=== PATIENT | male | born 1950 | race African-American/Black ===

== ENCOUNTER 2018-01-18 11:53 | Emergency (ER) | payer MEDICARE ==
--- NOTE | 2018-01-18 13:00 | RAD REPORT ---
EXAM DESCRIPTION: CT - Head Brain Wo Cont - 01/18/2018 12:43 pm CLINICAL HISTORY: verticle nystagmus, slurring of speech, eposodic ataxia COMPARISON: Head Brain Wo Cont dated 06/17/2016; Ct Stroke Brain Wo Cont dated 09/20/2015 TECHNIQUE: All CT scans are performed using dose optimization technique as appropriate and may inclu de automated exposure control or mA/KV adjustment according to patient size. FINDINGS: The heterogenous predominately hyperdense pontine lesion is again noted showing little to no change since comparative imaging. The lesion measures 25 x 25 mm. No intra-axial bleed is seen. No extra-axial fluid collection or hydrocephalus.No areas of brain edema or evidence of midline shift. The paranasal sinuses and mastoids are clear. The calvarium is intact. IMPRESSION: Predominately hyperdense heterogenous pontine mass is again noted without significant ch scott since prior study. No acute or new abnormality is detected.
--- NOTE | 2018-01-18 13:01 | RAD REPORT ---
EXAM DESCRIPTION: RAD - Chest Single View - 01/18/2018 12:56 pm CLINICAL HISTORY: neurologic symptoms Chest pain. COMPARISON: Chest Single View dated 06/17/2016 FINDINGS: Portable technique limits examination quality. The lungs are grossly clear. The heart is normal in size. No displaced fractures. IMPRESSION: No acute intrathoracic process suspected.
[2018-01-18 13:13] LABS: Absolute Lymphocytes (CBC) 1.4 K/uL (0.7-4.9); Absolute Monocytes 0.5 K/uL (0.1-1.3); Absolute Neutrophil 2.3 K/uL (1.8-8.0); Basophils % 0.4 % (0-1.3); Eosinophils % 1.7 % (0-4.4); Hematocrit 38.6 % (39.6-49.0); Lymphocytes % 31.7 % (15.3-44.8); MCH 31.9 pg (27.0-35.0); MCV 94.3 fL (80-100); MPV 10.3 fL (7.6-11.3); Monocytes % 12.2 % (3.3-12.3)
[2018-01-18 13:17] LABS: Protime INR 1.04
[2018-01-18 13:35] LABS: ALT/SGPT 20 U/L (12-78); AST/SGOT 13 U/L (15-37); Albumin 3.8 g/dL (3.4-5.0); Alkaline Phosphatase 76 U/L (45-117); BUN Blood Urea Nitrogen 9 mg/dL (7-18); Bicarbonate 29 mmol/L (21-32); Bilirubin Direct 0.1 mg/dL (0-0.2); Bilirubin Total 0.4 mg/dL (0.2-1.0); Creatine Phosphokinase 211 U/L (39-308); Glucose Level 101 mg/dL (74-106); Magnesium 2.7 mg/dL (1.8-2.4); Potassium 3.5 mmol/L (3.5-5.1); Protein, Total 7.3 g/dL (6.4-8.2); Sodium Level 141 mmol/L (136-145)
--- NOTE | 2018-01-18 14:30 | RAD REPORT ---
EXAM DESCRIPTION: MRI - Brain Wo Cont - 01/18/2018 2:13 pm CLINICAL HISTORY: Dizziness;Mental status change;Slurred speech COMPARISON: Head Brain Wo Cont dated 01/18/2018 TECHNIQUE: Multi-sequence, multiplanar MR imaging of the brain was performed without contrast. FINDINGS: No intracranial hemorrhage, hydrocephalus or extra-axial fluid collections. Pontine mass is identified measuring 2.9 x 2.6 cm. The mass demonstrates hypointense and hyperintense components on T1 weighted imaging and has the appearance of a cavernoma.No midline shift is seen. DW I is negative for acute CVA. Corpus callosum is normal appearance. Pituitary gland is not pathologically enlarged. Mastoid air cells and paranasal sinuses are clear. 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 No acute CVA or acute intracranial bleed identified.
--- NOTE | 2018-01-18 15:07 | EDPHYS ---
Physician Documentation [facility] Name: Patti Verdugo Age: 68 yrs Sex: Male : 1950 Arrival Date: 01/18/2018 Time: 11:54 Bed 19 Private MD: MOISES KAPADIA ED Physician Malick Frazier HPI: 01/18 14:12 This 68 yrs old Black Male presents to ER via Ambulatory with complaints of S/S of jr8 Possible Stroke. 14:12 Severity of symptoms: At their worst the symptoms were moderate in the emergency jr8 department the symptoms are unchanged. Patient's baseline: Neuro: alert and fully oriented, Motor: no deficits, Ambulation: walks without assistance, Speech: normal. The patient has not experienced similar symptoms in the past. The patient has not recently seen a physician. of patient stated that he has had a past history of hemorrhagic stroke. Stated that for the past couple of weeks has noticed speech difference. Stated that for the past 2 days has had increased slurred speech, trouble walking, and change in affect . Historical: - Allergies: 12:01 NKDA; hb - Home Meds: 12:03 ginko biloba [Active]; One Daily For Men 0.4-600 mg-mcg oral tab [Active]; Vitamin D hb Oral [Active]; carvedilol 6.25 mg oral tab [Active]; clopidogrel 75 mg oral tab 1 tab once daily [Active]; hydralazine 25 mg Oral tab 1 tab 2 times per day [Active]; amlodipine oral [Active]; olmesartan oral oral [Active]; - PMHx: 12:01 Arthritis; CVA; Hypertension; hb - PSHx: 12:01 Appendectomy; BACK SURG; hb - Immunization history:: Adult Immunizations up to date. - Social history:: Smoking status: Patient/guardian denies using tobacco. - Ebola Screening: : No symptoms or risks identified at this time. ROS: 14:12 Eyes: Negative for injury, pain, redness, and discharge, ENT: Negative for injury, jr8 pain, and discharge, Neck: Negative for injury, pain, and swelling, Cardiovascular: Negative for chest pain, palpitations, and edema, Respiratory: Negative for shortness of breath, cough, wheezing, and pleuritic chest pain, Abdomen/GI: Negative for abdominal pain, nausea, vomiting, diarrhea, and constipation, Back: Negative for injury and pain, MS/Extremity: Negative for injury and deformity, Skin: Negative for injury, rash, and discoloration. 14:12 Neuro: Positive for altered mental status, gait disturbance, speech changes. Exam: 14:12 Radiologist reports: unchanged pontine mass present jr8 14:12 Head/Face: Normocephalic, atraumatic. Eyes: Pupils equal round and reactive to light, extra-ocular motions intact. Lids and lashes normal. Conjunctiva and sclera are non-icteric and not injected. Cornea within normal limits. Periorbital areas with no swelling, redness, or edema. ENT: Nares patent. No nasal discharge, no septal abnormalities noted. Tympanic membranes are normal and external auditory canals are clear. Oropharynx with no redness, swelling, or masses, exudates, or evidence of obstruction, uvula midline. Mucous membranes moist. Neck: Trachea midline, no thyromegaly or masses palpated, and no cervical lymphadenopathy. Supple, full range of motion without nuchal rigidity, or vertebral point tenderness. No Meningismus. Cardiovascular: Regular rate and rhythm with a normal S1 and S2. No gallops, murmurs, or rubs. Normal PMI, no JVD. No pulse deficits. Respiratory: Lungs have equal breath sounds bilaterally, clear to auscultation and percussion. No rales, rhonchi or wheezes noted. No increased work of breathing, no retractions or nasal flaring. Abdomen/GI: Soft, non-tender, with normal bowel sounds. No distension or tympany. No guarding or rebound. No evidence of tenderness throughout. Back: No spinal tenderness. No costovertebral tenderness. Full range of motion. Skin: Warm, dry with normal turgor. Normal color with no rashes, no lesions, and no evidence of cellulitis. MS/ Extremity: Pulses equal, no cyanosis. Neurovascular intact. Full, normal range of motion. 14:12 Neuro: Orientation: to person, place, time \T\ situation. Mentation: is normal, Memory: is normal, Cranial nerves: CN I not tested, CN II- XII are normal as tested, visual verdugo are intact. extraocular movements are intact, Facial palsy and sensory deficits are absent. no gross hearing deficit,. Vertical nystagmus in right eye and left eye. Speech is dysarthric, slowed, slurred, Tongue strength is normal, Cerebellar function: normal finger to nose testing, heel to buitrago testing is normal, Motor: moves all fours, Sensation: is normal, Gait: not tested. Vital Signs: 12:00 BP 176 / 83; Pulse 68; Resp 18; Temp 97.9; Pulse Ox 97% on R/A; hb 13:00 BP 185 / 86; Pulse 52; Resp 12; Pulse Ox 99% on R/A; rb1 13:46 BP 173 / 78; Pulse 53; Resp 16; Pulse Ox 98% on R/A; dh3 14:45 BP 164 / 80; Pulse 54; Resp 16; Pulse Ox 98% on R/A; rb1 15:40 BP 177 / 96; Pulse 52; Resp 17; Pulse Ox 99% on R/A; Pain 0/10; rb1 16:40 BP 183 / 95; Pulse 60; Resp 18; Pulse Ox 98% on R/A; rb1 17:40 BP 167 / 94; Pulse 51; Resp 16; Pulse Ox 96% on R/A; Pain 0/10; rb1 18:40 BP 196 / 87; Pulse 51; Resp 16; Pulse Ox 100% on R/A; Pain 0/10; rb1 19:04 BP 169 / 82; Pulse 55; Resp 16; Pulse Ox 99% on R/A; mt 19:45 BP 167 / 98; Pulse 54; Resp 17; Temp 97.9(O); Pulse Ox 100% on R/A; Pain 0/10; bs1 NIH Stroke Scale Scores: 12:10 NIHSS Score: 1 rb1 14:16 NIHSS Score: 1 jr8 MDM: 12:11 Patient medically screened. jr8 14:51 Data reviewed: vital signs, nurses notes, lab test result(s), EKG, radiologic studies, jr8 CT scan, MRI. Data interpreted: Pulse oximetry: on room air is 98 %. Interpretation: normal. Counseling: I had a detailed discussion with the patient and/or guardian regarding: the historical points, exam findings, and any diagnostic results supporting the discharge/admit diagnosis, lab results, radiology results, the need to transfer to another facility, [facility] does not immediately have the required specialist. ED course: Discussed case with Dr. Waters. Recommends transfer for higher level of care for either neurosurgery or interventional neuroradiology to further evaluate him for the cavernoma since he has had acute mental status change and neurologic deficits . 15:04 ED course: [facility] accepted transfer under Dr. Mederos neurosurgery for [facility] . 01/18 12:08 Order name: Glucose, Ancillary Testing; Complete Time: 12:15 EDMS 01/18 12:27 Order name: CPK; Complete Time: 13:44 8 01/18 12:27 Order name: Magnesium; Complete Time: 13:44 01/18 12:27 Order name: Hepatic Function; Complete Time: 13:44 01/18 12:27 Order name: Basic Metabolic Panel; Complete Time: 13:44 01/18 12:27 Order name: CBC with Diff; Complete Time: 13:26 01/18 12:27 Order name: Protime (+inr); Complete Time: 13:26 01/18 12:27 Order name: Ptt, Activated; Complete Time: 13:26 01/18 12:27 Order name: Stroke CXR 1 View; Complete Time: 13:07 01/18 12:27 Order name: EKG; Complete Time: 12:27 01/18 12:27 Order name: Accucheck; Complete Time: 19:46 01/18 12:27 Order name: Cardiac monitoring; Complete Time: 19:46 01/18 12:27 Order name: CT Head Brain wo Cont; Complete Time: 13:07 01/18 13:07 Order name: MRI - Brain Wo Cont; Complete Time: 14:32 01/18 12:27 Order name: EKG - Nurse/Tech; Complete Time: 19:46 01/18 12:27 Order name: IV Saline Lock; Complete Time: 19:46 01/18 12:27 Order name: Labs collected and sent; Complete Time: 19:46 01/18 12:27 Order name: NPO; Complete Time: 19:47 01/18 12:27 Order name: O2 Per Protocol; Complete Time: 19:47 01/18 12:27 Order name: O2 Sat Monitoring; Complete Time: 19:47 01/18 12:27 Order name: Stroke Swallow Screen; Complete Time: 19:47 jr8 Administered Medications: No medications were administered Point of Care Testing: Blood Glucose: 12:00 Blood Glucose: 91 mg/dL; hb Ranges: Critical Glucose Levels:Adult <50 mg/dl or >400 mg/dl <40 mg/dl or >180 mg/dl Disposition: 01/18/18 15:06 Transfer ordered to [facility]. Diagnosis are Pontine Cavernoma, Altered mental status, unspecified, Dysarthria following unspecified cerebrovascular disease. - Reason for transfer: Higher level of care. - Accepting physician is Dr. Mederos. - Condition is Stable. - Problem is new. - Symptoms are unchanged. NIH Stroke Scale - NIH Stroke Score Date: 01/18/2018 Time: 12:10 Total Score = 1 1a. Level of Consciousness (LOC) - 0(Alert) 1b. Level of Consciousness (LOC) (Year \T\ Age) - 0(Both) 1c. LOC Commands (Open \T\ Closes Eyes/Computer Technologist) - 0(Both) 2. Best Gaze (Lateral Gaze Paresis) - 0(Normal) 3. Visual Field Loss - 0(No visual loss) 4. Facial Palsy - 0(Normal) 5a. Left Arm: Motor (10-second hold) - 0(No drift) 5b. Right Arm: Motor (10-second hold) - 0(No drift) 6a. Left Leg: Motor (5-second hold - always test supine) - 0(No drift) 6b. Right Leg: Motor (5-second hold - always test supine) - 0(No drift) 7. Limb Ataxia (finger/nose \T\ heel/buitrago - test with eyes open) - 0(Absent) 8. Sensory Loss (pinprick arms/legs/face) - 0(Normal) 9. Best Language: Aphasia (description/naming/reading) - 0(No aphasia) 10. Dysarthria (speech clarity - read or repeat words) - 1(Mild to Moderate) 11. Extinction and Inattention (visual/tactile/auditory/spatial/personal) - 0(No abnormality) Initials: rb1 NIH Stroke Scale - NIH Stroke Score Date: 01/18/2018 Time: 14:16 Total Score = 1 1a. Level of Consciousness (LOC) - 0(Alert) 1b. Level of Consciousness (LOC) (Year \T\ Age) - 0(Both) 1c. LOC Commands (Open \T\ Closes Eyes/Computer Technologist) - 0(Both) 2. Best Gaze (Lateral Gaze Paresis) - 0(Normal) 3. Visual Field Loss - 0(No visual loss) 4. Facial Palsy - 0(Normal) 5a. Left Arm: Motor (10-second hold) - 0(No drift) 5b. Right Arm: Motor (10-second hold) - 0(No drift) 6a. Left Leg: Motor (5-second hold - always test supine) - 0(No drift) 6b. Right Leg: Motor (5-second hold - always test supine) - 0(No drift) 7. Limb Ataxia (finger/nose \T\ heel/buitrago - test with eyes open) - 0(Absent) 8. Sensory Loss (pinprick arms/legs/face) - 0(Normal) 9. Best Language: Aphasia (description/naming/reading) - 0(No aphasia) 10. Dysarthria (speech clarity - read or repeat words) - 1(Mild to Moderate) 11. Extinction and Inattention (visual/tactile/auditory/spatial/personal) - 0(No abnormality) Initials: jr8 Addendum: 01/20/2018 15:40 Co-signature as Attending Physician, Malick Frazier MD. Signatures: Dispatcher [employer] EDMS Ronald Ford PA PA jr8 Renetta Gamboa RN RN Malick Frazier MD MD Alka Mcmillan RN RN bs1 Corrections: (The following items were deleted from the chart) 01/18 20:01 15:06 01/18/2018 15:06 Transfer ordered to [place] [id number] [facility]. Diagnosis is Pontine Cavernoma; Altered mental status, unspecified; Dysarthria following unspecified cerebrovascular disease. Reason for transfer: Higher level of care. Accepting physician is Dr. Mederos. Condition is Stable. Problem is new. Symptoms are unchanged. jr8
--- NOTE | 2018-01-18 15:07 | ER ---
Nurse's Notes [facility] Name: Patti Verdugo Age: 68 yrs Sex: Male : 1950 Arrival Date: 01/18/2018 Time: 11:54 Bed 19 Private MD: MOISES KAPADIA Diagnosis: Pontine Cavernoma;Altered mental status, unspecified;Dysarthria following unspecified cerebrovascular disease Presentation: 01/18 11:58 Presenting complaint: states: Slurred speech x 2 days, trouble swallowing today. hb Hx CVA. 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 Transition of care: patient was not received from another setting of care. Care prior to arrival: None. 11:58 Method Of Arrival: Ambulatory hb 11:58 Acuity: JOSE 3 hb 12:03 Onset of symptoms was January 17, 2018. hb 12:10 Risk Assessment: Do you want to hurt yourself or someone else? Patient reports no rb1 desire to harm self or others. Initial Sepsis Screen: Does the patient meet any 2 criteria? No. Patient's initial sepsis screen is negative. Does the patient have a suspected source of infection? No. Patient's initial sepsis screen is negative. 12:10 Pre-hospital glucose is not applicable to this patient. rb1 19:05 No acute neurological deficit is noted. bs1 Triage Assessment: 12:10 The onset of the patients symptoms was more than six hours ago. rb1 Stroke Activation: Symptom onset > 6 hours Physician: Stroke Attending; Name: ; Notified At: ; Arrived At: Physician: Chief Stroke Resident; Name: ; Notified At: ; Arrived At: Physician: Stroke Resident; Name: ; Notified At: ; Arrived At: Physician: ED Attending; Name: ; Notified At: ; Arrived At: Physician: ED Resident; Name: ; Notified At: ; Arrived At: Historical: - Allergies: 12:01 NKDA; hb - Home Meds: 12:03 ginko biloba [Active]; One Daily For Men 0.4-600 mg-mcg oral tab [Active]; Vitamin D hb Oral [Active]; carvedilol 6.25 mg oral tab [Active]; clopidogrel 75 mg oral tab 1 tab once daily [Active]; hydralazine 25 mg Oral tab 1 tab 2 times per day [Active]; amlodipine oral [Active]; olmesartan oral oral [Active]; - PMHx: 12:01 Arthritis; CVA; Hypertension; hb - PSHx: 12:01 Appendectomy; BACK SURG; hb - Immunization history:: Adult Immunizations up to date. - Social history:: Smoking status: Patient/guardian denies using tobacco. - Ebola Screening: : No symptoms or risks identified at this time. Screenin:10 Abuse screen: Denies threats or abuse. Nutritional screening: No deficits noted. rb1 Tuberculosis screening: No symptoms or risk factors identified. Fall Risk None identified. Assessment: 12:10 General: Appears in no apparent distress. comfortable, Behavior is calm, cooperative. rb1 Pain: Denies pain. Neuro: Reports tingling in the right hand x 1 year. Neuro: Level of Consciousness is awake, alert, obeys commands, has intermittent confusion. Oriented to person, place, time, situation. Cardiovascular: Capillary refill < 3 seconds is brisk in bilateral fingers. Respiratory: Airway is patent Respiratory effort is even, unlabored, Respiratory pattern is regular, symmetrical. GI: No signs and/or symptoms were reported involving the gastrointestinal system. : No signs and/or symptoms were reported regarding the genitourinary system. Derm: Skin is dry, Skin is normal, Skin temperature is warm. Musculoskeletal: Range of motion: intact in all extremities. 13:00 Patient has been NPO before screening. The patient is alert, and able to follow rb1 commands. The patient exhibits slurred or garbled speech. The patient is not exhibiting difficulty speaking. The patient does not exhibit difficulty understanding words. The patient is able to swallow own secretions with no drooling or need for suction. Patient tolerated one teaspoon of water. No drooling, immediate coughing, gurgling, or clearing of the throat was noted. The patient did not tolerate 90mL of water. Drooling, immediate coughing, gurgling, or clearing of the throat was noted. Bedside swallow screening discontinued. Patient kept NPO until cleared by Speech Therapy or Physician. The patient failed the bedside swallow screening. The patient will be kept NPO until cleared by Speech Therapy or Physician. Provider notified of bedside swallow screening results: Ronald SALCEDO. 13:10 Reassessment: Received order to keep the pt. NPO until cleared by neurology per Ronald rb1 Liliana. Family and pt. informed that the pt. should not have anything to eat or drink until directed otherwise. 14:00 Reassessment: Patient appears in no apparent distress at this time. Patient and/or rb1 family updated on plan of care and expected duration. Pain level reassessed. Patient is alert, oriented x 3, equal unlabored respirations, skin warm/dry/pink. Patient denies pain at this time. 14:56 Reassessment: Patient appears in no apparent distress at this time. No changes from rb1 previously documented assessment. Family at bedside. 15:25 Reassessment: Called report to MELYSSA Hurd at [facility]. Information from the SBAR was rb1 given. All questions asked and answered. 15:27 Reassessment: Pt. and family updated on the POC. rb1 16:20 Reassessment: Patient appears in no apparent distress at this time. Patient and/or rb1 family updated on plan of care and expected duration. Pain level reassessed. Patient is alert, oriented x 3, equal unlabored respirations, skin warm/dry/pink. Pt. is still waiting for transportation to be transferred. Patient denies pain at this time. 17:20 Reassessment: Patient appears in no apparent distress at this time. No changes from rb1 previously documented assessment. No new information on transportation at this time. Family at bedside. Family and Pt. updated on the POC. 18:20 Reassessment: Patient appears in no apparent distress at this time. Patient and/or rb1 family updated on plan of care and expected duration. Pain level reassessed. Patient is alert, oriented x 3, equal unlabored respirations, skin warm/dry/pink. Still waiting for transportation to be transferred. No new updates at this time. Patient denies pain at this time. 19:05 Reassessment: Report received from MELYSSA Ornelas. bs1 19:05 General: Appears in no apparent distress. comfortable, Behavior is calm, cooperative, bs1 appropriate for age. Pain: Denies pain. Neuro: Level of Consciousness is awake, alert, obeys commands, Oriented to person, place, time, situation, Speech is slurred, Facial symmetry appears normal, Intact. Cardiovascular: Denies chest pain, shortness of breath, Heart tones S1 S2 present Capillary refill < 3 seconds Patient's skin is warm and dry. Respiratory: Airway is patent Respiratory effort is even, unlabored, Respiratory pattern is regular, symmetrical. GI: No signs and/or symptoms were reported involving the gastrointestinal system. : No signs and/or symptoms were reported regarding the genitourinary system. EENT: No signs and/or symptoms were reported regarding the EENT system. Musculoskeletal: Circulation, motion, and sensation intact. Capillary refill < 3 seconds, Range of motion: intact in all extremities. 19:45 Reassessment: patient and requesting to leave AMA, nurse Rucker informed patient bs1 and of risks and stating that we are waiting for EMS to transport patient to [facility]. states "We have been here too long, im tired and want to go home, we will follow up with a neurologist in the morning." Nurse informed Dr Petty and GIOVANNY Templeton, to come speak with patient/family. EMS here for patient, DOROTHEA duncan Meghna went into patients room to speak with patient/. and patient now willing to be transferred to [facility]. 19:50 Reassessment: Report given to [facility]. bs1 Vital Signs: 12:00 BP 176 / 83; Pulse 68; Resp 18; Temp 97.9; Pulse Ox 97% on R/A; hb 13:00 BP 185 / 86; Pulse 52; Resp 12; Pulse Ox 99% on R/A; rb1 13:46 BP 173 / 78; Pulse 53; Resp 16; Pulse Ox 98% on R/A; dh3 14:45 BP 164 / 80; Pulse 54; Resp 16; Pulse Ox 98% on R/A; rb1 15:40 BP 177 / 96; Pulse 52; Resp 17; Pulse Ox 99% on R/A; Pain 0/10; rb1 16:40 BP 183 / 95; Pulse 60; Resp 18; Pulse Ox 98% on R/A; rb1 17:40 BP 167 / 94; Pulse 51; Resp 16; Pulse Ox 96% on R/A; Pain 0/10; rb1 18:40 BP 196 / 87; Pulse 51; Resp 16; Pulse Ox 100% on R/A; Pain 0/10; rb1 19:04 BP 169 / 82; Pulse 55; Resp 16; Pulse Ox 99% on R/A; mt 19:45 BP 167 / 98; Pulse 54; Resp 17; Temp 97.9(O); Pulse Ox 100% on R/A; Pain 0/10; bs1 NIH Stroke Scale Scores: 12:10 NIHSS Score: 1 rb1 14:16 NIHSS Score: 1 jr8 ED Course: 11:54 Patient arrived in ED. sb2 11:55 MOISES KAPADIA is Private Physician. sb2 12:00 Triage completed. hb 12:00 Arm band placed on right wrist. hb 12:10 Patient has correct armband on for positive identification. Placed in gown. Bed in low rb1 position. Call light in reach. Side rails up X2. Adult w/ patient. shelter monitor on. Pulse ox on. NIBP on. 12:11 Ronald Ford PA is PHCP. jr8 12:11 Malick Frazier MD is Attending Physician. jr8 12:42 CT completed. Patient tolerated procedure well. Patient moved to CT via stretcher. Patient moved back from CT. 12:43 CT Head Brain wo Cont In Process Unspecified. EDMS 12:52 EKG done, by electrical service technician. reviewed by Ronald SALCEDO. at1 12:55 X-ray completed. Portable x-ray completed in exam room. Patient tolerated procedure sw well. 12:56 Stroke CXR 1 View In Process Unspecified. EDMS 13:00 Inserted saline lock: 22 gauge in right antecubital area, using aseptic technique. rb1 Blood collected. 13:06 Ceci Kang, RN is Primary Nurse. rb1 13:54 Patient moved to MRI via wheelchair. ka 14:06 MRI - Brain Wo Cont In Process Unspecified. EDMS 19:00 Report given to MELYSSA Rucker. rb1 20:00 No provider procedures requiring assistance completed. Patient transferred, IV remains bs1 in place. intact. Administered Medications: No medications were administered Point of Care Testing: Blood Glucose: 12:00 Blood Glucose: 91 mg/dL; hb Ranges: Outcome: 15:06 ER care complete, transfer ordered by . jr8 20:00 Transferred by ground EMS to [facility], Transfer form completed. X-rays sent bs1 w/ patient. Note: Report given to [facility] 20:00 Condition: stable 20:00 Instructed on the need for transfer, Demonstrated understanding of instructions. 20:01 Patient left the ED. bs1 NIH Stroke Scale - NIH Stroke Score Date: 01/18/2018 Time: 12:10 Total Score = 1 1a. Level of Consciousness (LOC) - 0(Alert) 1b. Level of Consciousness (LOC) (Year \\T\\ Age) - 0(Both) 1c. LOC Commands (Open \\T\\ Closes Eyes/Snagger) - 0(Both) 2. Best Gaze (Lateral Gaze Paresis) - 0(Normal) 3. Visual Field Loss - 0(No visual loss) 4. Facial Palsy - 0(Normal) 5a. Left Arm: Motor (10-second hold) - 0(No drift) 5b. Right Arm: Motor (10-second hold) - 0(No drift) 6a. Left Leg: Motor (5-second hold - always test supine) - 0(No drift) 6b. Right Leg: Motor (5-second hold - always test supine) - 0(No drift) 7. Limb Ataxia (finger/nose \\T\\ heel/buitrago - test with eyes open) - 0(Absent) 8. Sensory Loss (pinprick arms/legs/face) - 0(Normal) 9. Best Language: Aphasia (description/naming/reading) - 0(No aphasia) 10. Dysarthria (speech clarity - read or repeat words) - 1(Mild to Moderate) 11. Extinction and Inattention (visual/tactile/auditory/spatial/personal) - 0(No abnormality) Initials: cox branson NIH Stroke Scale - NIH Stroke Score Date: 01/18/2018 Time: 14:16 Total Score = 1 1a. Level of Consciousness (LOC) - 0(Alert) 1b. Level of Consciousness (LOC) (Year \\T\\ Age) - 0(Both) 1c. LOC Commands (Open \\T\\ Closes Eyes/Snagger) - 0(Both) 2. Best Gaze (Lateral Gaze Paresis) - 0(Normal) 3. Visual Field Loss - 0(No visual loss) 4. Facial Palsy - 0(Normal) 5a. Left Arm: Motor (10-second hold) - 0(No drift) 5b. Right Arm: Motor (10-second hold) - 0(No drift) 6a. Left Leg: Motor (5-second hold - always test supine) - 0(No drift) 6b. Right Leg: Motor (5-second hold - always test supine) - 0(No drift) 7. Limb Ataxia (finger/nose \\T\\ heel/buitrago - test with eyes open) - 0(Absent) 8. Sensory Loss (pinprick arms/legs/face) - 0(Normal) 9. Best Language: Aphasia (description/naming/reading) - 0(No aphasia) 10. Dysarthria (speech clarity - read or repeat words) - 1(Mild to Moderate) 11. Extinction and Inattention (visual/tactile/auditory/spatial/personal) - 0(No abnormality) Initials: jr8 Signatures: Dispatcher [employer] Sol Wills Josh, PA PA jr8 aracelis, Padmini, machinist mechanic EKG Tat1 Angelina Cruz Rebecca, RN RN rb1 Kaila Brooke Heather RN RN james Schuler, Yelena Posada, Geena 3 Alka Mcmillan RN RN bs1 Taty Merida2 Corrections: (The following items were deleted from the chart) 12:04 11:58 Presenting complaint: states: Slurred speech x 2 days, trouble hb swallowing today. Hx CVA. Last known normal 2 days ago hb 15:33 12:10 Neuro: Level of Consciousness is awake, alert, obeys commands, Oriented rb1 to person, place, time, situation, rb1
--- NOTE | 2018-01-18 18:37 | EKG ---
Test Date: 2018-01-18 Test Time: 12:49:42 Intellectual Property Legal Assistant: ERIKA MEASUREMENT RESULTS: Intervals: Rate: 52 MO: 156 QRSD: 80 QT: 428 QTc: 398 Curran: P: 54 MO: 156 QRS: 9 T: 48 INTERPRETIVE STATEMENTS: Sinus bradycardia Nonspecific T wave abnormality Abnormal ECG Compared to ECG 06/17/2016 23:18:19 Sinus rhythm no longer present T-wave abnormality still present Electronically Signed On 01-18-18 18:36:16 CDT by Jerry Vanegas
[2018-01-18 20:51] VITALS: TEMP 97.9
[2018-01-18 21:01] VITALS: BP 167/98; O2SAT 100
== END 2018-01-18 20:01 | disposition short-term general hospital (02) ==
LOC: ER 11:53
DX: Q28.3 Other malformations of cerebral vessels (principal); I69.922 Dysarthria following unspecified cerebrovascular disease; I10 Essential (primary) hypertension
CPT/HCPCS: 36415; 70450; 70551; 71045; 80048; 80076; 82550; 82962; 83735; 85025; 85610; 85730; 93005; 99285

== ENCOUNTER 2019-04-12 10:43 | Inpatient (IN) | payer MEDICARE ==
--- NOTE | 2019-04-12 15:38 | R.PREADM ---
SCREENING DATE AND TIME 04/12/2019 11:08 (MICROARRAY ANALYST) ANTICIPATED REHAB ADMISSION DATE 04/14/2019 REFERRING FACILITY [facility] REFERRAL DATE AND TIME 04/12/2019 11:09 (MICROARRAY ANALYST) ACUTE ADMIT DATE 1950 Previous Rehabilitation(s): No. REFERRING PHYSICIAN S[facility] REHAB FACILITY [facility] CLINICAL LIAISON Patricio Alejandra PHYSICIAN REVIEWER Dr. Scott Waters M.D. [facility]# [id number] [id number] NAME TIM JO ADDRESS [address] [place] [address] [address]IP [phone] DATE OF 1950 AGE 69 SSN# [id number] GENDER male MARITAL STATUS RACE unknown race ADMIT FROM 02 - [facility] PRE-HOSPITAL LIVING SETTING 01 - Home (private home/apt. board/care, assisted living, assisted, transitional living) HOME TYPE AND DETAILS Type of home: single family house # of steps to enter the residence: 0 # of steps within the residence: 0 # of levels in the residence: 1 PRE-HOSPITAL LIVING WITH Family/Relatives FAMILY SUPPORT Yes PRIMARY FAMILY CONTACT NAME Mirella Jo PRIMARY FAMILY CONTACT PHONE PHONE PRIMARY FAMILY CONTACT ON ADM.? no IS PRIMARY FAMILY CONTACT AUTH. REP.? no 1ST EMERGENCY CONTACT Mirella Jo 1ST CONTACT PHONE PHONE 1ST CONTACT ON ADM. no IS 1ST CONTACT AUTH. REP.? no PHONE 2ND CONTACT ON ADM.? no PATIENT EMPLOYMENT STATUS Retired (for age) PATIENT EMPLOYER No Employer PAYOR INFORMATION: 1ST PAYOR NAME [facility] 1ST PAYOR PHONE 1ST PAYOR INJURY/ILLNESS DUE TO ACCIDENT? No ANOTHER CONSTITUTION PARTY RESPONSIBLE? 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 Pneumonia Dehydration Malnutrition SUMMARY OF ACUTE HOSPITALIZATION: Pt. is a 69 yo Right-handed male of unknown race. On 04/02/2019 he was admitted to [facility] with diagnosis Obstructive Hydrocephalus. His impairment category is Brain Dysfunction 02 - Closed Injury (07.27). Pre-morbidly, Pt. was independent/mod-I in Locomotion, Transfers Control, Self-Care, Ambulation, and Sphincter Control; and he had good Social Cognition. Currently, he has deficits of Locomotion, Self-Care, Transfers Control, Safety Awareness, Social Cogn ition, and Communication. Pt. is now referred to [facility] for acute in-patient rehabilitation in order to maximize patient's functional independence in activities of daily living, strength, ROM, and mobi lity. Patient has realistic goal of being discharged at assistance level 6-Osbaldo to reside at Home with Fam brea/Relatives. PAST MEDICAL HISTORY Hypokalemia (E87.6) arteriovenous malformation of cerebral vesels arthritis childhood asthma diplopia dysphagia hypertension PAST SURGICAL HISTORY: APPENDECTOMY rotator cuff surgery microlaminectomy MEDICATION ALLERGIES: No Known Drug Allergies (NKDA) ENVIRONMENTAL ALLERGIES: - Substance Allergies None Known - Other Allergies None Known CODE STATUS: Full code WEIGHT/HEIGHT/BMI: WEIGHT 175 lbs HEIGHT 5' 10" BMI 25.1 DIET: - Diet Type NPO (nothing by mouth) - Diet - Liquid Texture Regular - Tube Feed N/A REVIEW OF SYSTEMS: - Gen Alert and awake Lying in bed No apparent distress Oriented to: person, time, and place - Vital Signs Vital signs stable, afebrile - CVS RRR VITAL SIGNS Temperature: 97.8 F SBP/DBP: 144/75 Pulse: 99 Resp: 17 Vital signs stable, afebrile MEDICATIONS/TREATMENT: Other- See attached MAR (Medication Administration Record). CURRENT SPHINCTER CONTROL: Pre-hospital bladder status: continent # of bladder accidents in the last 7 days prior to screenin Pre-hospital bowel status: continent # of bowel accidents in the last 7 days prior to screenin Last Bowel Movement Date: 04/12/2019 CURRENT LOCOMOTION STATUS: distance traveled in wheelchair 0 feet distance walked 30 feet DETAILED CURRENT FUNCTIONAL STATUS: - Bladder accident frequency: Ind - No accidents in the past 7 days - Bowel accident frequency: Ind - No accidents in the past 7 days - Walking score based on distance walked: 1(<=50ft) - Wheelchair score based on distance traveled: 1(<=50ft) QI SCORES: - Self-Care A. Eating 01-Dependent B. Oral hygiene 05-Setup or clean-up assistance C. Toileting hygiene 03-Partial/moderate assistance E. Shower/bathe self 03-Partial/moderate assistance F. Upper body dressing 04-Supervision or touching assistance G. Lower body dressing 03-Partial/moderate assistance H. Putting on/taking off footwear 03-Partial/moderate assistance - Mobility A. Roll left and right 03-Partial/moderate assistance B. Sit to lying 04-Supervision or touching assistance C. Lying to sitting on side of bed 04-Supervision or touching assistance D. Sit to stand 04-Supervision or touching assistance E. Chair/[id number] transfer 04-Supervision or touching assistance F. Toilet transfer 04-Supervision or touching assistance G. Car transfer 88-Not attempted due to medical condition or safety concerns I. Walk 10 feet 02-Substantial/maximal assistance J. Walk 50 feet with two turns 88-Not attempted due to medical condition or safety concerns K. Walk 150 feet 88-Not attempted due to medical condition or safety concerns L. Walking 10 feet on uneven surfaces 88-Not attempted due to medical condition or safety concerns M. 1 step (curb) 88-Not attempted due to medical condition or safety concerns N. 4 steps 88-Not attempted due to medical condition or safety concerns O. 12 steps 88-Not attempted due to medical condition or safety concerns P. Picking up object 88-Not attempted due to medical condition or safety concerns R. Wheel 50 feet with two turns 88-Not attempted due to medical condition or safety concerns S. Wheel 150 feet 88-Not attempted due to medical condition or safety concerns - Bladder and Bowel Bladder continence 1-Stress incontinence only Bowel continence 0-Always continent - Endurance Fair - Balance Poor - Safety Awareness Poor CURRENT FUNC. DEFICITS: Locomotion, Self-Care, Transfers Control, Safety Awareness, Social Cognition, and Communication CURRENT / PREVIOUS ASSISTIVE DEVICES: 3-in-1 Commode BSC Glasses Raised Toilet Rolling Walker Shower Chair Tub Bench Wheelchair HISTORY OF FALLS. HAS THE PATIENT HAD TWO OR MORE FALLS IN THE PAST YEAR OR ANY FALL WITH INJURY IN T HE PAST YEAR?: Yes PRIOR SURGERY. DID THE PATIENT HAVE MAJOR SURGERY DURING THE 100 DAYS PRIOR TO ADMISSION?: Yes THERAPY NOTES FROM ACUTE CARE: Attached. SPECIAL NEEDS: - Safety Concerns Aspiration precautions needed due to Dysphagia Skin breakdown precautions needed due to skin breakdown risk PRECAUTIONS: - Aspiration Precaution 1 to 1 supervision with all po intake All meals in the dysphagia dining room No straws Seated at 90 degrees while eating and 30 minutes after meals - Fall Precaution 1 to 1 supervision PATIENT NEEDS ACTIVE AND ONGOING THERAPEUTIC INTERVENTION OF MULTIPLE THERAPY DISCIPLINES, INCLUDING: - Occupational Therapy Cognitive Retraining. Visual Perceptual Training. - Dietary and Nutrition Adequate Nutrition. Nutritional Education. Nutritional Supplements. - Speech Therapy Augmentative Communication Equipment. Cognitive Training. Dysphagia Therapy. Expressive Language Skil ls. Receptive Language Skills. PATIENT NEEDS CLOSE MEDICAL SUPERVISION BY A REHABILITATION PHYSICIAN FOR: Coordination of Treatment Team Medical and Co-Morbidity Management PATIENT REQUIRES 24X7 REHAB NURSING FOR MEDICAL AND FUNCTIONAL MGT. OF THE FOLLOWING DEFICITS: Disease Management Medication Management Patient/Family Education Providing Safe Environment Swallowing PATIENT REQUIRES INTENSIVE, COORDINATED INTERDISCIPLINARY APPROACH TO REHAB: Arranging Home Equipment/Services Discharge Planning Family Intervention/Training Excel Developer/Case Management PATIENT REHAB POTENTIAL: Claudia JO is able and expected to receive 3 hours of individualized therapy daily on at least 5 of ev mayra 7 days Claudia JO's prognosis for significant practical improvement within a reasonable period of time appear s Good Expected level of measurable improvement will be of a practical value to Claudia JO's functional capac ity or adaptations to impairments Has a viable Discharge Plan Medically appropriate; condition is sufficiently stable to participate in intensive rehab program DISCHARGE PLAN: - Estimated Length of Stay (days) 17. - Consensus on plan Discharge plan has been discussed with primary caregiver. Patient/Family is in agreement with the brock n. Primary caregiver is in agreement with the plan. - Patient/Family Goals Return home with assistance. - Planned Living Setting Upon Discharge Home, to live with Family/Relatives. RECOMMENDED CARE LEVEL: IRF RECOMMENDATION DETAILS: Recommended Admission to Comprehensive Rehabilitation Program to Increase Functional [place] SCREENER'S COMPLETENESS CONFIRMATION: - Screening Confirmation The patient data collection on this preadmission screening form is finished PHYSICIANS REVIEW AND ADMISSION DETERMINATION Admit - Based on my review of the Pre-Admission Screening results, in my medical judgment and experie nce, I concur with the findings and recommend admission to [facility], as this patient requires an IRF level of care. SIGNATURE PANEL: Clinical Liaison - [electronically] signed by Zehra Jones on 04/12/2019 at 12:36 (MICROARRAY ANALYST) Clinical Liaison - [electronically] signed by Patricio Alejandra on 04/12/2019 at 12:48 (MICROARRAY ANALYST) Physician Reviewer - [electronically] signed by Dr. Scott Waters M.D. on 04/12/2019 at 15:38 (MICROARRAY ANALYST )
[2019-04-12] MEDS ORDERED: ACETAMINOPHEN 325 MG TABLET PO PRN (18:30)
[2019-04-12] MEDS ORDERED: BISACODYL 10 MG RECTAL SUPP PR PRN (18:34)
[2019-04-12 19:07] LABS: Urine Appearance CLEAR; Urine Bilirubin NEGATIVE (NEG); Urine Blood NEGATIVE (NEG); Urine Color YELLOW; Urine Glucose NEGATIVE (NEG); Urine Protein NEGATIVE (NEG); Urine Urobilinogen 0.2 mg/dL (0.2-1.0)
[2019-04-12 19:15] LABS: Urine Bacteria <20 /HPF (NONE SEEN); Urine Culture Reflex Order NOT NEEDED; Urine RBC NONE SEEN /HPF (NONE SEEN)
[2019-04-12] MEDS: DOCUSATE NA 100 MG CAP PO SCH (20:00)
[2019-04-12] MEDS: SENOSIDES 8.6 MG TAB PO SCH (20:00)
[2019-04-12] MEDS: carvediloL 6.25 MG TAB PO SCH (21:20)
[2019-04-13] MEDS: HYDRALAZINE HCL 25 MG TABLET PO SCH ×4 (00:53→23:50)
[2019-04-13] MEDS: HEPARIN 5000 UNIT/ML 1 ML VIAL SQ SCH ×4 (01:00→23:51)
[2019-04-13] MEDS ORDERED: HYDRALAZINE HCL 25 MG TABLET PO SCH (01:00)
[2019-04-13 06:17] LABS: Absolute Lymphocytes (CBC) 2.1 K/uL (0.7-4.9); Hematocrit 34.3 % (39.6-49.0); Lymphocytes % 31.9 % (15.3-44.8); MPV 9.6 fL (7.6-11.3); RBC Red Blood Cell Count 3.69 M/uL (4.33-5.43)
[2019-04-13 06:50] LABS: Albumin 3.1 g/dL (3.4-5.0); BUN Blood Urea Nitrogen 18 mg/dL (7-18); Bicarbonate 26 mmol/L (21-32); Glucose Level 105 mg/dL (74-106); Magnesium 2.5 mg/dL (1.8-2.4); Potassium 4.1 mmol/L (3.5-5.1); Prealbumin 24.4 mg/dL (20-40); Sodium Level 140 mmol/L (136-145)
[2019-04-13] MEDS: AMLODIPINE 10 MG TAB PO SCH (08:16)
[2019-04-13] MEDS: DOCUSATE NA 100 MG CAP PO SCH ×2 (08:16→19:22)
[2019-04-13] MEDS: carvediloL 6.25 MG TAB PO SCH ×2 (08:17→19:52)
[2019-04-13] MEDS: SENOSIDES 8.6 MG TAB PO SCH ×2 (08:17→19:52)
--- NOTE | 2019-04-13 15:41 | R.HP ---
FACILITY: [facility] ENCOUNTER DATE AND TIME: 04/13/2019 14:56 (CODING COORDINATOR) MR#: [id number] TIM MCDONALD ADDRESS: [address] [place] [address] [address] CITY: [place] ZIP [address] PHONE: DATE OF : 1950 AGE: 69 SSN# [id number] GENDER: Male DEXTERITY Right-handed MARITAL STATUS RACE Unknown race PRE-HOSPITAL LIVING SETTING 01 - Home (private home/apt. board/care, assisted living, fci, transitional living) PRE-HOSPITAL LIVING WITH Family/Relatives ENCOUNTER PHYSICIAN: Dr. Scott Waters M.D. 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 is a 69 yo Right-handed male of unknown race. On 04/02/2019 he was admitted to [facility] with diagnosis Obstructive Hydrocephalus. His impairment category is Brain Dysfunction 02 - Closed Injury (02.22). Pre-morbidly, Pt. was independent/mod-I in Locomotion, Transfers Control, Self-Care, Ambulation, and Sphincter Control; and he had good Social Cognition. Currently, he has deficits of Locomotion, Self-Care, Transfers Control, Safety Awareness, Social Cogn ition, and Communication. Pt. is now referred to [facility] for acute in-patient rehabilitation in order to maximize patient's functional independence in activities of daily living, strength, ROM, and mobi lity. Patient has realistic goal of being discharged at assistance level 6-Osbaldo to reside at Home with Fam brea/Relatives. MEDICATION ALLERGIES: No Known Drug Allergies (NKDA) ENVIRONMENTAL ALLERGIES: - Substance Allergies None Known - Other Allergies None Known PAST MEDICAL HISTORY: Hypokalemia (E87.6) arteriovenous malformation of cerebral vesels arthritis childhood asthma diplopia dysphagia hypertension PAST SURGICAL HISTORY: APPENDECTOMY rotator cuff surgery microlaminectomy FAMILY HISTORY: Family history is not contributory. SOCIAL HISTORY: - Home Living Family/Relatives REVIEW OF SYSTEMS: - Gen No Chills Fatigue No Fever - Eyes No Double Vision No itchiness - ENMT No Difficulty Swallowing - CVS No Chest Discomfort No Chest Pain Fatigue No Weight Gain - Resp No Cough No Shortness of Breath - GI Continent No Abdominal Pain No Constipation No Diarrhea - Continent No Kidney Pain No Painful Urination No Urinary Urgency - MSK Joint Pain No Muscle Cramps Stiffness - Skin No Itching No Rash No Suspicious Lesions - Neuro Coordination Difficulty Difficulty with Concentration Memory Loss No Seizures Weakness - Psych No Anxiety No Depression No HIV Exposure No Persistent Infections No Seasonal Allergies - Endo No Cold/Heat Intolerance No Excessive Hunger No Excessive Thirst No Excessive Urination PHYSICAL EXAM - Gen Alert and awake Lying in bed No apparent distress Oriented to: person, time, and place - Skin No skin breakdown. Normacephalic HUB INVENTORY SPECIALIST shunt is intact. - Eyes No abnormalities - ENMT No abnormalities - Neck No abnormalities - CVS RRR - Chest No abnormalities - Abd Soft - GI Non distended Deferred - No abnormalities - Ext Mild bilateral lower extremity edema. - MSK 4+/5 weakness in left lower extremity - Neuro 4/5 strength bilaterally upper and lower extremities. - Psych No abnormalities VITAL SIGNS Temperature: 97.8 F SBP/DBP: 144/75 Pulse: 99 Resp: 17 NURSING: - Shower allowing shower - Bladder care per protocol - Skin care per protocol PRECAUTIONS: - Aspiration Precaution 1 to 1 supervision with all po intake All meals in the dysphagia dining room No straws Seated at 90 degrees while eating and 30 minutes after meals - Fall Precaution 1 to 1 supervision ACTIVITIES OOB only with supervision FUNCTIONAL STATUS: - Self-Care A. Eating sup Osbaldo B. Grooming sup modA C. Bathing sup modA D. Dressing - Upper sup modA E. Dressing - Lower sup modA F. Toileting sup modA - Sphincter Control G. Bladder control sup modA H. Bowel control sup modA - Transfers Control I. Bed/Chair/Wheelchair Elba Elba J. Toilet Elba modA K. Tub/Shower modA modA - Locomotion L. Walk/Wheelchair (W) modA maxA M. Stairs modA Dep - Communication N. Comprehension (A) sup Elba O. Expression (B) sup Elba - Social Cognition P. Social Interaction sup Elba Q. Problem Solving sup Elba R. Memory sup Elba - Endurance Good - Balance Good - Safety Awareness Good QI SCORES: - Self-Care A. Eating 01-Dependent B. Oral hygiene 05-Setup or clean-up assistance C. Toileting hygiene 03-Partial/moderate assistance E. Shower/bathe self 03-Partial/moderate assistance F. Upper body dressing 04-Supervision or touching assistance G. Lower body dressing 03-Partial/moderate assistance H. Putting on/taking off footwear 03-Partial/moderate assistance - Mobility A. Roll left and right 03-Partial/moderate assistance B. Sit to lying 04-Supervision or touching assistance C. Lying to sitting on side of bed 04-Supervision or touching assistance D. Sit to stand 04-Supervision or touching assistance E. Chair/zvg-[id number]-yfzry transfer 04-Supervision or touching assistance F. Toilet transfer 04-Supervision or touching assistance G. Car transfer 88-Not attempted due to medical condition or safety concerns I. Walk 10 feet 02-Substantial/maximal assistance J. Walk 50 feet with two turns 88-Not attempted due to medical condition or safety concerns K. Walk 150 feet 88-Not attempted due to medical condition or safety concerns L. Walking 10 feet on uneven surfaces 88-Not attempted due to medical condition or safety concerns M. 1 step (curb) 88-Not attempted due to medical condition or safety concerns N. 4 steps 88-Not attempted due to medical condition or safety concerns O. 12 steps 88-Not attempted due to medical condition or safety concerns P. Picking up object 88-Not attempted due to medical condition or safety concerns R. Wheel 50 feet with two turns 88-Not attempted due to medical condition or safety concerns S. Wheel 150 feet 88-Not attempted due to medical condition or safety concerns - Bladder and Bowel Bladder continence 1-Stress incontinence only Bowel continence 0-Always continent - Endurance Fair - Balance Poor - Safety Awareness Poor CURRENT FUNC. DEFICITS: Locomotion, Self-Care, Transfers Control, Safety Awareness, Social Cognition, and Communication MEDICATIONS: - Other See attached MAR (Medication Administration Record) ASSESSMENT: Pt. is a 69 yo Right-handed male of unknown race.On 04/02/2019 he was admitted to [facility] diagnosis Obstructive Hydrocephalus.His impairment category is Brain Dysfunction 02 - Closed Inju ry (07.27).Pre-morbidly, Pt. was independent/mod-I in Locomotion, Transfers Control, Self-Care, Ambul ation, and Sphincter Control; and he had good Social Cognition.Currently, he has deficits of Locomoti on, Self-Care, Transfers Control, Safety Awareness, Social Cognition, and Communication.Pt. is now re ferred to [facility] for acute in-patient rehabilitation in order to maximize patient's functional independence in activities of daily living, strength, ROM, and mobility.- Rehab Goal Patient has realistic goal of being discharged at assistance level 6-Osbaldo to reside at Home with Fam brea/Relatives. - Physical Therapy Gait dysfunction - to improve, our physical therapists will perform initial evaluation of pt's status upon admission and devise an individualized program for Gait Training, and Wheel Chair mobility Inability to transfer - to improve, our physical therapists will perform initial evaluation of pt's s tatus upon admission and devise an individualized program for Bed mobility Need for home safety evaluation - to improve, our physical therapists will perform initial evaluation of pt's status upon admission and devise an individualized program for Home Evaluation Edema - to improve, our physical therapists will perform initial evaluation of pt's status upon admi ssion and devise an individualized program for Elevation Training, and Lymphedema Therapy Need in caregiver upon discharge - to improve, our physical therapists will perform initial evaluatio n of pt's status upon admission and devise an individualized program for Caregiver Training New precaution - to improve, our physical therapists will perform initial evaluation of pt's status u ally admission and devise an individualized program for Patient precaution education Achieving independence - to improve, our physical therapists will perform initial evaluation of pt's status upon admission and devise an individualized program for Community Reintegration Activities - Occupational Therapy ADL deficits - to improve, our occupation therapists will perform initial evaluation of pt's status u ally admission and devise an individualized program for Bathing, Bed mobility, Community Reintegration , Cooking, Dressing, Eating, Fine Motor Skills, Grooming, Homemaking, Kitchen Mobility, Laundry, Leela ent Education, Safety Awareness, Splinting - Positioning, Transfers(Toilet, Tub, Shower), and Wheel C hair Management Cognitive deficits - to improve, our occupation therapists will perform initial evaluation of pt's st atus upon admission and devise an individualized program for Cognition - orientation Need for rn homecare - to improve, our occupation therapists will perform initial evaluation of pt's s tatus upon admission and devise an individualized program for Caregiver Training MEDICAL PLAN: - Diet Type Start NPO (nothing by mouth) - Diet - Liquid Texture Start Regular - Tube Feed Start N/A - Bladder care per protocol - Aspiration Precaution 1 to 1 supervision with all po intake All meals in the dysphagia dining room No straws Seated at 90 degrees while eating and 30 minutes after meals - Fall Precaution 1 to 1 supervision - Skin care per protocol - Other See attached MAR (Medication Administration Record) - Shower shower DISCHARGE PLAN: - Estimated Length of Stay (days) 17. - Consensus on plan Discharge plan has been discussed with primary caregiver. Patient/Family is in agreement with the brock n. Primary caregiver is in agreement with the plan. - Patient/Family Goals Return home with assistance. - Planned Living Setting Upon Discharge Home, to live with Family/Relatives. SIGNATURE PANEL: (CODING COORDINATOR)
--- NOTE | 2019-04-13 15:43 | PAPE ---
PATIENT: [facility] MR# [id number] REFERRING DOCTOR Sánchez Mederos EVALUATION DATE AND TIME 04/13/2019 15:41 (CONTRACT ASSOCIATE) NAME TIM JO DATE OF 1950 AGE 69 PHONE SSN# [id number] GENDER male EVALUATING PHYSICIAN Dr. Scott Waters M.D. ADMISSION DIAGNOSIS: Obstructive Hydrocephalus ONSET DATE 04/02/2019 SECONDARY/COMORBID DIAGNOSES TIERED: - Non-Tiered Hypokalemia (E87.6) dysphagia arteriovenous malformation of cerebral vesels diplopia - N/A hypertension arthritis childhood asthma POST-ADMISSION FUNCTIONAL/MEDICAL STATUS: - Bladder Same accident frequency: Ind - No accidents in the past 7 days - Bowel Same accident frequency: Ind - No accidents in the past 7 days - Walking Same score based on distance walked: 1(<=50ft) - Wheelchair Same score based on distance traveled: 1(<=50ft) STATUS CHANGE EVALUATION: No change in Functional or Medical Status is identified compared with Pre-Admission screening. PATIENT NEEDS CLOSE MEDICAL SUPERVISION BY A REHABILITATION PHYSICIAN FOR: Coordination of Treatment Team Medical and Co-Morbidity Management PATIENT REQUIRES 24X7 REHAB NURSING FOR MEDICAL AND FUNCTIONAL MGT. OF THE FOLLOWING DEFICITS: Disease Management Medication Management Patient/Family Education Providing Safe Environment Swallowing PATIENT REQUIRES INTENSIVE, COORDINATED INTERDISCIPLINARY APPROACH TO REHAB: Arranging Home Equipment/Services Discharge Planning Family Intervention/Training Cover Assembler/Case Management LIST OF IDENTIFIED AND POTENTIAL PROBLEMS: Alteration in leisure activities Aspiration, Actual or Potential Bladder, Incontinence Blood Pressure, Hypertension/hypotension Issues Bowel, Incontinence Infection, Actual or Potential Mobility Impaired Pain, Alteration in Comfort Self Care Deficit Skin Integrity, Actual or Potential Urinary Tract Infection (UTI), Actual or Potential RISK FOR COMPLICATIONS - Hypertension CVA. Hypotension. ID. TIA. - Dysphagia Asp. Pneumonia. Dehydration. Malnutrition. INTERVENTIONS - Hypertension - Dysphagia PATIENT COULD BE AT RISK FOR COMPLICATIONS FROM ADVERSE MEDICAL CONDITIONS DUE TO HIS/HER COMORBIDITI ES AND THE RIGORS OF THE INTENSIVE REHABILLITATION PROGRAM. METHODS OR INTERVENTIONS TO AVOID COMPLIC ATIONS INCLUDE: - Infection Clinical staff to assess and manage the signs and symptoms of infection including fever, redness, war mth, etc. - Urinary Tract Infection - Aspiration Clinical staff will assess and manage coughing, drooling, congestion. - Falls Patient will be evaluated for Fall Precautions and will be placed on Fall Precautions as indicated pe r protocol. - Skin Breakdown Nursing will assess skin daily using assessment tool and will place on Skin Breakdown Precautions as indicated per protocol. - Pain Clinical staff may employ non-medication methods such as massage, distraction, decrease stimulus, etc . as needed. Clinical staff will assess patient's pain level every shift per protocol to assess and e nsure pain management effectiveness. Medications will be given and the pain level re-assessed. PRELIMINARY PLAN OF CARE: - Physical Therapy Patient needs Physical Therapy for a daily minimum of 1.5 hours at least 5 out of 7 days, to improve: Mobility, Strengthening, Transfers, Stretching, ROM, Endurance, Ability to manage stairs, Gait, and Balance. - Speech Therapy Patient needs Speech Therapy for a daily minimum of 0.5 hours at least 5 out of 7 days, to improve: S wallowing, Cognition, Language Skills, and Compensatory Strategies. - Rehabilitation Nursing Patient requires 24x7 Rehabilitation Nursing for: Pain Issues, Identifying and preventing risk factor s, Monitoring and reporting current medical conditions, Assisting with ambulation and transfer, Siobhan ting with all ADL-s, Teaching patients about disease process and medications, Family teaching, Provid ing safe environment, Bowel and Bladder Issues, Skin Integrity, and Medication Management. Patient needs Cover Assembler and/or Case Management for: Discharge Planning, Arranging Home Equipmen t or Services, and Family Interventions. - Dietary and Nutrition Services Patient needs Dietary and Nutrition Services for: Adequate Nutrition, Nutritional Supplements, and Nu tritional Education. - Occupational Therapy Patient needs Occupational Therapy for a daily minimum of 1.5 hours at least 5 out of 7 days, to impr ove Activities of Daily Living, including: Eating, Grooming, Bathing, Dressing, Toileting, Toilet Tra nsfers, Community Reintegration, Higher functional activities, Adaptive Equipment, Splinting, Househo ld Tasks, and Other activities as determined. QI SCORES: - Self-Care A. Eating 01-Dependent B. Oral hygiene 05-Setup or clean-up assistance C. Toileting hygiene 03-Partial/moderate assistance E. Shower/bathe self 03-Partial/moderate assistance F. Upper body dressing 04-Supervision or touching assistance G. Lower body dressing 03-Partial/moderate assistance H. Putting on/taking off footwear 03-Partial/moderate assistance - Mobility A. Roll left and right 03-Partial/moderate assistance B. Sit to lying 04-Supervision or touching assistance C. Lying to sitting on side of bed 04-Supervision or touching assistance D. Sit to stand 04-Supervision or touching assistance E. Chair/kvg-[id number]-mwqxq transfer 04-Supervision or touching assistance F. Toilet transfer 04-Supervision or touching assistance G. Car transfer 88-Not attempted due to medical condition or safety concerns I. Walk 10 feet 02-Substantial/maximal assistance J. Walk 50 feet with two turns 88-Not attempted due to medical condition or safety concerns K. Walk 150 feet 88-Not attempted due to medical condition or safety concerns L. Walking 10 feet on uneven surfaces 88-Not attempted due to medical condition or safety concerns M. 1 step (curb) 88-Not attempted due to medical condition or safety concerns N. 4 steps 88-Not attempted due to medical condition or safety concerns O. 12 steps 88-Not attempted due to medical condition or safety concerns P. Picking up object 88-Not attempted due to medical condition or safety concerns R. Wheel 50 feet with two turns 88-Not attempted due to medical condition or safety concerns S. Wheel 150 feet 88-Not attempted due to medical condition or safety concerns - Bladder and Bowel Bladder continence 1-Stress incontinence only Bowel continence 0-Always continent - Endurance Fair - Balance Poor - Safety Awareness Poor POTENTIAL FUNCTIONAL GOALS FOR PATIENT TO ACHIEVE BY DISCHARGE: - Safety Precaution Patient will remain free from falls or injury at time of discharge. - Bed Mobility Patient will perform bed mobility at 4-Elba level of assistance. - Transfers Patient will complete transfers from bed to chair at 4-Elba level of assistance. - Mobility Patient will ambulate 150 ft with 4-Elba level of assistance with RW. PATIENT REHAB POTENTIAL Claudia JO is able and expected to receive 3 hours of individualized therapy daily on at least 5 of ev mayra 7 days Claudia JO's prognosis for significant practical improvement within a reasonable period of time appear s Good Expected level of measurable improvement will be of a practical value to Claudia JO's functional capac ity or adaptations to impairments Has a viable Discharge Plan Medically appropriate; condition is sufficiently stable to participate in intensive rehab program DISCHARGE PLAN: - Estimated Length of Stay (days) 17. - Consensus on plan Discharge plan has been discussed with primary caregiver. Patient/Family is in agreement with the brock n. Primary caregiver is in agreement with the plan. - Patient/Family Goals Return home with assistance. - Planned Living Setting Upon Discharge Home, to live with Family/Relatives. CONCLUSION ON REHABILITATION NECESSITY: I have evaluated patient's pre-admission functional status and, comparing it to the patient's post-ad mission functional status now, I conclude that the pre-admission assessment was accurate. Patient's c ondition on admission supports the medical necessity of admission to [facility]. It is safe to proceed with patient's therapy program. SIGNATURE PANEL: (CONTRACT ASSOCIATE)
--- NOTE | 2019-04-13 16:33 | FAST ---
ENCOUNTER DATE AND TIME: 04/13/2019 08:00 (BLENDING LINE ATTENDANT) NAME TIM JO DATE OF : 1950 DATE OF ADMISSION: 04/13/2019 14:57 (BLENDING LINE ATTENDANT) PHONE: AGE: 69 N# [id number] GENDER: Male ENCOUNTER PHYSICIAN: Dr. Scott Waters M.D. ADMISSION DIAGNOSIS: - Brain Dysfunction 02 - Closed Injury (07.27) Obstructive Hydrocephalus. ROLL LEFT AND RIGHT: ROLL LEFT AND RIGHT - STEP 1: Does the patient complete the activity by him/herself with no assistance (physical, verbal/nonverbal cueing, setup/clean-up)? No. ROLL LEFT AND RIGHT - STEP 2: Does the patient need only setup/clean-up assistance from one helper? No. ROLL LEFT AND RIGHT - STEP 3: Does the patient need only verbal/nonverbal cueing or touching/steadying/contact guard assistance fro m one helper? Yes. 1. [id number] ADMISSION PERFORMANCE: Supervision or touching assistance CODE: 04 [id number] - COMMENTS: Pt was able to scoot, bridge and roll to R and L side but with decreased coordination SIT TO LYING: SIT TO LYING - STEP 1: Does the patient complete the activity by him/herself with no assistance (physical, verbal/nonverbal cueing, setup/clean-up)? No. SIT TO LYING - STEP 2: Does the patient need only setup/clean-up assistance from one helper? No. SIT TO LYING - STEP 3: Does the patient need only verbal/nonverbal cueing or touching/steadying/contact guard assistance fro m one helper? Yes. 1. [id number] ADMISSION PERFORMANCE: Supervision or touching assistance CODE: 04 [id number] - COMMENTS: Pt requires >75% vc due to decreased safety awareness LYING TO SITTING: LYING TO SITTING ON SIDE OF BED - STEP 1: Does the patient complete the activity by him/herself with no assistance (physical, verbal/nonverbal cueing, setup/clean-up)? No. LYING TO SITTING ON SIDE OF BED - STEP 2: Does the patient need only setup/clean-up assistance from one helper? No. LYING TO SITTING ON SIDE OF BED - STEP 3: Does the patient need only verbal/nonverbal cueing or touching/steadying/contact guard assistance fro m one helper? Yes. 1. [id number] ADMISSION PERFORMANCE: Supervision or touching assistance CODE: [id number] - COMMENTS: Pt requires supervision due to decreased trunk control and high fall risk in sitting EOB SIT TO STAND: SIT TO STAND - STEP 1: Does the patient complete the activity by him/herself with no assistance (physical, verbal/nonverbal cueing, setup/clean-up)? No. SIT TO STAND - STEP 2: Does the patient need only setup/clean-up assistance from one helper? No. SIT TO STAND - STEP 3: Does the patient need only verbal/nonverbal cueing or touching/steadying/contact guard assistance fro m one helper? Yes. 1. [id number] ADMISSION PERFORMANCE: Supervision or touching assistance CODE: [id number] - COMMENTS: Pt requires CGA with sit-stand due to decreased trunk control TRANSFERS: BED, CHAIR: CHAIR/AEA-VI-DCRNG TRANSFER - STEP 1: Does the patient complete the activity by him/herself with no assistance (physical, verbal/nonverbal cueing, setup/clean-up)? No. CHAIR/HWY-UE-GMIIM TRANSFER - STEP 2: Does the patient need only setup/clean-up assistance from one helper? No. CHAIR/REL-EP-VDQAW TRANSFER - STEP 3: Does the patient need only verbal/nonverbal cueing or touching/steadying/contact guard assistance fro m one helper? No. CHAIR/UEB-MX-RFLLX TRANSFER - STEP 4: Does the patient need physical assistance - for example lifting or trunk support from one helper - wi th the helper providing less than half of the effort? Yes. 1. [id number] ADMISSION PERFORMANCE: Partial/moderate assistance CODE: [id number] - COMMENTS: Patient exhibit decreased trunk stability, lack of coordination, poor safety awareness and impulsive mobility TRANSFER TOILET: TOILET TRANSFER - STEP 1: Does the patient complete the activity by him/herself with no assistance (physical, verbal/nonverbal cueing, setup/clean-up)? No. TOILET TRANSFER - STEP 2: Does the patient need only setup/clean-up assistance from one helper? No. TOILET TRANSFER - STEP 3: Does the patient need only verbal/nonverbal cueing or touching/steadying/contact guard assistance fro m one helper? Yes. 1. [id number] ADMISSION PERFORMANCE: Supervision or touching assistance CODE: [id number] - COMMENTS: CGA with sit-stand with use of side rail, or CGA without AD TRANSFERS: CAR: Not attempted due to environmental limitations (e.g., lack of equipment, weather constraints) CODE: 10 WALK 10 FEET: WALK 10 FEET - STEP 1: Does the patient complete the activity by him/herself with no assistance (physical, verbal/nonverbal cueing, setup/clean-up)? No. WALK 10 FEET - STEP 2: Does the patient need only setup/clean-up assistance from one helper? No. WALK 10 FEET - STEP 3: Does the patient need only verbal/nonverbal cueing or touching/steadying/contact guard assistance fro m one helper? No. WALK 10 FEET - STEP 4: Does the patient need physical assistance - for example lifting or trunk support from one helper - wi th the helper providing less than half of the effort? Yes. 1. [id number] ADMISSION PERFORMANCE: Partial/moderate assistance CODE: [id number] - COMMENTS: Exhibit listing towards R side with poor trunk control and uneven step pattern requiring Min A with o r without AD. WALK 50 FEET: WALK 50 FEET - STEP 1: Does the patient complete the activity by him/herself with no assistance (physical, verbal/nonverbal cueing, setup/clean-up)? No. WALK 50 FEET - STEP 2: Does the patient need only setup/clean-up assistance from one helper? No. WALK 50 FEET - STEP 3: Does the patient need only verbal/nonverbal cueing or touching/steadying/contact guard assistance fro m one helper? No. WALK 50 FEET - STEP 4: Does the patient need physical assistance - for example lifting or trunk support from one helper - wi th the helper providing less than half of the effort? Yes. 1. [id number] ADMISSION PERFORMANCE: Partial/moderate assistance CODE: [id number] - COMMENTS: Exhibit increased instability with further distances, with increased listing towards R side with poo r trunk control and uneven step pattern requiring Min A with walker WALK 150 FEET: WALK 150 FEET - STEP 1: Does the patient complete the activity by him/herself with no assistance (physical, verbal/nonverbal cueing, setup/clean-up)? No. WALK 150 FEET - STEP 2: Does the patient need only setup/clean-up assistance from one helper? No. WALK 150 FEET - STEP 3: Does the patient need only verbal/nonverbal cueing or touching/steadying/contact guard assistance fro m one helper? No. WALK 150 FEET - STEP 4: Does the patient need physical assistance - for example lifting or trunk support from one helper - wi th the helper providing less than half of the effort? No. WALK 150 FEET - STEP 5: Does the patient need physical assistance - for example lifting or trunk support from one helper - wi th the helper providing more than half of the effort? No. WALK 150 FEET - STEP 6: Does the helper provide all of the effort? OR Is the assistance of two or more helpers required to co mplete the activity? Yes. 1. [id number] ADMISSION PERFORMANCE: Dependent CODE: [id number] - COMMENTS: Pt unable to complete more than 100ft, displayed increased sway requiring more assistance to complete the activity. WALK 10 FEET UNEVEN: WALKING 10 FEET ON UNEVEN SURFACES - STEP 1: Does the patient complete the activity by him/herself with no assistance (physical, verbal/nonverbal cueing, setup/clean-up)? No. WALKING 10 FEET ON UNEVEN SURFACES - STEP 2: Does the patient need only setup/clean-up assistance from one helper? No. WALKING 10 FEET ON UNEVEN SURFACES - STEP 3: Does the patient need only verbal/nonverbal cueing or touching/steadying/contact guard assistance fro m one helper? No. WALKING 10 FEET ON UNEVEN SURFACES - STEP 4: Does the patient need physical assistance - for example lifting or trunk support from one helper - wi th the helper providing less than half of the effort? Yes. 1. [id number] ADMISSION PERFORMANCE: Partial/moderate assistance CODE: 03 1 STEP (CURB): 1 STEP CURB - STEP 1: Does the patient complete the activity by him/herself with no assistance (physical, verbal/nonverbal cueing, setup/clean-up)? No. 1 STEP CURB - STEP 2: Does the patient need only setup/clean-up assistance from one helper? No. 1 STEP CURB - STEP 3: Does the patient need only verbal/nonverbal cueing or touching/steadying/contact guard assistance fro m one helper? No. 1 STEP CURB - STEP 4: Does the patient need physical assistance - for example lifting or trunk support from one helper - wi th the helper providing less than half of the effort? Yes. 1. [id number] ADMISSION PERFORMANCE: Partial/moderate assistance CODE: [id number] - COMMENTS: Patient requires hand support while managing a step requiring Min A 4 STEPS: 4 STEPS - STEP 1: Does the patient complete the activity by him/herself with no assistance (physical, verbal/nonverbal cueing, setup/clean-up)? No. 4 STEPS - STEP 2: Does the patient need only setup/clean-up assistance from one helper? No. 4 STEPS - STEP 3: Does the patient need only verbal/nonverbal cueing or touching/steadying/contact guard assistance fro m one helper? No. 4 STEPS - STEP 4: Does the patient need physical assistance - for example lifting or trunk support from one helper - wi th the helper providing less than half of the effort? No. 4 STEPS - STEP 5: Does the patient need physical assistance - for example lifting or trunk support from one helper - wi th the helper providing more than half of the effort? No. 4 STEPS - STEP 6: Does the helper provide all of the effort? OR Is the assistance of two or more helpers required to co mplete the activity? Yes. 1. [id number] ADMISSION PERFORMANCE: Dependent CODE: [id number] - COMMENTS: Patient unable to complete 4 steps at this time due to fatigue 12 STEPS: 12 STEPS - STEP 1: Does the patient complete the activity by him/herself with no assistance (physical, verbal/nonverbal cueing, setup/clean-up)? No. 12 STEPS - STEP 2: Does the patient need only setup/clean-up assistance from one helper? No. 12 STEPS - STEP 3: Does the patient need only verbal/nonverbal cueing or touching/steadying/contact guard assistance fro m one helper? No. 12 STEPS - STEP 4: Does the patient need physical assistance - for example lifting or trunk support from one helper - wi th the helper providing less than half of the effort? No. 12 STEPS - STEP 5: Does the patient need physical assistance - for example lifting or trunk support from one helper - wi th the helper providing more than half of the effort? No. 12 STEPS - STEP 6: Does the helper provide all of the effort? OR Is the assistance of two or more helpers required to co mplete the activity? Yes. 1. [id number] ADMISSION PERFORMANCE: Dependent CODE: [id number] - COMMENTS: Pt unable to complete 12 steps at this time due to fatigue PICKING UP OBJECT: PICKING UP OBJECT - STEP 1: Does the patient complete the activity by him/herself with no assistance (physical, verbal/nonverbal cueing, setup/clean-up)? No. PICKING UP OBJECT - STEP 2: Does the patient need only setup/clean-up assistance from one helper? No. PICKING UP OBJECT - STEP 3: Does the patient need only verbal/nonverbal cueing or touching/steadying/contact guard assistance fro m one helper? No. PICKING UP OBJECT - STEP 4: Does the patient need physical assistance - for example lifting or trunk support from one helper - wi th the helper providing less than half of the effort? No. PICKING UP OBJECT - STEP 5: Does the patient need physical assistance - for example lifting or trunk support from one helper - wi th the helper providing more than half of the effort? Yes. 1. [id number] ADMISSION PERFORMANCE: Substantial/maximal assistance CODE: 02 DOES THE PATIENT USE A WHEELCHAIR/SCOOTER? Q1. DOES THE PATIENT USE A WHEELCHAIR/SCOOTER?: Yes CODE: 1 WHEEL 50 FEET WITH TWO TURNS: WHEEL 50 FEET WITH TWO TURNS - STEP 1: Does the patient complete the activity by him/herself with no assistance (physical, verbal/nonverbal cueing, setup/clean-up)? No. WHEEL 50 FEET WITH TWO TURNS - STEP 2: Does the patient need only setup/clean-up assistance from one helper? No. WHEEL 50 FEET WITH TWO TURNS - STEP 3: Does the patient need only verbal/nonverbal cueing or touching/steadying/contact guard assistance fro m one helper? Yes. 1. [id number] ADMISSION PERFORMANCE: Supervision or touching assistance CODE: 04 [id number] - COMMENTS: Pt display poor safety awareness and is prone on hitting arm on wall or doors INDICATE THE TYPE OF WHEELCHAIR/SCOOTER USED: RR1. INDICATE THE TYPE OF WHEELCHAIR/SCOOTER USED.: Manual CODE: 1 WHEEL 150 FEET: WHEEL 150 FEET - STEP 1: Does the patient complete the activity by him/herself with no assistance (physical, verbal/nonverbal cueing, setup/clean-up)? No. WHEEL 150 FEET - STEP 2: Does the patient need only setup/clean-up assistance from one helper? No. WHEEL 150 FEET - STEP 3: Does the patient need only verbal/nonverbal cueing or touching/steadying/contact guard assistance fro m one helper? Yes. 1. [id number] ADMISSION PERFORMANCE: Supervision or touching assistance CODE: 04 [id number] - COMMENTS: Patient exhibit poor safety awareness and impulsive behavior in rolling w/c with BUE/LE INDICATE THE TYPE OF WHEELCHAIR/SCOOTER USED: SS1. INDICATE THE TYPE OF WHEELCHAIR/SCOOTER USED.: Manual CODE: 1 BLADDER AND BOWEL: CODE: EXPR CODE: EXPR SIGNATURE PANEL: The following modified sections: 1. [id number] Admission Performance, [id number] - Comments:, 1. [id number] Ad mission Performance, 1. [id number] Admission Performance, 1. QV6747B Admission Performance, 1. [id number] A dmission Performance, TO0822W - Comments:, 1. AA5353U Admission Performance, [id number] - Comments:, 1. [id number] Admission Performance, 1. XQ6311V Admission Performance, [id number] - Comments:, 1. KS4841M Admi ssion Performance, 1. EQ4788E Admission Performance, 1. GN3086N Admission Performance, XK6143O - Comm ents:, 1. EQ6136S Admission Performance, WZ7077D - Comments:, 1. AU8621L Admission Performance, GG017 0I - Comments:, 1. CX2423Y Admission Performance, JG2188O - Comments:, QZ6080T - Comments:, 1. VA7954 L Admission Performance, 1. IF0860W Admission Performance, 1. GS1568N Admission Performance, 1. GG017 0M Admission Performance, NK0051J - Comments:, 1. PM7700N Admission Performance, 1. AI4160J Admission Performance, KN4634X - Comments:, 1. SV2737P Admission Performance, EU7196X - Comments:, AL3035M - C omments:, NK5593U - Comments:, 1. RP4692B Admission Performance, KM3997X - Comments:, [id number] - Comme nts:, HL7933T - Comments:, ZR2485V - Comments:, 1. QY8009J Admission Performance, Q1. Does the patien t use a wheelchair/scooter?, 1. HR4810Z Admission Performance, 1. [id number] Admission Performance, GG01 70R - Comments:, RR1. Indicate the type of wheelchair/scooter used., 1. WW4397L Admission Performance , Code, [id number] - Comments:, SS1. Indicate the type of wheelchair/scooter used., 1. BL8479M Admission Performance were [electronically] signed by Carmen Tesfaye on Sat Apr 13 2019 16:32:56 GMT-0600 (Ce ntral Standard Time)
[2019-04-13 16:38] LABS: Urine Appearance CLEAR; Urine Bilirubin NEGATIVE (NEG); Urine Blood NEGATIVE (NEG); Urine Color YELLOW; Urine Glucose NEGATIVE (NEG); Urine Protein NEGATIVE (NEG); Urine Specific Gravity 1.025 (1.005-1.030); Urine Urobilinogen 0.2 mg/dL (0.2-1.0)
[2019-04-13 16:53] LABS: Urine Bacteria <20 /HPF (NONE SEEN); Urine Culture Reflex Order NOT NEEDED; Urine RBC <5 /HPF (NONE SEEN)
[2019-04-13] MEDS: TRAZODONE 50 MG TABLET PO PRN (19:53)
[2019-04-14] MEDS: HEPARIN 5000 UNIT/ML 1 ML VIAL SQ SCH ×3 (06:07→23:39)
[2019-04-14] MEDS: HYDRALAZINE HCL 25 MG TABLET PO SCH ×3 (07:55→23:39)
[2019-04-14] MEDS: AMLODIPINE 10 MG TAB PO SCH (07:56)
[2019-04-14] MEDS: carvediloL 6.25 MG TAB PO SCH ×2 (07:56→19:10)
[2019-04-14] MEDS: DOCUSATE NA 100 MG CAP PO SCH ×2 (07:56→19:10)
[2019-04-14] MEDS: SENOSIDES 8.6 MG TAB PO SCH ×2 (07:57→19:10)
--- NOTE | 2019-04-14 15:19 | FAST ---
SHIFT START DATE/TIME: 04/14/2019 07:00 (TRACK REPAIRER) SHIFT END DATE/TIME: 04/14/2019 19:00 (TRACK REPAIRER) NAME TIM JO DATE OF : 1950 DATE OF ADMISSION: 04/13/2019 14:57 (TRACK REPAIRER) PHONE: AGE: 69 SSN# [id number] GENDER: Male ENCOUNTER PHYSICIAN: Dr. Scott Waters M.D. ADMISSION DIAGNOSIS: - Brain Dysfunction 02 - Closed Injury (07.27) Obstructive Hydrocephalus. EATING: EATING - STEP 1: Does the patient complete the activity by him/herself with no assistance (physical, verbal/nonverbal cueing, setup/clean-up)? No. EATING - STEP 2: Does the patient need only setup/clean-up assistance from one helper? Yes. 1. [id number] ADMISSION PERFORMANCE: Setup or clean-up assistance CODE: 05 ORAL HYGIENE: ORAL HYGIENE - STEP 1: Does the patient complete the activity by him/herself with no assistance (physical, verbal/nonverbal cueing, setup/clean-up)? No. ORAL HYGIENE - STEP 2: Does the patient need only setup/clean-up assistance from one helper? Yes. 1. [id number] ADMISSION PERFORMANCE: Setup or clean-up assistance CODE: 05 TOILETING HYGIENE: TOILETING HYGIENE - STEP 1: Does the patient complete the activity by him/herself with no assistance (physical, verbal/nonverbal cueing, setup/clean-up)? No. TOILETING HYGIENE - STEP 2: Does the patient need only setup/clean-up assistance from one helper? No. TOILETING HYGIENE - STEP 3: Does the patient need only verbal/nonverbal cueing or touching/steadying/contact guard assistance fro m one helper? No. TOILETING HYGIENE - STEP 4: Does the patient need physical assistance - for example lifting or trunk support from one helper - wi th the helper providing less than half of the effort? No. TOILETING HYGIENE - STEP 5: Does the patient need physical assistance - for example lifting or trunk support from one helper - wi th the helper providing more than half of the effort? Yes. 1. [id number] ADMISSION PERFORMANCE: Substantial/maximal assistance CODE: 02 BATHING: Not assessed/no information CODE: - DRESSING - UPPER BODY: DRESSING - UPPER BODY - STEP 1: Does the patient complete the activity by him/herself with no assistance (physical, verbal/nonverbal cueing, setup/clean-up)? No. DRESSING - UPPER BODY - STEP 2: Does the patient need only setup/clean-up assistance from one helper? No. DRESSING - UPPER BODY - STEP 3: Does the patient need only verbal/nonverbal cueing or touching/steadying/contact guard assistance fro m one helper? No. DRESSING - UPPER BODY - STEP 4: Does the patient need physical assistance - for example lifting or trunk support from one helper - wi th the helper providing less than half of the effort? Yes. 1. [id number] ADMISSION PERFORMANCE: Partial/moderate assistance CODE: 03 DRESSING - LOWER BODY: DRESSING - LOWER BODY - STEP 1: Does the patient complete the activity by him/herself with no assistance (physical, verbal/nonverbal cueing, setup/clean-up)? No. DRESSING - LOWER BODY - STEP 2: Does the patient need only setup/clean-up assistance from one helper? No. DRESSING - LOWER BODY - STEP 3: Does the patient need only verbal/nonverbal cueing or touching/steadying/contact guard assistance fro m one helper? No. DRESSING - LOWER BODY - STEP 4: Does the patient need physical assistance - for example lifting or trunk support from one helper - wi th the helper providing less than half of the effort? Yes. 1. [id number] ADMISSION PERFORMANCE: Partial/moderate assistance CODE: 03 PUTTING ON/TAKING OFF FOOTWEAR: FOOTWEAR - STEP 1: Does the patient complete the activity by him/herself with no assistance (physical, verbal/nonverbal cueing, setup/clean-up)? No. FOOTWEAR - STEP 2: Does the patient need only setup/clean-up assistance from one helper? No. FOOTWEAR - STEP 3: Does the patient need only verbal/nonverbal cueing or touching/steadying/contact guard assistance fro m one helper? No. FOOTWEAR - STEP 4: Does the patient need physical assistance - for example lifting or trunk support from one helper - wi th the helper providing less than half of the effort? Yes. 1. [id number] ADMISSION PERFORMANCE: Partial/moderate assistance CODE: 03 ROLL LEFT AND RIGHT: ROLL LEFT AND RIGHT - STEP 1: Does the patient complete the activity by him/herself with no assistance (physical, verbal/nonverbal cueing, setup/clean-up)? No. ROLL LEFT AND RIGHT - STEP 2: Does the patient need only setup/clean-up assistance from one helper? Yes. 1. [id number] ADMISSION PERFORMANCE: Setup or clean-up assistance CODE: 05 SIT TO LYING: SIT TO LYING - STEP 1: Does the patient complete the activity by him/herself with no assistance (physical, verbal/nonverbal cueing, setup/clean-up)? No. SIT TO LYING - STEP 2: Does the patient need only setup/clean-up assistance from one helper? No. SIT TO LYING - STEP 3: Does the patient need only verbal/nonverbal cueing or touching/steadying/contact guard assistance fro m one helper? Yes. 1. [id number] ADMISSION PERFORMANCE: Supervision or touching assistance CODE: 04 LYING TO SITTING: LYING TO SITTING ON SIDE OF BED - STEP 1: Does the patient complete the activity by him/herself with no assistance (physical, verbal/nonverbal cueing, setup/clean-up)? No. LYING TO SITTING ON SIDE OF BED - STEP 2: Does the patient need only setup/clean-up assistance from one helper? No. LYING TO SITTING ON SIDE OF BED - STEP 3: Does the patient need only verbal/nonverbal cueing or touching/steadying/contact guard assistance fro m one helper? Yes. 1. [id number] ADMISSION PERFORMANCE: Supervision or touching assistance CODE: 04 SIT TO STAND: SIT TO STAND - STEP 1: Does the patient complete the activity by him/herself with no assistance (physical, verbal/nonverbal cueing, setup/clean-up)? No. SIT TO STAND - STEP 2: Does the patient need only setup/clean-up assistance from one helper? No. SIT TO STAND - STEP 3: Does the patient need only verbal/nonverbal cueing or touching/steadying/contact guard assistance fro m one helper? Yes. 1. [id number] ADMISSION PERFORMANCE: Supervision or touching assistance CODE: 04 TRANSFERS: BED, CHAIR: CHAIR/[id number] TRANSFER - STEP 1: Does the patient complete the activity by him/herself with no assistance (physical, verbal/nonverbal cueing, setup/clean-up)? No. CHAIR/[id number] TRANSFER - STEP 2: Does the patient need only setup/clean-up assistance from one helper? No. CHAIR/[id number] TRANSFER - STEP 3: Does the patient need only verbal/nonverbal cueing or touching/steadying/contact guard assistance fro m one helper? Yes. 1. [id number] ADMISSION PERFORMANCE: Supervision or touching assistance CODE: 04 TRANSFER TOILET: TOILET TRANSFER - STEP 1: Does the patient complete the activity by him/herself with no assistance (physical, verbal/nonverbal cueing, setup/clean-up)? No. TOILET TRANSFER - STEP 2: Does the patient need only setup/clean-up assistance from one helper? No. TOILET TRANSFER - STEP 3: Does the patient need only verbal/nonverbal cueing or touching/steadying/contact guard assistance fro m one helper? Yes. 1. [id number] ADMISSION PERFORMANCE: Supervision or touching assistance CODE: 04 TRANSFERS: CAR: Not assessed/no information CODE: - WALK 10 FEET: Not assessed/no information CODE: - 1 STEP (CURB): Not assessed/no information CODE: - PICKING UP OBJECT: Not assessed/no information CODE: - DOES THE PATIENT USE A WHEELCHAIR/SCOOTER? Q1. DOES THE PATIENT USE A WHEELCHAIR/SCOOTER?: Yes CODE: 1 WHEEL 50 FEET WITH TWO TURNS: WHEEL 50 FEET WITH TWO TURNS - STEP 1: Does the patient complete the activity by him/herself with no assistance (physical, verbal/nonverbal cueing, setup/clean-up)? No. WHEEL 50 FEET WITH TWO TURNS - STEP 2: Does the patient need only setup/clean-up assistance from one helper? No. WHEEL 50 FEET WITH TWO TURNS - STEP 3: Does the patient need only verbal/nonverbal cueing or touching/steadying/contact guard assistance fro m one helper? Yes. 1. [id number] ADMISSION PERFORMANCE: Supervision or touching assistance CODE: 04 INDICATE THE TYPE OF WHEELCHAIR/SCOOTER USED: RR1. INDICATE THE TYPE OF WHEELCHAIR/SCOOTER USED.: Manual CODE: 1 WHEEL 150 FEET: WHEEL 150 FEET - STEP 1: Does the patient complete the activity by him/herself with no assistance (physical, verbal/nonverbal cueing, setup/clean-up)? No. WHEEL 150 FEET - STEP 2: Does the patient need only setup/clean-up assistance from one helper? No. WHEEL 150 FEET - STEP 3: Does the patient need only verbal/nonverbal cueing or touching/steadying/contact guard assistance fro m one helper? Yes. 1. [id number] ADMISSION PERFORMANCE: Supervision or touching assistance CODE: 04 INDICATE THE TYPE OF WHEELCHAIR/SCOOTER USED: SS1. INDICATE THE TYPE OF WHEELCHAIR/SCOOTER USED.: Manual CODE: 1 BLADDER AND BOWEL: H350. BLADDER CONTINENCE (3-DAY ASSESSMENT PERIOD): Incontinent daily (at least once a day) CODE: 3 H400. BOWEL CONTINENCE (3-DAY ASSESSMENT PERIOD): Always continent CODE: 0 SIGNATURE PANEL: The following modified sections: 1. [id number] Admission Performance, 1. [id number] Admission Performance, 1. WX3547X Admission Performance, 1. NT3890w Admission Performance, 1. PP9570e Admission Performance, 1. DN2064a Admission Performance, 1. QS4169x Admission Performance, 1. MF0099a Admission Performance , 1. SC8691H Admission Performance, 1. LJ5859Q Admission Performance, 1. HV1403P Admission Performanc e, 1. VU2694K Admission Performance, 1. CG9755I Admission Performance, 1. PB0992J Admission Performan ce, 1. DG4362M Admission Performance, 1. UU4747M Admission Performance, 1. UF2304Z Admission Performa nce, 1. DO6245H Admission Performance, Q1. Does the patient use a wheelchair/scooter?, 1. HY4618R Adm ission Performance, RR1. Indicate the type of wheelchair/scooter used., 1. IQ5198F Admission Performa nce, Code, SS1. Indicate the type of wheelchair/scooter used., H350. Bladder Continence (3-day assess ment period), H400. Bowel Continence (3-day assessment period) were [electronically] signed by Karey Mcdermott C.N.A. on MonApr 14 2019 15:18:33 GMT-0600 (Central Standard Time)
[2019-04-14] MEDS: TRAZODONE 50 MG TABLET PO PRN (19:10)
--- OUTSIDE RECORDS SUMMARY | 2019-04-15 05:35 | XMS REPORT ---
:1950 [facility] Address [address] [place] [address] Dr. Vazquez [address] [place] [address] Care Team Providers Name Role Phone Unavailable Unavailable Unavailable Problems This patient has no known problems. Allergies, Adverse Reactions, Alerts This patient has no known allergies or adverse reactions. Medications This patient has no known medications. Encounters Start End Encounter Admission Attending Care Care Encounter Date/Time Date/Time Type Type Clinicians Facility Department ID 2019-04-02 2019-04-02 Emergency E [facility] [id number] 17:53:00 17:53:00
--- OUTSIDE RECORDS SUMMARY | 2019-04-15 05:35 | XMS REPORT | Continuity of Care Document ---
:1950 Author Organization [facility] Address [address] [place] [address] Allergies, Adverse Reactions, Alerts No known allergies. Medications No known medications. Problems No problem information available. Procedures Procedure Date Performed Status Computed tomography of head without contrast April 02, 2019 completed X-ray of chest, single view April 02, 2019 completed Relevant Diagnostic Tests and/or Laboratory Data Laboratory Results Test Date/Time Result Interpretation Reference Result Comment Performing Range Site White Blood Count March 5.7 4.0-12.3 [facility], 104 2018 2:42pm [facility] [address] Red Blood Count March 4.47 3.80-5.80 [facility] 2:42pm [facility] [address] Hemoglobin March 13.8 11.7-17.2 [facility], 104 2018 2:42pm [facility] [address] Hematocrit March 41.8 35.0-51.0 [facility], [facility] 2:42pm [facility] [address] Mean Corpuscular March 93.5 83-100 [facility], Volume 2018 2:42pm [facility] [address] Mean Corpuscular March 30.9 26.8-33.4 [facility], 104 Hemoglobin 2018 2:42pm [facility] [address] Mean Corpuscular March 33.0 30-35 [facility], 104 Hemoglobin 2018 Concent 2:42pm [facility] [address] Red Cell March 14.6 12.0-14.0 [facility], 104 Distribution 2018 Width 2:42pm [facility] [address]192 Platelet Count March 232 175-450 [facility], 2018 2:42pm [facility] [address] Mean Platelet March 11.2 9.4-12.6 [facility], [address] Volume 2018 2:42pm [facility] [address] Neutrophils (%) October 58.2 44.7-82.4 [facility], [address] (Auto) 2018 2:42pm [place] [address] Immature October 0.4 0.0-0.4 [facility], [address] Granulocyte % 2018 (Auto) 2:42pm [facility] [address] Lymphocytes (%) March 28.6 10.0-50.0 [facility], [address] (Auto) 2018 2:42pm [facility] [address] Monocytes (%) October 11.1 3.9-13.4 [facility], [address] (Auto) 2018 2:42pm [facility] [address] Eosinophils (%) October 1.2 0.0-6.4 [facility], 104 [facility] (Auto) 2018 2:42pm [facility] [address] Basophils (%) October 0.5 0.2-1.2 [facility], [address] [facility] [address] (Auto) 2018 2:42pm [facility] [address] Neutrophils # October 3.31 1.78-5.38 [facility], [address] (Auto) 2018 2:42pm [facility] [address] Absolute Immature October 0.0 0.0-0.03 [facility], [address] Granulocyte (auto 2018 2:42pm [facility] [address] Lymphocytes # October 1.6 1.32-3.57 [facility], [address] (Auto) 2018 2:42pm [facility] [address] Monocytes # October 0.63 0.30-0.82 [facility], [address] (Auto) 2018 2:42pm [facility] [address]463 Eosinophils # October 0.07 0.04-0.54 [facility], [address] (Auto) 2018 2:42pm [facility] 269[address] Basophils # October 0.03 0.01-0.08 [facility], [address] (Auto) 2018 2:42pm [facility] [address]23[address] Nucleated Red October 0 0-0.2 [facility], [address] Blood Cells % 2018 2:42pm [facility] [address] Nucleated Red October 0 0 [facility], [address] Blood Cells # 2018 2:42pm [place] [id number] Prothrombin Time March 10.6 10.3-12.[address] 2018 LEVEL: 1.5 to 2:58pm 1.9 times [place] [address] normal range of PT Prothromb Time March 0.98 Recommended [facility], [address] [place] [address] International 2018 therapeutic Ratio 2:58pm range for [place] [address] patients receiving warfarin (coumadin) therapy: INR is 2.0 to 3.0Recommended range for patients with mechanical prosthetic heart valves: INR is 2.5 to 3.5 Activated Partial March 30.4 22.5-37.[address] Thromboplast Time 2018 2:58pm [place] [id number] POC Capillary March 97 70 - 110 [facility], [address] [place] [address] Blood Glucose 2018 (Chem) 2:51pm [place] [id number] Random Glucose March 109 82-115 [facility], [address] [place] [address] 2018 2:58pm [place] [id number] Blood Urea March 12 8-23 [facility], [address] [place] [address] Nitrogen 2018 2:58pm [place] [id number] Serum Osmolality March 280 280-300 [facility], [address] [place] [address] 2018 2:58pm [place] [id number] Creatinine March 0.8 0.70-1.20 [facility], [address] [place] [address] 2018 2:58pm [place] [id number] Glomerular March > 60.00 GFR RESULTS ARE [address] Filtration Rate 2018 REPORTED IN Calc 2:58pm mL/min/1.73m2.N [place] [id number] ormal GFR: >60mL/minModera tely decreased GFR: 30-59 mL/minSeverely decreased GFR: 15-29 mL/minKidney Failure (or Dialysis): <15 mL/minThe calculated eGFR is not valid for patients younger than 18 years or older than 75 years. BUN/Creatinine March 15.0 12-20 [facility], [address] [place] [address] Ratio 2018 2:58pm [place] [id number] Sodium Level March 140 135-145 [facility], [address] [place] [address] 2018 2:58pm [place] [id number] Potassium Level October 3.9 3.5-5.2 [facility], 104 2018 2:58pm [facility] [address] Chloride Level March 101 98-108 [facility], 104 2018 2:58pm [facility] [address] Carbon Dioxide March 29 21-32 [facility], 104 [facility] Level 2018 2:58pm [facility] [address] Anion Gap March 13.9 12-20 [facility], 104 2018 2:58pm [facility] [address] Calcium Level March 9.8 8.8-10.2 [facility], 104 2018 2:58pm [facility] [address] Total Protein March 8.2 6.6-8.7 [facility], 104 2018 2:58pm [facility] [address] Albumin March 4.6 3.5-5.2 [facility], 104 2018 2:58pm [facility] [address] Globulin March 3.6 [facility], 2018 2:58pm [facility] [address] Albumin/Globulin March 1.3 >1.0 [facility], 104 [facility] 2018 2:58pm [facility] [address] Total Bilirubin March 0.4 0.0-1.2 [facility], 2018 2:58pm [facility] [address] Aspartate Amino March 15 15-40 [facility], 104 Transf (AST/SGOT) 2018 2:58pm [facility] [address] Alanine March 12 0-41 [facility], Aminotransferase 2018 (ALT/SGPT) 2:58pm [facility] [address] Total Alkaline March 101 40-130 [facility], 104 [facility] Phosphatase 2018 2:58pm [facility] [address] Creatine Kinase March 362 20-200 [facility], [facility] 2018 2:58pm [facility] [address] Troponin I March < 0.30 0.0-0.5 Published [facility], 104 2018 clinical 2:58pm studies have [place] [address] shown elevations of cTnI in patients with myocardial injury, as seen in unstable angina pectoris, cardiac contusions, and heart transplants. Elevations have also been seen in patients with rhabdomyolysis and polymyositis.El evated troponin levels point to myocardial injury, but are not necessarily indicative of an ischemic mechanism. The term OK should be used when there is evidence of cardiac damage, as detected by marker proteins in a clinical setting consistent with myocardial ischemia. If the clinical circumstance suggests that an ischemic mechanism is unlikely, other causes of cardiac injury should be considered.For diagnostic purposes, the results should always be assessed in conjunction with the patient's medical history, clinical examination and other findings. Creatine Kinase March 06.1 0.0-3.6 DIAGNOSTIC [facility], [address] MB 2018 CITERIA: 2:58pm [facility] [address] [facility] RELATIVE INDEX -----SUGGESTIVE OF NON-AMI < or=5 N/AGRAY ZONE (INCONCLUSIVE) > 5 < or=4SUGGESTIVE OF AMI >5 > 4 Health Concerns No known health concerns documented Chief Complaint and Reason for Visit Chief Complaint Neuro Symptoms/ Deficits Reason for Visit [id number] Encounters Encounter Location(s) Arrival/Admit Date Discharge/Depart Date Provider(s) Departed [place] April 02, 2019 April 02, 2019 [facility] Emergency Room [facility] 2:31pm 4:08pm [facility] Assessments No Assessments Information Available Functional Status No Functional Status information available Goals No Goals Information Available Immunizations No Immunization Information Available Mental Status No Mental Status Information Available Medical Equipment No Medical Equipment Information available Insurance Providers Guarantor Patti Jo Address [address] [address] Contact Info. Home Phone: [facility] Payer Policy Id Coverage Id Subscriber's Subscriber Id Effective Expiration Name Date Date [facility] [id number] Kartik [id number] Complete Patti Plan of Treatment Future Tests Future scheduled test information is unavailable Pending Tests Test Name Date ordered Urine Color April 02, 2019 2:42pm Urine Appearance April 02, 2019 2:42pm Urine Glucose (UA) April 02, 2019 2:42pm Urine Bilirubin April 02, 2019 2:42pm Urine Ketones April 02, 2019 2:42pm Urine Specific [place] April 02, 2019 2:42pm Urine Blood April 02, 2019 2:42pm Urine pH April 02, 2019 2:42pm Urine Protein April 02, 2019 2:42pm Urine Urobilinogen April 02, 2019 2:42pm Urine Nitrate April 02, 2019 2:42pm Urine Leukocyte Esterase April 02, 2019 2:42pm Urine RBC April 02, 2019 2:42pm Urine WBC April 02, 2019 2:42pm Urine Bacteria April 02, 2019 2:42pm Urine Culture Reflexed April 02, 2019 2:42pm Future Visits Future appointment information is unavailable Referrals to Other Providers Reason for Referral Start Provider Provider Contact Provider Address Referral Date Information MOISES KAPADIA Work Phone: [id number] [facility] [address] Future Procedures Future procedure information is unavailable Future Medications Future medication information is unavailable Patient Instructions Patient instructions are unavailable Social History Smoking Status Status Date of Observation Never smoked tobacco (finding) April 02, 2019 2:46pm Observation Status Observation Response Date of Response Hx Physical Abuse No April 02, 2019 2:39pm Assigned Sex Male Vital Signs Vital Reading Result Collection Date/Time
[2019-04-15] MEDS: DOCUSATE NA 100 MG CAP PO SCH ×2 (08:17→18:54)
[2019-04-15] MEDS: SENOSIDES 8.6 MG TAB PO SCH ×2 (08:17→18:54)
[2019-04-15] MEDS: AMLODIPINE 10 MG TAB PO SCH (08:18)
[2019-04-15] MEDS: HYDRALAZINE HCL 25 MG TABLET PO SCH ×3 (08:18→23:46)
[2019-04-15] MEDS: carvediloL 6.25 MG TAB PO SCH ×2 (08:18→18:53)
[2019-04-15] MEDS: HEPARIN 5000 UNIT/ML 1 ML VIAL SQ SCH ×2 (08:40→16:29)
--- NOTE | 2019-04-15 15:35 | FAST ---
ENCOUNTER DATE AND TIME: 04/15/2019 08:00 ([employer]) NAME TIM JO DATE OF : 1950 DATE OF ADMISSION: 04/13/2019 14:57 ([employer]) PHONE: AGE: 69 N# [id number] GENDER: Male ENCOUNTER PHYSICIAN: Dr. Scott Waters M.D. ADMISSION DIAGNOSIS: - Brain Dysfunction 02 - Closed Injury (07.27) Obstructive Hydrocephalus. EATING: Not assessed/no information CODE: - ORAL HYGIENE: Not assessed/no information CODE: - TOILETING HYGIENE: Not assessed/no information CODE: - BATHING: SHOWER/BATHE SELF - STEP 1: Does the patient complete the activity by him/herself with no assistance (physical, verbal/nonverbal cueing, setup/clean-up)? No. SHOWER/BATHE SELF - STEP 2: Does the patient need only setup/clean-up assistance from one helper? No. SHOWER/BATHE SELF - STEP 3: Does the patient need only verbal/nonverbal cueing or touching/steadying/contact guard assistance fro m one helper? No. SHOWER/BATHE SELF - STEP 4: Does the patient need physical assistance - for example lifting or trunk support from one helper - wi th the helper providing less than half of the effort? Yes. 1. [id number] ADMISSION PERFORMANCE: Partial/moderate assistance CODE: 03 DRESSING - UPPER BODY: DRESSING - UPPER BODY - STEP 1: Does the patient complete the activity by him/herself with no assistance (physical, verbal/nonverbal cueing, setup/clean-up)? No. DRESSING - UPPER BODY - STEP 2: Does the patient need only setup/clean-up assistance from one helper? No. DRESSING - UPPER BODY - STEP 3: Does the patient need only verbal/nonverbal cueing or touching/steadying/contact guard assistance fro m one helper? Yes. 1. [id number] ADMISSION PERFORMANCE: Supervision or touching assistance CODE: 04 DRESSING - LOWER BODY: DRESSING - LOWER BODY - STEP 1: Does the patient complete the activity by him/herself with no assistance (physical, verbal/nonverbal cueing, setup/clean-up)? No. DRESSING - LOWER BODY - STEP 2: Does the patient need only setup/clean-up assistance from one helper? No. DRESSING - LOWER BODY - STEP 3: Does the patient need only verbal/nonverbal cueing or touching/steadying/contact guard assistance fro m one helper? No. DRESSING - LOWER BODY - STEP 4: Does the patient need physical assistance - for example lifting or trunk support from one helper - wi th the helper providing less than half of the effort? No. DRESSING - LOWER BODY - STEP 5: Does the patient need physical assistance - for example lifting or trunk support from one helper - wi th the helper providing more than half of the effort? Yes. 1. [id number] ADMISSION PERFORMANCE: Substantial/maximal assistance CODE: 02 PUTTING ON/TAKING OFF FOOTWEAR: FOOTWEAR - STEP 1: Does the patient complete the activity by him/herself with no assistance (physical, verbal/nonverbal cueing, setup/clean-up)? No. FOOTWEAR - STEP 2: Does the patient need only setup/clean-up assistance from one helper? No. FOOTWEAR - STEP 3: Does the patient need only verbal/nonverbal cueing or touching/steadying/contact guard assistance fro m one helper? No. FOOTWEAR - STEP 4: Does the patient need physical assistance - for example lifting or trunk support from one helper - wi th the helper providing less than half of the effort? No. FOOTWEAR - STEP 5: Does the patient need physical assistance - for example lifting or trunk support from one helper - wi th the helper providing more than half of the effort? No. FOOTWEAR - STEP 6: Does the helper provide all of the effort? OR Is the assistance of two or more helpers required to co mplete the activity? Yes. 1. [id number] ADMISSION PERFORMANCE: Dependent CODE: 01 DOES THE PATIENT USE A WHEELCHAIR/SCOOTER? CODE: EXPR INDICATE THE TYPE OF WHEELCHAIR/SCOOTER USED: CODE: EXPR INDICATE THE TYPE OF WHEELCHAIR/SCOOTER USED: CODE: EXPR BLADDER AND BOWEL: CODE: EXPR CODE: EXPR SIGNATURE PANEL: The following modified sections: 1. [id number] Admission Performance, 1. [id number] Admission Performance, 1. [id number] Admission Performance, 1. [id number] Admission Performance, 1. [id number] Admission Performance, 1. [id number] Admission Performance were [electronically] signed by Veronica Barney OT on MonApr 15 2 019 15:34:24 GMT-0600 (Central Standard Time)
--- NOTE | 2019-04-15 18:18 | R.PN ---
ENCOUNTER DATE AND TIME: 04/15/2019 18:15 ([employer]) NAME TIM JO DATE OF : 1950 DATE OF ADMISSION: 04/13/2019 14:57 ([employer]) Obstructive HydrocephalusCHIEF COMPLAINT: Hydrocephalus, status post RELATIONS COORDINATOR shunt SUBJECTIVE: Pt denied any depression. Pt denied any Shortness of Breath. He is making good progress with physical and occupational therapy. His pain is well managed. VITAL SIGNS Temperature: 97.2 F SBP/DBP: 135/77 Pulse: 87 Resp: 16 MEDICATION ALLERGIES: No Known Drug Allergies (NKDA) ENVIRONMENTAL ALLERGIES: - Substance Allergies None Known - Other Allergies None Known NURSING: - Shower allowing shower - Bladder care per protocol - Skin care per protocol PRECAUTIONS: - Aspiration Precaution 1 to 1 supervision with all po intake All meals in the dysphagia dining room No straws Seated at 90 degrees while eating and 30 minutes after meals - Fall Precaution 1 to 1 supervision ACTIVITIES OOB only with supervision THERAPIES: - Occupational Therapy Cognitive Retraining. Visual Perceptual Training. - Dietary and Nutrition Adequate Nutrition. Nutritional Education. Nutritional Supplements. - Speech Therapy Augmentative Communication Equipment. Cognitive Training. Dysphagia Therapy. Expressive Language Skil ls. Receptive Language Skills. PHYSICAL EXAM - Gen Alert and awake Lying in bed No apparent distress Oriented to: person, time, and place - Skin No skin breakdown. Normacephalic RELATIONS COORDINATOR shunt is intact. - Eyes No abnormalities - ENMT No abnormalities - Neck No abnormalities - CVS RRR - Chest No abnormalities - Abd Soft - GI Non distended Deferred - No abnormalities - Ext Mild bilateral lower extremity edema. - MSK 4+/5 weakness in left lower extremity - Neuro 4/5 strength bilaterally upper and lower extremities. - Psych No abnormalities ASSESSMENT: Pt. is a 69 yo Right-handed male of unknown race.On 04/02/2019 he was admitted to [facility] diagnosis Obstructive Hydrocephalus.His impairment category is Brain Dysfunction 02 - Closed Inju ry (07.27).Pre-morbidly, Pt. was independent/mod-I in Locomotion, Transfers Control, Self-Care, Ambul ation, and Sphincter Control; and he had good Social Cognition.Currently, he has deficits of Locomoti on, Self-Care, Transfers Control, Safety Awareness, Social Cognition, and Communication.Pt. is now re ferred to [facility] for acute in-patient rehabilitation in order to maximize patient's functional independence in activities of daily living, strength, ROM, and mobility.- Rehab Goal Patient has realistic goal of being discharged at assistance level 6-Osbaldo to reside at Home with Fam brea/Relatives. MDM/PLAN: - Physical Therapy Gait dysfunction - to improve, our physical therapists will perform initial evaluation of pt's statu s upon admission and devise an individualized program for Gait Training, and Wheel Chair mobility Inability to transfer - to improve, our physical therapists will perform initial evaluation of pt's status upon admission and devise an individualized program for Bed mobility Need for home safety evaluation - to improve, our physical therapists will perform initial evaluatio n of pt's status upon admission and devise an individualized program for Home Evaluation Edema - to improve, our physical therapists will perform initial evaluation of pt's status upon admis michael and devise an individualized program for Elevation Training, and Lymphedema Therapy Need in caregiver upon discharge - to improve, our physical therapists will perform initial evaluati on of pt's status upon admission and devise an individualized program for Caregiver Training New precaution - to improve, our physical therapists will perform initial evaluation of pt's status upon admission and devise an individualized program for Patient precaution education Achieving independence - to improve, our physical therapists will perform initial evaluation of pt's status upon admission and devise an individualized program for Community Reintegration Activities - Occupational Therapy ADL deficits - to improve, our occupation therapists will perform initial evaluation of pt's status upon admission and devise an individualized program for Bathing, Bed mobility, Community Reintegratio n, Cooking, Dressing, Eating, Fine Motor Skills, Grooming, Homemaking, Kitchen Mobility, Laundry, Pat ient Education, Safety Awareness, Splinting - Positioning, Transfers(Toilet, Tub, Shower), and Wheel Chair Management Cognitive deficits - to improve, our occupation therapists will perform initial evaluation of pt's s tatus upon admission and devise an individualized program for Cognition - orientation Need for acute care physician - to improve, our occupation therapists will perform initial evaluation of pt's status upon admission and devise an individualized program for Caregiver Training - Other See attached MAR (Medication Administration Record) - Diet Type Continue NPO (nothing by mouth) - Diet - Liquid Texture Continue Regular - Tube Feed Continue N/A - Bladder care per protocol - Aspiration Precaution 1 to 1 supervision with all po intake All meals in the dysphagia dining room No straws Seated at 90 degrees while eating and 30 minutes after meals - Fall Precaution 1 to 1 supervision - Skin care per protocol - Shower allowing shower FUNCTIONAL STATUS: UPDATED AT WEEKLY TEAM CONFERENCE - Bladder Same accident frequency: 7-Ind - No accidents in the past 7 days - Bowel Same accident frequency: 7-Ind - No accidents in the past 7 days - Walking Same score based on distance walked: 1(<=50ft) - Wheelchair Same score based on distance traveled: 1(<=50ft) FUNCTIONAL STATUS: - Self-Care A. Eating Osbaldo B. Grooming modA C. Bathing modA D. Dressing - Upper modA E. Dressing - Lower modA F. Toileting modA - Sphincter Control G. Bladder control modA H. Bowel control modA - Transfers Control I. Bed/Chair/Wheelchair Elba J. Toilet modA K. Tub/Shower modA - Locomotion L. Walk/Wheelchair (W) maxA M. Stairs Dep - Communication N. Comprehension (A) Elba O. Expression (B) Elba - Social Cognition P. Social Interaction Elba Q. Problem Solving Elba R. Memory Elba - Endurance Good - Balance Good - Safety Awareness Good QI SCORES: - Self-Care A. Eating 01-Dependent B. Oral hygiene 05-Setup or clean-up assistance C. Toileting hygiene 03-Partial/moderate assistance E. Shower/bathe self 03-Partial/moderate assistance F. Upper body dressing 04-Supervision or touching assistance G. Lower body dressing 03-Partial/moderate assistance H. Putting on/taking off footwear 03-Partial/moderate assistance - Mobility A. Roll left and right 03-Partial/moderate assistance B. Sit to lying 04-Supervision or touching assistance C. Lying to sitting on side of bed 04-Supervision or touching assistance D. Sit to stand 04-Supervision or touching assistance E. Chair/[id number] transfer 04-Supervision or touching assistance F. Toilet transfer 04-Supervision or touching assistance G. Car transfer 88-Not attempted due to medical condition or safety concerns I. Walk 10 feet 02-Substantial/maximal assistance J. Walk 50 feet with two turns 88-Not attempted due to medical condition or safety concerns K. Walk 150 feet 88-Not attempted due to medical condition or safety concerns L. Walking 10 feet on uneven surfaces 88-Not attempted due to medical condition or safety concerns M. 1 step (curb) 88-Not attempted due to medical condition or safety concerns N. 4 steps 88-Not attempted due to medical condition or safety concerns O. 12 steps 88-Not attempted due to medical condition or safety concerns P. Picking up object 88-Not attempted due to medical condition or safety concerns R. Wheel 50 feet with two turns 88-Not attempted due to medical condition or safety concerns S. Wheel 150 feet 88-Not attempted due to medical condition or safety concerns - Bladder and Bowel Bladder continence 1-Stress incontinence only Bowel continence 0-Always continent - Endurance Fair - Balance Poor - Safety Awareness Poor CURRENT FUNC. 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
[2019-04-15] MEDS: TRAZODONE 50 MG TABLET PO PRN (18:53)
[2019-04-16] MEDS: HEPARIN 5000 UNIT/ML 1 ML VIAL SQ SCH ×3 (00:30→17:56)
[2019-04-16] MEDS: DOCUSATE NA 100 MG CAP PO SCH ×2 (08:00→19:00)
[2019-04-16] MEDS: SENOSIDES 8.6 MG TAB PO SCH ×2 (08:00→19:00)
[2019-04-16] MEDS: carvediloL 6.25 MG TAB PO SCH ×2 (08:12→19:10)
[2019-04-16] MEDS: HYDRALAZINE HCL 25 MG TABLET PO SCH ×3 (08:13→23:57)
--- NOTE | 2019-04-16 09:00 | FAST ---
SHIFT START DATE/TIME: 04/15/2019 07:00 ([employer]) SHIFT END DATE/TIME: 04/15/2019 19:00 ([employer]) NAME TIM JO DATE OF : 1950 DATE OF ADMISSION: 04/13/2019 14:57 ([employer]) PHONE: AGE: 69 SSN# [id number] GENDER: Male ENCOUNTER PHYSICIAN: Dr. Scott Waters M.D. ADMISSION DIAGNOSIS: - Brain Dysfunction 02 - Closed Injury (07.27) Obstructive Hydrocephalus. EATING: EATING - STEP 1: Does the patient complete the activity by him/herself with no assistance (physical, verbal/nonverbal cueing, setup/clean-up)? No. EATING - STEP 2: Does the patient need only setup/clean-up assistance from one helper? No. EATING - STEP 3: Does the patient need only verbal/nonverbal cueing or touching/steadying/contact guard assistance fro m one helper? Yes. 1. [id number] ADMISSION PERFORMANCE: Supervision or touching assistance CODE: 04 ORAL HYGIENE: ORAL HYGIENE - STEP 1: Does the patient complete the activity by him/herself with no assistance (physical, verbal/nonverbal cueing, setup/clean-up)? No. ORAL HYGIENE - STEP 2: Does the patient need only setup/clean-up assistance from one helper? No. ORAL HYGIENE - STEP 3: Does the patient need only verbal/nonverbal cueing or touching/steadying/contact guard assistance fro m one helper? Yes. 1. [id number] ADMISSION PERFORMANCE: Supervision or touching assistance CODE: 04 TOILETING HYGIENE: TOILETING HYGIENE - STEP 1: Does the patient complete the activity by him/herself with no assistance (physical, verbal/nonverbal cueing, setup/clean-up)? No. TOILETING HYGIENE - STEP 2: Does the patient need only setup/clean-up assistance from one helper? No. TOILETING HYGIENE - STEP 3: Does the patient need only verbal/nonverbal cueing or touching/steadying/contact guard assistance fro m one helper? Yes. 1. [id number] ADMISSION PERFORMANCE: Supervision or touching assistance CODE: 04 BATHING: Not assessed/no information CODE: - DRESSING - UPPER BODY: Not assessed/no information CODE: - DRESSING - LOWER BODY: Not assessed/no information CODE: - PUTTING ON/TAKING OFF FOOTWEAR: Not assessed/no information CODE: - ROLL LEFT AND RIGHT: ROLL LEFT AND RIGHT - STEP 1: Does the patient complete the activity by him/herself with no assistance (physical, verbal/nonverbal cueing, setup/clean-up)? No. ROLL LEFT AND RIGHT - STEP 2: Does the patient need only setup/clean-up assistance from one helper? Yes. 1. [id number] ADMISSION PERFORMANCE: Setup or clean-up assistance CODE: 05 SIT TO LYING: SIT TO LYING - STEP 1: Does the patient complete the activity by him/herself with no assistance (physical, verbal/nonverbal cueing, setup/clean-up)? No. SIT TO LYING - STEP 2: Does the patient need only setup/clean-up assistance from one helper? Yes. 1. [id number] ADMISSION PERFORMANCE: Setup or clean-up assistance CODE: 05 LYING TO SITTING: LYING TO SITTING ON SIDE OF BED - STEP 1: Does the patient complete the activity by him/herself with no assistance (physical, verbal/nonverbal cueing, setup/clean-up)? No. LYING TO SITTING ON SIDE OF BED - STEP 2: Does the patient need only setup/clean-up assistance from one helper? No. LYING TO SITTING ON SIDE OF BED - STEP 3: Does the patient need only verbal/nonverbal cueing or touching/steadying/contact guard assistance fro m one helper? Yes. 1. [id number] ADMISSION PERFORMANCE: Supervision or touching assistance CODE: 04 SIT TO STAND: SIT TO STAND - STEP 1: Does the patient complete the activity by him/herself with no assistance (physical, verbal/nonverbal cueing, setup/clean-up)? No. SIT TO STAND - STEP 2: Does the patient need only setup/clean-up assistance from one helper? No. SIT TO STAND - STEP 3: Does the patient need only verbal/nonverbal cueing or touching/steadying/contact guard assistance fro m one helper? Yes. 1. [id number] ADMISSION PERFORMANCE: Supervision or touching assistance CODE: 04 TRANSFERS: BED, CHAIR: CHAIR/[id number] TRANSFER - STEP 1: Does the patient complete the activity by him/herself with no assistance (physical, verbal/nonverbal cueing, setup/clean-up)? No. CHAIR/[id number] TRANSFER - STEP 2: Does the patient need only setup/clean-up assistance from one helper? No. CHAIR/[id number] TRANSFER - STEP 3: Does the patient need only verbal/nonverbal cueing or touching/steadying/contact guard assistance fro m one helper? Yes. 1. [id number] ADMISSION PERFORMANCE: Supervision or touching assistance CODE: 04 TRANSFER TOILET: TOILET TRANSFER - STEP 1: Does the patient complete the activity by him/herself with no assistance (physical, verbal/nonverbal cueing, setup/clean-up)? No. TOILET TRANSFER - STEP 2: Does the patient need only setup/clean-up assistance from one helper? No. TOILET TRANSFER - STEP 3: Does the patient need only verbal/nonverbal cueing or touching/steadying/contact guard assistance fro m one helper? Yes. 1. [id number] ADMISSION PERFORMANCE: Supervision or touching assistance CODE: 04 TRANSFERS: CAR: Not assessed/no information CODE: - WALK 10 FEET: Not assessed/no information CODE: - 1 STEP (CURB): Not assessed/no information CODE: - PICKING UP OBJECT: Not assessed/no information CODE: - DOES THE PATIENT USE A WHEELCHAIR/SCOOTER? CODE: EXPR WHEEL 50 FEET WITH TWO TURNS: Not assessed/no information CODE: - INDICATE THE TYPE OF WHEELCHAIR/SCOOTER USED: CODE: EXPR WHEEL 150 FEET: Not assessed/no information CODE: - INDICATE THE TYPE OF WHEELCHAIR/SCOOTER USED: CODE: EXPR BLADDER AND BOWEL: H350. BLADDER CONTINENCE (3-DAY ASSESSMENT PERIOD): Stress incontinence only CODE: 1 H400. BOWEL CONTINENCE (3-DAY ASSESSMENT PERIOD): Always continent CODE: 0 SIGNATURE PANEL: The following modified sections: 1. [id number] Admission Performance, 1. [id number] Admission Performance, 1. [id number] Admission Performance, 1. [id number] Admission Performance, 1. [id number] Admission Performance, 1. [id number] Admission Performance, 1. [id number] Admission Performance, 1. [id number] Admission Performance , 1. [id number] Admission Performance, 1. [id number] Admission Performance, Code, Code, H350. Bladder Tonya nence (3-day assessment period), H400. Bowel Continence (3-day assessment period) were [electronicall y] signed by Christopher Morrison on MonApr 16 2019 08:59:21 GMT-0600 (Central Standard Time)
--- NOTE | 2019-04-16 09:21 | FAST ---
SHIFT START DATE/TIME: 04/16/2019 07:00 (MANAGEMENT AND BUDGET ANALYST) SHIFT END DATE/TIME: 04/16/2019 19:00 (MANAGEMENT AND BUDGET ANALYST) NAME TIM JO DATE OF : 1950 DATE OF ADMISSION: 04/13/2019 14:57 (MANAGEMENT AND BUDGET ANALYST) PHONE: AGE: 69 SSN# [id number] GENDER: Male ENCOUNTER PHYSICIAN: Dr. Scott Waters M.D. ADMISSION DIAGNOSIS: - Brain Dysfunction 02 - Closed Injury (07.27) Obstructive Hydrocephalus. EATING: EATING - STEP 1: Does the patient complete the activity by him/herself with no assistance (physical, verbal/nonverbal cueing, setup/clean-up)? No. EATING - STEP 2: Does the patient need only setup/clean-up assistance from one helper? No. EATING - STEP 3: Does the patient need only verbal/nonverbal cueing or touching/steadying/contact guard assistance fro m one helper? Yes. 1. [id number] ADMISSION PERFORMANCE: Supervision or touching assistance CODE: 04 ORAL HYGIENE: ORAL HYGIENE - STEP 1: Does the patient complete the activity by him/herself with no assistance (physical, verbal/nonverbal cueing, setup/clean-up)? No. ORAL HYGIENE - STEP 2: Does the patient need only setup/clean-up assistance from one helper? No. ORAL HYGIENE - STEP 3: Does the patient need only verbal/nonverbal cueing or touching/steadying/contact guard assistance fro m one helper? Yes. 1. [id number] ADMISSION PERFORMANCE: Supervision or touching assistance CODE: 04 TOILETING HYGIENE: TOILETING HYGIENE - STEP 1: Does the patient complete the activity by him/herself with no assistance (physical, verbal/nonverbal cueing, setup/clean-up)? No. TOILETING HYGIENE - STEP 2: Does the patient need only setup/clean-up assistance from one helper? No. TOILETING HYGIENE - STEP 3: Does the patient need only verbal/nonverbal cueing or touching/steadying/contact guard assistance fro m one helper? Yes. 1. [id number] ADMISSION PERFORMANCE: Supervision or touching assistance CODE: 04 BATHING: Not assessed/no information CODE: - DRESSING - UPPER BODY: Not assessed/no information CODE: - DRESSING - LOWER BODY: Not assessed/no information CODE: - PUTTING ON/TAKING OFF FOOTWEAR: Not assessed/no information CODE: - ROLL LEFT AND RIGHT: ROLL LEFT AND RIGHT - STEP 1: Does the patient complete the activity by him/herself with no assistance (physical, verbal/nonverbal cueing, setup/clean-up)? No. ROLL LEFT AND RIGHT - STEP 2: Does the patient need only setup/clean-up assistance from one helper? No. ROLL LEFT AND RIGHT - STEP 3: Does the patient need only verbal/nonverbal cueing or touching/steadying/contact guard assistance fro m one helper? Yes. 1. [id number] ADMISSION PERFORMANCE: Supervision or touching assistance CODE: 04 SIT TO LYING: SIT TO LYING - STEP 1: Does the patient complete the activity by him/herself with no assistance (physical, verbal/nonverbal cueing, setup/clean-up)? No. SIT TO LYING - STEP 2: Does the patient need only setup/clean-up assistance from one helper? No. SIT TO LYING - STEP 3: Does the patient need only verbal/nonverbal cueing or touching/steadying/contact guard assistance fro m one helper? Yes. 1. [id number] ADMISSION PERFORMANCE: Supervision or touching assistance CODE: 04 LYING TO SITTING: LYING TO SITTING ON SIDE OF BED - STEP 1: Does the patient complete the activity by him/herself with no assistance (physical, verbal/nonverbal cueing, setup/clean-up)? No. LYING TO SITTING ON SIDE OF BED - STEP 2: Does the patient need only setup/clean-up assistance from one helper? Yes. 1. [id number] ADMISSION PERFORMANCE: Setup or clean-up assistance CODE: 05 SIT TO STAND: SIT TO STAND - STEP 1: Does the patient complete the activity by him/herself with no assistance (physical, verbal/nonverbal cueing, setup/clean-up)? No. SIT TO STAND - STEP 2: Does the patient need only setup/clean-up assistance from one helper? No. SIT TO STAND - STEP 3: Does the patient need only verbal/nonverbal cueing or touching/steadying/contact guard assistance fro m one helper? Yes. 1. [id number] ADMISSION PERFORMANCE: Supervision or touching assistance CODE: 04 TRANSFERS: BED, CHAIR: CHAIR/[id number] TRANSFER - STEP 1: Does the patient complete the activity by him/herself with no assistance (physical, verbal/nonverbal cueing, setup/clean-up)? No. CHAIR/[id number] TRANSFER - STEP 2: Does the patient need only setup/clean-up assistance from one helper? Yes. 1. [id number] ADMISSION PERFORMANCE: Setup or clean-up assistance CODE: 05 TRANSFER TOILET: TOILET TRANSFER - STEP 1: Does the patient complete the activity by him/herself with no assistance (physical, verbal/nonverbal cueing, setup/clean-up)? No. TOILET TRANSFER - STEP 2: Does the patient need only setup/clean-up assistance from one helper? Yes. 1. [id number] ADMISSION PERFORMANCE: Setup or clean-up assistance CODE: 05 TRANSFERS: CAR: Not assessed/no information CODE: - WALK 10 FEET: Not assessed/no information CODE: - 1 STEP (CURB): Not assessed/no information CODE: - PICKING UP OBJECT: Not assessed/no information CODE: - DOES THE PATIENT USE A WHEELCHAIR/SCOOTER? CODE: EXPR WHEEL 50 FEET WITH TWO TURNS: Not assessed/no information CODE: - INDICATE THE TYPE OF WHEELCHAIR/SCOOTER USED: CODE: EXPR WHEEL 150 FEET: Not assessed/no information CODE: - INDICATE THE TYPE OF WHEELCHAIR/SCOOTER USED: CODE: EXPR BLADDER AND BOWEL: H350. BLADDER CONTINENCE (3-DAY ASSESSMENT PERIOD): Stress incontinence only CODE: 1 H400. BOWEL CONTINENCE (3-DAY ASSESSMENT PERIOD): Always continent CODE: 0 SIGNATURE PANEL: The following modified sections: 1. [id number] Admission Performance, 1. [id number] Admission Performance, 1. [id number] Admission Performance, 1. [id number] Admission Performance, 1. DG1103I Admission Performance, 1. [id number] Admission Performance, 1. [id number] Admission Performance, 1. [id number] Admission Performance , 1. [id number] Admission Performance, Code, H350. Bladder Continence (3-day assessment period), H400. B owel Continence (3-day assessment period) were [electronically] signed by Christopher Morrison on MonApr 16 09:20:41 T-0600 (Central Standard Time)
[2019-04-16] MEDS: AMLODIPINE 10 MG TAB PO SCH (12:02)
[2019-04-16] MEDS ORDERED: ACETAMINOPHEN 325 MG TABLET PO PRN (17:42)
[2019-04-16] MEDS: TRAZODONE 50 MG TABLET PO PRN (19:10)
[2019-04-17] MEDS: HEPARIN 5000 UNIT/ML 1 ML VIAL SQ SCH ×2 (08:00→20:00)
[2019-04-17] MEDS: SENOSIDES 8.6 MG TAB PO SCH ×2 (08:00→19:28)
[2019-04-17] MEDS: DOCUSATE NA 100 MG CAP PO SCH ×2 (08:17→19:27)
[2019-04-17] MEDS: carvediloL 6.25 MG TAB PO SCH ×2 (08:18→19:27)
[2019-04-17] MEDS: HYDRALAZINE HCL 25 MG TABLET PO SCH ×3 (08:18→20:01)
--- NOTE | 2019-04-17 11:16 | FAST ---
SHIFT START DATE/TIME: 04/17/2019 07:00 (TABULATING MACHINE MECHANIC) SHIFT END DATE/TIME: 04/17/2019 19:00 (TABULATING MACHINE MECHANIC) NAME TIM JO DATE OF : 1950 DATE OF ADMISSION: 04/13/2019 14:57 (TABULATING MACHINE MECHANIC) PHONE: AGE: 69 SSN# [id number] GENDER: Male ENCOUNTER PHYSICIAN: Dr. Scott Waters M.D. ADMISSION DIAGNOSIS: - Brain Dysfunction 02 - Closed Injury (07.27) Obstructive Hydrocephalus. EATING: EATING - STEP 1: Does the patient complete the activity by him/herself with no assistance (physical, verbal/nonverbal cueing, setup/clean-up)? No. EATING - STEP 2: Does the patient need only setup/clean-up assistance from one helper? No. EATING - STEP 3: Does the patient need only verbal/nonverbal cueing or touching/steadying/contact guard assistance fro m one helper? Yes. 1. [id number] ADMISSION PERFORMANCE: Supervision or touching assistance CODE: 04 ORAL HYGIENE: ORAL HYGIENE - STEP 1: Does the patient complete the activity by him/herself with no assistance (physical, verbal/nonverbal cueing, setup/clean-up)? No. ORAL HYGIENE - STEP 2: Does the patient need only setup/clean-up assistance from one helper? No. ORAL HYGIENE - STEP 3: Does the patient need only verbal/nonverbal cueing or touching/steadying/contact guard assistance fro m one helper? Yes. 1. [id number] ADMISSION PERFORMANCE: Supervision or touching assistance CODE: 04 TOILETING HYGIENE: TOILETING HYGIENE - STEP 1: Does the patient complete the activity by him/herself with no assistance (physical, verbal/nonverbal cueing, setup/clean-up)? No. TOILETING HYGIENE - STEP 2: Does the patient need only setup/clean-up assistance from one helper? No. TOILETING HYGIENE - STEP 3: Does the patient need only verbal/nonverbal cueing or touching/steadying/contact guard assistance fro m one helper? Yes. 1. [id number] ADMISSION PERFORMANCE: Supervision or touching assistance CODE: 04 BATHING: Not assessed/no information CODE: - DRESSING - UPPER BODY: DRESSING - UPPER BODY - STEP 1: Does the patient complete the activity by him/herself with no assistance (physical, verbal/nonverbal cueing, setup/clean-up)? No. DRESSING - UPPER BODY - STEP 2: Does the patient need only setup/clean-up assistance from one helper? No. DRESSING - UPPER BODY - STEP 3: Does the patient need only verbal/nonverbal cueing or touching/steadying/contact guard assistance fro m one helper? Yes. 1. [id number] ADMISSION PERFORMANCE: Supervision or touching assistance CODE: 04 DRESSING - LOWER BODY: DRESSING - LOWER BODY - STEP 1: Does the patient complete the activity by him/herself with no assistance (physical, verbal/nonverbal cueing, setup/clean-up)? No. DRESSING - LOWER BODY - STEP 2: Does the patient need only setup/clean-up assistance from one helper? No. DRESSING - LOWER BODY - STEP 3: Does the patient need only verbal/nonverbal cueing or touching/steadying/contact guard assistance fro m one helper? Yes. 1. [id number] ADMISSION PERFORMANCE: Supervision or touching assistance CODE: 04 PUTTING ON/TAKING OFF FOOTWEAR: FOOTWEAR - STEP 1: Does the patient complete the activity by him/herself with no assistance (physical, verbal/nonverbal cueing, setup/clean-up)? No. FOOTWEAR - STEP 2: Does the patient need only setup/clean-up assistance from one helper? No. FOOTWEAR - STEP 3: Does the patient need only verbal/nonverbal cueing or touching/steadying/contact guard assistance fro m one helper? No. FOOTWEAR - STEP 4: Does the patient need physical assistance - for example lifting or trunk support from one helper - wi th the helper providing less than half of the effort? No. FOOTWEAR - STEP 5: Does the patient need physical assistance - for example lifting or trunk support from one helper - wi th the helper providing more than half of the effort? No. FOOTWEAR - STEP 6: Does the helper provide all of the effort? OR Is the assistance of two or more helpers required to co mplete the activity? Yes. 1. [id number] ADMISSION PERFORMANCE: Dependent CODE: 01 ROLL LEFT AND RIGHT: ROLL LEFT AND RIGHT - STEP 1: Does the patient complete the activity by him/herself with no assistance (physical, verbal/nonverbal cueing, setup/clean-up)? No. ROLL LEFT AND RIGHT - STEP 2: Does the patient need only setup/clean-up assistance from one helper? Yes. 1. [id number] ADMISSION PERFORMANCE: Setup or clean-up assistance CODE: 05 SIT TO LYING: SIT TO LYING - STEP 1: Does the patient complete the activity by him/herself with no assistance (physical, verbal/nonverbal cueing, setup/clean-up)? No. SIT TO LYING - STEP 2: Does the patient need only setup/clean-up assistance from one helper? Yes. 1. [id number] ADMISSION PERFORMANCE: Setup or clean-up assistance CODE: 05 LYING TO SITTING: LYING TO SITTING ON SIDE OF BED - STEP 1: Does the patient complete the activity by him/herself with no assistance (physical, verbal/nonverbal cueing, setup/clean-up)? No. LYING TO SITTING ON SIDE OF BED - STEP 2: Does the patient need only setup/clean-up assistance from one helper? Yes. 1. [id number] ADMISSION PERFORMANCE: Setup or clean-up assistance CODE: 05 SIT TO STAND: SIT TO STAND - STEP 1: Does the patient complete the activity by him/herself with no assistance (physical, verbal/nonverbal cueing, setup/clean-up)? No. SIT TO STAND - STEP 2: Does the patient need only setup/clean-up assistance from one helper? Yes. 1. [id number] ADMISSION PERFORMANCE: Setup or clean-up assistance CODE: 05 TRANSFERS: BED, CHAIR: CHAIR/[id number] TRANSFER - STEP 1: Does the patient complete the activity by him/herself with no assistance (physical, verbal/nonverbal cueing, setup/clean-up)? No. CHAIR/[id number]-[id number] TRANSFER - STEP 2: Does the patient need only setup/clean-up assistance from one helper? Yes. 1. [id number] ADMISSION PERFORMANCE: Setup or clean-up assistance CODE: 05 TRANSFER TOILET: TOILET TRANSFER - STEP 1: Does the patient complete the activity by him/herself with no assistance (physical, verbal/nonverbal cueing, setup/clean-up)? No. TOILET TRANSFER - STEP 2: Does the patient need only setup/clean-up assistance from one helper? No. TOILET TRANSFER - STEP 3: Does the patient need only verbal/nonverbal cueing or touching/steadying/contact guard assistance fro m one helper? Yes. 1. [id number] ADMISSION PERFORMANCE: Supervision or touching assistance CODE: 04 TRANSFERS: CAR: Not assessed/no information CODE: - WALK 10 FEET: Not assessed/no information CODE: - 1 STEP (CURB): Not assessed/no information CODE: - PICKING UP OBJECT: Not assessed/no information CODE: - DOES THE PATIENT USE A WHEELCHAIR/SCOOTER? Q1. DOES THE PATIENT USE A WHEELCHAIR/SCOOTER?: Yes CODE: 1 WHEEL 50 FEET WITH TWO TURNS: WHEEL 50 FEET WITH TWO TURNS - STEP 1: Does the patient complete the activity by him/herself with no assistance (physical, verbal/nonverbal cueing, setup/clean-up)? No. WHEEL 50 FEET WITH TWO TURNS - STEP 2: Does the patient need only setup/clean-up assistance from one helper? No. WHEEL 50 FEET WITH TWO TURNS - STEP 3: Does the patient need only verbal/nonverbal cueing or touching/steadying/contact guard assistance fro m one helper? Yes. 1. [id number] ADMISSION PERFORMANCE: Supervision or touching assistance CODE: 04 INDICATE THE TYPE OF WHEELCHAIR/SCOOTER USED: RR1. INDICATE THE TYPE OF WHEELCHAIR/SCOOTER USED.: Manual CODE: 1 WHEEL 150 FEET: WHEEL 150 FEET - STEP 1: Does the patient complete the activity by him/herself with no assistance (physical, verbal/nonverbal cueing, setup/clean-up)? No. WHEEL 150 FEET - STEP 2: Does the patient need only setup/clean-up assistance from one helper? No. WHEEL 150 FEET - STEP 3: Does the patient need only verbal/nonverbal cueing or touching/steadying/contact guard assistance fro m one helper? Yes. 1. [id number] ADMISSION PERFORMANCE: Supervision or touching assistance CODE: 04 INDICATE THE TYPE OF WHEELCHAIR/SCOOTER USED: SS1. INDICATE THE TYPE OF WHEELCHAIR/SCOOTER USED.: Manual CODE: 1 BLADDER AND BOWEL: H350. BLADDER CONTINENCE (3-DAY ASSESSMENT PERIOD): Incontinent daily (at least once a day) CODE: 3 H400. BOWEL CONTINENCE (3-DAY ASSESSMENT PERIOD): Always continent CODE: 0 SIGNATURE PANEL: The following modified sections: 1. [id number] Admission Performance, 1. [id number] Admission Performance, 1. EY5333V Admission Performance, 1. FZ8308O Admission Performance, 1. YG1095f Admission Performance, 1. BX8307u Admission Performance, 1. XD1375a Admission Performance, 1. MQ9040g Admission Performance , 1. TB5931q Admission Performance, 1. PA3669Q Admission Performance, 1. VU8493U Admission Performanc e, 1. EK0184B Admission Performance, 1. DY7435Q Admission Performance, 1. XY6196D Admission Performan ce, 1. AQ3959L Admission Performance, 1. DX6380Z Admission Performance, 1. VT9576Z Admission Performa nce, 1. DO9277C Admission Performance, 1. OS5134N Admission Performance, Q1. Does the patient use a w heelchair/scooter?, 1. FY6997Y Admission Performance, RR1. Indicate the type of wheelchair/scooter us ed., 1. XK5026C Admission Performance, Code, SS1. Indicate the type of wheelchair/scooter used., H350 . Bladder Continence (3-day assessment period), H400. Bowel Continence (3-day assessment period) were [electronically] signed by Karey Mcdermott C.N.A. on MonApr 17 2019 11:15:23 GMT-0600 ([place] Time)
[2019-04-17] MEDS: AMLODIPINE 10 MG TAB PO SCH (12:04)
--- NOTE | 2019-04-17 17:28 | R.PN ---
ENCOUNTER DATE AND TIME: 04/17/2019 17:25 ([employer] AND [employer]VER[employer] SALESPERSON) NAME TIM JO DATE OF : 1950 DATE OF ADMISSION: 04/13/2019 14:57 ([employer] AND [employer]VER[employer] SALESPERSON) Obstructive HydrocephalusCHIEF COMPLAINT: Hydrocephalus, status post [employer] shunt SUBJECTIVE: Pt denied any depression. Pt denied any Shortness of Breath. He has no complaints. He is making good progress with physical and occupational therapy. His pain is well managed. His blood work is stable. VITAL SIGNS Temperature: 97.6 F SBP/DBP: 129/78 Pulse: 86 Resp: 16 MEDICATION ALLERGIES: No Known Drug Allergies (NKDA) ENVIRONMENTAL ALLERGIES: - Substance Allergies None Known - Other Allergies None Known NURSING: - Shower allowing shower - Bladder care per protocol - Skin care per protocol PRECAUTIONS: - Aspiration Precaution 1 to 1 supervision with all po intake All meals in the dysphagia dining room No straws Seated at 90 degrees while eating and 30 minutes after meals - Fall Precaution 1 to 1 supervision ACTIVITIES OOB only with supervision THERAPIES: - Occupational Therapy Cognitive Retraining. Visual Perceptual Training. - Dietary and Nutrition Adequate Nutrition. Nutritional Education. Nutritional Supplements. - Speech Therapy Augmentative Communication Equipment. Cognitive Training. Dysphagia Therapy. Expressive Language Skil ls. Receptive Language Skills. PHYSICAL EXAM - Gen Alert and awake Lying in bed No apparent distress Oriented to: person, time, and place - Skin No skin breakdown. Normacephalic [employer] shunt is intact. - Eyes No abnormalities - ENMT No abnormalities - Neck No abnormalities - CVS RRR - Chest No abnormalities - Abd Soft - GI Non distended Deferred - No abnormalities - Ext Mild bilateral lower extremity edema. - MSK 4+/5 weakness in left lower extremity - Neuro 4/5 strength bilaterally upper and lower extremities. - Psych No abnormalities ASSESSMENT: Pt. is a 69 yo Right-handed male of unknown race.On 04/02/2019 he was admitted to [facility] diagnosis Obstructive Hydrocephalus.His impairment category is Brain Dysfunction 02 - Closed Inju ry (07.27).Pre-morbidly, Pt. was independent/mod-I in Locomotion, Transfers Control, Self-Care, Ambul ation, and Sphincter Control; and he had good Social Cognition.Currently, he has deficits of Locomoti on, Self-Care, Transfers Control, Safety Awareness, Social Cognition, and Communication.Pt. is now re ferred to [facility] for acute in-patient rehabilitation in order to maximize patient's functional independence in activities of daily living, strength, ROM, and mobility.- Rehab Goal Patient has realistic goal of being discharged at assistance level 6-Osbaldo to reside at Home with Fam brea/Relatives. MDM/PLAN: - Physical Therapy Gait dysfunction - to improve, our physical therapists will perform initial evaluation of pt's statu s upon admission and devise an individualized program for Gait Training, and Wheel Chair mobility Inability to transfer - to improve, our physical therapists will perform initial evaluation of pt's status upon admission and devise an individualized program for Bed mobility Need for home safety evaluation - to improve, our physical therapists will perform initial evaluatio n of pt's status upon admission and devise an individualized program for Home Evaluation Edema - to improve, our physical therapists will perform initial evaluation of pt's status upon admi ssion and devise an individualized program for Elevation Training, and Lymphedema Therapy Need in caregiver upon discharge - to improve, our physical therapists will perform initial evaluati on of pt's status upon admission and devise an individualized program for Caregiver Training New precaution - to improve, our physical therapists will perform initial evaluation of pt's status upon admission and devise an individualized program for Patient precaution education Achieving independence - to improve, our physical therapists will perform initial evaluation of pt's status upon admission and devise an individualized program for Community Reintegration Activities - Occupational Therapy ADL deficits - to improve, our occupation therapists will perform initial evaluation of pt's status upon admission and devise an individualized program for Bathing, Bed mobility, Community Reintegratio n, Cooking, Dressing, Eating, Fine Motor Skills, Grooming, Homemaking, Kitchen Mobility, Laundry, Pat ient Education, Safety Awareness, Splinting - Positioning, Transfers(Toilet, Tub, Shower), and Wheel Chair Management Cognitive deficits - to improve, our occupation therapists will perform initial evaluation of pt's s tatus upon admission and devise an individualized program for Cognition - orientation Need for career resource technician - to improve, our occupation therapists will perform initial evaluation of pt's status upon admission and devise an individualized program for Caregiver Training - Other See attached MAR (Medication Administration Record) - Diet Type Continue NPO (nothing by mouth) - Diet - Liquid Texture Continue Regular - Tube Feed Continue N/A - Bladder care per protocol - Aspiration Precaution 1 to 1 supervision with all po intake All meals in the dysphagia dining room No straws Seated at 90 degrees while eating and 30 minutes after meals - Fall Precaution 1 to 1 supervision - Skin care per protocol - Shower allowing shower FUNCTIONAL STATUS: UPDATED AT WEEKLY TEAM CONFERENCE - Bladder Same accident frequency: 7-Ind - No accidents in the past 7 days - Bowel Same accident frequency: 7-Ind - No accidents in the past 7 days - Walking Same score based on distance walked: 1(<=50ft) - Wheelchair Same score based on distance traveled: 1(<=50ft) FUNCTIONAL STATUS: - Self-Care A. Eating Osbaldo B. Grooming modA C. Bathing modA D. Dressing - Upper modA E. Dressing - Lower modA F. Toileting modA - Sphincter Control G. Bladder control modA H. Bowel control modA - Transfers Control I. Bed/Chair/Wheelchair Elba J. Toilet modA K. Tub/Shower modA - Locomotion L. Walk/Wheelchair (W) maxA M. Stairs Dep - Communication N. Comprehension (A) Elba O. Expression (B) Elba - Social Cognition P. Social Interaction Elba Q. Problem Solving Elba R. Memory Elba - Endurance Good - Balance Good - Safety Awareness Good QI SCORES: - Self-Care A. Eating 01-Dependent B. Oral hygiene 05-Setup or clean-up assistance C. Toileting hygiene 03-Partial/moderate assistance E. Shower/bathe self 03-Partial/moderate assistance F. Upper body dressing 04-Supervision or touching assistance G. Lower body dressing 03-Partial/moderate assistance H. Putting on/taking off footwear 03-Partial/moderate assistance - Mobility A. Roll left and right 03-Partial/moderate assistance B. Sit to lying 04-Supervision or touching assistance C. Lying to sitting on side of bed 04-Supervision or touching assistance D. Sit to stand 04-Supervision or touching assistance E. Chair/pzd-bl-[id number] transfer 04-Supervision or touching assistance F. Toilet transfer 04-Supervision or touching assistance G. Car transfer 88-Not attempted due to medical condition or safety concerns I. Walk 10 feet 02-Substantial/maximal assistance J. Walk 50 feet with two turns 88-Not attempted due to medical condition or safety concerns K. Walk 150 feet 88-Not attempted due to medical condition or safety concerns L. Walking 10 feet on uneven surfaces 88-Not attempted due to medical condition or safety concerns M. 1 step (curb) 88-Not attempted due to medical condition or safety concerns N. 4 steps 88-Not attempted due to medical condition or safety concerns O. 12 steps 88-Not attempted due to medical condition or safety concerns P. Picking up object 88-Not attempted due to medical condition or safety concerns R. Wheel 50 feet with two turns 88-Not attempted due to medical condition or safety concerns S. Wheel 150 feet 88-Not attempted due to medical condition or safety concerns - Bladder and Bowel Bladder continence 1-Stress incontinence only Bowel continence 0-Always continent - Endurance Fair - Balance Poor - Safety Awareness Poor CURRENT FUNC. DEFICITS: Locomotion, Self-Care, Transfers Control, Safety Awareness, Social Cognition, and Communication SIGNATURE PANEL: ([employer] SALESPERSON)
--- NOTE | 2019-04-17 17:39 | R.PN ---
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 Pt denied any Shortness of Breath. He has no complaints. He is making good progress with physical and occupational therapy. His pain is well managed. His blood work is stable. He denies pain at his scalp shunt site. VITAL SIGNS Temperature: 97.6 F SBP/DBP: 127/79 Pulse: 84 Resp: 16 MEDICATION ALLERGIES: No Known Drug Allergies (NKDA) ENVIRONMENTAL ALLERGIES: - Substance Allergies None Known - Other Allergies None Known NURSING: - Shower allowing shower - Bladder care per protocol - Skin care per protocol PRECAUTIONS: - Aspiration Precaution 1 to 1 supervision with all po intake All meals in the dysphagia dining room No straws Seated at 90 degrees while eating and 30 minutes after meals - Fall Precaution 1 to 1 supervision ACTIVITIES OOB only with supervision THERAPIES: - Occupational Therapy Cognitive Retraining. Visual Perceptual Training. - Dietary and Nutrition Adequate Nutrition. Nutritional Education. Nutritional Supplements. - Speech Therapy Augmentative Communication Equipment. Cognitive Training. Dysphagia Therapy. Expressive Language Skil ls. Receptive Language Skills. PHYSICAL EXAM - Gen Alert and awake Lying in bed No apparent distress Oriented to: person, time, and place - Skin No skin breakdown. Normacephalic MACHINE PROGRAMMER shunt is intact. - Eyes No abnormalities - ENMT No abnormalities - Neck No abnormalities - CVS RRR - Chest No abnormalities - Abd Soft - GI Non distended Deferred - No abnormalities - Ext Mild bilateral lower extremity edema. - MSK 4+/5 weakness in left lower extremity - Neuro 4/5 strength bilaterally upper and lower extremities. - Psych No abnormalities ASSESSMENT: Pt. is a 69 yo Right-handed male of unknown race.On 04/02/2019 he was admitted to [facility] diagnosis Obstructive Hydrocephalus.His impairment category is Brain Dysfunction 02 - Closed Inju ry (07.27).Pre-morbidly, Pt. was independent/mod-I in Locomotion, Transfers Control, Self-Care, Ambul ation, and Sphincter Control; and he had good Social Cognition.Currently, he has deficits of Locomoti on, Self-Care, Transfers Control, Safety Awareness, Social Cognition, and Communication.Pt. is now re ferred to [facility] for acute in-patient rehabilitation in order to maximize patient's functional independence in activities of daily living, strength, ROM, and mobility.- Rehab Goal Patient has realistic goal of being discharged at assistance level 6-Osbaldo to reside at Home with Fam brea/Relatives. MDM/PLAN: - Physical Therapy Gait dysfunction - to improve, our physical therapists will perform initial evaluation of pt's statu s upon admission and devise an individualized program for Gait Training, and Wheel Chair mobility Inability to transfer - to improve, our physical therapists will perform initial evaluation of pt's status upon admission and devise an individualized program for Bed mobility Need for home safety evaluation - to improve, our physical therapists will perform initial evaluatio n of pt's status upon admission and devise an individualized program for Home Evaluation Edema - to improve, our physical therapists will perform initial evaluation of pt's status upon admi ssion and devise an individualized program for Elevation Training, and Lymphedema Therapy Need in caregiver upon discharge - to improve, our physical therapists will perform initial evaluati on of pt's status upon admission and devise an individualized program for Caregiver Training New precaution - to improve, our physical therapists will perform initial evaluation of pt's status upon admission and devise an individualized program for Patient precaution education Achieving independence - to improve, our physical therapists will perform initial evaluation of pt's status upon admission and devise an individualized program for Community Reintegration Activities - Occupational Therapy ADL deficits - to improve, our occupation therapists will perform initial evaluation of pt's status upon admission and devise an individualized program for Bathing, Bed mobility, Community Reintegratio n, Cooking, Dressing, Eating, Fine Motor Skills, Grooming, Homemaking, Kitchen Mobility, Laundry, Pat ient Education, Safety Awareness, Splinting - Positioning, Transfers(Toilet, Tub, Shower), and Wheel Chair Management Cognitive deficits - to improve, our occupation therapists will perform initial evaluation of pt's s tatus upon admission and devise an individualized program for Cognition - orientation Need for resident care manager - to improve, our occupation therapists will perform initial evaluation of pt's status upon admission and devise an individualized program for Caregiver Training - Other See attached MAR (Medication Administration Record) - Diet Type Continue NPO (nothing by mouth) - Diet - Liquid Texture Continue Regular - Tube Feed Continue N/A - Bladder care per protocol - Aspiration Precaution 1 to 1 supervision with all po intake All meals in the dysphagia dining room No straws Seated at 90 degrees while eating and 30 minutes after meals - Fall Precaution 1 to 1 supervision - Skin care per protocol - Shower allowing shower FUNCTIONAL STATUS: UPDATED AT WEEKLY TEAM CONFERENCE - Bladder Same accident frequency: 7-Ind - No accidents in the past 7 days - Bowel Same accident frequency: 7-Ind - No accidents in the past 7 days - Walking Same score based on distance walked: 1(<=50ft) - Wheelchair Same score based on distance traveled: 1(<=50ft) FUNCTIONAL STATUS: - Self-Care A. Eating Osbaldo B. Grooming modA C. Bathing modA D. Dressing - Upper modA E. Dressing - Lower modA F. Toileting modA - Sphincter Control G. Bladder control modA H. Bowel control modA - Transfers Control I. Bed/Chair/Wheelchair Elba J. Toilet modA K. Tub/Shower modA - Locomotion L. Walk/Wheelchair (W) maxA M. Stairs Dep - Communication N. Comprehension (A) Elba O. Expression (B) Elba - Social Cognition P. Social Interaction Elba Q. Problem Solving Elba R. Memory Elba - Endurance Good - Balance Good - Safety Awareness Good QI SCORES: - Self-Care A. Eating 01-Dependent B. Oral hygiene 05-Setup or clean-up assistance C. Toileting hygiene 03-Partial/moderate assistance E. Shower/bathe self 03-Partial/moderate assistance F. Upper body dressing 04-Supervision or touching assistance G. Lower body dressing 03-Partial/moderate assistance H. Putting on/taking off footwear 03-Partial/moderate assistance - Mobility A. Roll left and right 03-Partial/moderate assistance B. Sit to lying 04-Supervision or touching assistance C. Lying to sitting on side of bed 04-Supervision or touching assistance D. Sit to stand 04-Supervision or touching assistance E. Chair/wyk-hz-[id number] transfer 04-Supervision or touching assistance F. Toilet transfer 04-Supervision or touching assistance G. Car transfer 88-Not attempted due to medical condition or safety concerns I. Walk 10 feet 02-Substantial/maximal assistance J. Walk 50 feet with two turns 88-Not attempted due to medical condition or safety concerns K. Walk 150 feet 88-Not attempted due to medical condition or safety concerns L. Walking 10 feet on uneven surfaces 88-Not attempted due to medical condition or safety concerns M. 1 step (curb) 88-Not attempted due to medical condition or safety concerns N. 4 steps 88-Not attempted due to medical condition or safety concerns O. 12 steps 88-Not attempted due to medical condition or safety concerns P. Picking up object 88-Not attempted due to medical condition or safety concerns R. Wheel 50 feet with two turns 88-Not attempted due to medical condition or safety concerns S. Wheel 150 feet 88-Not attempted due to medical condition or safety concerns - Bladder and Bowel Bladder continence 1-Stress incontinence only Bowel continence 0-Always continent - Endurance Fair - Balance Poor - Safety Awareness Poor CURRENT FUNC. 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
[2019-04-17] MEDS: TRAZODONE 50 MG TABLET PO PRN (21:45)
[2019-04-18 06:11] LABS: Absolute Lymphocytes (CBC) 1.6 K/uL (0.7-4.9); Basophils % 0.7 % (0-1.3); Hematocrit 34.5 % (39.6-49.0); Lymphocytes % 28.6 % (15.3-44.8); MPV 10.1 fL (7.6-11.3)
[2019-04-18 06:36] LABS: Albumin 3.3 g/dL (3.4-5.0); BUN Blood Urea Nitrogen 15 mg/dL (7-18); Bicarbonate 27 mmol/L (21-32); Glucose Level 98 mg/dL (74-106); Magnesium 2.5 mg/dL (1.8-2.4); Potassium 3.8 mmol/L (3.5-5.1); Sodium Level 142 mmol/L (136-145)
[2019-04-18] MEDS: SENOSIDES 8.6 MG TAB PO SCH ×2 (08:00→20:00)
[2019-04-18] MEDS: DOCUSATE NA 100 MG CAP PO SCH ×2 (08:00→20:15)
[2019-04-18] MEDS: HEPARIN 5000 UNIT/ML 1 ML VIAL SQ SCH ×2 (08:00→20:00)
[2019-04-18] MEDS: HYDRALAZINE HCL 25 MG TABLET PO SCH ×3 (08:12→20:15)
[2019-04-18] MEDS: carvediloL 6.25 MG TAB PO SCH ×2 (08:12→20:15)
[2019-04-18] MEDS: AMLODIPINE 10 MG TAB PO SCH (12:31)
--- NOTE | 2019-04-18 12:58 | R.PN ---
ENCOUNTER DATE AND TIME: 04/18/2019 12:54 ([employer]) NAME TIM JO DATE OF : 1950 DATE OF ADMISSION: 04/13/2019 14:57 ([employer]) Obstructive HydrocephalusCHIEF COMPLAINT: Hydrocephalus, status post SCRIPT DEVELOPER shunt SUBJECTIVE: Pt denied any depression. Pt denied any Shortness of Breath. Ambulated over 500' with contact guard assistance using a rolling walker. His blood work is stable. He denies pain at his scalp shunt site. VITAL SIGNS Temperature: 97.2 F SBP/DBP: 135/78 Pulse: 79 Resp: 16 MEDICATION ALLERGIES: No Known Drug Allergies (NKDA) ENVIRONMENTAL ALLERGIES: - Substance Allergies None Known - Other Allergies None Known NURSING: - Shower allowing shower - Bladder care per protocol - Skin care per protocol PRECAUTIONS: - Aspiration Precaution 1 to 1 supervision with all po intake All meals in the dysphagia dining room No straws Seated at 90 degrees while eating and 30 minutes after meals - Fall Precaution 1 to 1 supervision ACTIVITIES OOB only with supervision THERAPIES: - Occupational Therapy Cognitive Retraining. Visual Perceptual Training. - Dietary and Nutrition Adequate Nutrition. Nutritional Education. Nutritional Supplements. - Speech Therapy Augmentative Communication Equipment. Cognitive Training. Dysphagia Therapy. Expressive Language Skil ls. Receptive Language Skills. PHYSICAL EXAM - Gen Alert and awake Lying in bed No apparent distress Oriented to: person, time, and place - Skin No skin breakdown. Normacephalic SCRIPT DEVELOPER shunt is intact. - Eyes No abnormalities - ENMT No abnormalities - Neck No abnormalities - CVS RRR - Chest No abnormalities - Abd Soft - GI Non distended Deferred - No abnormalities - Ext Mild bilateral lower extremity edema. - MSK 4+/5 weakness in left lower extremity - Neuro 4/5 strength bilaterally upper and lower extremities. - Psych No abnormalities ASSESSMENT: Pt. is a 69 yo Right-handed male of unknown race.On 04/02/2019 he was admitted to [facility] diagnosis Obstructive Hydrocephalus.His impairment category is Brain Dysfunction 02 - Closed Inju ry (07.27).Pre-morbidly, Pt. was independent/mod-I in Locomotion, Transfers Control, Self-Care, Ambul ation, and Sphincter Control; and he had good Social Cognition.Currently, he has deficits of Locomoti on, Self-Care, Transfers Control, Safety Awareness, Social Cognition, and Communication.Pt. is now re ferred to [facility] for acute in-patient rehabilitation in order to maximize patient's functional independence in activities of daily living, strength, ROM, and mobility.- Rehab Goal Patient has realistic goal of being discharged at assistance level 6-Osbaldo to reside at Home with Fam brea/Relatives. MDM/PLAN: - Physical Therapy Gait dysfunction - to improve, our physical therapists will perform initial evaluation of pt's statu s upon admission and devise an individualized program for Gait Training, and Wheel Chair mobility Inability to transfer - to improve, our physical therapists will perform initial evaluation of pt's status upon admission and devise an individualized program for Bed mobility Need for home safety evaluation - to improve, our physical therapists will perform initial evaluatio n of pt's status upon admission and devise an individualized program for Home Evaluation Edema - to improve, our physical therapists will perform initial evaluation of pt's status upon admi ssion and devise an individualized program for Elevation Training, and Lymphedema Therapy Need in caregiver upon discharge - to improve, our physical therapists will perform initial evaluati on of pt's status upon admission and devise an individualized program for Caregiver Training New precaution - to improve, our physical therapists will perform initial evaluation of pt's status upon admission and devise an individualized program for Patient precaution education Achieving independence - to improve, our physical therapists will perform initial evaluation of pt's status upon admission and devise an individualized program for Community Reintegration Activities - Occupational Therapy ADL deficits - to improve, our occupation therapists will perform initial evaluation of pt's status upon admission and devise an individualized program for Bathing, Bed mobility, Community Reintegratio n, Cooking, Dressing, Eating, Fine Motor Skills, Grooming, Homemaking, Kitchen Mobility, Laundry, Pat ient Education, Safety Awareness, Splinting - Positioning, Transfers(Toilet, Tub, Shower), and Wheel Chair Management Cognitive deficits - to improve, our occupation therapists will perform initial evaluation of pt's s tatus upon admission and devise an individualized program for Cognition - orientation Need for managed care specialist - to improve, our occupation therapists will perform initial evaluation of pt's status upon admission and devise an individualized program for Caregiver Training - Other See attached MAR (Medication Administration Record) - Diet Type Continue NPO (nothing by mouth) - Diet - Liquid Texture Continue Regular - Tube Feed Continue N/A - Bladder care per protocol - Aspiration Precaution 1 to 1 supervision with all po intake All meals in the dysphagia dining room No straws Seated at 90 degrees while eating and 30 minutes after meals - Fall Precaution 1 to 1 supervision - Skin care per protocol - Shower allowing shower FUNCTIONAL STATUS: UPDATED AT WEEKLY TEAM CONFERENCE - Bladder Same accident frequency: 7-Ind - No accidents in the past 7 days - Bowel Same accident frequency: 7-Ind - No accidents in the past 7 days - Walking Same score based on distance walked: 1(<=50ft) - Wheelchair Same score based on distance traveled: 1(<=50ft) FUNCTIONAL STATUS: - Self-Care A. Eating Osbaldo B. Grooming modA C. Bathing modA D. Dressing - Upper modA E. Dressing - Lower modA F. Toileting modA - Sphincter Control G. Bladder control modA H. Bowel control modA - Transfers Control I. Bed/Chair/Wheelchair Elba J. Toilet modA K. Tub/Shower modA - Locomotion L. Walk/Wheelchair (W) maxA M. Stairs Dep - Communication N. Comprehension (A) Elba O. Expression (B) Elba - Social Cognition P. Social Interaction Elba Q. Problem Solving Elba R. Memory Elba - Endurance Good - Balance Good - Safety Awareness Good QI SCORES: - Self-Care A. Eating 01-Dependent B. Oral hygiene 05-Setup or clean-up assistance C. Toileting hygiene 03-Partial/moderate assistance E. Shower/bathe self 03-Partial/moderate assistance F. Upper body dressing 04-Supervision or touching assistance G. Lower body dressing 03-Partial/moderate assistance H. Putting on/taking off footwear 03-Partial/moderate assistance - Mobility A. Roll left and right 03-Partial/moderate assistance B. Sit to lying 04-Supervision or touching assistance C. Lying to sitting on side of bed 04-Supervision or touching assistance D. Sit to stand 04-Supervision or touching assistance E. Chair/osp-hd-rglkr transfer 04-Supervision or touching assistance F. Toilet transfer 04-Supervision or touching assistance G. Car transfer 88-Not attempted due to medical condition or safety concerns I. Walk 10 feet 02-Substantial/maximal assistance J. Walk 50 feet with two turns 88-Not attempted due to medical condition or safety concerns K. Walk 150 feet 88-Not attempted due to medical condition or safety concerns L. Walking 10 feet on uneven surfaces 88-Not attempted due to medical condition or safety concerns M. 1 step (curb) 88-Not attempted due to medical condition or safety concerns N. 4 steps 88-Not attempted due to medical condition or safety concerns O. 12 steps 88-Not attempted due to medical condition or safety concerns P. Picking up object 88-Not attempted due to medical condition or safety concerns R. Wheel 50 feet with two turns 88-Not attempted due to medical condition or safety concerns S. Wheel 150 feet 88-Not attempted due to medical condition or safety concerns - Bladder and Bowel Bladder continence 1-Stress incontinence only Bowel continence 0-Always continent - Endurance Fair - Balance Poor - Safety Awareness Poor CURRENT FUNC. DEFICITS: Locomotion, Self-Care, Transfers Control, Safety Awareness, Social Cognition, and Communication SIGNATURE PANEL: ([employer])
--- NOTE | 2019-04-18 13:17 | FAST ---
SHIFT START DATE/TIME: 04/18/2019 07:00 (PROFESSOR COMPUTER SCIENCE) SHIFT END DATE/TIME: 04/18/2019 19:00 (PROFESSOR COMPUTER SCIENCE) NAME TIM JO DATE OF : 1950 DATE OF ADMISSION: 04/13/2019 14:57 (PROFESSOR COMPUTER SCIENCE) PHONE: AGE: 69 SSN# [id number] GENDER: Male ENCOUNTER PHYSICIAN: Dr. Scott Waters M.D. ADMISSION DIAGNOSIS: - Brain Dysfunction 02 - Closed Injury (07.27) Obstructive Hydrocephalus. EATING: EATING - STEP 1: Does the patient complete the activity by him/herself with no assistance (physical, verbal/nonverbal cueing, setup/clean-up)? No. EATING - STEP 2: Does the patient need only setup/clean-up assistance from one helper? No. EATING - STEP 3: Does the patient need only verbal/nonverbal cueing or touching/steadying/contact guard assistance fro m one helper? Yes. 1. [id number] ADMISSION PERFORMANCE: Supervision or touching assistance CODE: 04 ORAL HYGIENE: ORAL HYGIENE - STEP 1: Does the patient complete the activity by him/herself with no assistance (physical, verbal/nonverbal cueing, setup/clean-up)? No. ORAL HYGIENE - STEP 2: Does the patient need only setup/clean-up assistance from one helper? No. ORAL HYGIENE - STEP 3: Does the patient need only verbal/nonverbal cueing or touching/steadying/contact guard assistance fro m one helper? Yes. 1. [id number] ADMISSION PERFORMANCE: Supervision or touching assistance CODE: 04 TOILETING HYGIENE: TOILETING HYGIENE - STEP 1: Does the patient complete the activity by him/herself with no assistance (physical, verbal/nonverbal cueing, setup/clean-up)? No. TOILETING HYGIENE - STEP 2: Does the patient need only setup/clean-up assistance from one helper? No. TOILETING HYGIENE - STEP 3: Does the patient need only verbal/nonverbal cueing or touching/steadying/contact guard assistance fro m one helper? Yes. 1. [id number] ADMISSION PERFORMANCE: Supervision or touching assistance CODE: 04 BATHING: Not assessed/no information CODE: - DRESSING - UPPER BODY: DRESSING - UPPER BODY - STEP 1: Does the patient complete the activity by him/herself with no assistance (physical, verbal/nonverbal cueing, setup/clean-up)? No. DRESSING - UPPER BODY - STEP 2: Does the patient need only setup/clean-up assistance from one helper? No. DRESSING - UPPER BODY - STEP 3: Does the patient need only verbal/nonverbal cueing or touching/steadying/contact guard assistance fro m one helper? Yes. 1. [id number] ADMISSION PERFORMANCE: Supervision or touching assistance CODE: 04 DRESSING - LOWER BODY: DRESSING - LOWER BODY - STEP 1: Does the patient complete the activity by him/herself with no assistance (physical, verbal/nonverbal cueing, setup/clean-up)? No. DRESSING - LOWER BODY - STEP 2: Does the patient need only setup/clean-up assistance from one helper? No. DRESSING - LOWER BODY - STEP 3: Does the patient need only verbal/nonverbal cueing or touching/steadying/contact guard assistance fro m one helper? Yes. 1. [id number] ADMISSION PERFORMANCE: Supervision or touching assistance CODE: 04 PUTTING ON/TAKING OFF FOOTWEAR: FOOTWEAR - STEP 1: Does the patient complete the activity by him/herself with no assistance (physical, verbal/nonverbal cueing, setup/clean-up)? No. FOOTWEAR - STEP 2: Does the patient need only setup/clean-up assistance from one helper? No. FOOTWEAR - STEP 3: Does the patient need only verbal/nonverbal cueing or touching/steadying/contact guard assistance fro m one helper? No. FOOTWEAR - STEP 4: Does the patient need physical assistance - for example lifting or trunk support from one helper - wi th the helper providing less than half of the effort? No. FOOTWEAR - STEP 5: Does the patient need physical assistance - for example lifting or trunk support from one helper - wi th the helper providing more than half of the effort? No. FOOTWEAR - STEP 6: Does the helper provide all of the effort? OR Is the assistance of two or more helpers required to co mplete the activity? Yes. 1. [id number] ADMISSION PERFORMANCE: Dependent CODE: 01 ROLL LEFT AND RIGHT: ROLL LEFT AND RIGHT - STEP 1: Does the patient complete the activity by him/herself with no assistance (physical, verbal/nonverbal cueing, setup/clean-up)? No. ROLL LEFT AND RIGHT - STEP 2: Does the patient need only setup/clean-up assistance from one helper? Yes. 1. [id number] ADMISSION PERFORMANCE: Setup or clean-up assistance CODE: 05 SIT TO LYING: SIT TO LYING - STEP 1: Does the patient complete the activity by him/herself with no assistance (physical, verbal/nonverbal cueing, setup/clean-up)? No. SIT TO LYING - STEP 2: Does the patient need only setup/clean-up assistance from one helper? Yes. 1. [id number] ADMISSION PERFORMANCE: Setup or clean-up assistance CODE: 05 LYING TO SITTING: LYING TO SITTING ON SIDE OF BED - STEP 1: Does the patient complete the activity by him/herself with no assistance (physical, verbal/nonverbal cueing, setup/clean-up)? No. LYING TO SITTING ON SIDE OF BED - STEP 2: Does the patient need only setup/clean-up assistance from one helper? No. LYING TO SITTING ON SIDE OF BED - STEP 3: Does the patient need only verbal/nonverbal cueing or touching/steadying/contact guard assistance fro m one helper? Yes. 1. [id number] ADMISSION PERFORMANCE: Supervision or touching assistance CODE: 04 SIT TO STAND: SIT TO STAND - STEP 1: Does the patient complete the activity by him/herself with no assistance (physical, verbal/nonverbal cueing, setup/clean-up)? No. SIT TO STAND - STEP 2: Does the patient need only setup/clean-up assistance from one helper? No. SIT TO STAND - STEP 3: Does the patient need only verbal/nonverbal cueing or touching/steadying/contact guard assistance fro m one helper? Yes. 1. [id number] ADMISSION PERFORMANCE: Supervision or touching assistance CODE: 04 TRANSFERS: BED, CHAIR: CHAIR/[id number] TRANSFER - STEP 1: Does the patient complete the activity by him/herself with no assistance (physical, verbal/nonverbal cueing, setup/clean-up)? No. CHAIR/[id number] TRANSFER - STEP 2: Does the patient need only setup/clean-up assistance from one helper? No. CHAIR/[id number] TRANSFER - STEP 3: Does the patient need only verbal/nonverbal cueing or touching/steadying/contact guard assistance fro m one helper? Yes. 1. [id number] ADMISSION PERFORMANCE: Supervision or touching assistance CODE: 04 TRANSFER TOILET: TOILET TRANSFER - STEP 1: Does the patient complete the activity by him/herself with no assistance (physical, verbal/nonverbal cueing, setup/clean-up)? No. TOILET TRANSFER - STEP 2: Does the patient need only setup/clean-up assistance from one helper? No. TOILET TRANSFER - STEP 3: Does the patient need only verbal/nonverbal cueing or touching/steadying/contact guard assistance fro m one helper? Yes. 1. [id number] ADMISSION PERFORMANCE: Supervision or touching assistance CODE: 04 TRANSFERS: CAR: Not assessed/no information CODE: - WALK 10 FEET: Not assessed/no information CODE: - 1 STEP (CURB): Not assessed/no information CODE: - PICKING UP OBJECT: Not assessed/no information CODE: - DOES THE PATIENT USE A WHEELCHAIR/SCOOTER? Q1. DOES THE PATIENT USE A WHEELCHAIR/SCOOTER?: Yes CODE: 1 WHEEL 50 FEET WITH TWO TURNS: WHEEL 50 FEET WITH TWO TURNS - STEP 1: Does the patient complete the activity by him/herself with no assistance (physical, verbal/nonverbal cueing, setup/clean-up)? No. WHEEL 50 FEET WITH TWO TURNS - STEP 2: Does the patient need only setup/clean-up assistance from one helper? No. WHEEL 50 FEET WITH TWO TURNS - STEP 3: Does the patient need only verbal/nonverbal cueing or touching/steadying/contact guard assistance fro m one helper? Yes. 1. [id number] ADMISSION PERFORMANCE: Supervision or touching assistance CODE: 04 INDICATE THE TYPE OF WHEELCHAIR/SCOOTER USED: RR1. INDICATE THE TYPE OF WHEELCHAIR/SCOOTER USED.: Manual CODE: 1 WHEEL 150 FEET: WHEEL 150 FEET - STEP 1: Does the patient complete the activity by him/herself with no assistance (physical, verbal/nonverbal cueing, setup/clean-up)? No. WHEEL 150 FEET - STEP 2: Does the patient need only setup/clean-up assistance from one helper? No. WHEEL 150 FEET - STEP 3: Does the patient need only verbal/nonverbal cueing or touching/steadying/contact guard assistance fro m one helper? Yes. 1. [id number] ADMISSION PERFORMANCE: Supervision or touching assistance CODE: 04 INDICATE THE TYPE OF WHEELCHAIR/SCOOTER USED: SS1. INDICATE THE TYPE OF WHEELCHAIR/SCOOTER USED.: Manual CODE: 1 BLADDER AND BOWEL: H350. BLADDER CONTINENCE (3-DAY ASSESSMENT PERIOD): Incontinent daily (at least once a day) CODE: 3 H400. BOWEL CONTINENCE (3-DAY ASSESSMENT PERIOD): Always continent CODE: 0 SIGNATURE PANEL: The following modified sections: 1. RF8549S Admission Performance, 1. [id number] Admission Performance, 1. WE1642L Admission Performance, 1. TG7772O Admission Performance, 1. HD7968X Admission Performance, 1. FN0008o Admission Performance, 1. YT5008a Admission Performance, 1. YB9742v Admission Performance , 1. NL3115q Admission Performance, 1. LU4755H Admission Performance, 1. YD5093V Admission Performanc e, 1. EM5727S Admission Performance, 1. TQ1747B Admission Performance, 1. NQ6150E Admission Performan ce, 1. MR0905P Admission Performance, 1. RD5312U Admission Performance, 1. HG0731S Admission Performa nce, 1. NA8358A Admission Performance, Q1. Does the patient use a wheelchair/scooter?, 1. KG5505N Adm ission Performance, RR1. Indicate the type of wheelchair/scooter used., 1. XA8813H Admission Performa nce, Code, SS1. Indicate the type of wheelchair/scooter used., H350. Bladder Continence (3-day assess ment period), H400. Bowel Continence (3-day assessment period) were [electronically] signed by Karey Mcdermott C.N.A. on MonApr 18 2019 13:16:55 GMT-0600 (Central Standard Time)
--- NOTE | 2019-04-18 14:50 | FAST ---
ENCOUNTER DATE AND TIME: 04/18/2019 08:00 (JOY OPERATOR HELPER) NAME TIM JO DATE OF : 1950 DATE OF ADMISSION: 04/13/2019 14:57 (JOY OPERATOR HELPER) PHONE: AGE: 69 N# [id number] GENDER: Male ENCOUNTER PHYSICIAN: Dr. Scott Waters M.D. ADMISSION DIAGNOSIS: - Brain Dysfunction 02 - Closed Injury (07.27) Obstructive Hydrocephalus. ROLL LEFT AND RIGHT: ROLL LEFT AND RIGHT - STEP 1: Does the patient complete the activity by him/herself with no assistance (physical, verbal/nonverbal cueing, setup/clean-up)? Yes. 1. [id number] ADMISSION PERFORMANCE: Independent CODE: 06 SIT TO LYING: SIT TO LYING - STEP 1: Does the patient complete the activity by him/herself with no assistance (physical, verbal/nonverbal cueing, setup/clean-up)? Yes. 1. [id number] ADMISSION PERFORMANCE: Independent CODE: 06 LYING TO SITTING: LYING TO SITTING ON SIDE OF BED - STEP 1: Does the patient complete the activity by him/herself with no assistance (physical, verbal/nonverbal cueing, setup/clean-up)? Yes. 1. [id number] ADMISSION PERFORMANCE: Independent CODE: 06 SIT TO STAND: SIT TO STAND - STEP 1: Does the patient complete the activity by him/herself with no assistance (physical, verbal/nonverbal cueing, setup/clean-up)? No. SIT TO STAND - STEP 2: Does the patient need only setup/clean-up assistance from one helper? No. SIT TO STAND - STEP 3: Does the patient need only verbal/nonverbal cueing or touching/steadying/contact guard assistance fro m one helper? Yes. 1. [id number] ADMISSION PERFORMANCE: Supervision or touching assistance CODE: 04 TRANSFERS: BED, CHAIR: CHAIR/[id number] TRANSFER - STEP 1: Does the patient complete the activity by him/herself with no assistance (physical, verbal/nonverbal cueing, setup/clean-up)? No. CHAIR/[id number] TRANSFER - STEP 2: Does the patient need only setup/clean-up assistance from one helper? No. CHAIR/EJI-JY-[id number] TRANSFER - STEP 3: Does the patient need only verbal/nonverbal cueing or touching/steadying/contact guard assistance fro m one helper? Yes. 1. [id number] ADMISSION PERFORMANCE: Supervision or touching assistance CODE: 04 TRANSFER TOILET: TOILET TRANSFER - STEP 1: Does the patient complete the activity by him/herself with no assistance (physical, verbal/nonverbal cueing, setup/clean-up)? No. TOILET TRANSFER - STEP 2: Does the patient need only setup/clean-up assistance from one helper? No. TOILET TRANSFER - STEP 3: Does the patient need only verbal/nonverbal cueing or touching/steadying/contact guard assistance fro m one helper? Yes. 1. [id number] ADMISSION PERFORMANCE: Supervision or touching assistance CODE: 04 TRANSFERS: CAR: Not attempted due to environmental limitations (e.g., lack of equipment, weather constraints) CODE: 10 WALK 10 FEET: WALK 10 FEET - STEP 1: Does the patient complete the activity by him/herself with no assistance (physical, verbal/nonverbal cueing, setup/clean-up)? No. WALK 10 FEET - STEP 2: Does the patient need only setup/clean-up assistance from one helper? No. WALK 10 FEET - STEP 3: Does the patient need only verbal/nonverbal cueing or touching/steadying/contact guard assistance fro m one helper? No. WALK 10 FEET - STEP 4: Does the patient need physical assistance - for example lifting or trunk support from one helper - wi th the helper providing less than half of the effort? Yes. 1. [id number] ADMISSION PERFORMANCE: Partial/moderate assistance CODE: 03 WALK 50 FEET: WALK 50 FEET - STEP 1: Does the patient complete the activity by him/herself with no assistance (physical, verbal/nonverbal cueing, setup/clean-up)? No. WALK 50 FEET - STEP 2: Does the patient need only setup/clean-up assistance from one helper? No. WALK 50 FEET - STEP 3: Does the patient need only verbal/nonverbal cueing or touching/steadying/contact guard assistance fro m one helper? No. WALK 50 FEET - STEP 4: Does the patient need physical assistance - for example lifting or trunk support from one helper - wi th the helper providing less than half of the effort? Yes. 1. [id number] ADMISSION PERFORMANCE: Partial/moderate assistance CODE: 03 WALK 150 FEET: WALK 150 FEET - STEP 1: Does the patient complete the activity by him/herself with no assistance (physical, verbal/nonverbal cueing, setup/clean-up)? No. WALK 150 FEET - STEP 2: Does the patient need only setup/clean-up assistance from one helper? No. WALK 150 FEET - STEP 3: Does the patient need only verbal/nonverbal cueing or touching/steadying/contact guard assistance fro m one helper? No. WALK 150 FEET - STEP 4: Does the patient need physical assistance - for example lifting or trunk support from one helper - wi th the helper providing less than half of the effort? Yes. 1. [id number] ADMISSION PERFORMANCE: Partial/moderate assistance CODE: 03 WALK 10 FEET UNEVEN: Not attempted due to medical condition or safety concerns CODE: 88 1 STEP (CURB): Not attempted due to medical condition or safety concerns CODE: 88 PICKING UP OBJECT: Not attempted due to medical condition or safety concerns CODE: 88 DOES THE PATIENT USE A WHEELCHAIR/SCOOTER? Q1. DOES THE PATIENT USE A WHEELCHAIR/SCOOTER?: Yes CODE: 1 WHEEL 50 FEET WITH TWO TURNS: WHEEL 50 FEET WITH TWO TURNS - STEP 1: Does the patient complete the activity by him/herself with no assistance (physical, verbal/nonverbal cueing, setup/clean-up)? No. WHEEL 50 FEET WITH TWO TURNS - STEP 2: Does the patient need only setup/clean-up assistance from one helper? No. WHEEL 50 FEET WITH TWO TURNS - STEP 3: Does the patient need only verbal/nonverbal cueing or touching/steadying/contact guard assistance fro m one helper? Yes. 1. [id number] ADMISSION PERFORMANCE: Supervision or touching assistance CODE: 04 INDICATE THE TYPE OF WHEELCHAIR/SCOOTER USED: RR1. INDICATE THE TYPE OF WHEELCHAIR/SCOOTER USED.: Manual CODE: 1 WHEEL 150 FEET: WHEEL 150 FEET - STEP 1: Does the patient complete the activity by him/herself with no assistance (physical, verbal/nonverbal cueing, setup/clean-up)? No. WHEEL 150 FEET - STEP 2: Does the patient need only setup/clean-up assistance from one helper? No. WHEEL 150 FEET - STEP 3: Does the patient need only verbal/nonverbal cueing or touching/steadying/contact guard assistance fro m one helper? Yes. 1. [id number] ADMISSION PERFORMANCE: Supervision or touching assistance CODE: 04 INDICATE THE TYPE OF WHEELCHAIR/SCOOTER USED: SS1. INDICATE THE TYPE OF WHEELCHAIR/SCOOTER USED.: Manual CODE: 1 BLADDER AND BOWEL: CODE: EXPR CODE: EXPR SIGNATURE PANEL: The following modified sections: 1. [id number] Admission Performance, 1. [id number] Admission Performance, 1. OV5180S Admission Performance, 1. MR4504U Admission Performance, 1. UO9215N Admission Performance, 1. QF5167E Admission Performance, 1. QT4310B Admission Performance, 1. OO5672Z Admission Performance , 1. DZ3869T Admission Performance, Q1. Does the patient use a wheelchair/scooter?, 1. MP4304E Admiss ion Performance, RR1. Indicate the type of wheelchair/scooter used., 1. EU5762N Admission Performance , Code, SS1. Indicate the type of wheelchair/scooter used. were [electronically] signed by Lc weber PT on MonApr 18 2019 14:49:26 GMT-0600 (Central Standard Time)
[2019-04-18] MEDS: TRAZODONE 50 MG TABLET PO PRN (20:15)
[2019-04-19] MEDS: HEPARIN 5000 UNIT/ML 1 ML VIAL SQ SCH ×2 (07:24→18:06)
[2019-04-19] MEDS: AMLODIPINE 10 MG TAB PO SCH (08:12)
[2019-04-19] MEDS: carvediloL 6.25 MG TAB PO SCH ×2 (08:13→19:34)
[2019-04-19] MEDS: HYDRALAZINE HCL 25 MG TABLET PO SCH ×3 (08:13→21:00)
[2019-04-19] MEDS: SENOSIDES 8.6 MG TAB PO SCH ×2 (08:13→19:35)
[2019-04-19] MEDS: DOCUSATE NA 100 MG CAP PO SCH ×2 (08:13→19:34)
--- NOTE | 2019-04-19 09:56 | P.RH.PN ---
Estimated Length of Stay: 14 Expected Discharge Date: 04/25/19 Discharge Disposition Plan: Home Family Support: Yes Correction Goal: Mobility, Transfers, Self Care Vital Signs: Last Vital Signs Temp 98.4 F 04/19/19 07:21 Pulse 68 04/19/19 08:13 Resp 18 04/19/19 07:21 BP 140/72 04/19/19 08:13 Pulse Ox 99 04/18/19 19:26 Laboratory: Laboratory Last Values WBC 5.7 K/uL (4.3-10.9) 04/18/19 05:38 RBC 3.70 M/uL (4.33-5.43) L 04/18/19 05:38 Hgb 11.7 g/dL (13.6-17.9) L 04/18/19 05:38 Hct 34.5 % (39.6-49.0) L 04/18/19 05:38 MCV 93.4 fL (80-100) 04/18/19 05:38 MCH 31.7 pg (27.0-35.0) 04/18/19 05:38 MCHC 33.9 g/dL (32.0-36.0) 04/18/19 05:38 RDW 14.8 % (12.1-15.2) 04/18/19 05:38 Plt Count 271 K/uL (152-406) 04/18/19 05:38 MPV 10.1 fL (7.6-11.3) 04/18/19 05:38 Neutrophils % 57.7 % (41.7-73.7) 04/18/19 05:38 Lymphocytes % 28.6 % (15.3-44.8) 04/18/19 05:38 Monocytes % 11.2 % (3.3-12.3) 04/18/19 05:38 Eosinophils % 1.8 % (0-4.4) 04/18/19 05:38 Basophils % 0.7 % (0-1.3) 04/18/19 05:38 Absolute Neutrophils 3.3 K/uL (1.8-8.0) 04/18/19 05:38 Absolute Lymphocytes 1.6 K/uL (0.7-4.9) 04/18/19 05:38 Absolute Monocytes 0.6 K/uL (0.1-1.3) 04/18/19 05:38 Absolute Eosinophils 0.1 K/uL (0-0.5) 04/18/19 05:38 Absolute Basophils 0.0 K/uL (0-0.5) 04/18/19 05:38 Sodium 142 mmol/L (136-145) 04/18/19 05:38 Potassium 3.8 mmol/L (3.5-5.1) 04/18/19 05:38 Chloride 109 mmol/L (98-107) H 04/18/19 05:38 Carbon Dioxide 27 mmol/L (21-32) 04/18/19 05:38 BUN 15 mg/dL (7-18) 04/18/19 05:38 Creatinine 0.93 mg/dL (0.55-1.3) 04/18/19 05:38 Estimated GFR > 90 mL/min (=/>90) 04/18/19 05:38 Glucose 98 mg/dL (74-106) 04/18/19 05:38 Calcium 9.0 mg/dL (8.5-10.1) 04/18/19 05:38 Magnesium 2.5 mg/dL (1.8-2.4) H 04/18/19 05:38 Albumin 3.3 g/dL (3.4-5.0) L 04/18/19 05:38 Prealbumin 26.0 mg/dL (20-40) 04/18/19 05:38 Urine Color Yellow 04/13/19 16:25 Urine Appearance Clear 04/13/19 16:25 Urine pH 6.0 (5.0-7.0) 04/13/19 16:25 Ur Specific [place] 1.025 (1.005-1.030) 04/13/19 16:25 Urine Ketones Negative (NEG) 04/13/19 16:25 Urine Blood Negative (NEG) 04/13/19 16:25 Urine Nitrite Negative (NEG) 04/13/19 16:25 Urine Bilirubin Negative (NEG) 04/13/19 16:25 Urine Urobilinogen 0.2 mg/dL (0.2-1.0) 04/13/19 16:25 Ur Leukocyte Esterase Negative (NEG) 04/13/19 16:25 Urine RBC <5 /HPF (NONE SEEN) 04/13/19 16:25 Urine WBC <5 /HPF (<5) 04/13/19 16:25 Ur Squamous Epith Cells <5 /HPF (NONE SEEN) 04/13/19 16:25 Urine Bacteria <20 /HPF (NONE SEEN) 04/13/19 16:25 Urine Culture Reflexed Not needed 04/13/19 16:25 Urine Glucose Negative (NEG) 04/13/19 16:25 Urine Total Protein Negative (NEG) 04/13/19 16:25 Weight: 184 lb 4 oz Wound Present: No Closed Surgical Incision Present: Yes Negative Pressure Wound Therapy Present: No Physician Update: Labs reviewed and are stable. He is making fair progress overall with physical, occupational and speech therapy. His has significant neurological deficits including poor balance, incoordination and poor vision. He will require 24 hour supervision to reduce fall risk. Medical Issues: Patient is incontinent daily with bladder and always continent with bowel. Functional Improvement: pt continues to struggle with balance and coordination during ambulation. pt's level of fatigue and alertness greatly influences his functional performance. pt contiues to require therapy services to enhance his balance, safety, functional mobility tolerance and general ambulation ability. Summary: Patient's care plan and terminal make up operator goals have been reviewed and revised as necessary. Please see the Rehabilitation Signature page for all necessary signatures.
--- NOTE | 2019-04-19 11:58 | FAST ---
ENCOUNTER DATE AND TIME: 04/17/2019 08:00 (REPEATER CHIEF) NAME TIM JO DATE OF : 1950 DATE OF ADMISSION: 04/13/2019 14:57 (REPEATER CHIEF) PHONE: AGE: 69 N# [id number] GENDER: Male ENCOUNTER PHYSICIAN: Dr. Scott Waters M.D. ADMISSION DIAGNOSIS: - Brain Dysfunction 02 - Closed Injury (07.27) Obstructive Hydrocephalus. EATING: Not assessed/no information CODE: - ORAL HYGIENE: Not assessed/no information CODE: - TOILETING HYGIENE: Not assessed/no information CODE: - BATHING: SHOWER/BATHE SELF - STEP 1: Does the patient complete the activity by him/herself with no assistance (physical, verbal/nonverbal cueing, setup/clean-up)? No. SHOWER/BATHE SELF - STEP 2: Does the patient need only setup/clean-up assistance from one helper? No. SHOWER/BATHE SELF - STEP 3: Does the patient need only verbal/nonverbal cueing or touching/steadying/contact guard assistance fro m one helper? Yes. 1. [id number] ADMISSION PERFORMANCE: Supervision or touching assistance CODE: 04 DRESSING - UPPER BODY: DRESSING - UPPER BODY - STEP 1: Does the patient complete the activity by him/herself with no assistance (physical, verbal/nonverbal cueing, setup/clean-up)? No. DRESSING - UPPER BODY - STEP 2: Does the patient need only setup/clean-up assistance from one helper? Yes. 1. [id number] ADMISSION PERFORMANCE: Setup or clean-up assistance CODE: 05 DRESSING - LOWER BODY: DRESSING - LOWER BODY - STEP 1: Does the patient complete the activity by him/herself with no assistance (physical, verbal/nonverbal cueing, setup/clean-up)? No. DRESSING - LOWER BODY - STEP 2: Does the patient need only setup/clean-up assistance from one helper? Yes. 1. [id number] ADMISSION PERFORMANCE: Setup or clean-up assistance CODE: 05 PUTTING ON/TAKING OFF FOOTWEAR: FOOTWEAR - STEP 1: Does the patient complete the activity by him/herself with no assistance (physical, verbal/nonverbal cueing, setup/clean-up)? No. FOOTWEAR - STEP 2: Does the patient need only setup/clean-up assistance from one helper? Yes. 1. [id number] ADMISSION PERFORMANCE: Setup or clean-up assistance CODE: 05 DOES THE PATIENT USE A WHEELCHAIR/SCOOTER? CODE: EXPR INDICATE THE TYPE OF WHEELCHAIR/SCOOTER USED: CODE: EXPR INDICATE THE TYPE OF WHEELCHAIR/SCOOTER USED: CODE: EXPR BLADDER AND BOWEL: CODE: EXPR CODE: EXPR SIGNATURE PANEL: The following modified sections: 1. AF4995c Admission Performance, 1. VO4332k Admission Performance, 1. EY6635t Admission Performance, 1. UO8688g Admission Performance, 1. UB7566p Admission Performance, 1. IV4120d Admission Performance, 1. GP2996e Admission Performance were [electronically] signed by Kavita Barney OT on MonApr 19 2019 11:57:28 GMT-0600 (Central Standard Time)
--- NOTE | 2019-04-19 13:55 | FAST ---
ENCOUNTER DATE AND TIME: 04/19/2019 08:00 (RESTAURANT SHIFT SUPERVISOR) NAME TIM JO DATE OF : 1950 DATE OF ADMISSION: 04/13/2019 14:57 (RESTAURANT SHIFT SUPERVISOR) PHONE: AGE: 69 N# [id number] GENDER: Male ENCOUNTER PHYSICIAN: Dr. Scott Waters M.D. ADMISSION DIAGNOSIS: - Brain Dysfunction 02 - Closed Injury (07.27) Obstructive Hydrocephalus. EATING: Not assessed/no information CODE: - ORAL HYGIENE: ORAL HYGIENE - STEP 1: Does the patient complete the activity by him/herself with no assistance (physical, verbal/nonverbal cueing, setup/clean-up)? No. ORAL HYGIENE - STEP 2: Does the patient need only setup/clean-up assistance from one helper? Yes. 1. [id number] ADMISSION PERFORMANCE: Setup or clean-up assistance CODE: 05 TOILETING HYGIENE: Not assessed/no information CODE: - BATHING: SHOWER/BATHE SELF - STEP 1: Does the patient complete the activity by him/herself with no assistance (physical, verbal/nonverbal cueing, setup/clean-up)? No. SHOWER/BATHE SELF - STEP 2: Does the patient need only setup/clean-up assistance from one helper? No. SHOWER/BATHE SELF - STEP 3: Does the patient need only verbal/nonverbal cueing or touching/steadying/contact guard assistance fro m one helper? No. SHOWER/BATHE SELF - STEP 4: Does the patient need physical assistance - for example lifting or trunk support from one helper - wi th the helper providing less than half of the effort? Yes. 1. [id number] ADMISSION PERFORMANCE: Partial/moderate assistance CODE: 03 DRESSING - UPPER BODY: DRESSING - UPPER BODY - STEP 1: Does the patient complete the activity by him/herself with no assistance (physical, verbal/nonverbal cueing, setup/clean-up)? No. DRESSING - UPPER BODY - STEP 2: Does the patient need only setup/clean-up assistance from one helper? No. DRESSING - UPPER BODY - STEP 3: Does the patient need only verbal/nonverbal cueing or touching/steadying/contact guard assistance fro m one helper? Yes. 1. [id number] ADMISSION PERFORMANCE: Supervision or touching assistance CODE: 04 DRESSING - LOWER BODY: DRESSING - LOWER BODY - STEP 1: Does the patient complete the activity by him/herself with no assistance (physical, verbal/nonverbal cueing, setup/clean-up)? No. DRESSING - LOWER BODY - STEP 2: Does the patient need only setup/clean-up assistance from one helper? No. DRESSING - LOWER BODY - STEP 3: Does the patient need only verbal/nonverbal cueing or touching/steadying/contact guard assistance fro m one helper? No. DRESSING - LOWER BODY - STEP 4: Does the patient need physical assistance - for example lifting or trunk support from one helper - wi th the helper providing less than half of the effort? Yes. 1. [id number] ADMISSION PERFORMANCE: Partial/moderate assistance CODE: 03 PUTTING ON/TAKING OFF FOOTWEAR: FOOTWEAR - STEP 1: Does the patient complete the activity by him/herself with no assistance (physical, verbal/nonverbal cueing, setup/clean-up)? No. FOOTWEAR - STEP 2: Does the patient need only setup/clean-up assistance from one helper? No. FOOTWEAR - STEP 3: Does the patient need only verbal/nonverbal cueing or touching/steadying/contact guard assistance fro m one helper? No. FOOTWEAR - STEP 4: Does the patient need physical assistance - for example lifting or trunk support from one helper - wi th the helper providing less than half of the effort? Yes. 1. [id number] ADMISSION PERFORMANCE: Partial/moderate assistance CODE: 03 DOES THE PATIENT USE A WHEELCHAIR/SCOOTER? CODE: EXPR INDICATE THE TYPE OF WHEELCHAIR/SCOOTER USED: CODE: EXPR INDICATE THE TYPE OF WHEELCHAIR/SCOOTER USED: CODE: EXPR BLADDER AND BOWEL: CODE: EXPR CODE: EXPR SIGNATURE PANEL: The following modified sections: 1. [id number] Admission Performance, 1. [id number] Admission Performance, 1. [id number] Admission Performance, 1. [id number] Admission Performance, 1. [id number] Admission Performance, 1. IL6667w Admission Performance, 1. [id number] Admission Performance, 1. [id number] Admission Performance were [electronically] signed by MARISA Olivares on MonApr 19 2019 13:53:58 GMT-0600 (Cent[place] Standard Time)
--- NOTE | 2019-04-19 14:53 | RAD REPORT ---
EXAM DESCRIPTION: RAD - Barium Swallow Modified - 04/19/2019 2:43 pm CLINICAL HISTORY: Diet upgrade Dysphagia COMPARISON: No comparisons TECHNIQUE: The patient was given liquid, semi-solid and solid forms of barium. Lateral view fluorosc opic imaging was performed in conjunction with speech pathology service. FINDINGS: LARYNGEAL PENETRATION: CLEARED WITH THIN BY STRAW PHARYNGEAL RESIDUE: VALLECULAR- WORSE WITH NECTAR, HONEY, AND PUDDING. PYRIFORM- MOD-SEV WITH HONEY POSTERIOR WALL- MILD WITH RAJ CRACKER OTHER: DELAYED SWALLOW (1SEC), PROMINENT CRICOPHARYNGEUS, OSTEOPHYTES, DELAYED PHARYNGEOSOPHAGEAL TRA NSIT Total fluoroscopy time: 5 minutes and 4 seconds
[2019-04-19] MEDS: TRAZODONE 50 MG TABLET PO PRN (19:36)
--- NOTE | 2019-04-20 02:09 | FAST ---
SHIFT START DATE/TIME: 04/19/2019 19:00 (DIRECTOR OF RELIGIOUS ACTIVITIES) SHIFT END DATE/TIME: 04/20/2019 07:00 (DIRECTOR OF RELIGIOUS ACTIVITIES) NAME TIM JO DATE OF : 1950 DATE OF ADMISSION: 04/13/2019 14:57 (DIRECTOR OF RELIGIOUS ACTIVITIES) PHONE: AGE: 69 SSN# [id number] GENDER: Male ENCOUNTER PHYSICIAN: Dr. Scott Waters M.D. ADMISSION DIAGNOSIS: - Brain Dysfunction 02 - Closed Injury (07.27) Obstructive Hydrocephalus. EATING: Not assessed/no information CODE: - ORAL HYGIENE: Not assessed/no information CODE: - TOILETING HYGIENE: TOILETING HYGIENE - STEP 1: Does the patient complete the activity by him/herself with no assistance (physical, verbal/nonverbal cueing, setup/clean-up)? No. TOILETING HYGIENE - STEP 2: Does the patient need only setup/clean-up assistance from one helper? No. TOILETING HYGIENE - STEP 3: Does the patient need only verbal/nonverbal cueing or touching/steadying/contact guard assistance fro m one helper? Yes. 1. [id number] ADMISSION PERFORMANCE: Supervision or touching assistance CODE: 04 BATHING: Not assessed/no information CODE: - DRESSING - UPPER BODY: Not assessed/no information CODE: - DRESSING - LOWER BODY: Not assessed/no information CODE: - PUTTING ON/TAKING OFF FOOTWEAR: Not assessed/no information CODE: - TRANSFERS: CAR: Not assessed/no information CODE: - WALK 10 FEET: Not assessed/no information CODE: - 1 STEP (CURB): Not assessed/no information CODE: - PICKING UP OBJECT: Not assessed/no information CODE: - DOES THE PATIENT USE A WHEELCHAIR/SCOOTER? CODE: EXPR WHEEL 50 FEET WITH TWO TURNS: Not assessed/no information CODE: - INDICATE THE TYPE OF WHEELCHAIR/SCOOTER USED: CODE: EXPR WHEEL 150 FEET: Not assessed/no information CODE: - INDICATE THE TYPE OF WHEELCHAIR/SCOOTER USED: CODE: EXPR BLADDER AND BOWEL: H350. BLADDER CONTINENCE (3-DAY ASSESSMENT PERIOD): Incontinent less than daily (e.g., once or twice during the 3-day assessment period) CODE: 2 H400. BOWEL CONTINENCE (3-DAY ASSESSMENT PERIOD): Always continent CODE: 0
[2019-04-20] MEDS: HEPARIN 5000 UNIT/ML 1 ML VIAL SQ SCH ×2 (06:08→18:05)
[2019-04-20] MEDS: carvediloL 6.25 MG TAB PO SCH ×2 (08:08→19:32)
[2019-04-20] MEDS: SENOSIDES 8.6 MG TAB PO SCH ×2 (08:09→19:50)
[2019-04-20] MEDS: HYDRALAZINE HCL 25 MG TABLET PO SCH ×3 (08:09→19:33)
[2019-04-20] MEDS: AMLODIPINE 10 MG TAB PO SCH (08:09)
[2019-04-20] MEDS: DOCUSATE NA 100 MG CAP PO SCH ×2 (08:09→19:50)
[2019-04-20] MEDS: TRAZODONE 50 MG TABLET PO PRN (19:32)
[2019-04-21] MEDS: HEPARIN 5000 UNIT/ML 1 ML VIAL SQ SCH ×2 (08:00→18:07)
[2019-04-21] MEDS: SENOSIDES 8.6 MG TAB PO SCH ×2 (08:00→19:26)
[2019-04-21] MEDS: DOCUSATE NA 100 MG CAP PO SCH ×2 (08:00→19:26)
[2019-04-21] MEDS: carvediloL 6.25 MG TAB PO SCH ×2 (08:07→19:25)
[2019-04-21] MEDS: HYDRALAZINE HCL 25 MG TABLET PO SCH ×3 (09:17→19:25)
[2019-04-21] MEDS: AMLODIPINE 10 MG TAB PO SCH (12:21)
[2019-04-21] MEDS: TRAZODONE 50 MG TABLET PO PRN (19:26)
[2019-04-22] MEDS: HEPARIN 5000 UNIT/ML 1 ML VIAL SQ SCH ×2 (06:04→20:00)
[2019-04-22] MEDS: AMLODIPINE 10 MG TAB PO SCH (07:56)
[2019-04-22] MEDS: carvediloL 6.25 MG TAB PO SCH ×2 (07:56→19:28)
[2019-04-22] MEDS: SENOSIDES 8.6 MG TAB PO SCH ×2 (07:56→19:28)
[2019-04-22] MEDS: HYDRALAZINE HCL 25 MG TABLET PO SCH ×3 (07:56→20:53)
[2019-04-22] MEDS: DOCUSATE NA 100 MG CAP PO SCH ×2 (07:56→19:28)
--- NOTE | 2019-04-22 14:20 | FAST ---
ENCOUNTER DATE AND TIME: 04/22/2019 08:00 (AUTO CLEANER) NAME TIM JO DATE OF : 1950 DATE OF ADMISSION: 04/13/2019 14:57 (AUTO CLEANER) PHONE: AGE: 69 N# [id number] GENDER: Male ENCOUNTER PHYSICIAN: Dr. Scott Waters M.D. ADMISSION DIAGNOSIS: - Brain Dysfunction 02 - Closed Injury (07.27) Obstructive Hydrocephalus. EATING: Not assessed/no information CODE: - ORAL HYGIENE: ORAL HYGIENE - STEP 1: Does the patient complete the activity by him/herself with no assistance (physical, verbal/nonverbal cueing, setup/clean-up)? No. ORAL HYGIENE - STEP 2: Does the patient need only setup/clean-up assistance from one helper? No. ORAL HYGIENE - STEP 3: Does the patient need only verbal/nonverbal cueing or touching/steadying/contact guard assistance fro m one helper? Yes. 1. [id number] ADMISSION PERFORMANCE: Supervision or touching assistance CODE: 04 TOILETING HYGIENE: Not assessed/no information CODE: - BATHING: SHOWER/BATHE SELF - STEP 1: Does the patient complete the activity by him/herself with no assistance (physical, verbal/nonverbal cueing, setup/clean-up)? No. SHOWER/BATHE SELF - STEP 2: Does the patient need only setup/clean-up assistance from one helper? No. SHOWER/BATHE SELF - STEP 3: Does the patient need only verbal/nonverbal cueing or touching/steadying/contact guard assistance fro m one helper? Yes. 1. [id number] ADMISSION PERFORMANCE: Supervision or touching assistance CODE: 04 DRESSING - UPPER BODY: DRESSING - UPPER BODY - STEP 1: Does the patient complete the activity by him/herself with no assistance (physical, verbal/nonverbal cueing, setup/clean-up)? No. DRESSING - UPPER BODY - STEP 2: Does the patient need only setup/clean-up assistance from one helper? No. DRESSING - UPPER BODY - STEP 3: Does the patient need only verbal/nonverbal cueing or touching/steadying/contact guard assistance fro m one helper? Yes. 1. [id number] ADMISSION PERFORMANCE: Supervision or touching assistance CODE: 04 DRESSING - LOWER BODY: DRESSING - LOWER BODY - STEP 1: Does the patient complete the activity by him/herself with no assistance (physical, verbal/nonverbal cueing, setup/clean-up)? No. DRESSING - LOWER BODY - STEP 2: Does the patient need only setup/clean-up assistance from one helper? No. DRESSING - LOWER BODY - STEP 3: Does the patient need only verbal/nonverbal cueing or touching/steadying/contact guard assistance fro m one helper? Yes. 1. [id number] ADMISSION PERFORMANCE: Supervision or touching assistance CODE: 04 PUTTING ON/TAKING OFF FOOTWEAR: FOOTWEAR - STEP 1: Does the patient complete the activity by him/herself with no assistance (physical, verbal/nonverbal cueing, setup/clean-up)? No. FOOTWEAR - STEP 2: Does the patient need only setup/clean-up assistance from one helper? No. FOOTWEAR - STEP 3: Does the patient need only verbal/nonverbal cueing or touching/steadying/contact guard assistance fro m one helper? Yes. 1. [id number] ADMISSION PERFORMANCE: Supervision or touching assistance CODE: 04 DOES THE PATIENT USE A WHEELCHAIR/SCOOTER? CODE: EXPR INDICATE THE TYPE OF WHEELCHAIR/SCOOTER USED: CODE: EXPR INDICATE THE TYPE OF WHEELCHAIR/SCOOTER USED: CODE: EXPR BLADDER AND BOWEL: CODE: EXPR CODE: EXPR SIGNATURE PANEL: The following modified sections: 1. [id number] Admission Performance, 1. [id number] Admission Performance, 1. [id number] Admission Performance, 1. [id number] Admission Performance, 1. [id number] Admission Performance, 1. [id number] Admission Performance were [electronically] signed by MARISA Olivares on MonApr 22 2019 14:19:22 GMT-0600 (Central Standard Time)
--- NOTE | 2019-04-22 17:49 | R.PN ---
ENCOUNTER DATE AND TIME: 04/22/2019 17:45 (OVERLAY OPERATOR) NAME TIM JO DATE OF : 1950 DATE OF ADMISSION: 04/13/2019 14:57 (OVERLAY OPERATOR) Obstructive HydrocephalusCHIEF COMPLAINT: Hydrocephalus, status post VICE PRESIDENT PAYMENT shunt SUBJECTIVE: Pt denied any depression. Pt denied any Shortness of Breath. Ambulated over 500' with contact standby assistance using a rolling walker. His blood work is stable. He denies pain at his scalp shunt site. VITAL SIGNS Temperature: 97.5 F SBP/DBP: 138/78 Pulse: 71 Resp: 16 MEDICATION ALLERGIES: No Known Drug Allergies (NKDA) ENVIRONMENTAL ALLERGIES: - Substance Allergies None Known - Other Allergies None Known NURSING: - Shower allowing shower - Bladder care per protocol - Skin care per protocol PRECAUTIONS: - Aspiration Precaution 1 to 1 supervision with all po intake All meals in the dysphagia dining room No straws Seated at 90 degrees while eating and 30 minutes after meals - Fall Precaution 1 to 1 supervision ACTIVITIES OOB only with supervision THERAPIES: - Occupational Therapy Cognitive Retraining. Visual Perceptual Training. - Dietary and Nutrition Adequate Nutrition. Nutritional Education. Nutritional Supplements. - Speech Therapy Augmentative Communication Equipment. Cognitive Training. Dysphagia Therapy. Expressive Language Skil ls. Receptive Language Skills. PHYSICAL EXAM - Gen Alert and awake Lying in bed No apparent distress Oriented to: person, time, and place - Skin No skin breakdown. Normacephalic VICE PRESIDENT PAYMENT shunt is intact. - Eyes No abnormalities - ENMT No abnormalities - Neck No abnormalities - CVS RRR - Chest No abnormalities - Abd Soft - GI Non distended Deferred - No abnormalities - Ext Mild bilateral lower extremity edema. - MSK 4+/5 weakness in left lower extremity - Neuro 4/5 strength bilaterally upper and lower extremities. - Psych No abnormalities ASSESSMENT: Pt. is a 69 yo Right-handed male of unknown race.On 04/02/2019 he was admitted to [facility] diagnosis Obstructive Hydrocephalus.His impairment category is Brain Dysfunction 02 - Closed Inju ry (07.27).Pre-morbidly, Pt. was independent/mod-I in Locomotion, Transfers Control, Self-Care, Ambul ation, and Sphincter Control; and he had good Social Cognition.Currently, he has deficits of Locomoti on, Self-Care, Transfers Control, Safety Awareness, Social Cognition, and Communication.Pt. is now re ferred to [facility] for acute in-patient rehabilitation in order to maximize patient's functional independence in activities of daily living, strength, ROM, and mobility.- Rehab Goal Patient has realistic goal of being discharged at assistance level 6-Osbaldo to reside at Home with Fam brea/Relatives. MDM/PLAN: - Physical Therapy Gait dysfunction - to improve, our physical therapists will perform initial evaluation of pt's statu s upon admission and devise an individualized program for Gait Training, and Wheel Chair mobility Inability to transfer - to improve, our physical therapists will perform initial evaluation of pt's status upon admission and devise an individualized program for Bed mobility Need for home safety evaluation - to improve, our physical therapists will perform initial evaluatio n of pt's status upon admission and devise an individualized program for Home Evaluation Edema - to improve, our physical therapists will perform initial evaluation of pt's status upon admi ssion and devise an individualized program for Elevation Training, and Lymphedema Therapy Need in caregiver upon discharge - to improve, our physical therapists will perform initial evaluati on of pt's status upon admission and devise an individualized program for Caregiver Training New precaution - to improve, our physical therapists will perform initial evaluation of pt's status upon admission and devise an individualized program for Patient precaution education Achieving independence - to improve, our physical therapists will perform initial evaluation of pt's status upon admission and devise an individualized program for Community Reintegration Activities - Occupational Therapy ADL deficits - to improve, our occupation therapists will perform initial evaluation of pt's status upon admission and devise an individualized program for Bathing, Bed mobility, Community Reintegratio n, Cooking, Dressing, Eating, Fine Motor Skills, Grooming, Homemaking, Kitchen Mobility, Laundry, Pat ient Education, Safety Awareness, Splinting - Positioning, Transfers(Toilet, Tub, Shower), and Wheel Chair Management Cognitive deficits - to improve, our occupation therapists will perform initial evaluation of pt's s tatus upon admission and devise an individualized program for Cognition - orientation Need for patient care assistant - to improve, our occupation therapists will perform initial evaluation of pt's status upon admission and devise an individualized program for Caregiver Training - Other See attached MAR (Medication Administration Record) - Diet Type Continue NPO (nothing by mouth) - Diet - Liquid Texture Continue Regular - Tube Feed Continue N/A - Bladder care per protocol - Aspiration Precaution 1 to 1 supervision with all po intake All meals in the dysphagia dining room No straws Seated at 90 degrees while eating and 30 minutes after meals - Fall Precaution 1 to 1 supervision - Skin care per protocol - Shower allowing shower FUNCTIONAL STATUS: UPDATED AT WEEKLY TEAM CONFERENCE - Bladder Same accident frequency: 7-Ind - No accidents in the past 7 days - Bowel Same accident frequency: 7-Ind - No accidents in the past 7 days - Walking Same score based on distance walked: 1(<=50ft) - Wheelchair Same score based on distance traveled: 1(<=50ft) FUNCTIONAL STATUS: - Self-Care A. Eating Osbaldo B. Grooming modA C. Bathing modA D. Dressing - Upper modA E. Dressing - Lower modA F. Toileting modA - Sphincter Control G. Bladder control modA H. Bowel control modA - Transfers Control I. Bed/Chair/Wheelchair Elba J. Toilet modA K. Tub/Shower modA - Locomotion L. Walk/Wheelchair (W) maxA M. Stairs Dep - Communication N. Comprehension (A) Elba O. Expression (B) Elba - Social Cognition P. Social Interaction Elba Q. Problem Solving Elba R. Memory Elba - Endurance Good - Balance Good - Safety Awareness Good QI SCORES: - Self-Care A. Eating 01-Dependent B. Oral hygiene 05-Setup or clean-up assistance C. Toileting hygiene 03-Partial/moderate assistance E. Shower/bathe self 03-Partial/moderate assistance F. Upper body dressing 04-Supervision or touching assistance G. Lower body dressing 03-Partial/moderate assistance H. Putting on/taking off footwear 03-Partial/moderate assistance - Mobility A. Roll left and right 03-Partial/moderate assistance B. Sit to lying 04-Supervision or touching assistance C. Lying to sitting on side of bed 04-Supervision or touching assistance D. Sit to stand 04-Supervision or touching assistance E. Chair/qil-tu-hxxfd transfer 04-Supervision or touching assistance F. Toilet transfer 04-Supervision or touching assistance G. Car transfer 88-Not attempted due to medical condition or safety concerns I. Walk 10 feet 02-Substantial/maximal assistance J. Walk 50 feet with two turns 88-Not attempted due to medical condition or safety concerns K. Walk 150 feet 88-Not attempted due to medical condition or safety concerns L. Walking 10 feet on uneven surfaces 88-Not attempted due to medical condition or safety concerns M. 1 step (curb) 88-Not attempted due to medical condition or safety concerns N. 4 steps 88-Not attempted due to medical condition or safety concerns O. 12 steps 88-Not attempted due to medical condition or safety concerns P. Picking up object 88-Not attempted due to medical condition or safety concerns R. Wheel 50 feet with two turns 88-Not attempted due to medical condition or safety concerns S. Wheel 150 feet 88-Not attempted due to medical condition or safety concerns - Bladder and Bowel Bladder continence 1-Stress incontinence only Bowel continence 0-Always continent - Endurance Fair - Balance Poor - Safety Awareness Poor CURRENT FUNC. DEFICITS: Locomotion, Self-Care, Transfers Control, Safety Awareness, Social Cognition, and Communication SIGNATURE PANEL: (OVERLAY OPERATOR)
[2019-04-23] MEDS: TRAZODONE 50 MG TABLET PO PRN ×2 (01:32→19:48)
[2019-04-23] MEDS: HEPARIN 5000 UNIT/ML 1 ML VIAL SQ SCH ×2 (05:59→20:00)
[2019-04-23] MEDS: carvediloL 6.25 MG TAB PO SCH ×2 (08:00→19:47)
[2019-04-23] MEDS: AMLODIPINE 10 MG TAB PO SCH (08:00)
[2019-04-23] MEDS: DOCUSATE NA 100 MG CAP PO SCH ×2 (08:01→19:46)
[2019-04-23] MEDS: HYDRALAZINE HCL 25 MG TABLET PO SCH ×3 (08:01→20:04)
[2019-04-23] MEDS: SENOSIDES 8.6 MG TAB PO SCH ×2 (08:01→19:46)
--- NOTE | 2019-04-23 15:56 | FAST ---
SHIFT START DATE/TIME: 04/23/2019 07:00 (SUPERVISOR LAMP SHADES) SHIFT END DATE/TIME: 04/23/2019 19:00 (SUPERVISOR LAMP SHADES) NAME TIM JO DATE OF : 1950 DATE OF ADMISSION: 04/13/2019 14:57 (SUPERVISOR LAMP SHADES) PHONE: AGE: 69 N# [id number] GENDER: Male ENCOUNTER PHYSICIAN: Dr. Scott Waters M.D. ADMISSION DIAGNOSIS: - Brain Dysfunction 02 - Closed Injury (07.27) Obstructive Hydrocephalus. EATING: EATING - STEP 1: Does the patient complete the activity by him/herself with no assistance (physical, verbal/nonverbal cueing, setup/clean-up)? No. EATING - STEP 2: Does the patient need only setup/clean-up assistance from one helper? Yes. 1. [id number] ADMISSION PERFORMANCE: Setup or clean-up assistance CODE: 05 ORAL HYGIENE: ORAL HYGIENE - STEP 1: Does the patient complete the activity by him/herself with no assistance (physical, verbal/nonverbal cueing, setup/clean-up)? No. ORAL HYGIENE - STEP 2: Does the patient need only setup/clean-up assistance from one helper? No. ORAL HYGIENE - STEP 3: Does the patient need only verbal/nonverbal cueing or touching/steadying/contact guard assistance fro m one helper? Yes. 1. [id number] ADMISSION PERFORMANCE: Supervision or touching assistance CODE: 04 TOILETING HYGIENE: TOILETING HYGIENE - STEP 1: Does the patient complete the activity by him/herself with no assistance (physical, verbal/nonverbal cueing, setup/clean-up)? No. TOILETING HYGIENE - STEP 2: Does the patient need only setup/clean-up assistance from one helper? No. TOILETING HYGIENE - STEP 3: Does the patient need only verbal/nonverbal cueing or touching/steadying/contact guard assistance fro m one helper? Yes. 1. [id number] ADMISSION PERFORMANCE: Supervision or touching assistance CODE: 04 BATHING: Not assessed/no information CODE: - DRESSING - UPPER BODY: DRESSING - UPPER BODY - STEP 1: Does the patient complete the activity by him/herself with no assistance (physical, verbal/nonverbal cueing, setup/clean-up)? Yes. DRESSING - UPPER BODY - STEP 2: Does the patient need only setup/clean-up assistance from one helper? No. DRESSING - UPPER BODY - STEP 3: Does the patient need only verbal/nonverbal cueing or touching/steadying/contact guard assistance fro m one helper? Yes. 1. [id number] ADMISSION PERFORMANCE: Supervision or touching assistance CODE: 04 DRESSING - LOWER BODY: DRESSING - LOWER BODY - STEP 1: Does the patient complete the activity by him/herself with no assistance (physical, verbal/nonverbal cueing, setup/clean-up)? No. DRESSING - LOWER BODY - STEP 2: Does the patient need only setup/clean-up assistance from one helper? No. DRESSING - LOWER BODY - STEP 3: Does the patient need only verbal/nonverbal cueing or touching/steadying/contact guard assistance fro m one helper? Yes. 1. [id number] ADMISSION PERFORMANCE: Supervision or touching assistance CODE: 04 PUTTING ON/TAKING OFF FOOTWEAR: FOOTWEAR - STEP 1: Does the patient complete the activity by him/herself with no assistance (physical, verbal/nonverbal cueing, setup/clean-up)? No. FOOTWEAR - STEP 2: Does the patient need only setup/clean-up assistance from one helper? No. FOOTWEAR - STEP 3: Does the patient need only verbal/nonverbal cueing or touching/steadying/contact guard assistance fro m one helper? Yes. 1. [id number] ADMISSION PERFORMANCE: Supervision or touching assistance CODE: 04 ROLL LEFT AND RIGHT: ROLL LEFT AND RIGHT - STEP 1: Does the patient complete the activity by him/herself with no assistance (physical, verbal/nonverbal cueing, setup/clean-up)? Yes. 1. [id number] ADMISSION PERFORMANCE: Independent CODE: 06 SIT TO LYING: SIT TO LYING - STEP 1: Does the patient complete the activity by him/herself with no assistance (physical, verbal/nonverbal cueing, setup/clean-up)? Yes. 1. [id number] ADMISSION PERFORMANCE: Independent CODE: 06 LYING TO SITTING: LYING TO SITTING ON SIDE OF BED - STEP 1: Does the patient complete the activity by him/herself with no assistance (physical, verbal/nonverbal cueing, setup/clean-up)? No. LYING TO SITTING ON SIDE OF BED - STEP 2: Does the patient need only setup/clean-up assistance from one helper? Yes. 1. [id number] ADMISSION PERFORMANCE: Setup or clean-up assistance CODE: 05 SIT TO STAND: SIT TO STAND - STEP 1: Does the patient complete the activity by him/herself with no assistance (physical, verbal/nonverbal cueing, setup/clean-up)? No. SIT TO STAND - STEP 2: Does the patient need only setup/clean-up assistance from one helper? Yes. 1. [id number] ADMISSION PERFORMANCE: Setup or clean-up assistance CODE: 05 TRANSFERS: BED, CHAIR: CHAIR/[id number] TRANSFER - STEP 1: Does the patient complete the activity by him/herself with no assistance (physical, verbal/nonverbal cueing, setup/clean-up)? No. CHAIR/[id number] TRANSFER - STEP 2: Does the patient need only setup/clean-up assistance from one helper? Yes. 1. [id number] ADMISSION PERFORMANCE: Setup or clean-up assistance CODE: 05 TRANSFER TOILET: TOILET TRANSFER - STEP 1: Does the patient complete the activity by him/herself with no assistance (physical, verbal/nonverbal cueing, setup/clean-up)? No. TOILET TRANSFER - STEP 2: Does the patient need only setup/clean-up assistance from one helper? Yes. 1. [id number] ADMISSION PERFORMANCE: Setup or clean-up assistance CODE: 05 TRANSFERS: CAR: Not assessed/no information CODE: - WALK 10 FEET: Not assessed/no information CODE: - 1 STEP (CURB): Not assessed/no information CODE: - PICKING UP OBJECT: Not assessed/no information CODE: - DOES THE PATIENT USE A WHEELCHAIR/SCOOTER? Q1. DOES THE PATIENT USE A WHEELCHAIR/SCOOTER?: Yes CODE: 1 WHEEL 50 FEET WITH TWO TURNS: WHEEL 50 FEET WITH TWO TURNS - STEP 1: Does the patient complete the activity by him/herself with no assistance (physical, verbal/nonverbal cueing, setup/clean-up)? No. WHEEL 50 FEET WITH TWO TURNS - STEP 2: Does the patient need only setup/clean-up assistance from one helper? Yes. 1. [id number] ADMISSION PERFORMANCE: Setup or clean-up assistance CODE: 05 INDICATE THE TYPE OF WHEELCHAIR/SCOOTER USED: RR1. INDICATE THE TYPE OF WHEELCHAIR/SCOOTER USED.: Manual CODE: 1 WHEEL 150 FEET: Not assessed/no information CODE: - INDICATE THE TYPE OF WHEELCHAIR/SCOOTER USED: SS1. INDICATE THE TYPE OF WHEELCHAIR/SCOOTER USED.: Manual CODE: 1 BLADDER AND BOWEL: H350. BLADDER CONTINENCE (3-DAY ASSESSMENT PERIOD): Always continent (no documented incontinence) CODE: 0 H400. BOWEL CONTINENCE (3-DAY ASSESSMENT PERIOD): Always continent CODE: 0 SIGNATURE PANEL: The following modified sections: 1. [id number] Admission Performance, 1. [id number] Admission Performance, 1. [id number] Admission Performance, 1. MR7463S Admission Performance, 1. GV1230f Admission Performance, 1. QL5443e Admission Performance, 1. AT9114t Admission Performance, 1. [id number] Admission Performance , 1. AU9872f Admission Performance, 1. [id number] Admission Performance, 1. [id number] Admission Performanc e, 1. [id number] Admission Performance, 1. [id number] Admission Performance, 1. MG8936S Admission Performan ce, 1. [id number] Admission Performance, Q1. Does the patient use a wheelchair/scooter?, 1. VV4693N Admi ssion Performance, RR1. Indicate the type of wheelchair/scooter used., Code, SS1. Indicate the type o f wheelchair/scooter used., H350. Bladder Continence (3-day assessment period), H400. Bowel Continenc e (3-day assessment period) were [electronically] signed by Karey Mcdermott C.N.A. on MonApr 23 2019 1 5:55:41 [facility]-0600 (Central Standard Time)
[2019-04-24] MEDS: HEPARIN 5000 UNIT/ML 1 ML VIAL SQ SCH ×2 (06:07→17:59)
[2019-04-24] MEDS: AMLODIPINE 10 MG TAB PO SCH (08:07)
[2019-04-24] MEDS: SENOSIDES 8.6 MG TAB PO SCH ×2 (08:07→19:05)
[2019-04-24] MEDS: DOCUSATE NA 100 MG CAP PO SCH ×2 (08:07→19:04)
[2019-04-24] MEDS: HYDRALAZINE HCL 25 MG TABLET PO SCH ×3 (08:07→19:05)
[2019-04-24] MEDS: carvediloL 6.25 MG TAB PO SCH ×2 (08:08→19:05)
--- NOTE | 2019-04-24 13:59 | FAST ---
ENCOUNTER DATE AND TIME: 04/24/2019 08:00 (LEAD SHAREPOINT DEVELOPER) NAME TIM JO DATE OF : 1950 DATE OF ADMISSION: 04/13/2019 14:57 (LEAD SHAREPOINT DEVELOPER) PHONE: AGE: 69 N# [id number] GENDER: Male ENCOUNTER PHYSICIAN: Dr. Scott Waters M.D. ADMISSION DIAGNOSIS: - Brain Dysfunction 02 - Closed Injury (07.27) Obstructive Hydrocephalus. EATING: Not assessed/no information CODE: - ORAL HYGIENE: ORAL HYGIENE - STEP 1: Does the patient complete the activity by him/herself with no assistance (physical, verbal/nonverbal cueing, setup/clean-up)? No. ORAL HYGIENE - STEP 2: Does the patient need only setup/clean-up assistance from one helper? Yes. 1. [id number] ADMISSION PERFORMANCE: Setup or clean-up assistance CODE: 05 TOILETING HYGIENE: Not assessed/no information CODE: - BATHING: SHOWER/BATHE SELF - STEP 1: Does the patient complete the activity by him/herself with no assistance (physical, verbal/nonverbal cueing, setup/clean-up)? No. SHOWER/BATHE SELF - STEP 2: Does the patient need only setup/clean-up assistance from one helper? No. SHOWER/BATHE SELF - STEP 3: Does the patient need only verbal/nonverbal cueing or touching/steadying/contact guard assistance fro m one helper? Yes. 1. [id number] ADMISSION PERFORMANCE: Supervision or touching assistance CODE: 04 DRESSING - UPPER BODY: DRESSING - UPPER BODY - STEP 1: Does the patient complete the activity by him/herself with no assistance (physical, verbal/nonverbal cueing, setup/clean-up)? No. DRESSING - UPPER BODY - STEP 2: Does the patient need only setup/clean-up assistance from one helper? Yes. 1. [id number] ADMISSION PERFORMANCE: Setup or clean-up assistance CODE: 05 DRESSING - LOWER BODY: DRESSING - LOWER BODY - STEP 1: Does the patient complete the activity by him/herself with no assistance (physical, verbal/nonverbal cueing, setup/clean-up)? No. DRESSING - LOWER BODY - STEP 2: Does the patient need only setup/clean-up assistance from one helper? No. DRESSING - LOWER BODY - STEP 3: Does the patient need only verbal/nonverbal cueing or touching/steadying/contact guard assistance fro m one helper? Yes. 1. [id number] ADMISSION PERFORMANCE: Supervision or touching assistance CODE: 04 PUTTING ON/TAKING OFF FOOTWEAR: FOOTWEAR - STEP 1: Does the patient complete the activity by him/herself with no assistance (physical, verbal/nonverbal cueing, setup/clean-up)? No. FOOTWEAR - STEP 2: Does the patient need only setup/clean-up assistance from one helper? No. FOOTWEAR - STEP 3: Does the patient need only verbal/nonverbal cueing or touching/steadying/contact guard assistance fro m one helper? Yes. 1. [id number] ADMISSION PERFORMANCE: Supervision or touching assistance CODE: 04 DOES THE PATIENT USE A WHEELCHAIR/SCOOTER? CODE: EXPR INDICATE THE TYPE OF WHEELCHAIR/SCOOTER USED: CODE: EXPR INDICATE THE TYPE OF WHEELCHAIR/SCOOTER USED: CODE: EXPR BLADDER AND BOWEL: CODE: EXPR CODE: EXPR SIGNATURE PANEL: The following modified sections: 1. [id number] Admission Performance, 1. EH1374o Admission Performance, 1. FR7125t Admission Performance, 1. JA1827r Admission Performance, 1. FS6978k Admission Performance, 1. XZ7559f Admission Performance, 1. XC6522x Admission Performance were [electronically] signed by MARISA Jose on MonApr 24 2019 13:58:21 GMT-0600 (Central Standard Time)
[2019-04-24] MEDS: TRAZODONE 50 MG TABLET PO PRN (19:05)
--- NOTE | 2019-04-24 20:17 | R.PN ---
ENCOUNTER DATE AND TIME: 04/24/2019 20:16 (MANAGER AGRICULTURE) NAME TIM JO DATE OF : 1950 DATE OF ADMISSION: 04/13/2019 14:57 (MANAGER AGRICULTURE) Obstructive HydrocephalusCHIEF COMPLAINT: Hydrocephalus, status post KITCHEN AIDE shunt SUBJECTIVE: Pt denied any depression. Pt denied any Shortness of Breath. Ambulated over 500' with contact standby assistance using a rolling walker. His blood work is stable. He denies pain at his scalp shunt site. VITAL SIGNS Temperature: 97.2 F SBP/DBP: 142/77 Pulse: 78 Resp: 16 MEDICATION ALLERGIES: No Known Drug Allergies (NKDA) ENVIRONMENTAL ALLERGIES: - Substance Allergies None Known - Other Allergies None Known NURSING: - Shower allowing shower - Bladder care per protocol - Skin care per protocol PRECAUTIONS: - Aspiration Precaution 1 to 1 supervision with all po intake All meals in the dysphagia dining room No straws Seated at 90 degrees while eating and 30 minutes after meals - Fall Precaution 1 to 1 supervision ACTIVITIES OOB only with supervision THERAPIES: - Occupational Therapy Cognitive Retraining. Visual Perceptual Training. - Dietary and Nutrition Adequate Nutrition. Nutritional Education. Nutritional Supplements. - Speech Therapy Augmentative Communication Equipment. Cognitive Training. Dysphagia Therapy. Expressive Language Skil ls. Receptive Language Skills. PHYSICAL EXAM - Gen Alert and awake Lying in bed No apparent distress Oriented to: person, time, and place - Skin No skin breakdown. Normacephalic KITCHEN AIDE shunt is intact. - Eyes No abnormalities - ENMT No abnormalities - Neck No abnormalities - CVS RRR - Chest No abnormalities - Abd Soft - GI Non distended Deferred - No abnormalities - Ext Mild bilateral lower extremity edema. - MSK 4+/5 weakness in left lower extremity - Neuro 4/5 strength bilaterally upper and lower extremities. - Psych No abnormalities ASSESSMENT: Pt. is a 69 yo Right-handed male of unknown race.On 04/02/2019 he was admitted to [facility] diagnosis Obstructive Hydrocephalus.His impairment category is Brain Dysfunction 02 - Closed Inju ry (07.27).Pre-morbidly, Pt. was independent/mod-I in Locomotion, Transfers Control, Self-Care, Ambul ation, and Sphincter Control; and he had good Social Cognition.Currently, he has deficits of Locomoti on, Self-Care, Transfers Control, Safety Awareness, Social Cognition, and Communication.Pt. is now re ferred to [facility] for acute in-patient rehabilitation in order to maximize patient's functional independence in activities of daily living, strength, ROM, and mobility.- Rehab Goal Patient has realistic goal of being discharged at assistance level 6-Osbaldo to reside at Home with Fam brea/Relatives. MDM/PLAN: - Physical Therapy Gait dysfunction - to improve, our physical therapists will perform initial evaluation of pt's statu s upon admission and devise an individualized program for Gait Training, and Wheel Chair mobility Inability to transfer - to improve, our physical therapists will perform initial evaluation of pt's status upon admission and devise an individualized program for Bed mobility Need for home safety evaluation - to improve, our physical therapists will perform initial evaluatio n of pt's status upon admission and devise an individualized program for Home Evaluation Edema - to improve, our physical therapists will perform initial evaluation of pt's status upon admi ssion and devise an individualized program for Elevation Training, and Lymphedema Therapy Need in caregiver upon discharge - to improve, our physical therapists will perform initial evaluati on of pt's status upon admission and devise an individualized program for Caregiver Training New precaution - to improve, our physical therapists will perform initial evaluation of pt's status upon admission and devise an individualized program for Patient precaution education Achieving independence - to improve, our physical therapists will perform initial evaluation of pt's status upon admission and devise an individualized program for Community Reintegration Activities - Occupational Therapy ADL deficits - to improve, our occupation therapists will perform initial evaluation of pt's status upon admission and devise an individualized program for Bathing, Bed mobility, Community Reintegratio n, Cooking, Dressing, Eating, Fine Motor Skills, Grooming, Homemaking, Kitchen Mobility, Laundry, Pat ient Education, Safety Awareness, Splinting - Positioning, Transfers(Toilet, Tub, Shower), and Wheel Chair Management Cognitive deficits - to improve, our occupation therapists will perform initial evaluation of pt's s tatus upon admission and devise an individualized program for Cognition - orientation Need for childcare attendant - to improve, our occupation therapists will perform initial evaluation of pt's status upon admission and devise an individualized program for Caregiver Training - Other See attached MAR (Medication Administration Record) - Diet Type Continue NPO (nothing by mouth) - Diet - Liquid Texture Continue Regular - Tube Feed Continue N/A - Bladder care per protocol - Aspiration Precaution 1 to 1 supervision with all po intake All meals in the dysphagia dining room No straws Seated at 90 degrees while eating and 30 minutes after meals - Fall Precaution 1 to 1 supervision - Skin care per protocol - Shower allowing shower FUNCTIONAL STATUS: UPDATED AT WEEKLY TEAM CONFERENCE - Bladder Same accident frequency: 7-Ind - No accidents in the past 7 days - Bowel Same accident frequency: 7-Ind - No accidents in the past 7 days - Walking Same score based on distance walked: 1(<=50ft) - Wheelchair Same score based on distance traveled: 1(<=50ft) FUNCTIONAL STATUS: - Self-Care A. Eating Osbaldo B. Grooming modA C. Bathing modA D. Dressing - Upper modA E. Dressing - Lower modA F. Toileting modA - Sphincter Control G. Bladder control modA H. Bowel control modA - Transfers Control I. Bed/Chair/Wheelchair Elba J. Toilet modA K. Tub/Shower modA - Locomotion L. Walk/Wheelchair (W) maxA M. Stairs Dep - Communication N. Comprehension (A) Elba O. Expression (B) Elba - Social Cognition P. Social Interaction Elba Q. Problem Solving Elba R. Memory Elba - Endurance Good - Balance Good - Safety Awareness Good QI SCORES: - Self-Care A. Eating 01-Dependent B. Oral hygiene 05-Setup or clean-up assistance C. Toileting hygiene 03-Partial/moderate assistance E. Shower/bathe self 03-Partial/moderate assistance F. Upper body dressing 04-Supervision or touching assistance G. Lower body dressing 03-Partial/moderate assistance H. Putting on/taking off footwear 03-Partial/moderate assistance - Mobility A. Roll left and right 03-Partial/moderate assistance B. Sit to lying 04-Supervision or touching assistance C. Lying to sitting on side of bed 04-Supervision or touching assistance D. Sit to stand 04-Supervision or touching assistance E. Chair/khr-ga-rkchu transfer 04-Supervision or touching assistance F. Toilet transfer 04-Supervision or touching assistance G. Car transfer 88-Not attempted due to medical condition or safety concerns I. Walk 10 feet 02-Substantial/maximal assistance J. Walk 50 feet with two turns 88-Not attempted due to medical condition or safety concerns K. Walk 150 feet 88-Not attempted due to medical condition or safety concerns L. Walking 10 feet on uneven surfaces 88-Not attempted due to medical condition or safety concerns M. 1 step (curb) 88-Not attempted due to medical condition or safety concerns N. 4 steps 88-Not attempted due to medical condition or safety concerns O. 12 steps 88-Not attempted due to medical condition or safety concerns P. Picking up object 88-Not attempted due to medical condition or safety concerns R. Wheel 50 feet with two turns 88-Not attempted due to medical condition or safety concerns S. Wheel 150 feet 88-Not attempted due to medical condition or safety concerns - Bladder and Bowel Bladder continence 1-Stress incontinence only Bowel continence 0-Always continent - Endurance Fair - Balance Poor - Safety Awareness Poor CURRENT FUNC. DEFICITS: Locomotion, Self-Care, Transfers Control, Safety Awareness, Social Cognition, and Communication SIGNATURE PANEL: (MANAGER AGRICULTURE)
[2019-04-25 06:01] LABS: Absolute Lymphocytes (CBC) 1.7 K/uL (0.7-4.9); Basophils % 0.6 % (0-1.3); Hematocrit 35.7 % (39.6-49.0); Lymphocytes % 31.9 % (15.3-44.8); MPV 9.7 fL (7.6-11.3); RBC Red Blood Cell Count 3.84 M/uL (4.33-5.43)
[2019-04-25 06:24] LABS: Albumin 3.5 g/dL (3.4-5.0); BUN Blood Urea Nitrogen 13 mg/dL (7-18); Bicarbonate 29 mmol/L (21-32); Glucose Level 103 mg/dL (74-106); Magnesium 2.5 mg/dL (1.8-2.4); Potassium 4.1 mmol/L (3.5-5.1); Prealbumin 24.1 mg/dL (20-40); Sodium Level 142 mmol/L (136-145)
[2019-04-25] MEDS: DOCUSATE NA 100 MG CAP PO SCH ×2 (08:00→19:09)
[2019-04-25] MEDS: SENOSIDES 8.6 MG TAB PO SCH ×2 (08:00→19:10)
[2019-04-25] MEDS: HYDRALAZINE HCL 25 MG TABLET PO SCH ×3 (08:34→19:09)
[2019-04-25] MEDS: carvediloL 6.25 MG TAB PO SCH ×2 (08:34→19:09)
[2019-04-25] MEDS: HEPARIN 5000 UNIT/ML 1 ML VIAL SQ SCH ×3 (10:17→21:30)
[2019-04-25] MEDS: AMLODIPINE 10 MG TAB PO SCH (12:01)
--- NOTE | 2019-04-25 14:55 | FAST ---
ENCOUNTER DATE AND TIME: 04/25/2019 08:00 (TORCH STRAIGHTENER AND HEATER) NAME TIM JO DATE OF : 1950 DATE OF ADMISSION: 04/13/2019 14:57 (TORCH STRAIGHTENER AND HEATER) PHONE: AGE: 69 N# [id number] GENDER: Male ENCOUNTER PHYSICIAN: Dr. Scott Waters M.D. ADMISSION DIAGNOSIS: - Brain Dysfunction 02 - Closed Injury (07.27) Obstructive Hydrocephalus. ROLL LEFT AND RIGHT: ROLL LEFT AND RIGHT - STEP 1: Does the patient complete the activity by him/herself with no assistance (physical, verbal/nonverbal cueing, setup/clean-up)? No. ROLL LEFT AND RIGHT - STEP 2: Does the patient need only setup/clean-up assistance from one helper? No. ROLL LEFT AND RIGHT - STEP 3: Does the patient need only verbal/nonverbal cueing or touching/steadying/contact guard assistance fro m one helper? Yes. 1. [id number] ADMISSION PERFORMANCE: Supervision or touching assistance CODE: 04 SIT TO LYING: SIT TO LYING - STEP 1: Does the patient complete the activity by him/herself with no assistance (physical, verbal/nonverbal cueing, setup/clean-up)? No. SIT TO LYING - STEP 2: Does the patient need only setup/clean-up assistance from one helper? No. SIT TO LYING - STEP 3: Does the patient need only verbal/nonverbal cueing or touching/steadying/contact guard assistance fro m one helper? Yes. 1. [id number] ADMISSION PERFORMANCE: Supervision or touching assistance CODE: 04 LYING TO SITTING: LYING TO SITTING ON SIDE OF BED - STEP 1: Does the patient complete the activity by him/herself with no assistance (physical, verbal/nonverbal cueing, setup/clean-up)? No. LYING TO SITTING ON SIDE OF BED - STEP 2: Does the patient need only setup/clean-up assistance from one helper? No. LYING TO SITTING ON SIDE OF BED - STEP 3: Does the patient need only verbal/nonverbal cueing or touching/steadying/contact guard assistance fro m one helper? Yes. 1. [id number] ADMISSION PERFORMANCE: Supervision or touching assistance CODE: 04 SIT TO STAND: SIT TO STAND - STEP 1: Does the patient complete the activity by him/herself with no assistance (physical, verbal/nonverbal cueing, setup/clean-up)? No. SIT TO STAND - STEP 2: Does the patient need only setup/clean-up assistance from one helper? No. SIT TO STAND - STEP 3: Does the patient need only verbal/nonverbal cueing or touching/steadying/contact guard assistance fro m one helper? Yes. 1. [id number] ADMISSION PERFORMANCE: Supervision or touching assistance CODE: 04 TRANSFERS: BED, CHAIR: CHAIR/[id number] TRANSFER - STEP 1: Does the patient complete the activity by him/herself with no assistance (physical, verbal/nonverbal cueing, setup/clean-up)? No. CHAIR/[id number] TRANSFER - STEP 2: Does the patient need only setup/clean-up assistance from one helper? No. CHAIR/[id number] TRANSFER - STEP 3: Does the patient need only verbal/nonverbal cueing or touching/steadying/contact guard assistance fro m one helper? Yes. 1. [id number] ADMISSION PERFORMANCE: Supervision or touching assistance CODE: 04 TRANSFER TOILET: Not attempted due to medical condition or safety concerns CODE: 88 TRANSFERS: CAR: Not attempted due to environmental limitations (e.g., lack of equipment, weather constraints) CODE: 10 WALK 10 FEET: WALK 10 FEET - STEP 1: Does the patient complete the activity by him/herself with no assistance (physical, verbal/nonverbal cueing, setup/clean-up)? No. WALK 10 FEET - STEP 2: Does the patient need only setup/clean-up assistance from one helper? No. WALK 10 FEET - STEP 3: Does the patient need only verbal/nonverbal cueing or touching/steadying/contact guard assistance fro m one helper? Yes. 1. [id number] ADMISSION PERFORMANCE: Supervision or touching assistance CODE: 04 WALK 50 FEET: WALK 50 FEET - STEP 1: Does the patient complete the activity by him/herself with no assistance (physical, verbal/nonverbal cueing, setup/clean-up)? No. WALK 50 FEET - STEP 2: Does the patient need only setup/clean-up assistance from one helper? No. WALK 50 FEET - STEP 3: Does the patient need only verbal/nonverbal cueing or touching/steadying/contact guard assistance fro m one helper? Yes. 1. [id number] ADMISSION PERFORMANCE: Supervision or touching assistance CODE: 04 WALK 150 FEET: WALK 150 FEET - STEP 1: Does the patient complete the activity by him/herself with no assistance (physical, verbal/nonverbal cueing, setup/clean-up)? No. WALK 150 FEET - STEP 2: Does the patient need only setup/clean-up assistance from one helper? No. WALK 150 FEET - STEP 3: Does the patient need only verbal/nonverbal cueing or touching/steadying/contact guard assistance fro m one helper? Yes. 1. [id number] ADMISSION PERFORMANCE: Supervision or touching assistance CODE: 04 WALK 10 FEET UNEVEN: Not attempted due to medical condition or safety concerns CODE: 88 1 STEP (CURB): Not attempted due to medical condition or safety concerns CODE: 88 PICKING UP OBJECT: Not attempted due to medical condition or safety concerns CODE: 88 DOES THE PATIENT USE A WHEELCHAIR/SCOOTER? Q1. DOES THE PATIENT USE A WHEELCHAIR/SCOOTER?: Yes CODE: 1 WHEEL 50 FEET WITH TWO TURNS: WHEEL 50 FEET WITH TWO TURNS - STEP 1: Does the patient complete the activity by him/herself with no assistance (physical, verbal/nonverbal cueing, setup/clean-up)? No. WHEEL 50 FEET WITH TWO TURNS - STEP 2: Does the patient need only setup/clean-up assistance from one helper? Yes. 1. [id number] ADMISSION PERFORMANCE: Setup or clean-up assistance CODE: 05 INDICATE THE TYPE OF WHEELCHAIR/SCOOTER USED: RR1. INDICATE THE TYPE OF WHEELCHAIR/SCOOTER USED.: Manual CODE: 1 WHEEL 150 FEET: WHEEL 150 FEET - STEP 1: Does the patient complete the activity by him/herself with no assistance (physical, verbal/nonverbal cueing, setup/clean-up)? No. WHEEL 150 FEET - STEP 2: Does the patient need only setup/clean-up assistance from one helper? Yes. 1. [id number] ADMISSION PERFORMANCE: Setup or clean-up assistance CODE: 05 INDICATE THE TYPE OF WHEELCHAIR/SCOOTER USED: SS1. INDICATE THE TYPE OF WHEELCHAIR/SCOOTER USED.: Manual CODE: 1 BLADDER AND BOWEL: CODE: EXPR CODE: EXPR SIGNATURE PANEL: The following modified sections: 1. [id number] Admission Performance, 1. [id number] Admission Performance, 1. [id number] Admission Performance, 1. [id number] Admission Performance, 1. [id number] Admission Performance, 1. [id number] Admission Performance, 1. [id number] Admission Performance, 1. [id number] Admission Performance , 1. [id number] Admission Performance, Q1. Does the patient use a wheelchair/scooter?, 1. [id number] Admiss ion Performance, RR1. Indicate the type of wheelchair/scooter used., 1. [id number] Admission Performance , Code, SS1. Indicate the type of wheelchair/scooter used. were [electronically] signed by Sudhir Davalos PTA on MonApr 25 2019 14:55:14 GMT-0600 (Central Standard Time)
--- NOTE | 2019-04-25 18:28 | R.PN ---
ENCOUNTER DATE AND TIME: 04/25/2019 18:26 (FACULTY RESEARCH PHYSICIAN) NAME TIM JO DATE OF : 1950 DATE OF ADMISSION: 04/13/2019 14:57 (FACULTY RESEARCH PHYSICIAN) Obstructive HydrocephalusCHIEF COMPLAINT: Hydrocephalus, status post LUMBER TAILER shunt SUBJECTIVE: Pt denied any depression. Pt denied any Shortness of Breath. Ambulated over 500' with contact standby assistance using a rolling walker. His blood work is stable. He denies pain at his scalp shunt site. VITAL SIGNS Temperature: 98.2 F SBP/DBP: 154/84 Pulse: 74 Resp: 16 MEDICATION ALLERGIES: No Known Drug Allergies (NKDA) ENVIRONMENTAL ALLERGIES: - Substance Allergies None Known - Other Allergies None Known NURSING: - Shower allowing shower - Bladder care per protocol - Skin care per protocol PRECAUTIONS: - Aspiration Precaution 1 to 1 supervision with all po intake All meals in the dysphagia dining room No straws Seated at 90 degrees while eating and 30 minutes after meals - Fall Precaution 1 to 1 supervision ACTIVITIES OOB only with supervision THERAPIES: - Occupational Therapy Cognitive Retraining. Visual Perceptual Training. - Dietary and Nutrition Adequate Nutrition. Nutritional Education. Nutritional Supplements. - Speech Therapy Augmentative Communication Equipment. Cognitive Training. Dysphagia Therapy. Expressive Language Skil ls. Receptive Language Skills. PHYSICAL EXAM - Gen Alert and awake Lying in bed No apparent distress Oriented to: person, time, and place - Skin No skin breakdown. Normacephalic LUMBER TAILER shunt is intact. - Eyes No abnormalities - ENMT No abnormalities - Neck No abnormalities - CVS RRR - Chest No abnormalities - Abd Soft - GI Non distended Deferred - No abnormalities - Ext Mild bilateral lower extremity edema. - MSK 4+/5 weakness in left lower extremity - Neuro 4/5 strength bilaterally upper and lower extremities. - Psych No abnormalities ASSESSMENT: Pt. is a 69 yo Right-handed male of unknown race.On 04/02/2019 he was admitted to [facility] diagnosis Obstructive Hydrocephalus.His impairment category is Brain Dysfunction 02 - Closed Inju ry (07.27).Pre-morbidly, Pt. was independent/mod-I in Locomotion, Transfers Control, Self-Care, Ambul ation, and Sphincter Control; and he had good Social Cognition.Currently, he has deficits of Locomoti on, Self-Care, Transfers Control, Safety Awareness, Social Cognition, and Communication.Pt. is now re ferred to [facility] for acute in-patient rehabilitation in order to maximize patient's functional independence in activities of daily living, strength, ROM, and mobility.- Rehab Goal Patient has realistic goal of being discharged at assistance level 6-Osbaldo to reside at Home with Fam brea/Relatives. MDM/PLAN: - Physical Therapy Gait dysfunction - to improve, our physical therapists will perform initial evaluation of pt's statu s upon admission and devise an individualized program for Gait Training, and Wheel Chair mobility Inability to transfer - to improve, our physical therapists will perform initial evaluation of pt's status upon admission and devise an individualized program for Bed mobility Need for home safety evaluation - to improve, our physical therapists will perform initial evaluatio n of pt's status upon admission and devise an individualized program for Home Evaluation Edema - to improve, our physical therapists will perform initial evaluation of pt's status upon admi ssion and devise an individualized program for Elevation Training, and Lymphedema Therapy Need in caregiver upon discharge - to improve, our physical therapists will perform initial evaluati on of pt's status upon admission and devise an individualized program for Caregiver Training New precaution - to improve, our physical therapists will perform initial evaluation of pt's status upon admission and devise an individualized program for Patient precaution education Achieving independence - to improve, our physical therapists will perform initial evaluation of pt's status upon admission and devise an individualized program for Community Reintegration Activities - Occupational Therapy ADL deficits - to improve, our occupation therapists will perform initial evaluation of pt's status upon admission and devise an individualized program for Bathing, Bed mobility, Community Reintegratio n, Cooking, Dressing, Eating, Fine Motor Skills, Grooming, Homemaking, Kitchen Mobility, Laundry, Pat ient Education, Safety Awareness, Splinting - Positioning, Transfers(Toilet, Tub, Shower), and Wheel Chair Management Cognitive deficits - to improve, our occupation therapists will perform initial evaluation of pt's s tatus upon admission and devise an individualized program for Cognition - orientation Need for career technical education teacher - to improve, our occupation therapists will perform initial evaluation of pt's status upon admission and devise an individualized program for Caregiver Training - Other See attached MAR (Medication Administration Record) - Diet Type Continue NPO (nothing by mouth) - Diet - Liquid Texture Continue Regular - Tube Feed Continue N/A - Bladder care per protocol - Aspiration Precaution 1 to 1 supervision with all po intake All meals in the dysphagia dining room No straws Seated at 90 degrees while eating and 30 minutes after meals - Fall Precaution 1 to 1 supervision - Skin care per protocol - Shower allowing shower FUNCTIONAL STATUS: UPDATED AT WEEKLY TEAM CONFERENCE - Bladder Same accident frequency: 7-Ind - No accidents in the past 7 days - Bowel Same accident frequency: 7-Ind - No accidents in the past 7 days - Walking Same score based on distance walked: 1(<=50ft) - Wheelchair Same score based on distance traveled: 1(<=50ft) FUNCTIONAL STATUS: - Self-Care A. Eating Osbaldo B. Grooming modA C. Bathing modA D. Dressing - Upper modA E. Dressing - Lower modA F. Toileting modA - Sphincter Control G. Bladder control modA H. Bowel control modA - Transfers Control I. Bed/Chair/Wheelchair Elba J. Toilet modA K. Tub/Shower modA - Locomotion L. Walk/Wheelchair (W) maxA M. Stairs Dep - Communication N. Comprehension (A) Elba O. Expression (B) Elba - Social Cognition P. Social Interaction Elba Q. Problem Solving Elba R. Memory Elba - Endurance Good - Balance Good - Safety Awareness Good QI SCORES: - Self-Care A. Eating 01-Dependent B. Oral hygiene 05-Setup or clean-up assistance C. Toileting hygiene 03-Partial/moderate assistance E. Shower/bathe self 03-Partial/moderate assistance F. Upper body dressing 04-Supervision or touching assistance G. Lower body dressing 03-Partial/moderate assistance H. Putting on/taking off footwear 03-Partial/moderate assistance - Mobility A. Roll left and right 03-Partial/moderate assistance B. Sit to lying 04-Supervision or touching assistance C. Lying to sitting on side of bed 04-Supervision or touching assistance D. Sit to stand 04-Supervision or touching assistance E. Chair/igs-vo-afulu transfer 04-Supervision or touching assistance F. Toilet transfer 04-Supervision or touching assistance G. Car transfer 88-Not attempted due to medical condition or safety concerns I. Walk 10 feet 02-Substantial/maximal assistance J. Walk 50 feet with two turns 88-Not attempted due to medical condition or safety concerns K. Walk 150 feet 88-Not attempted due to medical condition or safety concerns L. Walking 10 feet on uneven surfaces 88-Not attempted due to medical condition or safety concerns M. 1 step (curb) 88-Not attempted due to medical condition or safety concerns N. 4 steps 88-Not attempted due to medical condition or safety concerns O. 12 steps 88-Not attempted due to medical condition or safety concerns P. Picking up object 88-Not attempted due to medical condition or safety concerns R. Wheel 50 feet with two turns 88-Not attempted due to medical condition or safety concerns S. Wheel 150 feet 88-Not attempted due to medical condition or safety concerns - Bladder and Bowel Bladder continence 1-Stress incontinence only Bowel continence 0-Always continent - Endurance Fair - Balance Poor - Safety Awareness Poor CURRENT FUNC. DEFICITS: Locomotion, Self-Care, Transfers Control, Safety Awareness, Social Cognition, and Communication SIGNATURE PANEL: (FACULTY RESEARCH PHYSICIAN)
[2019-04-25] MEDS: TRAZODONE 50 MG TABLET PO PRN (19:09)
[2019-04-26] MEDS: DOCUSATE NA 100 MG CAP PO SCH ×2 (07:13→20:40)
[2019-04-26] MEDS: AMLODIPINE 10 MG TAB PO SCH (07:13)
[2019-04-26] MEDS: SENOSIDES 8.6 MG TAB PO SCH ×2 (07:14→20:39)
[2019-04-26] MEDS: carvediloL 6.25 MG TAB PO SCH ×2 (07:14→20:39)
[2019-04-26] MEDS: HYDRALAZINE HCL 25 MG TABLET PO SCH ×3 (07:15→20:39)
[2019-04-26] MEDS: HEPARIN 5000 UNIT/ML 1 ML VIAL SQ SCH ×2 (08:53→20:00)
--- NOTE | 2019-04-26 09:46 | P.RH.PN ---
Estimated Length of Stay: 20 Expected Discharge Date: 05/01/19 Vital Signs: Last Vital Signs Temp 97.4 F 04/26/19 07:53 Pulse 64 04/26/19 07:53 Resp 16 04/26/19 07:53 BP 119/62 04/26/19 07:53 Pulse Ox 96 04/26/19 07:53 Laboratory: Laboratory Last Values WBC 5.3 K/uL (4.3-10.9) 04/25/19 05:45 RBC 3.84 M/uL (4.33-5.43) L 04/25/19 05:45 Hgb 12.2 g/dL (13.6-17.9) L 04/25/19 05:45 Hct 35.7 % (39.6-49.0) L 04/25/19 05:45 MCV 93.1 fL (80-100) 04/25/19 05:45 MCH 31.8 pg (27.0-35.0) 04/25/19 05:45 MCHC 34.2 g/dL (32.0-36.0) 04/25/19 05:45 RDW 14.9 % (12.1-15.2) 04/25/19 05:45 Plt Count 228 K/uL (152-406) 04/25/19 05:45 MPV 9.7 fL (7.6-11.3) 04/25/19 05:45 Neutrophils % 55.6 % (41.7-73.7) 04/25/19 05:45 Lymphocytes % 31.9 % (15.3-44.8) 04/25/19 05:45 Monocytes % 10.7 % (3.3-12.3) 04/25/19 05:45 Eosinophils % 1.2 % (0-4.4) 04/25/19 05:45 Basophils % 0.6 % (0-1.3) 04/25/19 05:45 Absolute Neutrophils 3.0 K/uL (1.8-8.0) 04/25/19 05:45 Absolute Lymphocytes 1.7 K/uL (0.7-4.9) 04/25/19 05:45 Absolute Monocytes 0.6 K/uL (0.1-1.3) 04/25/19 05:45 Absolute Eosinophils 0.1 K/uL (0-0.5) 04/25/19 05:45 Absolute Basophils 0.0 K/uL (0-0.5) 04/25/19 05:45 Sodium 142 mmol/L (136-145) 04/25/19 05:45 Potassium 4.1 mmol/L (3.5-5.1) 04/25/19 05:45 Chloride 109 mmol/L (98-107) H 04/25/19 05:45 Carbon Dioxide 29 mmol/L (21-32) 04/25/19 05:45 BUN 13 mg/dL (7-18) 04/25/19 05:45 Creatinine 0.91 mg/dL (0.55-1.3) 04/25/19 05:45 Estimated GFR > 90 mL/min (=/>90) 04/25/19 05:45 Glucose 103 mg/dL (74-106) 04/25/19 05:45 Calcium 9.0 mg/dL (8.5-10.1) 04/25/19 05:45 Magnesium 2.5 mg/dL (1.8-2.4) H 04/25/19 05:45 Albumin 3.5 g/dL (3.4-5.0) 04/25/19 05:45 Prealbumin 24.1 mg/dL (20-40) 04/25/19 05:45 Urine Color Yellow 04/13/19 16:25 Urine Appearance Clear 04/13/19 16:25 Urine pH 6.0 (5.0-7.0) 04/13/19 16:25 Ur Specific [place] 1.025 (1.005-1.030) 04/13/19 16:25 Urine Ketones Negative (NEG) 04/13/19 16:25 Urine Blood Negative (NEG) 04/13/19 16:25 Urine Nitrite Negative (NEG) 04/13/19 16:25 Urine Bilirubin Negative (NEG) 04/13/19 16:25 Urine Urobilinogen 0.2 mg/dL (0.2-1.0) 04/13/19 16:25 Ur Leukocyte Esterase Negative (NEG) 04/13/19 16:25 Urine RBC <5 /HPF (NONE SEEN) 04/13/19 16:25 Urine WBC <5 /HPF (<5) 04/13/19 16:25 Ur Squamous Epith Cells <5 /HPF (NONE SEEN) 04/13/19 16:25 Urine Bacteria <20 /HPF (NONE SEEN) 04/13/19 16:25 Urine Culture Reflexed Not needed 04/13/19 16:25 Urine Glucose Negative (NEG) 04/13/19 16:25 Urine Total Protein Negative (NEG) 04/13/19 16:25 Weight: 175 lb 3.2 oz Wound Present: No Closed Surgical Incision Present: Yes Negative Pressure Wound Therapy Present: No Physician Update: His blood work is stable. He denies pain. He is doing well with physical and occupational therapy. He needs help with ADLs due to poor eye movement and ataxia. He is getting more impulsive but walks 250' with partial assistance. Not yet done stairs. He continus to be unsteady with gait. Plans are to discharge him next week Monday. Family should work hands-on with patient prior to discharge. He may require a wheelchair for the near future. Medical Issues: Patient is incontinent daily with bladder and always continent with bowel. Functional Improvement: Patient continues to work on improving balance w/ all activities, however patient's progress w/ said activity requires additional work. Patient presents w/ good overall attitude and work ethic, and will continue to address these deficits. Speech Therapy Update: Patient continues to present with mod-severe cognitive- linguistic impairments characterized by decreased sustained/divided attention, decreased auditory comprehension and recall, processing delay, reduced safety awareness, judgment, and insight, dysarthria, and expressive language impairments. Patient also has mild-moderate oropharyngeal dysphagia and is currently on mechanical soft solids with nectar-thickened liquids and is undergoing a repeat MBS study today to determine if he is eligible for a diet upgrade. Summary: Patient's care plan and oysterman goals have been reviewed and revised as necessary. Please see the Rehabilitation Signature page for all necessary signatures.
--- NOTE | 2019-04-26 16:09 | FAST ---
ENCOUNTER DATE AND TIME: 04/26/2019 08:00 (LANDSCAPING MANAGER) NAME TIM JO DATE OF : 1950 DATE OF ADMISSION: 04/13/2019 14:57 (LANDSCAPING MANAGER) PHONE: AGE: 69 N# [id number] GENDER: Male ENCOUNTER PHYSICIAN: Dr. Scott Waters M.D. ADMISSION DIAGNOSIS: - Brain Dysfunction 02 - Closed Injury (07.27) Obstructive Hydrocephalus. EATING: Not assessed/no information CODE: - ORAL HYGIENE: ORAL HYGIENE - STEP 1: Does the patient complete the activity by him/herself with no assistance (physical, verbal/nonverbal cueing, setup/clean-up)? No. ORAL HYGIENE - STEP 2: Does the patient need only setup/clean-up assistance from one helper? No. ORAL HYGIENE - STEP 3: Does the patient need only verbal/nonverbal cueing or touching/steadying/contact guard assistance fro m one helper? Yes. 1. [id number] ADMISSION PERFORMANCE: Supervision or touching assistance CODE: 04 TOILETING HYGIENE: Not assessed/no information CODE: - BATHING: SHOWER/BATHE SELF - STEP 1: Does the patient complete the activity by him/herself with no assistance (physical, verbal/nonverbal cueing, setup/clean-up)? No. SHOWER/BATHE SELF - STEP 2: Does the patient need only setup/clean-up assistance from one helper? No. SHOWER/BATHE SELF - STEP 3: Does the patient need only verbal/nonverbal cueing or touching/steadying/contact guard assistance fro m one helper? Yes. 1. [id number] ADMISSION PERFORMANCE: Supervision or touching assistance CODE: 04 DRESSING - UPPER BODY: DRESSING - UPPER BODY - STEP 1: Does the patient complete the activity by him/herself with no assistance (physical, verbal/nonverbal cueing, setup/clean-up)? No. DRESSING - UPPER BODY - STEP 2: Does the patient need only setup/clean-up assistance from one helper? No. DRESSING - UPPER BODY - STEP 3: Does the patient need only verbal/nonverbal cueing or touching/steadying/contact guard assistance fro m one helper? Yes. 1. [id number] ADMISSION PERFORMANCE: Supervision or touching assistance CODE: 04 DRESSING - LOWER BODY: DRESSING - LOWER BODY - STEP 1: Does the patient complete the activity by him/herself with no assistance (physical, verbal/nonverbal cueing, setup/clean-up)? No. DRESSING - LOWER BODY - STEP 2: Does the patient need only setup/clean-up assistance from one helper? No. DRESSING - LOWER BODY - STEP 3: Does the patient need only verbal/nonverbal cueing or touching/steadying/contact guard assistance fro m one helper? Yes. 1. [id number] ADMISSION PERFORMANCE: Supervision or touching assistance CODE: 04 PUTTING ON/TAKING OFF FOOTWEAR: FOOTWEAR - STEP 1: Does the patient complete the activity by him/herself with no assistance (physical, verbal/nonverbal cueing, setup/clean-up)? No. FOOTWEAR - STEP 2: Does the patient need only setup/clean-up assistance from one helper? No. FOOTWEAR - STEP 3: Does the patient need only verbal/nonverbal cueing or touching/steadying/contact guard assistance fro m one helper? Yes. 1. [id number] ADMISSION PERFORMANCE: Supervision or touching assistance CODE: 04 DOES THE PATIENT USE A WHEELCHAIR/SCOOTER? CODE: EXPR INDICATE THE TYPE OF WHEELCHAIR/SCOOTER USED: CODE: EXPR INDICATE THE TYPE OF WHEELCHAIR/SCOOTER USED: CODE: EXPR BLADDER AND BOWEL: CODE: EXPR CODE: EXPR SIGNATURE PANEL: The following modified sections: 1. [id number] Admission Performance, 1. [id number] Admission Performance, 1. [id number] Admission Performance, 1. [id number] Admission Performance, 1. [id number] Admission Performance were [electronically] signed by MARISA Olivares on MonApr 26 2019 16:08:06 GMT-0600 (Central Standard Time)
[2019-04-26] MEDS: TRAZODONE 50 MG TABLET PO PRN (20:43)
--- NOTE | 2019-04-27 02:37 | FAST ---
SHIFT START DATE/TIME: 04/26/2019 19:00 ([employer]ORER [employer]EN [employer]) SHIFT END DATE/TIME: 04/27/2019 07:00 ([employer]) NAME TIM JO DATE OF : 1950 DATE OF ADMISSION: 04/13/2019 14:57 ([employer]) PHONE: AGE: 69 SSN# [id number] GENDER: Male ENCOUNTER PHYSICIAN: Dr. Scott Waters M.D. ADMISSION DIAGNOSIS: - Brain Dysfunction 02 - Closed Injury (07.27) Obstructive Hydrocephalus. EATING: Not assessed/no information CODE: - ORAL HYGIENE: Not assessed/no information CODE: - TOILETING HYGIENE: TOILETING HYGIENE - STEP 1: Does the patient complete the activity by him/herself with no assistance (physical, verbal/nonverbal cueing, setup/clean-up)? No. TOILETING HYGIENE - STEP 2: Does the patient need only setup/clean-up assistance from one helper? No. TOILETING HYGIENE - STEP 3: Does the patient need only verbal/nonverbal cueing or touching/steadying/contact guard assistance fro m one helper? Yes. 1. [id number] ADMISSION PERFORMANCE: Supervision or touching assistance CODE: 04 BATHING: Not assessed/no information CODE: - DRESSING - UPPER BODY: Not assessed/no information CODE: - DRESSING - LOWER BODY: Not assessed/no information CODE: - PUTTING ON/TAKING OFF FOOTWEAR: Not assessed/no information CODE: - TRANSFERS: CAR: Not assessed/no information CODE: - WALK 10 FEET: Not assessed/no information CODE: - 1 STEP (CURB): Not assessed/no information CODE: - PICKING UP OBJECT: Not assessed/no information CODE: - DOES THE PATIENT USE A WHEELCHAIR/SCOOTER? CODE: EXPR WHEEL 50 FEET WITH TWO TURNS: Not assessed/no information CODE: - INDICATE THE TYPE OF WHEELCHAIR/SCOOTER USED: CODE: EXPR WHEEL 150 FEET: Not assessed/no information CODE: - INDICATE THE TYPE OF WHEELCHAIR/SCOOTER USED: CODE: EXPR BLADDER AND BOWEL: H350. BLADDER CONTINENCE (3-DAY ASSESSMENT PERIOD): Incontinent less than daily (e.g., once or twice during the 3-day assessment period) CODE: 2 H400. BOWEL CONTINENCE (3-DAY ASSESSMENT PERIOD): Always continent CODE: 0
[2019-04-27 05:51] VITALS: BMI 25.0
[2019-04-27] MEDS: HEPARIN 5000 UNIT/ML 1 ML VIAL SQ SCH ×2 (08:00→18:12)
[2019-04-27] MEDS: SENOSIDES 8.6 MG TAB PO SCH ×3 (08:00→19:44)
[2019-04-27] MEDS: DOCUSATE NA 100 MG CAP PO SCH ×2 (08:28→19:44)
[2019-04-27] MEDS: HYDRALAZINE HCL 25 MG TABLET PO SCH ×3 (08:29→19:44)
[2019-04-27] MEDS: carvediloL 6.25 MG TAB PO SCH ×2 (08:29→19:44)
[2019-04-27] MEDS: AMLODIPINE 10 MG TAB PO SCH (11:25)
[2019-04-27] MEDS: TRAZODONE 50 MG TABLET PO PRN (19:44)
[2019-04-28] MEDS: HEPARIN 5000 UNIT/ML 1 ML VIAL SQ SCH ×2 (06:13→21:12)
[2019-04-28] MEDS: AMLODIPINE 10 MG TAB PO SCH (07:34)
[2019-04-28] MEDS: DOCUSATE NA 100 MG CAP PO SCH ×2 (07:34→20:56)
[2019-04-28] MEDS: SENOSIDES 8.6 MG TAB PO SCH ×2 (07:35→20:57)
[2019-04-28] MEDS: carvediloL 6.25 MG TAB PO SCH ×2 (07:35→20:56)
[2019-04-28] MEDS: HYDRALAZINE HCL 25 MG TABLET PO SCH ×3 (07:35→20:57)
--- NOTE | 2019-04-28 11:19 | FAST ---
SHIFT START DATE/TIME: 04/28/2019 07:00 (TRIMMER TAILER) SHIFT END DATE/TIME: 04/28/2019 19:00 (TRIMMER TAILER) NAME TIM JO DATE OF : 1950 DATE OF ADMISSION: 04/13/2019 14:57 (TRIMMER TAILER) PHONE: AGE: 69 SSN# [id number] GENDER: Male ENCOUNTER PHYSICIAN: Dr. Scott Waters M.D. ADMISSION DIAGNOSIS: - Brain Dysfunction 02 - Closed Injury (07.27) Obstructive Hydrocephalus. EATING: EATING - STEP 1: Does the patient complete the activity by him/herself with no assistance (physical, verbal/nonverbal cueing, setup/clean-up)? No. EATING - STEP 2: Does the patient need only setup/clean-up assistance from one helper? Yes. 1. [id number] ADMISSION PERFORMANCE: Setup or clean-up assistance CODE: 05 ORAL HYGIENE: Patient refused CODE: 07 TOILETING HYGIENE: TOILETING HYGIENE - STEP 1: Does the patient complete the activity by him/herself with no assistance (physical, verbal/nonverbal cueing, setup/clean-up)? No. TOILETING HYGIENE - STEP 2: Does the patient need only setup/clean-up assistance from one helper? No. TOILETING HYGIENE - STEP 3: Does the patient need only verbal/nonverbal cueing or touching/steadying/contact guard assistance fro m one helper? Yes. 1. [id number] ADMISSION PERFORMANCE: Supervision or touching assistance CODE: 04 BATHING: Not assessed/no information CODE: - DRESSING - UPPER BODY: DRESSING - UPPER BODY - STEP 1: Does the patient complete the activity by him/herself with no assistance (physical, verbal/nonverbal cueing, setup/clean-up)? No. DRESSING - UPPER BODY - STEP 2: Does the patient need only setup/clean-up assistance from one helper? No. DRESSING - UPPER BODY - STEP 3: Does the patient need only verbal/nonverbal cueing or touching/steadying/contact guard assistance fro m one helper? Yes. 1. [id number] ADMISSION PERFORMANCE: Supervision or touching assistance CODE: 04 DRESSING - LOWER BODY: DRESSING - LOWER BODY - STEP 1: Does the patient complete the activity by him/herself with no assistance (physical, verbal/nonverbal cueing, setup/clean-up)? No. DRESSING - LOWER BODY - STEP 2: Does the patient need only setup/clean-up assistance from one helper? No. DRESSING - LOWER BODY - STEP 3: Does the patient need only verbal/nonverbal cueing or touching/steadying/contact guard assistance fro m one helper? Yes. 1. [id number] ADMISSION PERFORMANCE: Supervision or touching assistance CODE: 04 PUTTING ON/TAKING OFF FOOTWEAR: FOOTWEAR - STEP 1: Does the patient complete the activity by him/herself with no assistance (physical, verbal/nonverbal cueing, setup/clean-up)? No. FOOTWEAR - STEP 2: Does the patient need only setup/clean-up assistance from one helper? No. FOOTWEAR - STEP 3: Does the patient need only verbal/nonverbal cueing or touching/steadying/contact guard assistance fro m one helper? Yes. 1. [id number] ADMISSION PERFORMANCE: Supervision or touching assistance CODE: 04 TRANSFERS: CAR: Not assessed/no information CODE: - WALK 10 FEET: Not assessed/no information CODE: - 1 STEP (CURB): Not assessed/no information CODE: - PICKING UP OBJECT: Not attempted due to medical condition or safety concerns CODE: 88 DOES THE PATIENT USE A WHEELCHAIR/SCOOTER? Q1. DOES THE PATIENT USE A WHEELCHAIR/SCOOTER?: Yes CODE: 1 WHEEL 50 FEET WITH TWO TURNS: WHEEL 50 FEET WITH TWO TURNS - STEP 1: Does the patient complete the activity by him/herself with no assistance (physical, verbal/nonverbal cueing, setup/clean-up)? No. WHEEL 50 FEET WITH TWO TURNS - STEP 2: Does the patient need only setup/clean-up assistance from one helper? No. WHEEL 50 FEET WITH TWO TURNS - STEP 3: Does the patient need only verbal/nonverbal cueing or touching/steadying/contact guard assistance fro m one helper? Yes. 1. [id number] ADMISSION PERFORMANCE: Supervision or touching assistance CODE: 04 INDICATE THE TYPE OF WHEELCHAIR/SCOOTER USED: RR1. INDICATE THE TYPE OF WHEELCHAIR/SCOOTER USED.: Manual CODE: 1 WHEEL 150 FEET: WHEEL 150 FEET - STEP 1: Does the patient complete the activity by him/herself with no assistance (physical, verbal/nonverbal cueing, setup/clean-up)? No. WHEEL 150 FEET - STEP 2: Does the patient need only setup/clean-up assistance from one helper? No. WHEEL 150 FEET - STEP 3: Does the patient need only verbal/nonverbal cueing or touching/steadying/contact guard assistance fro m one helper? Yes. 1. [id number] ADMISSION PERFORMANCE: Supervision or touching assistance CODE: 04 INDICATE THE TYPE OF WHEELCHAIR/SCOOTER USED: CODE: EXPR BLADDER AND BOWEL: H350. BLADDER CONTINENCE (3-DAY ASSESSMENT PERIOD): Incontinent daily (at least once a day) CODE: 3 H400. BOWEL CONTINENCE (3-DAY ASSESSMENT PERIOD): Always continent CODE: 0 SIGNATURE PANEL: The following modified sections: 1. [id number] Admission Performance, 1. [id number] Admission Performance, 1. [id number] Admission Performance, 1. [id number] Admission Performance, 1. FS9387z Admission Performance, 1. IQ2613w Admission Performance, 1. TD8021m Admission Performance, Q1. Does the patient use a wheel chair/scooter?, 1. [id number] Admission Performance, RR1. Indicate the type of wheelchair/scooter used., 1. [id number] Admission Performance, Code, H350. Bladder Continence (3-day assessment period), H400. Usama wel Continence (3-day assessment period) were [electronically] signed by Karey Mcdermott C.N.A. on MonApr 28 2019 11:18:57 GMT-0600 (Central Standard Time)
[2019-04-28] MEDS: TRAZODONE 50 MG TABLET PO PRN (20:56)
--- NOTE | 2019-04-29 02:44 | FAST ---
SHIFT START DATE/TIME: 04/28/2019 19:00 (POLITICAL ADVISOR) SHIFT END DATE/TIME: 04/29/2019 07:00 (POLITICAL ADVISOR) NAME TIM JO DATE OF : 1950 DATE OF ADMISSION: 04/13/2019 14:57 (POLITICAL ADVISOR) PHONE: AGE: 69 SSN# [id number] GENDER: Male ENCOUNTER PHYSICIAN: Dr. Scott Waters M.D. ADMISSION DIAGNOSIS: - Brain Dysfunction 02 - Closed Injury (07.27) Obstructive Hydrocephalus. EATING: Not assessed/no information CODE: - ORAL HYGIENE: Not assessed/no information CODE: - TOILETING HYGIENE: TOILETING HYGIENE - STEP 1: Does the patient complete the activity by him/herself with no assistance (physical, verbal/nonverbal cueing, setup/clean-up)? No. TOILETING HYGIENE - STEP 2: Does the patient need only setup/clean-up assistance from one helper? No. TOILETING HYGIENE - STEP 3: Does the patient need only verbal/nonverbal cueing or touching/steadying/contact guard assistance fro m one helper? No. TOILETING HYGIENE - STEP 4: Does the patient need physical assistance - for example lifting or trunk support from one helper - wi th the helper providing less than half of the effort? Yes. 1. [id number] ADMISSION PERFORMANCE: Partial/moderate assistance CODE: 03 BATHING: Not assessed/no information CODE: - DRESSING - UPPER BODY: Not assessed/no information CODE: - DRESSING - LOWER BODY: Not assessed/no information CODE: - PUTTING ON/TAKING OFF FOOTWEAR: Not assessed/no information CODE: - TRANSFERS: CAR: Not assessed/no information CODE: - WALK 10 FEET: Not assessed/no information CODE: - 1 STEP (CURB): Not assessed/no information CODE: - PICKING UP OBJECT: Not assessed/no information CODE: - DOES THE PATIENT USE A WHEELCHAIR/SCOOTER? CODE: EXPR WHEEL 50 FEET WITH TWO TURNS: Not assessed/no information CODE: - INDICATE THE TYPE OF WHEELCHAIR/SCOOTER USED: CODE: EXPR WHEEL 150 FEET: Not assessed/no information CODE: - INDICATE THE TYPE OF WHEELCHAIR/SCOOTER USED: CODE: EXPR BLADDER AND BOWEL: H350. BLADDER CONTINENCE (3-DAY ASSESSMENT PERIOD): Incontinent daily (at least once a day) CODE: 3 H400. BOWEL CONTINENCE (3-DAY ASSESSMENT PERIOD): Always continent CODE: 0
[2019-04-29] MEDS: SENOSIDES 8.6 MG TAB PO SCH ×3 (08:00→19:47)
[2019-04-29] MEDS: HYDRALAZINE HCL 25 MG TABLET PO SCH ×3 (08:26→19:47)
[2019-04-29] MEDS: DOCUSATE NA 100 MG CAP PO SCH ×2 (08:26→19:47)
[2019-04-29] MEDS: carvediloL 6.25 MG TAB PO SCH ×2 (08:26→19:48)
[2019-04-29] MEDS: HEPARIN 5000 UNIT/ML 1 ML VIAL SQ SCH ×2 (09:25→18:17)
--- NOTE | 2019-04-29 10:46 | FAST ---
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 Scott Waters M.D. ADMISSION DIAGNOSIS: - Brain Dysfunction 02 - Closed Injury (07.27) Obstructive Hydrocephalus. EATING: EATING - STEP 1: Does the patient complete the activity by him/herself with no assistance (physical, verbal/nonverbal cueing, setup/clean-up)? No. EATING - STEP 2: Does the patient need only setup/clean-up assistance from one helper? No. EATING - STEP 3: Does the patient need only verbal/nonverbal cueing or touching/steadying/contact guard assistance fro m one helper? No. EATING - STEP 4: Does the patient need physical assistance - for example lifting or trunk support from one helper - wi th the helper providing less than half of the effort? Yes. 1. [id number] ADMISSION PERFORMANCE: Partial/moderate assistance CODE: 03 ORAL HYGIENE: ORAL HYGIENE - STEP 1: Does the patient complete the activity by him/herself with no assistance (physical, verbal/nonverbal cueing, setup/clean-up)? No. ORAL HYGIENE - STEP 2: Does the patient need only setup/clean-up assistance from one helper? No. ORAL HYGIENE - STEP 3: Does the patient need only verbal/nonverbal cueing or touching/steadying/contact guard assistance fro m one helper? Yes. 1. [id number] ADMISSION PERFORMANCE: Supervision or touching assistance CODE: 04 TOILETING HYGIENE: TOILETING HYGIENE - STEP 1: Does the patient complete the activity by him/herself with no assistance (physical, verbal/nonverbal cueing, setup/clean-up)? No. TOILETING HYGIENE - STEP 2: Does the patient need only setup/clean-up assistance from one helper? No. TOILETING HYGIENE - STEP 3: Does the patient need only verbal/nonverbal cueing or touching/steadying/contact guard assistance fro m one helper? Yes. 1. [id number] ADMISSION PERFORMANCE: Supervision or touching assistance CODE: 04 BATHING: Not assessed/no information CODE: - DRESSING - UPPER BODY: Not assessed/no information CODE: - DRESSING - LOWER BODY: Not assessed/no information CODE: - PUTTING ON/TAKING OFF FOOTWEAR: Not assessed/no information CODE: - ROLL LEFT AND RIGHT: ROLL LEFT AND RIGHT - STEP 1: Does the patient complete the activity by him/herself with no assistance (physical, verbal/nonverbal cueing, setup/clean-up)? No. ROLL LEFT AND RIGHT - STEP 2: Does the patient need only setup/clean-up assistance from one helper? No. ROLL LEFT AND RIGHT - STEP 3: Does the patient need only verbal/nonverbal cueing or touching/steadying/contact guard assistance fro m one helper? Yes. 1. [id number] ADMISSION PERFORMANCE: Supervision or touching assistance CODE: 04 SIT TO LYING: SIT TO LYING - STEP 1: Does the patient complete the activity by him/herself with no assistance (physical, verbal/nonverbal cueing, setup/clean-up)? No. SIT TO LYING - STEP 2: Does the patient need only setup/clean-up assistance from one helper? No. SIT TO LYING - STEP 3: Does the patient need only verbal/nonverbal cueing or touching/steadying/contact guard assistance fro m one helper? Yes. 1. [id number] ADMISSION PERFORMANCE: Supervision or touching assistance CODE: 04 LYING TO SITTING: LYING TO SITTING ON SIDE OF BED - STEP 1: Does the patient complete the activity by him/herself with no assistance (physical, verbal/nonverbal cueing, setup/clean-up)? No. LYING TO SITTING ON SIDE OF BED - STEP 2: Does the patient need only setup/clean-up assistance from one helper? No. LYING TO SITTING ON SIDE OF BED - STEP 3: Does the patient need only verbal/nonverbal cueing or touching/steadying/contact guard assistance fro m one helper? Yes. 1. [id number] ADMISSION PERFORMANCE: Supervision or touching assistance CODE: 04 SIT TO STAND: SIT TO STAND - STEP 1: Does the patient complete the activity by him/herself with no assistance (physical, verbal/nonverbal cueing, setup/clean-up)? No. SIT TO STAND - STEP 2: Does the patient need only setup/clean-up assistance from one helper? No. SIT TO STAND - STEP 3: Does the patient need only verbal/nonverbal cueing or touching/steadying/contact guard assistance fro m one helper? Yes. 1. [id number] ADMISSION PERFORMANCE: Supervision or touching assistance CODE: 04 TRANSFERS: BED, CHAIR: CHAIR/[id number] TRANSFER - STEP 1: Does the patient complete the activity by him/herself with no assistance (physical, verbal/nonverbal cueing, setup/clean-up)? No. CHAIR/[id number] TRANSFER - STEP 2: Does the patient need only setup/clean-up assistance from one helper? No. CHAIR/[id number]-[id number] TRANSFER - STEP 3: Does the patient need only verbal/nonverbal cueing or touching/steadying/contact guard assistance fro m one helper? Yes. 1. [id number] ADMISSION PERFORMANCE: Supervision or touching assistance CODE: 04 TRANSFER TOILET: TOILET TRANSFER - STEP 1: Does the patient complete the activity by him/herself with no assistance (physical, verbal/nonverbal cueing, setup/clean-up)? No. TOILET TRANSFER - STEP 2: Does the patient need only setup/clean-up assistance from one helper? No. TOILET TRANSFER - STEP 3: Does the patient need only verbal/nonverbal cueing or touching/steadying/contact guard assistance fro m one helper? Yes. 1. [id number] ADMISSION PERFORMANCE: Supervision or touching assistance CODE: 04 TRANSFERS: CAR: Not assessed/no information CODE: - WALK 10 FEET: Not assessed/no information CODE: - 1 STEP (CURB): Not assessed/no information CODE: - PICKING UP OBJECT: Not assessed/no information CODE: - DOES THE PATIENT USE A WHEELCHAIR/SCOOTER? CODE: EXPR WHEEL 50 FEET WITH TWO TURNS: Not assessed/no information CODE: - INDICATE THE TYPE OF WHEELCHAIR/SCOOTER USED: CODE: EXPR WHEEL 150 FEET: Not assessed/no information CODE: - INDICATE THE TYPE OF WHEELCHAIR/SCOOTER USED: CODE: EXPR BLADDER AND BOWEL: H350. BLADDER CONTINENCE (3-DAY ASSESSMENT PERIOD): Stress incontinence only CODE: 1 H400. BOWEL CONTINENCE (3-DAY ASSESSMENT PERIOD): Always continent CODE: 0 SIGNATURE PANEL: The following modified sections: 1. [id number] Admission Performance, 1. [id number] Admission Performance, 1. UM0384N Admission Performance, 1. [id number] Admission Performance, 1. [id number] Admission Performance, 1. HM5806D Admission Performance, 1. JL0772E Admission Performance, 1. ED9017N Admission Performance , 1. [id number] Admission Performance, 1. [id number] Admission Performance, 1. [id number] Admission Performanc e, 1. [id number] Admission Performance, Code, H350. Bladder Continence (3-day assessment period), H400. Bowel Continence (3-day assessment period), H400. Bowel Continence (3-day assessment period) were [el ectronically] signed by Christopher Morrison on MonApr 29 2019 10:45:05 GMT-0600 (Central Standard Time)
[2019-04-29] MEDS: AMLODIPINE 10 MG TAB PO SCH (12:27)
--- NOTE | 2019-04-29 14:27 | RAD REPORT ---
EXAM DESCRIPTION: Head C Spine Mpr Wo Con CLINICAL HISTORY: 69 years Male, shunt placement COMPARISON: Head CT dated 01/18/2018. TECHNIQUE: Head CT: 5 mm axial images were obtained along with coronal and sagittal reformatted imag es. Cervical spine CT: 2 mm axial images of the cervical spine were obtained along with coronal and sagit janet reformatted images. This exam was performed according to our departmental dose-optimization program, which includes autom ated exposure control, adjustment of the mA and/or kV according to patient size and/or use of iterati ve reconstruction technique.. FINDINGS: HEAD CT: There is a moderate-sized subdural fluid collection on the right which has a density of 24 Hounsfield units. This is likely bilingual sales representative of a subacute subarachnoid hemorrhage. The fluid collection measures 12.4 x 0.9 x 6.5 cm in maximal AP, transverse, longitudinal dimensions respectively. A ventricular shunt traverses the subdural fluid collection on the right with distal tip near the for amen of Mena on the right. There is no evidence of hydrocephalus. There is a dense mass lesion again demonstrated within the midbrain and florecita. This is stable from prior study measuring 2.8 x 2.8 x 4.5 cm maximal AP, transverse, longitudinal dim ensions respectively. The paranasal sinuses demonstrate moderately severe mucosal thickening within the left maxillary sinu s. IMPRESSION: 1. Moderate size subacute subdural hemorrhage on the right. 2. Interval placement of right ventricular shunt. No hydrocephalus. 3. Moderately severe mucosal thickening left maxillary sinus. CERVICAL SPINE CT: C1: No fracture or subluxation. C2: No fracture or subluxation. C3: No fracture or subluxation. There is mild spondylosis within bridging ossified syndesmophyte noted anteriorly and severe bilatera l facet arthropathy at C3 or C4. C4: No fracture or subluxation. There is mild spondylosis and severe left facet arthropathy at C4-C5. C5: No fracture or subluxation. Mild spondylosis. C6: No fracture or subluxation. Mild spondylosis. C7: No fracture. There is grade 1 anterolisthesis secondary to severe facet arthropathy on the right at C7-T1. T1: No fracture or subluxation. The soft tissues demonstrate mild atherosclerotic disease about the carotid bulbs bilaterally. The lung apices are unremarkable. IMPRESSION: 1. No fracture. 2. Degenerative changes throughout the cervical spine. 3. Atherosclerotic disease. Electronically signed by: Cain Bishop MD 04/26/2019 10:57 PM TIE CARRIER Due to temporary technical issues with the PACS/Fluency reporting system, reports are being signed by the in house radiologist as a courtesy to ensure prompt reporting. The interpreting radiologist is f ully responsible for the content of the report.
--- NOTE | 2019-04-29 15:59 | FAST ---
ENCOUNTER DATE AND TIME: 04/29/2019 08:00 (MANAGER BASKETBALL) NAME TIM JO DATE OF : 1950 DATE OF ADMISSION: 04/13/2019 14:57 (MANAGER BASKETBALL) PHONE: AGE: 69 N# [id number] GENDER: Male ENCOUNTER PHYSICIAN: Dr. Scott Waters M.D. ADMISSION DIAGNOSIS: - Brain Dysfunction 02 - Closed Injury (07.27) Obstructive Hydrocephalus. EATING: Not assessed/no information CODE: - ORAL HYGIENE: ORAL HYGIENE - STEP 1: Does the patient complete the activity by him/herself with no assistance (physical, verbal/nonverbal cueing, setup/clean-up)? No. ORAL HYGIENE - STEP 2: Does the patient need only setup/clean-up assistance from one helper? Yes. 1. [id number] ADMISSION PERFORMANCE: Setup or clean-up assistance CODE: 05 TOILETING HYGIENE: Not assessed/no information CODE: - BATHING: SHOWER/BATHE SELF - STEP 1: Does the patient complete the activity by him/herself with no assistance (physical, verbal/nonverbal cueing, setup/clean-up)? No. SHOWER/BATHE SELF - STEP 2: Does the patient need only setup/clean-up assistance from one helper? No. SHOWER/BATHE SELF - STEP 3: Does the patient need only verbal/nonverbal cueing or touching/steadying/contact guard assistance fro m one helper? Yes. 1. [id number] ADMISSION PERFORMANCE: Supervision or touching assistance CODE: 04 DRESSING - UPPER BODY: DRESSING - UPPER BODY - STEP 1: Does the patient complete the activity by him/herself with no assistance (physical, verbal/nonverbal cueing, setup/clean-up)? No. DRESSING - UPPER BODY - STEP 2: Does the patient need only setup/clean-up assistance from one helper? Yes. 1. [id number] ADMISSION PERFORMANCE: Setup or clean-up assistance CODE: 05 DRESSING - LOWER BODY: DRESSING - LOWER BODY - STEP 1: Does the patient complete the activity by him/herself with no assistance (physical, verbal/nonverbal cueing, setup/clean-up)? No. DRESSING - LOWER BODY - STEP 2: Does the patient need only setup/clean-up assistance from one helper? No. DRESSING - LOWER BODY - STEP 3: Does the patient need only verbal/nonverbal cueing or touching/steadying/contact guard assistance fro m one helper? Yes. 1. [id number] ADMISSION PERFORMANCE: Supervision or touching assistance CODE: 04 PUTTING ON/TAKING OFF FOOTWEAR: FOOTWEAR - STEP 1: Does the patient complete the activity by him/herself with no assistance (physical, verbal/nonverbal cueing, setup/clean-up)? No. FOOTWEAR - STEP 2: Does the patient need only setup/clean-up assistance from one helper? No. FOOTWEAR - STEP 3: Does the patient need only verbal/nonverbal cueing or touching/steadying/contact guard assistance fro m one helper? Yes. 1. [id number] ADMISSION PERFORMANCE: Supervision or touching assistance CODE: 04 DOES THE PATIENT USE A WHEELCHAIR/SCOOTER? CODE: EXPR INDICATE THE TYPE OF WHEELCHAIR/SCOOTER USED: CODE: EXPR INDICATE THE TYPE OF WHEELCHAIR/SCOOTER USED: CODE: EXPR BLADDER AND BOWEL: CODE: EXPR CODE: EXPR SIGNATURE PANEL: The following modified sections: 1. [id number] Admission Performance, 1. AF4115v Admission Performance, 1. JL4936m Admission Performance, 1. BP3876e Admission Performance, 1. [id number] Admission Performance were [electronically] signed by MARISA Olivares on MonApr 29 2019 15:58:01 GMT-0600 (Central Standard Time)
--- NOTE | 2019-04-29 17:37 | R.PN ---
ENCOUNTER DATE AND TIME: 04/29/2019 17:34 (CUSHION PADDER) NAME TIM JO DATE OF : 1950 DATE OF ADMISSION: 04/13/2019 14:57 (CUSHION PADDER) Obstructive HydrocephalusCHIEF COMPLAINT: Hydrocephalus, status post TRAINING SPECIALIST shunt SUBJECTIVE: Pt denied any depression. Pt denied any Shortness of Breath. Ambulated over 300' with contact standby assistance using a rolling walker. His blood work is stable. He denies pain at his scalp shunt site. VITAL SIGNS Temperature: 98.4 F SBP/DBP: 124-157/71-75 Pulse: 67 Resp: 14 MEDICATION ALLERGIES: No Known Drug Allergies (NKDA) ENVIRONMENTAL ALLERGIES: - Substance Allergies None Known - Other Allergies None Known NURSING: - Shower allowing shower - Bladder care per protocol - Skin care per protocol PRECAUTIONS: - Aspiration Precaution 1 to 1 supervision with all po intake All meals in the dysphagia dining room No straws Seated at 90 degrees while eating and 30 minutes after meals - Fall Precaution 1 to 1 supervision ACTIVITIES OOB only with supervision THERAPIES: - Occupational Therapy Cognitive Retraining. Visual Perceptual Training. - Dietary and Nutrition Adequate Nutrition. Nutritional Education. Nutritional Supplements. - Speech Therapy Augmentative Communication Equipment. Cognitive Training. Dysphagia Therapy. Expressive Language Skil ls. Receptive Language Skills. PHYSICAL EXAM - Gen Alert and awake Lying in bed No apparent distress Oriented to: person, time, and place - Skin No skin breakdown. Normacephalic TRAINING SPECIALIST shunt is intact. - Eyes No abnormalities - ENMT No abnormalities - Neck No abnormalities - CVS RRR - Chest No abnormalities - Abd Soft - GI Non distended Deferred - No abnormalities - Ext Mild bilateral lower extremity edema. - MSK 4+/5 weakness in left lower extremity - Neuro 4/5 strength bilaterally upper and lower extremities. - Psych No abnormalities ASSESSMENT: Pt. is a 69 yo Right-handed male of unknown race.On 04/02/[address] [facility] diagnosis Obstructive Hydrocephalus.His impairment category is Brain Dysfunction 02 - Closed Inju ry (07.27).Pre-morbidly, Pt. was independent/mod-I in Locomotion, Transfers Control, Self-Care, Ambul ation, and Sphincter Control; and he had good Social Cognition.Currently, he has deficits of Locomoti on, Self-Care, Transfers Control, Safety Awareness, Social Cognition, and Communication.Pt. is now re ferred to [facility] for acute in-patient rehabilitation in order to maximize patient's functional independence in activities of daily living, strength, ROM, and mobility.- Rehab Goal Patient has realistic goal of being discharged at assistance level 6-Osbaldo to reside at Home with Fam brea/Relatives. MDM/PLAN: - Physical Therapy Gait dysfunction - to improve, our physical therapists will perform initial evaluation of pt's statu s upon admission and devise an individualized program for Gait Training, and Wheel Chair mobility Inability to transfer - to improve, our physical therapists will perform initial evaluation of pt's status upon admission and devise an individualized program for Bed mobility Need for home safety evaluation - to improve, our physical therapists will perform initial evaluatio n of pt's status upon admission and devise an individualized program for Home Evaluation Edema - to improve, our physical therapists will perform initial evaluation of pt's status upon admi ssion and devise an individualized program for Elevation Training, and Lymphedema Therapy Need in caregiver upon discharge - to improve, our physical therapists will perform initial evaluati on of pt's status upon admission and devise an individualized program for Caregiver Training New precaution - to improve, our physical therapists will perform initial evaluation of pt's status upon admission and devise an individualized program for Patient precaution education Achieving independence - to improve, our physical therapists will perform initial evaluation of pt's status upon admission and devise an individualized program for Community Reintegration Activities - Occupational Therapy ADL deficits - to improve, our occupation therapists will perform initial evaluation of pt's status upon admission and devise an individualized program for Bathing, Bed mobility, Community Reintegratio n, Cooking, Dressing, Eating, Fine Motor Skills, Grooming, Homemaking, Kitchen Mobility, Laundry, Pat ient Education, Safety Awareness, Splinting - Positioning, Transfers(Toilet, Tub, Shower), and Wheel Chair Management Cognitive deficits - to improve, our occupation therapists will perform initial evaluation of pt's s tatus upon admission and devise an individualized program for Cognition - orientation Need for auto care center manager - to improve, our occupation therapists will perform initial evaluation of pt's status upon admission and devise an individualized program for Caregiver Training - Other See attached MAR (Medication Administration Record) - Diet Type Continue NPO (nothing by mouth) - Diet - Liquid Texture Continue Regular - Tube Feed Continue N/A - Bladder care per protocol - Aspiration Precaution 1 to 1 supervision with all po intake All meals in the dysphagia dining room No straws Seated at 90 degrees while eating and 30 minutes after meals - Fall Precaution 1 to 1 supervision - Skin care per protocol - Shower allowing shower FUNCTIONAL STATUS: UPDATED AT WEEKLY TEAM CONFERENCE - Bladder Same accident frequency: 7-Ind - No accidents in the past 7 days - Bowel Same accident frequency: 7-Ind - No accidents in the past 7 days - Walking Same score based on distance walked: 1(<=50ft) - Wheelchair Same score based on distance traveled: 1(<=50ft) FUNCTIONAL STATUS: - Self-Care A. Eating Osbaldo B. Grooming modA C. Bathing modA D. Dressing - Upper modA E. Dressing - Lower modA F. Toileting modA - Sphincter Control G. Bladder control modA H. Bowel control modA - Transfers Control I. Bed/Chair/Wheelchair Elba J. Toilet modA K. Tub/Shower modA - Locomotion L. Walk/Wheelchair (W) maxA M. Stairs Dep - Communication N. Comprehension (A) Elba O. Expression (B) Elba - Social Cognition P. Social Interaction Elba Q. Problem Solving Elba R. Memory Elba - Endurance Good - Balance Good - Safety Awareness Good QI SCORES: - Self-Care A. Eating 01-Dependent B. Oral hygiene 05-Setup or clean-up assistance C. Toileting hygiene 03-Partial/moderate assistance E. Shower/bathe self 03-Partial/moderate assistance F. Upper body dressing 04-Supervision or touching assistance G. Lower body dressing 03-Partial/moderate assistance H. Putting on/taking off footwear 03-Partial/moderate assistance - Mobility A. Roll left and right 03-Partial/moderate assistance B. Sit to lying 04-Supervision or touching assistance C. Lying to sitting on side of bed 04-Supervision or touching assistance D. Sit to stand 04-Supervision or touching assistance E. Chair/rge-cn-etuun transfer 04-Supervision or touching assistance F. Toilet transfer 04-Supervision or touching assistance G. Car transfer 88-Not attempted due to medical condition or safety concerns I. Walk 10 feet 02-Substantial/maximal assistance J. Walk 50 feet with two turns 88-Not attempted due to medical condition or safety concerns K. Walk 150 feet 88-Not attempted due to medical condition or safety concerns L. Walking 10 feet on uneven surfaces 88-Not attempted due to medical condition or safety concerns M. 1 step (curb) 88-Not attempted due to medical condition or safety concerns N. 4 steps 88-Not attempted due to medical condition or safety concerns O. 12 steps 88-Not attempted due to medical condition or safety concerns P. Picking up object 88-Not attempted due to medical condition or safety concerns R. Wheel 50 feet with two turns 88-Not attempted due to medical condition or safety concerns S. Wheel 150 feet 88-Not attempted due to medical condition or safety concerns - Bladder and Bowel Bladder continence 1-Stress incontinence only Bowel continence 0-Always continent - Endurance Fair - Balance Poor - Safety Awareness Poor CURRENT FUNC. DEFICITS: Locomotion, Self-Care, Transfers Control, Safety Awareness, Social Cognition, and Communication SIGNATURE PANEL: (CUSHION PADDER)
[2019-04-29] MEDS: TRAZODONE 50 MG TABLET PO PRN (19:48)
[2019-04-30] MEDS: SENOSIDES 8.6 MG TAB PO SCH ×2 (08:00→19:10)
[2019-04-30] MEDS: HEPARIN 5000 UNIT/ML 1 ML VIAL SQ SCH ×2 (08:24→18:11)
[2019-04-30] MEDS: DOCUSATE NA 100 MG CAP PO SCH ×2 (08:24→19:11)
[2019-04-30] MEDS: carvediloL 6.25 MG TAB PO SCH ×2 (08:24→19:12)
[2019-04-30] MEDS: HYDRALAZINE HCL 25 MG TABLET PO SCH ×3 (08:25→19:12)
--- NOTE | 2019-04-30 10:32 | FAST ---
SHIFT START DATE/TIME: 04/30/2019 07:00 (SUPPORT MERCHANDISER) SHIFT END DATE/TIME: 04/30/2019 19:00 (SUPPORT MERCHANDISER) NAME TIM JO DATE OF : 1950 DATE OF ADMISSION: 04/13/2019 14:57 (SUPPORT MERCHANDISER) PHONE: AGE: 69 SSN# [id number] GENDER: Male ENCOUNTER PHYSICIAN: Dr. Scott Waters M.D. ADMISSION DIAGNOSIS: - Brain Dysfunction 02 - Closed Injury (07.27) Obstructive Hydrocephalus. EATING: EATING - STEP 1: Does the patient complete the activity by him/herself with no assistance (physical, verbal/nonverbal cueing, setup/clean-up)? No. EATING - STEP 2: Does the patient need only setup/clean-up assistance from one helper? No. EATING - STEP 3: Does the patient need only verbal/nonverbal cueing or touching/steadying/contact guard assistance fro m one helper? Yes. 1. [id number] ADMISSION PERFORMANCE: Supervision or touching assistance CODE: 04 ORAL HYGIENE: ORAL HYGIENE - STEP 1: Does the patient complete the activity by him/herself with no assistance (physical, verbal/nonverbal cueing, setup/clean-up)? No. ORAL HYGIENE - STEP 2: Does the patient need only setup/clean-up assistance from one helper? No. ORAL HYGIENE - STEP 3: Does the patient need only verbal/nonverbal cueing or touching/steadying/contact guard assistance fro m one helper? Yes. 1. [id number] ADMISSION PERFORMANCE: Supervision or touching assistance CODE: 04 TOILETING HYGIENE: TOILETING HYGIENE - STEP 1: Does the patient complete the activity by him/herself with no assistance (physical, verbal/nonverbal cueing, setup/clean-up)? No. TOILETING HYGIENE - STEP 2: Does the patient need only setup/clean-up assistance from one helper? No. TOILETING HYGIENE - STEP 3: Does the patient need only verbal/nonverbal cueing or touching/steadying/contact guard assistance fro m one helper? Yes. 1. [id number] ADMISSION PERFORMANCE: Supervision or touching assistance CODE: 04 BATHING: Not assessed/no information CODE: - DRESSING - UPPER BODY: Not assessed/no information CODE: - DRESSING - LOWER BODY: Not assessed/no information CODE: - PUTTING ON/TAKING OFF FOOTWEAR: Not assessed/no information CODE: - ROLL LEFT AND RIGHT: Not assessed/no information CODE: - SIT TO LYING: Not assessed/no information CODE: - LYING TO SITTING: Not assessed/no information CODE: - SIT TO STAND: SIT TO STAND - STEP 1: Does the patient complete the activity by him/herself with no assistance (physical, verbal/nonverbal cueing, setup/clean-up)? No. SIT TO STAND - STEP 2: Does the patient need only setup/clean-up assistance from one helper? No. SIT TO STAND - STEP 3: Does the patient need only verbal/nonverbal cueing or touching/steadying/contact guard assistance fro m one helper? Yes. 1. [id number] ADMISSION PERFORMANCE: Supervision or touching assistance CODE: TRANSFERS: BED, CHAIR: CHAIR/[id number] TRANSFER - STEP 1: Does the patient complete the activity by him/herself with no assistance (physical, verbal/nonverbal cueing, setup/clean-up)? No. CHAIR/[id number] TRANSFER - STEP 2: Does the patient need only setup/clean-up assistance from one helper? No. CHAIR/[id number] TRANSFER - STEP 3: Does the patient need only verbal/nonverbal cueing or touching/steadying/contact guard assistance fro m one helper? Yes. 1. [id number] ADMISSION PERFORMANCE: Supervision or touching assistance CODE: TRANSFER TOILET: TOILET TRANSFER - STEP 1: Does the patient complete the activity by him/herself with no assistance (physical, verbal/nonverbal cueing, setup/clean-up)? No. TOILET TRANSFER - STEP 2: Does the patient need only setup/clean-up assistance from one helper? No. TOILET TRANSFER - STEP 3: Does the patient need only verbal/nonverbal cueing or touching/steadying/contact guard assistance fro m one helper? Yes. 1. [id number] ADMISSION PERFORMANCE: Supervision or touching assistance CODE: 04 TRANSFERS: CAR: Not assessed/no information CODE: - WALK 10 FEET: Not assessed/no information CODE: - 1 STEP (CURB): Not assessed/no information CODE: - PICKING UP OBJECT: Not assessed/no information CODE: - DOES THE PATIENT USE A WHEELCHAIR/SCOOTER? CODE: EXPR WHEEL 50 FEET WITH TWO TURNS: Not assessed/no information CODE: - INDICATE THE TYPE OF WHEELCHAIR/SCOOTER USED: CODE: EXPR WHEEL 150 FEET: Not assessed/no information CODE: - INDICATE THE TYPE OF WHEELCHAIR/SCOOTER USED: CODE: EXPR BLADDER AND BOWEL: H350. BLADDER CONTINENCE (3-DAY ASSESSMENT PERIOD): Stress incontinence only CODE: 1 H400. BOWEL CONTINENCE (3-DAY ASSESSMENT PERIOD): Occasionally incontinent (one episode of bowel incontinence) CODE: 1 SIGNATURE PANEL: The following modified sections: 1. [id number] Admission Performance, 1. [id number] Admission Performance, 1. [id number] Admission Performance, 1. [id number] Admission Performance, 1. [id number] Admission Performance, 1. [id number] Admission Performance, 1. [id number] Admission Performance, Code, H350. Bladder Continence ( 3-day assessment period), H400. Bowel Continence (3-day assessment period) were [electronically] sign ed by Christopher Morrison on MonApr 30 2019 10:31:11 GMT-0600 (Central Standard Time)
[2019-04-30] MEDS: AMLODIPINE 10 MG TAB PO SCH (10:36)
[2019-04-30 15:06] LABS: Absolute Lymphocytes (CBC) 1.9 K/uL (0.7-4.9); Basophils % 0.7 % (0-1.3); Hematocrit 35.1 % (39.6-49.0); Lymphocytes % 34.7 % (15.3-44.8); MPV 9.9 fL (7.6-11.3); RBC Red Blood Cell Count 3.67 M/uL (4.33-5.43)
[2019-04-30 15:31] LABS: ALT/SGPT 21 U/L (12-78); AST/SGOT 13 U/L (15-37); Albumin 3.5 g/dL (3.4-5.0); Alkaline Phosphatase 84 U/L (45-117); BUN Blood Urea Nitrogen 17 mg/dL (7-18); Bicarbonate 26 mmol/L (21-32); Bilirubin Direct 0.1 mg/dL (0-0.2); Bilirubin Total 0.3 mg/dL (0.2-1.0); Glucose Level 106 mg/dL (74-106); Potassium 3.8 mmol/L (3.5-5.1); Protein, Total 7.1 g/dL (6.4-8.2); Sodium Level 138 mmol/L (136-145)
[2019-04-30 15:47] LABS: Albumin 3.3 g/dL (3.4-5.0); Magnesium 2.5 mg/dL (1.8-2.4)
--- NOTE | 2019-04-30 16:45 | RAD REPORT ---
EXAM DESCRIPTION: CT - Head Brain Wo Cont - 04/30/2019 3:39 pm CLINICAL HISTORY: Brainstem mass COMPARISON: CT study April 26 MRI January 2018, CT study January 2018 TECHNIQUE: Axial 5 mm thick images of the head were obtained without IV contrast. All CT scans are performed using dose optimization technique as appropriate and may include automated exposure control or mA/KV adjustment according to patient size. 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 Hyperinte nse mass filling the midbrain is unchanged from April 26. This could be hemorrhage or hyperdense tumor extension. The pattern is stable. Right-sided ventriculostomy tube remains in place. Right-miguel angel ed subacute to chronic subdural collection is similar or perhaps slightly less than seen previously. No progressive process. Underlying atrophy and chronic ischemic changes are noted. No acute cortical based infarction seen. Ventricles are normal. Mastoid air cells and visualized portions of the paranasal sinuses are clear. No acute bony findings. IMPRESSION: The hyperdense midbrain mass or bleed is similar to the April 26 study. 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 Patient's subacute to chronic right subdural collection is similar or perhaps slightly less than seen April 26.
--- NOTE | 2019-04-30 16:51 | RAD REPORT ---
EXAM DESCRIPTION: RAD - Chest Pa And Lat (2 Views) - 04/30/2019 4:09 pm CLINICAL HISTORY: R/O Pneumonia, shortness of breath COMPARISON: January 2018 TECHNIQUE: AP and lateral views the chest were obtained with the patient in the wheelchair performed FINDINGS: The lungs are clear. Heart size is normal and central vasculature is within normal limit s. No pleural effusion or pneumothorax seen. No acute bony finding noted. No aortic abnormality. IMPRESSION: No acute cardiopulmonary process. No suspicious interval change.
[2019-04-30] MEDS: TRAZODONE 50 MG TABLET PO PRN (19:12)
[2019-05-01 06:25] LABS: Absolute Lymphocytes (CBC) 1.9 K/uL (0.7-4.9); Basophils % 0.8 % (0-1.3); Hematocrit 35.1 % (39.6-49.0); Lymphocytes % 37.7 % (15.3-44.8); MPV 9.9 fL (7.6-11.3); RBC Red Blood Cell Count 3.71 M/uL (4.33-5.43)
[2019-05-01 06:40] LABS: Albumin 3.4 g/dL (3.4-5.0); BUN Blood Urea Nitrogen 15 mg/dL (7-18); Bicarbonate 27 mmol/L (21-32); Glucose Level 107 mg/dL (74-106); Magnesium 2.5 mg/dL (1.8-2.4); Potassium 3.8 mmol/L (3.5-5.1); Prealbumin 22.3 mg/dL (20-40); Sodium Level 145 mmol/L (136-145)
[2019-05-01 07:02] VITALS: TEMP 98.6
[2019-05-01] MEDS: HEPARIN 5000 UNIT/ML 1 ML VIAL SQ SCH (08:00)
[2019-05-01] MEDS: DOCUSATE NA 100 MG CAP PO SCH (08:00)
[2019-05-01] MEDS: carvediloL 6.25 MG TAB PO SCH (08:41)
[2019-05-01] MEDS: SENOSIDES 8.6 MG TAB PO SCH (08:41)
[2019-05-01] MEDS: HYDRALAZINE HCL 25 MG TABLET PO SCH ×2 (08:41→13:43)
--- NOTE | 2019-05-01 09:47 | P.RH.PN ---
Estimated Length of Stay: 20 Expected Discharge Date: 05/01/19 Vital Signs: Last Vital Signs Temp 98.6 F 05/01/19 07:01 Pulse 60 05/01/19 08:41 Resp 16 05/01/19 07:01 BP 136/85 05/01/19 08:41 Pulse Ox 99 05/01/19 07:01 Laboratory: Laboratory Last Values WBC 5.1 K/uL (4.3-10.9) 05/01/19 05:51 RBC 3.71 M/uL (4.33-5.43) L 05/01/19 05:51 Hgb 11.9 g/dL (13.6-17.9) L 05/01/19 05:51 Hct 35.1 % (39.6-49.0) L 05/01/19 05:51 MCV 94.7 fL (80-100) 05/01/19 05:51 MCH 32.1 pg (27.0-35.0) 05/01/19 05:51 MCHC 33.9 g/dL (32.0-36.0) 05/01/19 05:51 RDW 14.9 % (12.1-15.2) 05/01/19 05:51 Plt Count 198 K/uL (152-406) 05/01/19 05:51 MPV 9.9 fL (7.6-11.3) 05/01/19 05:51 Neutrophils % 47.5 % (41.7-73.7) 05/01/19 05:51 Lymphocytes % 37.7 % (15.3-44.8) 05/01/19 05:51 Monocytes % 12.3 % (3.3-12.3) 05/01/19 05:51 Eosinophils % 1.7 % (0-4.4) 05/01/19 05:51 Basophils % 0.8 % (0-1.3) 05/01/19 05:51 Absolute Neutrophils 2.4 K/uL (1.8-8.0) 05/01/19 05:51 Absolute Lymphocytes 1.9 K/uL (0.7-4.9) 05/01/19 05:51 Absolute Monocytes 0.6 K/uL (0.1-1.3) 05/01/19 05:51 Absolute Eosinophils 0.1 K/uL (0-0.5) 05/01/19 05:51 Absolute Basophils 0.0 K/uL (0-0.5) 05/01/19 05:51 Sodium 145 mmol/L (136-145) 05/01/19 05:51 Potassium 3.8 mmol/L (3.5-5.1) 05/01/19 05:51 Chloride 112 mmol/L (98-107) H 05/01/19 05:51 Carbon Dioxide 27 mmol/L (21-32) 05/01/19 05:51 BUN 15 mg/dL (7-18) 05/01/19 05:51 Creatinine 0.96 mg/dL (0.55-1.3) 05/01/19 05:51 Estimated GFR > 90 mL/min (=/>90) 05/01/19 05:51 Glucose 107 mg/dL (74-106) H 05/01/19 05:51 Calcium 8.7 mg/dL (8.5-10.1) 05/01/19 05:51 Magnesium 2.5 mg/dL (1.8-2.4) H 05/01/19 05:51 Total Bilirubin 0.3 mg/dL (0.2-1.0) 04/30/19 14:50 Direct Bilirubin 0.1 mg/dL (0-0.2) 04/30/19 14:50 AST 13 U/L (15-37) L 04/30/19 14:50 ALT 21 U/L (12-78) 04/30/19 14:50 Alkaline Phosphatase 84 U/L (45-117) 04/30/19 14:50 Serum Total Protein 7.1 g/dL (6.4-8.2) 04/30/19 14:50 Albumin 3.4 g/dL (3.4-5.0) 05/01/19 05:51 Globulin 3.6 g/dL (2.3-3.5) H 04/30/19 14:50 Albumin/Globulin Ratio 1.0 (1.1-1.8) L 04/30/19 14:50 Prealbumin 22.3 mg/dL (20-40) 05/01/19 05:51 Urine Color Yellow 04/13/19 16:25 Urine Appearance Clear 04/13/19 16:25 Urine pH 6.0 (5.0-7.0) 04/13/19 16:25 Ur Specific [place] 1.025 (1.005-1.030) 04/13/19 16:25 Urine Ketones Negative (NEG) 04/13/19 16:25 Urine Blood Negative (NEG) 04/13/19 16:25 Urine Nitrite Negative (NEG) 04/13/19 16:25 Urine Bilirubin Negative (NEG) 04/13/19 16:25 Urine Urobilinogen 0.2 mg/dL (0.2-1.0) 04/13/19 16:25 Ur Leukocyte Esterase Negative (NEG) 04/13/19 16:25 Urine RBC <5 /HPF (NONE SEEN) 04/13/19 16:25 Urine WBC <5 /HPF (<5) 04/13/19 16:25 Ur Squamous Epith Cells <5 /HPF (NONE SEEN) 04/13/19 16:25 Urine Bacteria <20 /HPF (NONE SEEN) 04/13/19 16:25 Urine Culture Reflexed Not needed 04/13/19 16:25 Urine Glucose Negative (NEG) 04/13/19 16:25 Urine Total Protein Negative (NEG) 04/13/19 16:25 Weight: 174 lb Wound Present: No Closed Surgical Incision Present: Yes Negative Pressure Wound Therapy Present: No Physician Update: He is not improving more over the last several days. He continues to have significant ataxia but can walk 250' and up and down 10 strairs with contact guard assistance. His family is working well with him for transfers and movement. He requires queing for eating with a mechanical soft diet. He will be discharged home with [facility]. Medical Issues: Patient is incontinent daily with bladder and always continent with bowel. Functional Improvement: Patient continues to present w/ increased difficulty achieving balance and maintaining balance throughout transfers, and gait tx. Patient continue to present w/ increased R side weakness and lean. Speech Therapy Update: Pt continues to present with moderate cognitive impairments, characterized by poor short term memory and decreased safety awareness and insight. Patient is a diligent patient and is cooperative and hard-working. He cont to require mod to max cues for use of compensatory memory strategies to increase functional recall. He benefits from extra time to respond, auditory closure cues, and choices. Patient also has significant visual deficits which impact his overall cognitive functioning as well. Patient cont to tolerate mechanical soft solids, thin liquids, and whole medications. Patient will require 24 hour supv upon d/c home with family. Summary: Patient's care plan and continuous churn buttermaker goals have been reviewed and revised as necessary. Please see the Rehabilitation Signature page for all necessary signatures.
[2019-05-01 10:10] VITALS: BP 135/71
[2019-05-01] MEDS: AMLODIPINE 10 MG TAB PO SCH (10:10)
--- NOTE | 2019-05-01 13:16 | FAST ---
SHIFT START DATE/TIME: 05/01/2019 07:00 (GEM EXPERT) SHIFT END DATE/TIME: 05/01/2019 19:00 (GEM EXPERT) NAME TIM JO DATE OF : 1950 DATE OF ADMISSION: 04/13/2019 14:57 (GEM EXPERT) PHONE: AGE: 69 SSN# [id number] GENDER: Male ENCOUNTER PHYSICIAN: Dr. Scott Waters M.D. ADMISSION DIAGNOSIS: - Brain Dysfunction 02 - Closed Injury (07.27) Obstructive Hydrocephalus. EATING: EATING - STEP 1: Does the patient complete the activity by him/herself with no assistance (physical, verbal/nonverbal cueing, setup/clean-up)? No. EATING - STEP 2: Does the patient need only setup/clean-up assistance from one helper? No. EATING - STEP 3: Does the patient need only verbal/nonverbal cueing or touching/steadying/contact guard assistance fro m one helper? Yes. 1. [id number] ADMISSION PERFORMANCE: Supervision or touching assistance CODE: 04 ORAL HYGIENE: ORAL HYGIENE - STEP 1: Does the patient complete the activity by him/herself with no assistance (physical, verbal/nonverbal cueing, setup/clean-up)? No. ORAL HYGIENE - STEP 2: Does the patient need only setup/clean-up assistance from one helper? No. ORAL HYGIENE - STEP 3: Does the patient need only verbal/nonverbal cueing or touching/steadying/contact guard assistance fro m one helper? Yes. 1. [id number] ADMISSION PERFORMANCE: Supervision or touching assistance CODE: 04 TOILETING HYGIENE: TOILETING HYGIENE - STEP 1: Does the patient complete the activity by him/herself with no assistance (physical, verbal/nonverbal cueing, setup/clean-up)? No. TOILETING HYGIENE - STEP 2: Does the patient need only setup/clean-up assistance from one helper? No. TOILETING HYGIENE - STEP 3: Does the patient need only verbal/nonverbal cueing or touching/steadying/contact guard assistance fro m one helper? Yes. 1. [id number] ADMISSION PERFORMANCE: Supervision or touching assistance CODE: 04 BATHING: Not assessed/no information CODE: - DRESSING - UPPER BODY: DRESSING - UPPER BODY - STEP 1: Does the patient complete the activity by him/herself with no assistance (physical, verbal/nonverbal cueing, setup/clean-up)? No. DRESSING - UPPER BODY - STEP 2: Does the patient need only setup/clean-up assistance from one helper? No. DRESSING - UPPER BODY - STEP 3: Does the patient need only verbal/nonverbal cueing or touching/steadying/contact guard assistance fro m one helper? Yes. 1. [id number] ADMISSION PERFORMANCE: Supervision or touching assistance CODE: 04 DRESSING - LOWER BODY: DRESSING - LOWER BODY - STEP 1: Does the patient complete the activity by him/herself with no assistance (physical, verbal/nonverbal cueing, setup/clean-up)? No. DRESSING - LOWER BODY - STEP 2: Does the patient need only setup/clean-up assistance from one helper? Yes. 1. [id number] ADMISSION PERFORMANCE: Setup or clean-up assistance CODE: 05 PUTTING ON/TAKING OFF FOOTWEAR: FOOTWEAR - STEP 1: Does the patient complete the activity by him/herself with no assistance (physical, verbal/nonverbal cueing, setup/clean-up)? No. FOOTWEAR - STEP 2: Does the patient need only setup/clean-up assistance from one helper? No. FOOTWEAR - STEP 3: Does the patient need only verbal/nonverbal cueing or touching/steadying/contact guard assistance fro m one helper? Yes. 1. [id number] ADMISSION PERFORMANCE: Supervision or touching assistance CODE: 04 ROLL LEFT AND RIGHT: ROLL LEFT AND RIGHT - STEP 1: Does the patient complete the activity by him/herself with no assistance (physical, verbal/nonverbal cueing, setup/clean-up)? No. ROLL LEFT AND RIGHT - STEP 2: Does the patient need only setup/clean-up assistance from one helper? No. ROLL LEFT AND RIGHT - STEP 3: Does the patient need only verbal/nonverbal cueing or touching/steadying/contact guard assistance fro m one helper? Yes. 1. [id number] ADMISSION PERFORMANCE: Supervision or touching assistance CODE: 04 SIT TO LYING: SIT TO LYING - STEP 1: Does the patient complete the activity by him/herself with no assistance (physical, verbal/nonverbal cueing, setup/clean-up)? No. SIT TO LYING - STEP 2: Does the patient need only setup/clean-up assistance from one helper? No. SIT TO LYING - STEP 3: Does the patient need only verbal/nonverbal cueing or touching/steadying/contact guard assistance fro m one helper? Yes. 1. [id number] ADMISSION PERFORMANCE: Supervision or touching assistance CODE: 04 LYING TO SITTING: LYING TO SITTING ON SIDE OF BED - STEP 1: Does the patient complete the activity by him/herself with no assistance (physical, verbal/nonverbal cueing, setup/clean-up)? No. LYING TO SITTING ON SIDE OF BED - STEP 2: Does the patient need only setup/clean-up assistance from one helper? No. LYING TO SITTING ON SIDE OF BED - STEP 3: Does the patient need only verbal/nonverbal cueing or touching/steadying/contact guard assistance fro m one helper? Yes. 1. [id number] ADMISSION PERFORMANCE: Supervision or touching assistance CODE: 04 SIT TO STAND: SIT TO STAND - STEP 1: Does the patient complete the activity by him/herself with no assistance (physical, verbal/nonverbal cueing, setup/clean-up)? No. SIT TO STAND - STEP 2: Does the patient need only setup/clean-up assistance from one helper? No. SIT TO STAND - STEP 3: Does the patient need only verbal/nonverbal cueing or touching/steadying/contact guard assistance fro m one helper? Yes. 1. [id number] ADMISSION PERFORMANCE: Supervision or touching assistance CODE: 04 TRANSFERS: BED, CHAIR: CHAIR/[id number] TRANSFER - STEP 1: Does the patient complete the activity by him/herself with no assistance (physical, verbal/nonverbal cueing, setup/clean-up)? No. CHAIR/[id number] TRANSFER - STEP 2: Does the patient need only setup/clean-up assistance from one helper? No. CHAIR/[id number] TRANSFER - STEP 3: Does the patient need only verbal/nonverbal cueing or touching/steadying/contact guard assistance fro m one helper? Yes. 1. [id number] ADMISSION PERFORMANCE: Supervision or touching assistance CODE: 04 TRANSFER TOILET: TOILET TRANSFER - STEP 1: Does the patient complete the activity by him/herself with no assistance (physical, verbal/nonverbal cueing, setup/clean-up)? No. TOILET TRANSFER - STEP 2: Does the patient need only setup/clean-up assistance from one helper? No. TOILET TRANSFER - STEP 3: Does the patient need only verbal/nonverbal cueing or touching/steadying/contact guard assistance fro m one helper? Yes. 1. [id number] ADMISSION PERFORMANCE: Supervision or touching assistance CODE: 04 TRANSFERS: CAR: Not assessed/no information CODE: - WALK 10 FEET: Not assessed/no information CODE: - 1 STEP (CURB): Not assessed/no information CODE: - PICKING UP OBJECT: Not assessed/no information CODE: - DOES THE PATIENT USE A WHEELCHAIR/SCOOTER? Q1. DOES THE PATIENT USE A WHEELCHAIR/SCOOTER?: Yes CODE: 1 WHEEL 50 FEET WITH TWO TURNS: WHEEL 50 FEET WITH TWO TURNS - STEP 1: Does the patient complete the activity by him/herself with no assistance (physical, verbal/nonverbal cueing, setup/clean-up)? No. WHEEL 50 FEET WITH TWO TURNS - STEP 2: Does the patient need only setup/clean-up assistance from one helper? No. WHEEL 50 FEET WITH TWO TURNS - STEP 3: Does the patient need only verbal/nonverbal cueing or touching/steadying/contact guard assistance fro m one helper? Yes. 1. [id number] ADMISSION PERFORMANCE: Supervision or touching assistance CODE: 04 INDICATE THE TYPE OF WHEELCHAIR/SCOOTER USED: RR1. INDICATE THE TYPE OF WHEELCHAIR/SCOOTER USED.: Motorized CODE: 2 WHEEL 150 FEET: Not assessed/no information CODE: - INDICATE THE TYPE OF WHEELCHAIR/SCOOTER USED: SS1. INDICATE THE TYPE OF WHEELCHAIR/SCOOTER USED.: Manual CODE: 1 BLADDER AND BOWEL: H350. BLADDER CONTINENCE (3-DAY ASSESSMENT PERIOD): Incontinent less than daily (e.g., once or twice during the 3-day assessment period) CODE: 2 H400. BOWEL CONTINENCE (3-DAY ASSESSMENT PERIOD): Always continent CODE: 0 SIGNATURE PANEL: The following modified sections: 1. [id number] Admission Performance, 1. [id number] Admission Performance, 1. BX1475E Admission Performance, 1. IY5683b Admission Performance, 1. [id number] Admission Performance, 1. FT0166k Admission Performance, 1. [id number] Admission Performance, 1. HK0601K Admission Performance , 1. AD4182V Admission Performance, 1. [id number] Admission Performance, 1. [id number] Admission Performanc e, 1. [id number] Admission Performance, Q1. Does the patient use a wheelchair/scooter?, 1. [id number] Admis michael Performance, RR1. Indicate the type of wheelchair/scooter used., Code, SS1. Indicate the type of wheelchair/scooter used., H350. Bladder Continence (3-day assessment period), H400. Bowel Continence (3-day assessment period) were [electronically] signed by Karey Mcdermott C.N.A. on MonMay 01 2019 13 :15:52 GMT-0600 (Central Standard Time)
--- NOTE | 2019-05-01 14:26 | FAST ---
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 Scott Waters M.D. ADMISSION DIAGNOSIS: - Brain Dysfunction 02 - Closed Injury (07.27) Obstructive Hydrocephalus. EATING: Not assessed/no information CODE: - ORAL HYGIENE: ORAL HYGIENE - STEP 1: Does the patient complete the activity by him/herself with no assistance (physical, verbal/nonverbal cueing, setup/clean-up)? No. ORAL HYGIENE - STEP 2: Does the patient need only setup/clean-up assistance from one helper? Yes. 1. [id number] ADMISSION PERFORMANCE: Setup or clean-up assistance CODE: 05 TOILETING HYGIENE: Not assessed/no information CODE: - BATHING: SHOWER/BATHE SELF - STEP 1: Does the patient complete the activity by him/herself with no assistance (physical, verbal/nonverbal cueing, setup/clean-up)? No. SHOWER/BATHE SELF - STEP 2: Does the patient need only setup/clean-up assistance from one helper? No. SHOWER/BATHE SELF - STEP 3: Does the patient need only verbal/nonverbal cueing or touching/steadying/contact guard assistance fro m one helper? Yes. 1. [id number] ADMISSION PERFORMANCE: Supervision or touching assistance CODE: 04 DRESSING - UPPER BODY: DRESSING - UPPER BODY - STEP 1: Does the patient complete the activity by him/herself with no assistance (physical, verbal/nonverbal cueing, setup/clean-up)? No. DRESSING - UPPER BODY - STEP 2: Does the patient need only setup/clean-up assistance from one helper? Yes. 1. [id number] ADMISSION PERFORMANCE: Setup or clean-up assistance CODE: 05 DRESSING - LOWER BODY: DRESSING - LOWER BODY - STEP 1: Does the patient complete the activity by him/herself with no assistance (physical, verbal/nonverbal cueing, setup/clean-up)? No. DRESSING - LOWER BODY - STEP 2: Does the patient need only setup/clean-up assistance from one helper? No. DRESSING - LOWER BODY - STEP 3: Does the patient need only verbal/nonverbal cueing or touching/steadying/contact guard assistance fro m one helper? Yes. 1. [id number] ADMISSION PERFORMANCE: Supervision or touching assistance CODE: 04 PUTTING ON/TAKING OFF FOOTWEAR: Patient refused FOOTWEAR - STEP 1: Does the patient complete the activity by him/herself with no assistance (physical, verbal/nonverbal cueing, setup/clean-up)? No. FOOTWEAR - STEP 2: Does the patient need only setup/clean-up assistance from one helper? Yes. 1. [id number] ADMISSION PERFORMANCE: Setup or clean-up assistance CODE: 05 DOES THE PATIENT USE A WHEELCHAIR/SCOOTER? CODE: EXPR INDICATE THE TYPE OF WHEELCHAIR/SCOOTER USED: CODE: EXPR INDICATE THE TYPE OF WHEELCHAIR/SCOOTER USED: CODE: EXPR BLADDER AND BOWEL: CODE: EXPR CODE: EXPR SIGNATURE PANEL: The following modified sections: 1. [id number] Admission Performance, 1. HW3429u Admission Performance, 1. WB5545s Admission Performance, 1. OA5248l Admission Performance, 1. WB3862r Admission Performance were [electronically] signed by MARISA Olivares on MonMay 01 2019 14:25:28 GMT-0600 (Central Standard Time)
--- NOTE | 2019-05-02 11:13 | FAST ---
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 Scott Waters M.D. ADMISSION DIAGNOSIS: - Brain Dysfunction 02 - Closed Injury (07.27) Obstructive Hydrocephalus. ROLL LEFT AND RIGHT: ROLL LEFT AND RIGHT - STEP 1: Does the patient complete the activity by him/herself with no assistance (physical, verbal/nonverbal cueing, setup/clean-up)? No. ROLL LEFT AND RIGHT - STEP 2: Does the patient need only setup/clean-up assistance from one helper? No. ROLL LEFT AND RIGHT - STEP 3: Does the patient need only verbal/nonverbal cueing or touching/steadying/contact guard assistance fro m one helper? Yes. 1. [id number] ADMISSION PERFORMANCE: Supervision or touching assistance CODE: 04 SIT TO LYING: SIT TO LYING - STEP 1: Does the patient complete the activity by him/herself with no assistance (physical, verbal/nonverbal cueing, setup/clean-up)? No. SIT TO LYING - STEP 2: Does the patient need only setup/clean-up assistance from one helper? No. SIT TO LYING - STEP 3: Does the patient need only verbal/nonverbal cueing or touching/steadying/contact guard assistance fro m one helper? Yes. 1. [id number] ADMISSION PERFORMANCE: Supervision or touching assistance CODE: 04 LYING TO SITTING: LYING TO SITTING ON SIDE OF BED - STEP 1: Does the patient complete the activity by him/herself with no assistance (physical, verbal/nonverbal cueing, setup/clean-up)? No. LYING TO SITTING ON SIDE OF BED - STEP 2: Does the patient need only setup/clean-up assistance from one helper? No. LYING TO SITTING ON SIDE OF BED - STEP 3: Does the patient need only verbal/nonverbal cueing or touching/steadying/contact guard assistance fro m one helper? Yes. 1. [id number] ADMISSION PERFORMANCE: Supervision or touching assistance CODE: 04 SIT TO STAND: SIT TO STAND - STEP 1: Does the patient complete the activity by him/herself with no assistance (physical, verbal/nonverbal cueing, setup/clean-up)? No. SIT TO STAND - STEP 2: Does the patient need only setup/clean-up assistance from one helper? No. SIT TO STAND - STEP 3: Does the patient need only verbal/nonverbal cueing or touching/steadying/contact guard assistance fro m one helper? Yes. 1. [id number] ADMISSION PERFORMANCE: Supervision or touching assistance CODE: 04 TRANSFERS: BED, CHAIR: CHAIR/[id number] TRANSFER - STEP 1: Does the patient complete the activity by him/herself with no assistance (physical, verbal/nonverbal cueing, setup/clean-up)? No. CHAIR/[id number] TRANSFER - STEP 2: Does the patient need only setup/clean-up assistance from one helper? No. CHAIR/[id number]-[id number] TRANSFER - STEP 3: Does the patient need only verbal/nonverbal cueing or touching/steadying/contact guard assistance fro m one helper? Yes. 1. [id number] ADMISSION PERFORMANCE: Supervision or touching assistance CODE: 04 TRANSFER TOILET: TOILET TRANSFER - STEP 1: Does the patient complete the activity by him/herself with no assistance (physical, verbal/nonverbal cueing, setup/clean-up)? No. TOILET TRANSFER - STEP 2: Does the patient need only setup/clean-up assistance from one helper? No. TOILET TRANSFER - STEP 3: Does the patient need only verbal/nonverbal cueing or touching/steadying/contact guard assistance fro m one helper? Yes. 1. [id number] ADMISSION PERFORMANCE: Supervision or touching assistance CODE: 04 TRANSFERS: CAR: Not attempted due to environmental limitations (e.g., lack of equipment, weather constraints) CODE: 10 WALK 10 FEET: WALK 10 FEET - STEP 1: Does the patient complete the activity by him/herself with no assistance (physical, verbal/nonverbal cueing, setup/clean-up)? No. WALK 10 FEET - STEP 2: Does the patient need only setup/clean-up assistance from one helper? No. WALK 10 FEET - STEP 3: Does the patient need only verbal/nonverbal cueing or touching/steadying/contact guard assistance fro m one helper? Yes. 1. [id number] ADMISSION PERFORMANCE: Supervision or touching assistance CODE: 04 WALK 50 FEET: WALK 50 FEET - STEP 1: Does the patient complete the activity by him/herself with no assistance (physical, verbal/nonverbal cueing, setup/clean-up)? No. WALK 50 FEET - STEP 2: Does the patient need only setup/clean-up assistance from one helper? No. WALK 50 FEET - STEP 3: Does the patient need only verbal/nonverbal cueing or touching/steadying/contact guard assistance fro m one helper? Yes. 1. [id number] ADMISSION PERFORMANCE: Supervision or touching assistance CODE: WALK 150 FEET: WALK 150 FEET - STEP 1: Does the patient complete the activity by him/herself with no assistance (physical, verbal/nonverbal cueing, setup/clean-up)? No. WALK 150 FEET - STEP 2: Does the patient need only setup/clean-up assistance from one helper? No. WALK 150 FEET - STEP 3: Does the patient need only verbal/nonverbal cueing or touching/steadying/contact guard assistance fro m one helper? Yes. 1. [id number] ADMISSION PERFORMANCE: Supervision or touching assistance CODE: WALK 10 FEET UNEVEN: Not attempted due to medical condition or safety concerns CODE: 88 1 STEP (CURB): Not attempted due to medical condition or safety concerns CODE: 88 PICKING UP OBJECT: Not attempted due to medical condition or safety concerns CODE: 88 DOES THE PATIENT USE A WHEELCHAIR/SCOOTER? Q1. DOES THE PATIENT USE A WHEELCHAIR/SCOOTER?: Yes CODE: 1 WHEEL 50 FEET WITH TWO TURNS: WHEEL 50 FEET WITH TWO TURNS - STEP 1: Does the patient complete the activity by him/herself with no assistance (physical, verbal/nonverbal cueing, setup/clean-up)? No. WHEEL 50 FEET WITH TWO TURNS - STEP 2: Does the patient need only setup/clean-up assistance from one helper? Yes. 1. [id number] ADMISSION PERFORMANCE: Setup or clean-up assistance CODE: 05 INDICATE THE TYPE OF WHEELCHAIR/SCOOTER USED: RR1. INDICATE THE TYPE OF WHEELCHAIR/SCOOTER USED.: Manual CODE: 1 WHEEL 150 FEET: WHEEL 150 FEET - STEP 1: Does the patient complete the activity by him/herself with no assistance (physical, verbal/nonverbal cueing, setup/clean-up)? No. WHEEL 150 FEET - STEP 2: Does the patient need only setup/clean-up assistance from one helper? Yes. 1. [id number] ADMISSION PERFORMANCE: Setup or clean-up assistance CODE: 05 INDICATE THE TYPE OF WHEELCHAIR/SCOOTER USED: SS1. INDICATE THE TYPE OF WHEELCHAIR/SCOOTER USED.: Manual CODE: 1 BLADDER AND BOWEL: CODE: EXPR CODE: EXPR SIGNATURE PANEL: The following modified sections: 1. [id number] Admission Performance, 1. GS3014P Admission Performance, 1. OK5062T Admission Performance, 1. [id number] Admission Performance, 1. [id number] Admission Performance, 1. OQ5932V Admission Performance, 1. WA2886N Admission Performance, 1. [id number] Admission Performance , 1. [id number] Admission Performance, 1. [id number] Admission Performance, 1. [id number] Admission Performanc e, Q1. Does the patient use a wheelchair/scooter?, 1. [id number] Admission Performance, RR1. Indicate th e type of wheelchair/scooter used., 1. [id number] Admission Performance, Code, SS1. Indicate the type of wheelchair/scooter used. were [electronically] signed by Sudhir Davalos PTA on MonMay 02 2019 11:12:36 GMT-0600 (Central Standard Time)
== END 2019-05-01 14:00 | disposition home health service (06) | DRG 56 ==
LOC: 5TH 17:10
PROVIDERS: ADMIT Psychiatry & Neurology Neurology with Special Qualifications in Child Neurology; ATTEND Psychiatry & Neurology Neurology with Special Qualifications in Child Neurology
DX: G91.1 Obstructive hydrocephalus (principal); Q28.2 Arteriovenous malformation of cerebral vessels; E87.6 Hypokalemia; R13.10 Dysphagia, unspecified; H53.2 Diplopia; I10 Essential (primary) hypertension; M19.90 Unspecified osteoarthritis, unspecified site; J45.909 Unspecified asthma, uncomplicated; Z91.81 History of falling
CPT/HCPCS: 36415; 70450; 71046; 72125; 74230; 80048; 80076; 81001; 82040; 83735; 84134; 85025; 87077; 87086; 87088; 87186; 92507; 92523; 92526; 92611; 97110; 97112; 97116; 97127; 97163; 97167; 97530; 97542; J1644

== ENCOUNTER 2019-05-07 03:56 | Emergency (ER) | payer MEDICARE ==
--- OUTSIDE RECORDS SUMMARY | 2019-05-07 03:59 | XMS REPORT ---
:1950 [facility] [address] [place] [address] [address] [place] [address] Care Team Providers Name Role Phone Unavailable Unavailable Unavailable Problems This patient has no known problems. Allergies, Adverse Reactions, Alerts This patient has no known allergies or adverse reactions. Medications This patient has no known medications. Encounters Start End Encounter Admission Attending Care Care Encounter Date/Time Date/Time Type Type Clinicians Facility Department ID 2019-04-02 2019-04-02 Emergency E [facility] [id number] 17:53:00 17:53:00
[2019-05-07] MEDS ORDERED: cloNIDine HCL 0.1 MG TAB ONE (04:42)
[2019-05-07] MEDS ORDERED: NA CHLORIDE 0.9% 100 ML IV ONE (06:55)
[2019-05-07] MEDS ORDERED: LEVETIRACETAM 500 MG/5 ML VIAL IV ONE (06:55)
--- NOTE | 2019-05-07 07:08 | ER ---
Nurse's Notes [facility] Name: Patti Verdugo Age: 69 yrs Sex: Male : 1950 Arrival Date: 05/07/2019 Time: 04:07 Bed 8 Private MD: Diagnosis: Traumatic subdural hemorrhage;Traumatic subdural hemorrhage without loss of consciousness Presentation: 05/07 04:09 Presenting complaint: EMS states: Patient fell out of bed this morning; Family lp1 concerned due to recent placement of brain shunt last month; Patient A/O x2, baseline; States pain to right cheek, ROM intact to extremities. Transition of care: patient was not received from another setting of care. Onset of symptoms was May 07, 2019. Risk Assessment: Do you want to hurt yourself or someone else? Patient reports no desire to harm self or others. Initial Sepsis Screen: Does the patient meet any 2 criteria? No. Patient's initial sepsis screen is negative. Does the patient have a suspected source of infection? No. Patient's initial sepsis screen is negative. Care prior to arrival: None. 04:09 Method Of Arrival: EMS: [facility] lp1 04:09 Acuity: JOSE 2 lp1 Historical: - Allergies: 04:14 NKDA; lp1 - Home Meds: 05:02 aspirin 81 mg Oral TbEC 1 tab once daily [Active]; hydralazine 25 mg Oral tab 1 tab 4 lp1 times per day [Active]; amlodipine 10 mg oral tab 1 tab once daily [Active]; carvedilol 6.25 mg Oral tab 1 tab 2 times per day [Active]; - PMHx: 05:02 Arthritis; CVA; Hypertension; lp1 - PSHx: 04:14 G-tube; Brain shunt; lp1 - Immunization history:: Adult Immunizations up to date. - Social history:: Smoking status: Patient/guardian denies using tobacco. - Ebola Screening: : No symptoms or risks identified at this time. Screenin:01 Abuse screen: Denies threats or abuse. Denies injuries from another. Nutritional lp1 screening: No deficits noted. Tuberculosis screening: No symptoms or risk factors identified. Fall Risk Total Pham Fall Scale indicates High Risk Score (45 or more points). Fall prevention measures have been instituted. Side Rails Up X 2 As available patient and family educated on Fall Prevention Program and Strategies. Assessment: 04:15 General: Appears in no apparent distress. Behavior is calm, cooperative. Pain: lp1 Complains of pain in right zygomatic area Pain currently is 6 out of 10 on a pain scale. Quality of pain is described as aching. Neuro: Level of Consciousness is awake, alert, obeys commands, Oriented to person, place, Moves all extremities. Speech is slurred, Facial droop on right, from previous CVA, per family . Cardiovascular: Patient's skin is warm and dry. Respiratory: Respiratory effort is even, unlabored. GI: Abdomen is flat, PEG tube in place. : No signs and/or symptoms were reported regarding the genitourinary system. EENT: No signs and/or symptoms were reported regarding the EENT system. Derm: Skin is intact, Skin is dry, Skin is normal. Musculoskeletal: No signs and/or symptoms reported regarding the musculoskeletal system. 05:53 Reassessment: Patient and/or family updated on plan of care and expected duration. Pain ea level reassessed. Awaiting on CT results. Pt alert and oriented to self. Respirations even and unlabored. Chest expansions even and symmetrical. No s/s of pain or discomfort noted at this time. 06:32 Reassessment: Patient complaint of headache at this time; Provider notified. lp1 06:45 Reassessment: Dr. Moreau at bedside to discuss results with patient and family, lp1 understand plan to transfer for continued care. 07:18 Reassessment: Report given to Lea RAGSDALE at [facility]. sv Vital Signs: 04:11 BP 182 / 102; Pulse 82; Resp 20; Temp 97.9(TE); Pulse Ox 100% on R/A; Weight 79.38 kg lp1 (R); Height 6 ft. 1 in. (185.42 cm); Pain 6/10; 04:45 BP 187 / 109; Pulse 76; Resp 20; Pulse Ox 99% on R/A; lp1 05:55 BP 185 / 92; Pulse 74; Resp 18; Pulse Ox 100% ; ea 06:15 BP 148 / 72; Pulse 75; Resp 17; Pulse Ox 100% on R/A; lp1 06:33 BP 164 / 92; Pulse 68; Resp 18; Pulse Ox 99% on R/A; lp1 07:15 BP 154 / 89; Pulse 70; Resp 18; Temp 98.4; Pulse Ox 100% ; sv 07:36 BP 140 / 69; Pulse 72; Resp 17; Pulse Ox 99% ; sv 04:11 Body Mass Index 23.09 (79.38 kg, 185.42 cm) lp1 ED Course: 04:07 Patient arrived in ED. cl3 04:09 Barbra Saavedra, RN is Primary Nurse. lp1 04:10 Frederic Moreau MD is Attending Physician. tw4 04:11 Triage completed. lp1 04:11 Arm band placed on. lp1 04:15 Patient has correct armband on for positive identification. Bed in low position. lp1 teletypesetter monitor on. Pulse ox on. NIBP on. 05:42 Head Brain Wo Cont In Process Unspecified. EDMS 05:42 Facial Bones W/ Mpr In Process Unspecified. EDMS 06:40 Initial lab(s) drawn, by me, sent to lab. lp1 06:45 CBC with Diff Sent. ds4 06:45 CMP Sent. ds4 06:45 PT-INR Sent. ds4 06:50 No provider procedures requiring assistance completed. lp1 07:15 Primary Nurse role handed off by Barbra Saavedra RN sv 07:15 Lianna Pruitt, MELYSSA is Primary Nurse. sv 07:36 Patient transferred, IV remains in place. intact. sv Administered Medications: 04:44 Drug: cloNIDine 0.1 mg Route: PO; ea 06:34 Follow up: Response: Blood pressure is lowered lp1 06:59 Drug: Keppra 1000 mg Route: IV; Rate: calculated rate; Site: right forearm; ea 07:26 Follow up: Response: No adverse reaction; IV Status: Completed infusion; IV Intake: sv 100ml Intake: 07:26 IV: 100ml; Total: 100ml. sv Outcome: 07:07 ER care complete, transfer ordered by . tw4 07:35 Transferred by helicopter to [facility], Transfer form completed. X-rays sent sv w/ patient. Note: Report given to Karis from [facility]. 07:35 Condition: stable 07:35 Instructed on the need for transfer. 07:37 Patient left the ED. sv Signatures: Dispatcher [employer] EDLianna Kern, RN RN sv Barbra Saavedra, RN RN lp1 Adrien Corona ds4 Kaelyn Beckwith RN RN cheri Moreau, MD MONICA De La Garza tw4 Ophelia Lipscomb cl3
--- NOTE | 2019-05-07 07:08 | EDPHYS ---
Physician Documentation [facility] Name: Patti Verdugo Age: 69 yrs Sex: Male : 1950 Arrival Date: 05/07/2019 Time: 04:07 Bed 8 Private MD: ED Physician Frederic Moreau HPI: 05/07 04:32 This 69 yrs old Black Male presents to ER via EMS with complaints of Fall Injury. tw4 04:32 Details of fall: The patient fell from seated position, off the edge of a bed. Onset: tw4 The symptoms/episode began/occurred just prior to arrival. Associated injuries: The patient sustained no obvious injury. Severity of symptoms: At their worst the symptoms were very mild, in the emergency department the symptoms are unchanged. The patient has not experienced similar symptoms in the past. Historical: - Allergies: 04:14 NKDA; lp1 - Home Meds: 05:02 aspirin 81 mg Oral TbEC 1 tab once daily [Active]; hydralazine 25 mg Oral tab 1 tab 4 lp1 times per day [Active]; amlodipine 10 mg oral tab 1 tab once daily [Active]; carvedilol 6.25 mg Oral tab 1 tab 2 times per day [Active]; - PMHx: 05:02 Arthritis; CVA; Hypertension; lp1 - PSHx: 04:14 G-tube; Brain shunt; lp1 - Immunization history:: Adult Immunizations up to date. - Social history:: Smoking status: Patient/guardian denies using tobacco. - Ebola Screening: : No symptoms or risks identified at this time. ROS: 04:32 Constitutional: Negative for fever, chills, and weight loss, Eyes: Negative for injury, tw4 pain, redness, and discharge, ENT: Negative for injury, pain, and discharge, Cardiovascular: Negative for chest pain, palpitations, and edema, Respiratory: Negative for shortness of breath, cough, wheezing, and pleuritic chest pain, Abdomen/GI: Negative for abdominal pain, nausea, vomiting, diarrhea, and constipation, Back: Negative for injury and pain, MS/Extremity: Negative for injury and deformity, Skin: Negative for injury, rash, and discoloration. Exam: 04:32 Constitutional: This is a well developed, well nourished patient who is awake, alert, tw4 and in no acute distress. 04:32 Chest/axilla: Normal chest wall appearance and motion. Nontender with no deformity. No lesions are appreciated. Cardiovascular: Regular rate and rhythm with a normal S1 and S2. No gallops, murmurs, or rubs. Normal PMI, no JVD. No pulse deficits. Respiratory: Lungs have equal breath sounds bilaterally, clear to auscultation and percussion. No rales, rhonchi or wheezes noted. No increased work of breathing, no retractions or nasal flaring. Abdomen/GI: Soft, non-tender, with normal bowel sounds. No distension or tympany. No guarding or rebound. No evidence of tenderness throughout. Back: No spinal tenderness. No costovertebral tenderness. Full range of motion. MS/ Extremity: Pulses equal, no cyanosis. Neurovascular intact. Full, normal range of motion. Neuro: Awake and alert, GCS 15, oriented to person, place, time, and situation. Cranial nerves II-XII grossly intact. Motor strength 5/5 in all extremities. Sensory grossly intact. Cerebellar exam normal. Normal gait. 04:32 Head/face: Noted is contusion, that is superficial, of the right cheek. Vital Signs: 04:11 BP 182 / 102; Pulse 82; Resp 20; Temp 97.9(TE); Pulse Ox 100% on R/A; Weight 79.38 kg lp1 (R); Height 6 ft. 1 in. (185.42 cm); Pain 6/10; 04:45 BP 187 / 109; Pulse 76; Resp 20; Pulse Ox 99% on R/A; lp1 05:55 BP 185 / 92; Pulse 74; Resp 18; Pulse Ox 100% ; ea 06:15 BP 148 / 72; Pulse 75; Resp 17; Pulse Ox 100% on R/A; lp1 06:33 BP 164 / 92; Pulse 68; Resp 18; Pulse Ox 99% on R/A; lp1 07:15 BP 154 / 89; Pulse 70; Resp 18; Temp 98.4; Pulse Ox 100% ; sv 07:36 BP 140 / 69; Pulse 72; Resp 17; Pulse Ox 99% ; sv 04:11 Body Mass Index 23.09 (79.38 kg, 185.42 cm) lp1 MDM: 04:10 Patient medically screened. tw4 07:07 Differential diagnosis: abrasion, closed head injury, contusion, fracture, multiple tw4 trauma. Data reviewed: vital signs, nurses notes. Data interpreted: Pulse oximetry: Interpretation: normal. Counseling: I had a detailed discussion with the patient and/or guardian regarding: the historical points, exam findings, and any diagnostic results supporting the discharge/admit diagnosis. Awaiting: transfer to another facility. ED course: PT will require transfer to higher level of care for management of subdural hematoma. Pt accepts for transfer by Dr Jimenez at 0700. 05/07 06:41 Order name: CBC with Diff ea 05/07 06:41 Order name: CMP ea 05/07 04:53 Order name: Head Brain Wo Cont EDMS 05/07 06:41 Order name: PT-INR ea 05/07 05:09 Order name: Facial Bones W/ Mpr EDMS Administered Medications: 04:44 Drug: cloNIDine 0.1 mg Route: PO; ea 06:34 Follow up: Response: Blood pressure is lowered lp1 06:59 Drug: Keppra 1000 mg Route: IV; Rate: calculated rate; Site: right forearm; ea 07:26 Follow up: Response: No adverse reaction; IV Status: Completed infusion; IV Intake: sv 100ml Disposition: 05/07/19 07:[address] [facility]. Diagnosis are Traumatic subdural hemorrhage, Traumatic subdural hemorrhage without loss of consciousness. - Reason for transfer: Higher level of care. - Accepting physician is Dr Jimenez. - Condition is Fair. - Problem is new. - Symptoms have worsened. Signatures: Dispatcher [employer] EDUT Lianna Pruitt RN MELYSSA Barbra Saavedra, RN RN lp1 Kaelyn Beckwith RN RN ea Wadley, Terrence, MD MD tw4 Corrections: (The following items were deleted from the chart) 05:36 05:10 Head Brain Wo Cont+CT.RAD.BRZ ordered. EDUT EDMS 05:36 05:12 Facial Bones W/ MPR+CT.RAD.BRZ ordered. EDUT EDMS 07:37 07:07 05/07/2019 07:[address] [facility]. sv Diagnosis is Traumatic subdural hemorrhage; Traumatic subdural hemorrhage without loss of consciousness. Reason for transfer: Higher level of care. Accepting physician is Dr Jimenez. Condition is Fair. Problem is new. Symptoms have worsened. tw4
[2019-05-07 07:15] LABS: Basophils % 0.3 % (0-1.3); Hematocrit 35.1 % (39.6-49.0); Lymphocytes % 13.8 % (15.3-44.8); MPV 10.1 fL (7.6-11.3); RBC Red Blood Cell Count 3.73 M/uL (4.33-5.43)
[2019-05-07 07:17] LABS: Protime INR 1.09
[2019-05-07 07:32] LABS: ALT/SGPT 21 U/L (12-78); AST/SGOT 9 U/L (15-37); Albumin 3.8 g/dL (3.4-5.0); Alkaline Phosphatase 86 U/L (45-117); BUN Blood Urea Nitrogen 9 mg/dL (7-18); Bicarbonate 26 mmol/L (21-32); Bilirubin Total 0.4 mg/dL (0.2-1.0); Glucose Level 124 mg/dL (74-106); Potassium 3.5 mmol/L (3.5-5.1); Protein, Total 7.4 g/dL (6.4-8.2); Sodium Level 140 mmol/L (136-145)
[2019-05-07 07:57] VITALS: TEMP 98.4
[2019-05-07 07:58] VITALS: BP 140/69; O2SAT 99
--- NOTE | 2019-05-07 10:04 | RAD REPORT ---
EXAM DESCRIPTION: CT Maxillofacial Without Intravenous Contrast CLINICAL HISTORY: The patient is 69 years old and is Male; PAIN; FALL TECHNIQUE: Axial computed tomography images of the face without intravenous contrast. Sagittal and coronal reformatted images were created and reviewed. This CT exam was performed using one or more of the following dose reduction techniques: automated exposure control, adjustment of the mA and/o r kV according to patient size, and/or use of iterative reconstruction technique. COMPARISON: No relevant prior studies available. FINDINGS: BONES/JOINTS: Comminuted fracture of the right orbital surface and infratemporal surface of the maxilla is present. A comminuted fracture of the right zygoma is present. A fracture of the r ight orbital floor is present. The remaining bones of the face are intact. SOFT TISSUES: Right periorbital soft tissue swelling and subcutaneous air is present. ORBITS: Unremarkable. SINUSES: Fluid, hemorrhage, and air are present within the right maxillary sinus. Mucoperioste al thickening of the left maxillary sinus is present. IMPRESSION: 1. Right-sided facial fractures to include right orbital floor, right zygoma, right or bital surface and infratemporal surface of the maxilla. 2. Fluid and hemorrhage present within the right maxillary sinus. 3. Right facial soft tissue swelling with associated subcutaneous air. Electronically signed by: Nicole Hensley MD 05/07/2019 6:39 AM WAVE GUIDE ASSEMBLER Due to temporary technical issues with the PACS/Fluency reporting system, reports are being signed by the in house radiologist as a courtesy to ensure prompt reporting. The interpreting radiologist is f ully responsible for the content of the report.
--- NOTE | 2019-05-07 10:10 | RAD REPORT ---
EXAM DESCRIPTION: CT Head Without Intravenous Contrast CLINICAL HISTORY: The patient is 69 years old and is Male; head injury TECHNIQUE: Axial computed tomography images of the head/brain without intravenous contrast. Sagitt al and coronal reformatted images were created and reviewed. This CT exam was performed using one o r more of the following dose reduction techniques: automated exposure control, adjustment of the mA and/or kV according to patient size, and/or use of iterative reconstruction technique. COMPARISON: CT of the head April 26, 2019. FINDINGS: BRAIN: An acute right subdural hemorrhage is present measuring maximally 0.9 cm. There i s an associated 0.4 cm leftward midline shift. The previously demonstrated hypodense lesion in the re gion of the midbrain and florecita with associated cystic component is grossly stable. Bilateral basal g anglia calcifications are present. VENTRICLES: Effacement of the right lateral ventricle is noted which is similar to prior exam. BONES/JOINTS: No acute fracture. SOFT TISSUES: Unremarkable. SINUSES: Unremarkable as visualized. No acute sinusitis. MASTOID AIR CELLS: Unremarkable as visualized. No mastoid effusion. ORBITS: Unremarkable as visualized. TUBES, LINES AND DEVICES: A right frontal approach ventriculostomy catheter is present with the tip ending near the third ventricle. IMPRESSION: 1. Interval development of acute component of the right subdural hemorrhage. There is a subtle associated leftward midline shift. 2. No significant change in the heterogeneous mass within the midbrain and florecita. 3. Right frontal approach ventriculostomy catheter is stable with associated near complete effaceme nt of the right lateral ventricle. THIS REPORT CONTAINS FINDINGS THAT MAY BE CRITICAL TO PATIENT CARE: The findings were verbally discussed via telephone conference with Dr. Frederic Moreau by Dr. Wood Hensley on 05/07/2019 6:32 AM LAMINATING MACHINE OPERATOR HELPER .The results were acknowledged and understood. Electronically signed by: Nicole Hensley MD 05/07/2019 6:33 AM LAMINATING MACHINE OPERATOR HELPER Due to temporary technical issues with the PACS/Fluency reporting system, reports are being signed by the in house radiologist as a courtesy to ensure prompt reporting. The interpreting radiologist is f ully responsible for the content of the report.
== END 2019-05-07 07:37 | disposition short-term general hospital (02) ==
LOC: ER 03:56
DX: S06.5X0A Traumatic subdural hemorrhage without loss of consciousness, initial encounter (principal); W06.XXXA Fall from bed, initial encounter; Y93.9 Activity, unspecified; Y92.9 Unspecified place or not applicable; I10 Essential (primary) hypertension; Z86.73 Personal history of transient ischemic attack (TIA), and cerebral infarction without residual deficits; Z79.82 Long term (current) use of aspirin
CPT/HCPCS: 96365; 85025; 36415; 85610; 80053; 70450; 70486; 76377; 99285; J1953

== ENCOUNTER 2022-06-28 21:59 | Inpatient (IN) | payer MEDICARE, OTHER ==
--- OUTSIDE RECORDS SUMMARY | 2022-06-28 22:08 | XMS REPORT | Continuity of Care Document ---
:1950 Author Organization [facility] t Address [address] [place] [address] Care Team Providers Name Role Phone MOISES KAPADIA Primary Care Physician Unavailable DR MOISES KAPADIA Attending Clinician Unavailable [phone] Attending Clinician Unavailable Stephania Al MD Attending Clinician STEPHANIA AL Attending Clinician Unavailable Doctor Unassigned, [place] Attending Clinician Unavailable Only, Adc Test Attending Clinician Unavailable Pob, Ad[facility] Lab Main Attending Clinician Unavailable Ap [place] Attending Clinician Goldie Cornell Attending Clinician DR MOISES KAPADIA Admitting Clinician Unavailable Stephania Al MD Admitting Clinician STEPHANIA AL Admitting Clinician Unavailable Leonard Call Admitting Clinician Payers Payer Name Policy Type Policy Number Effective Date Expiration Date S ource AARP MEDICARE [id number] COMPLETE -RECURRING AARP MEDICARE [id number] COMPLETE -RECURRING AAR MEDICARE [id number] COMPLETE -RECURRING Problems Condition Condition Condition Status Onset Resolution Last Treating Co mments Source Name Details Category Date Date Treatment Clinician Date G91.9 - G91.9 - Diagnosis Active 2020-01-08 Memoria "HYDROCEPH "HYDROCEPH 12-31 10:11:00 l ALUS, ALUS, 00:01: Presley UNSPECIFIE UNSPECIFIE 00 D" D" Active 01/01/2020 HOLLID Seema S06.5X0A - S06.5X0A Diagnosis Active 2019-08-30 Memoria TRAUM - TRAUM 07-26 08:45:00 l SUBDR HEM SUBDR HEM 00:01: Andriy vega W/O LOSS W/O LOSS 00 OF C OF C Active 07/26/2019 DUNIA Sherwood, HOLLID [place] SDH SDH Diagnosis Active 2018-062019-05-27 Mem oria Active 07-08 22:17:00 l 05/07/2019 00:00: Mil yan [address] LIFE LIFE Diagnosis Active 2018-062019-05-08 Mem oria FLIGHT FLIGHT 07-08 13:58:00 l Active 00:00: Presley 05/07/2019 00 [facility] No known No known Disease Unive rs active active ity of problems problems [facility] Hyperlipid Hyperlipi Problem Resolve 2020-01-10 Memoria emia demia d 22:55:22 l (disorder) (disorder) He rmann Resolved Problem 01/10/2020 [facility], DUNIA Sherwood,[facility] Hypertensi Hypertens Problem Resolve 2020-01-10 Memoria ve kostas d 22:55:22 l disorder, disorder, Andriy vega systemic systemic arterial arterial (disorder) (disorder) Resolved Problem 01/10/2020 [facility], DUNIA [place] [place] FRACTURE FRACTURE Diagnosis Active 2019-05-27 Memoria OF ORBITAL OF ORBITAL 22:17:00 l FLOOR, FLOOR, Presley RIGHT RIGHT SIDE, I SIDE, I Active [facility] On On Problem Resolve 2020-01-10 Jatinder dez examinatio examinatio d 22:55:22 l yuriy - yuriy - Pres[place] cataract cataract of left of left eye eye (finding) (finding) Resolved Problem 01/10/2020 [facility], DUNIA [place] [place] 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 (disorder) Resolved Problem 01/10/2020 [facility], DUNIA Sherwood, DUNIA Stephenson Allergies, Adverse Reactions, Alerts Allergy Allergy Status Severity Reaction(s) Onset Inactive Treating Comm ents Source Name Type Date Date Clinician No Known MA Active UNKNOWN [facility] [place] [facility] NO KNOWN Drug Active Univers ALLERGIE Class ity of S [facility] Social History Social Habit Start Date Stop Date Quantity Comments Source Alcohol intake 2022-06-23 2022-06-23 Ex-drinker [facility] 00:00:00 00:00:00 (finding) [facility] Tobacco use and 2022-06-23 2022-06-23 Smokeless tobacco Un iversity of exposure 00:00:00 00:00:00 non-user [facility] Exposure to 2022-06-05 2022-06-15 Not sure [facility] SARS-CoV-2 00:00:00 15:24:00 [facility] (event) [place] Social History 2015-09-20 2015-09-20 [facility] 22:23:36 22:23:36 Sex Ass[birth year] Univers y of 00:00:00 00:00:00 [facility] Smoking Status Start Date Stop Date Source Unknown if ever smoked [facility] Never smoked tobacco [facility] Medications Ordered Filled Start Stop Current Ordering Indication Dosage Frequency Signature Comments Components Source Medication Medication Date Date Medication? Clinician (SIG) Name Name neomycin-po 2022- No PRN, Unive rs lymyxin-dex 06-23 Starting ity [facility] 15:36[facility] 06/23/22 at Med ical 3.5 0936, Branch mg/g-10,000 Until [facility] unit/g-0.1 06/23/22 at % 0940, ophthalmic Routine, ointment Intra-op NaCl 0.9% 2022- No PRN, Univers (NS) 06-23 Starting ity of injection 15:35: 15:40 on Nivia [place] 00 :24 06/23/22 at Medical 0935, Branch Until Nivia 06/23/22 at 0940, Routine, Intra-op gentamicin 2022- No PRN, Univer s injection 06-23 Starting ity o f 15:35: 15:40 on Nivia [place] 00 :24 06/23/22 at Medical 0935, Branch Until Nivia 06/23/22 at 0940, BEAN, Intra-op dexamethaso 2022- No PRN, Unive rs ne 06-23 Starting ity of (DECADRON 15:35: 15:40 on Nivia [place] PHOSPHATE) 00 :24 06/23/22 at [facility] ical injection 0935, Branch Until Nivia 06/23/22 at 0940, Routine, Intra-op ceFAZolin 2022- No PRN, Univers (ANCEF) 06-23 Starting ity of injection 15:35: 15:40 on Nivia [place] 00 :24 06/23/22 at Medical 0935, Branch Until Nivia 06/23/22 at 0940, BEAN, Intra-op EPINEPHrine 2022- No PRN, Unive rs (PF) 06-23 Starting ity of 1:1,000 (1 15:24: 15:40 on [place] mg/mL) 00 :24 06/23/22 at [facility] (ADRENALIN 0924, Branch (PF)) Until Nivia injection 06/23/22 at 0940, Routine, Intra-op chondroitin 2022- No PRN, Unive rs sulf-sod 06-23 Starting ity of hyaluronate 15:24: 15:40 on Nivia [place] as (DUOVISC 00 :24 06/23/22 at Medic al VISCO 0924, Branch ELASTIC) Until Nivia intraocular 06/23/22 at injection 0940, Routine, Intra-op balanced 2022- No PRN, Univers salt soln 06-23 Starting ity o f no.2 irrig. 15:24: 15:40 on Nivia [place] as (BSS) 00 :24 06/23/22 at Medical ophthalmic 0924, Branch solution Until Nivia 06/23/22 at 0940, Routine, Intra-op water for 2022- No PRN, Univers irrigation 06-23 Starting ity of irrigation 15:22: 15:40 on [place] solution 00 :24 06/23/22 at Medic al 0922, Branch Until Nivia 06/23/22 at 0940, Routine, Intra-op tetracaine 2022- No PRN, Univer s (PONTOCAINE 06-23 Starting ity of ) 0.5 % 15:20: 15:40 on Nivia [place] ophthalmic 00 :24 06/23/22 at Med ical drops 0920, Branch Until Nivia 06/23/22 at 0940, Routine, Intra-op eye block 2022- No PRN, Univers syringe 11 06-23 Starting ity of mL 15:19: 15:40 on Nivia [place] 00 :24 06/23/22 at Medical 0919, Branch Until Nivia 06/23/22 at 0940, Intra-op cyclopent 2022- No .5mL 0.5 mL, Univ ers 1%-tropic 06-23 Right Eye, ity of 1%-phenyl 14:45: 14:13 ONCE, 1 [place] 2.5%-ketor 00 :00 dose, On Medic al 0.5% [facility] Branch (MYDRIATIC 06/23/22 at #5) 0845, ophthalmic Routine, solution DSU Pre-op syringe 0.5 mL cyclopent 2022- No .5mL 0.5 mL, Univ ers 1%-tropic 06-23 Right Eye, ity of 1%-phenyl 14:45: 14:13 ONCE, 1 [place] 2.5%-ketor 00 :00 dose, On Medic al 0.5% [facility] Branch (MYDRIATIC 06/23/22 at #5) 0845, ophthalmic Routine, solution DSU Pre-op syringe 0.5 mL lactated 2022- No 1000mL at 42 Unive rs ringers IV 06-23 mL/hr, ity of infusion 14:00: 14:26 1,000 mL, [place] as 1,000 mL 00 :00 IV Medical Infusion, Branch ONCE, 1 dose, On Nivia 06/23/22 at 0800, Routine, DSU Pre-op lactated 2022- No 1000mL at 42 Unive rs ringers IV 1-19 01-19 mL/hr, ity of infusion 14:00: 14:26 1,000 mL, Randell as 1,000 mL 00 :00 IV Medical Infusion, Branch ONCE, 1 dose, On Nivia 06/23/22 at 0800, Routine, DSU Pre-op ezetimibe 2023-0 Yes 10mg Take 10 mg Un brian 10 mg 1-19 by mouth ity of tablet 10:12: daily. [place] [address] Medical Branch calcium 3-0 Yes 1{tbl} Take 1 Univer s carb-D3-mag 1-19 tablet by ity of ox-zinc ox 10:12: mouth [place] (CELESTINO MAG 43 daily. Medical ZINC PLUS Branch D3) 333 mg-133 unit -133 mg-5 mg Tab Vitamin 2023-0 Yes 1000ug Take 1,000 Un brian B-12 1,000 1-19 mcg by ity of mcg tablet 10:12: mouth in [place] as 43 the Medical morning. Branch ezetimibe 3-0 Yes 10mg Take 10 mg Un brian 10 mg 1-19 by mouth ity of tablet 10:12: daily. [place] [address] Medical Branch calcium 3-0 Yes 1{tbl} Take 1 Univer s carb-D3-mag 1-19 tablet by ity of ox-zinc ox 10:12: mouth [place] (CELESTINO MAG 43 daily. Medical ZINC PLUS Branch D3) 333 mg-133 unit -133 mg-5 mg Tab Vitamin 2023-0 Yes 1000ug Take 1,000 Un brian B-12 1,000 1-19 mcg by ity of mcg tablet 10:12: mouth in [place] as 43 the Medical morning. Branch ezetimibe 3-0 Yes 10mg Take 10 mg Un brian 10 mg 1-19 by mouth ity of tablet 10:12: daily. [place] [address] Medical Branch calcium 2023-0 Yes 1{tbl} Take 1 Univer s carb-D3-mag 1-19 tablet by ity of ox-zinc ox 10:12: mouth [place] (CELESTINO MAG 43 daily. Medical ZINC PLUS Branch D3) 333 mg-133 unit -133 mg-5 mg Tab Vitamin 2023-0 Yes 1000ug Take 1,000 Un brian B-12 1,000 1-19 mcg by ity of mcg tablet 10:12: mouth in [place] as 43 the Medical morning. Branch hydrALAZINE 2021-06 Yes 1{tbl} Take 1 Un brian 25 mg 1-21 tablet by ity of tablet 00:00: mouth as [place] 00 needed for Medical BP and/or Branch HR Goals determined by provider. hydrALAZINE 2021-06 Yes 1{tbl} Take 1 Un brian 25 mg 1-21 tablet by ity of tablet 00:00: mouth as [place] 00 needed for Medical BP and/or Branch HR Goals determined by provider. hydrALAZINE 2021-06 Yes 1{tbl} Take 1 Un brian 25 mg 1-21 tablet by ity of tablet 00:00: mouth as [place] 00 needed for Medical BP and/or Branch HR Goals determined by provider. NaCl 0.9% 2021- No PRN, Univers (NS) 12-16 Starting ity of injection 13:21: 13:34 on Nivia [place] 00 :34 12/16/21 at [facility] 0821, Branch Until Nivia 12/16/21 at 0834, Routine, Intra-op neomycin-po 2021- No PRN, Unive rs lymyxin-dex 12-16 Starting ity of amethasone 13:21: 13:34 on [place] (MAXITROL) 00 :34 12/16/21 at Med ical 3.5 0821, Branch mg/g-10,000 Until [place] unit/g-0.1 12/16/21 at % 0834, ophthalmic Routine, ointment Intra-op gentamicin 2021- No PRN, Univer s injection 12-16 Starting ity o f 13:21: 13:34 on Nivia [place] 00 :34 22 at Medical 0821, Branch Until Nivia 12/16/21 at 0834, BEAN, Intra-op dexamethaso 2021- No PRN, Unive rs ne 12-16 Starting ity of (DECADRON 13:21: 13:34 on Nivia [place] PHOSPHATE) 00 :34 22 at Med ical injection 0821, Branch Until Nivia 12/16/21 at 0834, Routine, Intra-op ceFAZolin 2021- No PRN, Univers (ANCEF) 12-16 Starting ity of injection 13:21: 13:34 on Nivia [place] 00 :34 22 at Medical 0821, Branch Until Nivia 12/16/21 at 0834, BEAN, Intra-op chondroitin 2021- No PRN, Unive rs sulf-sod 12-16 Starting ity of hyaluronate 13:15: 13:34 on Nivia [place] as (DUOVISC 00 :34 12/16/21 at Medic al VISCO 0815, Branch ELASTIC) Until Nivia intraocular 12/16/21 at injection 0834, Routine, Intra-op EPINEPHrine 2021- No PRN, Unive rs (PF) 12-16 Starting ity of 1:1,000 (1 13:14: 13:34 on [place] mg/mL) 00 :34 12/16/21 at [facility] (ADRENALIN 0814, Branch (PF)) Until Nivia injection 12/16/21 at 0834, Routine, Intra-op balanced 2021- No PRN, Univers salt soln 12-16 Starting ity o f no.2 irrig. 13:14: 13:34 on Nivia [place] as (BSS) 00 :34 12/16/21 at [facility] ophthalmic 0814, Branch solution Until Nivia 12/16/21 at 0834, Routine, Intra-op water for 2021- No PRN, Univers irrigation 12-16 Starting ity of irrigation 13:09: 13:34 on [place] solution 00 :34 12/16/21 at Medic al 0809, Branch Until Nivia 12/16/21 at 0834, Routine, Intra-op tetracaine 2021- No PRN, Univer s (PONTOCAINE 12-16 Starting ity of ) 0.5 % 13:06: 13:34 on Nivia [place] ophthalmic 00 :34 22 at Med ical drops 0806, Branch Until Nivia 12/16/21 at 0834, Routine, Intra-op eye block 2021- No PRN, Univers syringe 11 12-16 Starting ity of mL 13:05: 13:34 on [facility] 00 :34 12/16/21 at Medical 0805, Branch Until [facility] 12/16/21 at 0834, Intra-op cyclopent 2021-2021- No .5mL 0.5 mL, Univ ers 1%-tropic 12-16 Left Eye, ity of 1%-phenyl 12:00: 12:04 ONCE, 1 [place] 2.5%-ketor 00 :00 dose, On Medic al 0.5% [facility] Branch (MYDRIATIC 12/16/21 at #5) 0700, ophthalmic Routine, solution DSU Pre-op syringe 0.5 mL lactated 2021- No 1000mL at 42 Unive rs ringers IV 12-16-14 mL/hr, ity of infusion 12:00: 12:04 1,000 mL, [place] as 1,000 mL 00 :00 IV Medical Infusion, Branch ONCE, 1 dose, On [facility] 12/16/21 at 0700, Routine, DSU Pre-op cyclopent 2021- No .5mL 0.5 mL, Univ ers 1%-tropic 12-16 Left Eye, ity of 1%-phenyl 12:00: 12:04 ONCE, 1 [place] 2.5%-ketor 00 :00 dose, On Medic al 0.5% [facility] Branch (MYDRIATIC 12/16/21 at #5) 0700, ophthalmic Routine, solution DSU Pre-op syringe 0.5 mL lactated 0 2021- No 1000mL at 42 Unive rs ringers IV 12-16-14 mL/hr, ity of infusion 12:00: 12:04 1,000 mL, [place] as 1,000 mL 00 :00 IV Medical Infusion, Branch ONCE, 1 dose, On [facility] 12/16/21 at 0700, Routine, DSU Pre-op ezetimibe 2021-0 Yes 10mg Take 10 mg Un brian 10 mg 7-14 by mouth ity of tablet 09:31: daily. [address] ezetimibe 2-0 Yes 10mg Take 10 mg Un brian 10 mg 7-14 by mouth ity of tablet 09:31: daily. [address] ezetimibe 2022-0 Yes 10mg Take 10 mg Un brian 10 mg 7-14 by mouth ity of tablet 09:31: daily. [place] 47 [facility] Branch ezetimibe 2021-0 Yes 10mg Take 10 mg Un brian 10 mg 7-07 by mouth ity of tablet 17:12: daily. [place] 29 [facility] Branch Amlodipine- 2021-0 Yes 1{tbl} Take 1 Un brian Olmesartan 6-30 tablet by ity of 10-40 mg 00:00: mouth [place] per tablet 00 every Medical morning. Branch Amlodipine- 2021-0 Yes 1{tbl} Take 1 Un brian Olmesartan 6-30 tablet by ity of 10-40 mg 00:00: mouth [place] per tablet 00 every Medical morning. Branch Amlodipine- 2021-0 Yes 1{tbl} Take 1 Un brian Olmesartan 6-30 tablet by ity of 10-40 mg 00:00: mouth [place] per tablet 00 every Medical morning. Branch Amlodipine- 2021-0 Yes 1{tbl} Take 1 Un brian Olmesartan 6-30 tablet by ity of 10-40 mg 00:00: mouth [place] per tablet 00 every Medical morning. Branch Amlodipine- 2021-0 Yes 1{tbl} Take 1 Un brian Olmesartan 6-30 tablet by ity of 10-40 mg 00:00: mouth [place] per tablet 00 every Medical morning. Branch Amlodipine- 2021-0 Yes 1{tbl} Take 1 Un brian Olmesartan 6-30 tablet by ity of 10-40 mg 00:00: mouth [place] per tablet 00 every Medical morning. Branch Amlodipine- 2021-0 Yes 1{tbl} Take 1 Un brian Olmesartan 6-30 tablet by ity of 10-40 mg 00:00: mouth [place] per tablet 00 every Medical morning. Branch carvediloL 2021-0 Yes 1{tbl} Take 1 Uni vers 12.5 mg 5-22 tablet by ity of tablet 00:00: mouth 2 (two) Medical times Branch daily with meals. carvediloL 2021-0 Yes 1{tbl} Take 1 Uni vers 12.5 mg 5-22 tablet by ity of tablet 00:00: mouth 2 00 (two) Medical times Branch daily with meals. carvediloL 2021-0 Yes 1{tbl} Take 1 Uni vers 12.5 mg 5-22 tablet by ity of tablet 00:00: mouth 2 (two) Medical times Branch daily with meals. carvediloL 2021-0 Yes 1{tbl} Take 1 Uni vers 12.5 mg 5-22 tablet by ity of tablet 00:00: mouth 2 (two) Medical times Branch daily with meals. carvediloL 2021-0 Yes 1{tbl} Take 1 Uni vers 12.5 mg 5-22 tablet by ity of tablet 00:00: mouth 2 (two) Medical times Branch daily with meals. carvediloL 2021-0 Yes 1{tbl} Take 1 Uni vers 12.5 mg 5-22 tablet by ity of tablet 00:00: mouth (two) Medical times Branch daily with meals. carvediloL 2021-0 Yes 1{tbl} Take 1 Uni vers 12.5 mg 5-22 tablet by ity of tablet 00:00: mouth (two) Medical times Branch daily with meals. Levetiracet 2018-06 No Notes: Jatinder dez am 500 MG 2-07 (Same l Oral Tablet 03:00: as:Keppra) Presley [Keppra] Seroquel 2018-06 No Notes: Memoria 2-07 (Same as: l 03:00: SEROquel) [place] 00 Levetiracet 2018-06 No Notes: Jatinder dez am 500 MG 2-07 (Same l Oral Tablet 03:00: as:Keppra) [place] [Keppra] Seroquel 2018-06 No Notes: Memoria 2-07 (Same as: l 03:00: SEROquel) [place] 00 Levetiracet 2018-06 No Notes: Jatinder dez am 500 MG 2-07 (Same l Oral Tablet 03:00: as:Keppra) [place] [Keppra] Seroquel 2018-06 No Notes: Memoria 2-07 (Same as: l 03:00: SEROquel) [place] 00 Levetiracet 2018-06 No Notes: Jatinder dez am 500 MG 2-07 (Same l Oral Tablet 03:00: as:Keppra) Pres[place] [Keppra] Seroquel 2018-06 No Notes: Memoria 2-07 (Same as: l 03:00: SEROquel) [place] 00 Levetiracet 2018-06 Yes 500 mg = 1 Memoria am 500 MG 2-06 tab, PO, l Oral Tablet 18:05: Q12H, Leeanne nn [Keppra] Complete 7 day course, # 10 tab, 0 Refill(s) Levetiracet 2018-06 Yes 500 mg = 1 Memoria am 500 MG 2-06 tab, PO, l Oral Tablet 18:05: Q12H, Leeanne nn [Keppra] Complete 7 day course, # 10 tab, 0 Refill(s) Levetiracet 2018-06 Yes 500 mg = 1 Memoria am 500 MG 2-06 tab, PO, l Oral Tablet 18:05: Q12H, Leeanne underwood [Keppra] Complete 7 day course, # 10 tab, 0 Refill(s) Levetiracet 2018-06 Yes 500 mg = 1 Memoria am 500 MG 2-06 tab, PO, l Oral Tablet 18:05: Q12H, Leeanne underwood [Keppra] Complete 7 day course, # 10 tab, 0 Refill(s) carvedilol 2018-06 No 6.25 mg = Me moria 6.25 mg 2-06 1 tab, PO, l oral tablet 18:04: [id number], 0 [place] 00 Refill(s) Levetiracet 2018-06 No 500 mg = 1 Memoria am 500 MG 2-06 tab, PO, l Oral Tablet 18:04: Q12H, 0 Her biggs [Keppra] 00 Refill(s) carvedilol 2018-06 No 6.25 mg = Me moria 6.25 mg 2-06 1 tab, PO, l oral tablet 18:04: [id number], 0 Presley 00 Refill(s) Levetiracet 2018-06 No 500 mg = 1 Memoria am 500 MG 2-06 tab, PO, l Oral Tablet 18:04: Q12H, 0 Her biggs [Keppra] 00 Refill(s) carvedilol 2018-06 No 6.25 mg = Me moria 6.25 mg 2-06 1 tab, PO, l oral tablet 18:04: [id number], 0 [place] 00 Refill(s) Levetiracet 2018-06 No 500 mg = 1 Memoria am 500 MG 2-06 tab, PO, l Oral Tablet 18:04: Q12H, 0 Her biggs [Keppra] 00 Refill(s) carvedilol 2018-06 No 6.25 mg = Me moria 6.25 mg 2-06 1 tab, PO, l oral tablet 18:04: [id number], 0 Presley 00 Refill(s) Levetiracet 2018-06 No 500 mg = 1 Memoria am 500 MG 2-06 tab, PO, l Oral Tablet 18:04: Q12H, 0 Her biggs [Keppra] 00 Refill(s) potassium 2018-06 No Notes: Memori a chloride 20 2-06 (Same as: l mEq oral 15:00: Potassium Herm silvia tablet, 00 Chloride) extended release (KCL) Miralax 2018-06 No Notes: Memoria 2-06 Dissolve l 15:00: in 8 oz of [place] 00 water or juice. (Same as: Miralax) potassium 2018-06 No Notes: Memori a chloride 20 2-06 (Same as: l mEq oral 15:00: Potassium Herm silvia tablet, 00 Chloride) extended release (KCL) Miralax 2018-06 No Notes: Memoria 2-06 Dissolve l 15:00: in 8 oz of [place] 00 water or juice. (Same as: Miralax) potassium 2018-06 No Notes: Memori a chloride 20 2-06 (Same as: l mEq oral 15:00: Potassium Herm silvia tablet, 00 Chloride) extended release (KCL) Miralax 2018-06 No Notes: Memoria 2-06 Dissolve l 15:00: in 8 oz of [place] 00 water or juice. (Same as: Miralax) potassium 2018-06 No Notes: Memori a chloride 20 2-06 (Same as: l mEq oral 15:00: Potassium Herm silvia tablet, 00 Chloride) extended release (KCL) Miralax 2018-06 No Notes: Memoria 2-06 Dissolve l 15:00: in 8 oz of [place] 00 water or juice. (Same as: Miralax) potassium 2018-06 No Notes: Memori a chloride 2-06 (Same as: l 14:53: Potassium [place] 00 Chloride) potassium 2018-06 No Notes: Memori a chloride 2-06 (Same as: l 14:53: Potassium [place] 00 Chloride) potassium 2018-06 No Notes: Memori a chloride 2-06 (Same as: l 14:53: Potassium [place] 00 Chloride) potassium 2018-06 No Notes: Memori a chloride 2-06 (Same as: l 14:53: Potassium [place] 00 Chloride) potassium 2018-06 No 20 mEq, 1 Mem oria chloride 20 2-06 tab, l mEq oral 12:46: Route: PO, Her biggs tablet, 00 Drug form: extended ERTAB, release ONCE, (KCL) Dosing Weight 80, kg, Start date: 05/10/19 6:46:00 [employer], Stop date: 05/10/19 6:46:00 [employer] potassium 2018-06 No 20 mEq, 1 Mem oria chloride 20 2-06 tab, l mEq oral 12:46: Route: PO, Her biggs tablet, 00 Drug form: extended ERTAB, release ONCE, (KCL) Dosing Weight 80, kg, Start date: 05/10/19 6:46:00 [employer], Stop date: 05/10/19 6:46:00 [employer] potassium 2018-06 No 20 mEq, 1 Mem oria chloride 20 2-06 tab, l mEq oral 12:46: Route: PO, Her biggs tablet, 00 Drug form: extended ERTAB, release ONCE, (KCL) Dosing Weight 80, kg, Start date: 05/10/19 6:46:00 [employer], Stop date: 05/10/19 6:46:00 [employer] potassium 2018-06 No 20 mEq, 1 Mem oria chloride 20 2-06 tab, l mEq oral 12:46: Route: PO, Her biggs tablet, 00 Drug form: extended ERTAB, release ONCE, (KCL) Dosing Weight 80, kg, Start date: 05/10/19 6:46:00 [employer], Stop date: 05/10/19 6:46:00 [employer] heparin 2018-06 No Notes: Memoria sodium, 2-05 porcine l porcine 05:55: heparin [place] 2500 UNT/ML 00 Injectable Solution heparin 2018-06 No Notes: Memoria sodium, 2-05 porcine l porcine 05:55: heparin [place] 2500 UNT/ML 00 Injectable Solution heparin 2018-06 No Notes: Memoria sodium, 2-05 porcine l porcine 05:55: heparin [place] 2500 UNT/ML 00 Injectable Solution heparin 2018-06 No Notes: Memoria sodium, 2-05 porcine l porcine 05:55: heparin [place] 2500 UNT/ML 00 Injectable Solution remove 2018-06 No Notes: Memoria patch 2-05 Remove l 03:00: patch 12 [place] 00 hours after applicatio n each day. remove 2018-06 No Notes: Memoria patch 2-05 Remove l 03:00: patch 12 [place] 00 hours after applicatio n each day. remove 2018-06 No Notes: Memoria patch 2-05 Remove l 03:00: patch 12 [place] 00 hours after applicatio n each day. remove 2018-06 No Notes: Memoria patch 2-05 Remove l 03:00: patch 12 [place] 00 hours after applicatio n each day. Lidocaine 2018-06 No Notes: Memori a 0.05 MG/MG 2-04 Apply only l Transdermal 15:00: once for He rmann Patch 00 up to 12 hours in a 24-hour period (12 hours on and 12 hours off). (Same as: Lidoderm) "Remove old patch before applicatio n of new patch" Amlodipine 2018-06 No Notes: Memor ia 2-04 (Same as: l 15:00: Norvasc) [place] 00 Lidocaine 2018-06 No Notes: Memori a 0.05 MG/MG 2-04 Apply only l Transdermal 15:00: once for He rmann Patch 00 up to 12 hours in a 24-hour period (12 hours on and 12 hours off). (Same as: Lidoderm) "Remove old patch before applicatio n of new patch" Amlodipine 2018-06 No Notes: Memor ia 2-04 (Same as: l 15:00: Norvasc) [place] 00 Lidocaine 2018-06 No Notes: Memori a 0.05 MG/MG 2-04 Apply only l Transdermal 15:00: once for He rmann Patch 00 up to 12 hours in a 24-hour period (12 hours on and 12 hours off). (Same as: Lidoderm) "Remove old patch before applicatio n of new patch" Amlodipine 2018-06 No Notes: Memor ia 2-04 (Same as: l 15:00: Norvasc) [place] 00 Lidocaine 2018-06 No Notes: Memori a 0.05 MG/MG 2-04 Apply only l Transdermal 15:00: once for He rmann Patch 00 up to 12 hours in a 24-hour period (12 hours on and 12 hours off). (Same as: Lidoderm) "Remove old patch before applicatio n of new patch" Amlodipine 2018-06 No Notes: Memor ia 2-04 (Same as: l 15:00: Norvasc) [place] Hydralazine 2018-06 No Notes: Jatinder dez Hydrochlori 2-04 (Same as: l de 25 MG 04:00: Apresoline Her biggs Oral Tablet 00 ) May interfere w/enteral feedings Take With Food. Hydralazine 2018-06 No Notes: Jatinder dez Hydrochlori 2-04 (Same as: l de 25 MG 04:00: Apresoline Her biggs Oral Tablet 00 ) May interfere w/enteral feedings Take With Food. Hydralazine 2018-06 No Notes: Jatinder dez Hydrochlori 2-04 (Same as: l de 25 MG 04:00: Apresoline Her biggs Oral Tablet 00 ) May interfere w/enteral feedings Take With Food. Hydralazine 2018-06 No Notes: Jatinder dez Hydrochlori 2-04 (Same as: l de 25 MG 04:00: Apresoline Her biggs Oral Tablet 00 ) May interfere w/enteral feedings Take With Food. Levetiracet 2018-06 No Notes: Jatinder dez am 2-04 Same as l 03:00: Keppra Mix with 100 mL NS, LR or D5W MEDICATION WASTE Product Size: 500 mg Product Wasted: ___ mg Docusate 2018-06 No Notes: Memoria 2-04 (Same as: l 03:00: Colace) Maxwell 00 (Do Not Crush) sennosides, 2018-06 No Notes: Jatinder dez LONGTERM 2-04 (Same as: l 03:00: Senokot) Saline 2018-06 No Notes: Memoria Flush 0.9% 2-04 (Same as: l 03:00: BD Presley 00 Posiflush) Levetiracet 2018-06 No Notes: Jatinder dez am 2-04 Same as l 03:00: Keppra Mix Maxwell 00 with 100 mL NS, LR or D5W MEDICATION WASTE Product Size: 500 mg Product Wasted: ___ mg Docusate 2018-06 No Notes: Memoria 2-04 (Same as: l 03:00: Colace) Presley 00 (Do Not Crush) sennosides, 2018-06 No Notes: Jatinder dez LONGTERM 2-04 (Same as: l 03:00: Senokot) Presley 00 Saline 2018-06 No Notes: Memoria Flush 0.9% 2-04 (Same as: l 03:00: BD Maxwell 00 Posiflush) Levetiracet 2018-06 No Notes: Jatinder dez am 2-04 Same as l 03:00: Keppra Mix Presley 00 with 100 mL NS, LR or D5W MEDICATION WASTE Product Size: 500 mg Product Wasted: ___ mg Docusate 2018-06 No Notes: Memoria 2-04 (Same as: l 03:00: Colace) Maxwell 00 (Do Not Crush) sennosides, 2018-06 No Notes: Jatinder dez LONGTERM 2-04 (Same as: l 03:00: Senokot) Presley 00 Saline 2018-06 No Notes: Memoria Flush 0.9% 2-04 (Same as: l 03:00: BD Presley 00 Posiflush) Levetiracet 2018-06 No Notes: Jatinder dez am 2-04 Same as l 03:00: Keppra Mix Maxwell 00 with 100 mL NS, LR or D5W MEDICATION WASTE Product Size: 500 mg Product Wasted: ___ mg Docusate 2018-06 No Notes: Memoria 2-04 (Same as: l 03:00: Colace) Presley 00 (Do Not Crush) sennosides, 2018-06 No Notes: Jatinder edz LONGTERM 2-04 (Same as: l 03:00: Senokot) Maxwell 00 Saline 2018-06 No Notes: Memoria Flush 0.9% 2-04 (Same as: l 03:00: BD Maxwell 00 Posiflush) carvedilol 2018-06 No Notes: Memor ia 2-03 Give with l 20:55: food. Presley 00 (Same As: Coreg) carvedilol 2018-06 No Notes: Memor ia 2-03 Give with l 20:55: food. Presley (Same As: Coreg) carvedilol 2018-06 No Notes: Memor ia 2-03 Give with l 20:55: food. Presley 00 (Same As: Coreg) carvedilol 2018-06 No Notes: Memor ia 2-03 Give with l 20:55: food. 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 Maxwell 00 (Same as: Tylenol) Bisacodyl 2018-06 No Notes: Memori a 2-03 (Same As: l 16:43: Dulcolax, Bisco-Lax) Ondansetron 2018-06 No Notes: Jatinder dez 2-03 (Same as: l 16:43: Zofran) MEDICATION WASTE Product Size: 4 mg Product Wasted: ___ mg Hydralazine 2018-06 No Notes: Jatinder dez 2-03 (Same as: l 16:43: Apresoline ) Push over 5 minutes Labetalol 2018-06 No 10 mg, 2 Jatinder dez 2-03 mL, Route: l 16:43: IVP, Drug form: INJ, Q15Min, Dosing Weight 87.9, kg, PRN Elevated BP, Start date: 05/07/19 10:43:00 CAMPUS [employer]AF[employer]Y OFFICER, Duration: 3 doses or times, Stop date: Limited # of times, 0 Saline 2018-06 No Notes: Memoria Flush 0.9% 2-03 (Same as: l 16:43: BD Posiflush) Sodium 2018-06 No 1,000 mL, Memori a Chloride 2-03 Rate: 50 l 0.9% IV 16:43: ml/hr, Maxwell 1,000 mL 00 Infuse over: 20 hr, Route: IV, Dosing Weight 87.9 kg, Total Volume: 1,000, Start date: 05/07/19 10:43:00 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 Maxwell (Same as: Tylenol) Bisacodyl 2018-06 No Notes: Memori a 2-03 (Same As: l 16:43: Dulcolax, Maxwell Bisco-Lax) Ondansetron 2018-06 No Notes: Jatinder dez 2-03 (Same as: l 16:43: Zofran) Presley 00 MEDICATION WASTE Product Size: 4 mg Product Wasted: ___ mg Hydralazine 2018-06 No Notes: Jatinder dez 2-03 (Same as: l 16:43: Apresoline ) Push over 5 minutes Labetalol 2018-06 No 10 mg, 2 Jatinder dez 2-03 mL, Route: l 16:43: IVP, Drug form: INJ, Q15Min, Dosing Weight 87.9, kg, PRN Elevated BP, Start date: 05/07/19 10:43:00 CAMPUS SAF[employer]Y OFFICER, Duration: 3 doses or times, Stop date: Limited # of times, 0 Saline 2018-06 No Notes: Memoria Flush 0.9% 2-03 (Same as: l 16:43: BD Maxwell 00 Posiflush) Sodium 2018-06 No 1,000 mL, Memori a Chloride 2-03 Rate: 50 l 0.9% IV 16:43: ml/hr, Maxwell 1,000 mL 00 Infuse over: 20 hr, Route: IV, Dosing Weight 87.9 kg, Total Volume: 1,000, Start date: 05/07/19 10:43:00 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 Presley (Same as: Tylenol) Bisacodyl 2018-06 No Notes: Memori a 2-03 (Same As: l 16:43: Dulcolax, Presley Bisco-Lax) Ondansetron 2018-06 No Notes: Jatinder dez 2-03 (Same as: l 16:43: Zofran) MEDICATION WASTE Product Size: 4 mg Product Wasted: ___ mg Hydralazine 2018-06 No Notes: Jatinder dez 2-03 (Same as: l 16:43: Apresoline ) Push over 5 minutes Labetalol 2018-06 No 10 mg, 2 Jatinder dez 2-03 mL, Route: l 16:43: IVP, Drug form: INJ, Q15Min, Dosing Weight 87.9, kg, PRN Elevated BP, Start date: 05/07/19 10:43:00 CAMPUS SAF[employer]Y OFFICER, Duration: 3 doses or times, Stop date: Limited # of times, 0 Saline 2018-06 No Notes: Memoria Flush 0.9% 2-03 (Same as: l 16:43: BD Posiflush) Immunizations Ordered Immunization Filled Immunization Date Status Commen ts Source Name Name pneumococcal 2018-01-22 Completed [facility] 13-valent vaccine 16:27:00 Maxwell pneumococcal 2018-01-22 Completed [facility] 13-valent vaccine 16:27:00 Maxwell pneumococcal 2018-01-22 Completed [facility] 13-valent vaccine 16:27:00 Maxwell pneumococcal 2018-01-22 Completed [facility] 13-valent vaccine 16:27:00 Maxwell Vital Signs Vital Name Observation Time Observation Value Comments Source Systolic blood 2022-06-23 15:58:00 148 [facility]Hg[facility] 2022-06-23 15:58:00 87 [facility]Hg[facility]22-06-23 15:58:00 50 /min General acute hospital Respiratory rate 2022-06-23 15:58:00 20 /min [facility] Oxygen saturation in 2022-06-23 15:58:00 95 /min [facility] Arterial blood by [facility] Pulse oximetry Branch Body temperature 2022-06-23 15:38:00 36.67 June [facility] Body height 2022-06-23 14:33:00 185.4 cm General acute hospital Body weight 2022-06-23 14:33:00 83.9 kg General acute hospital BMI 2022-06-23 14:33:00 24.40 kg/m2 [facility] Systolic blood 2022-06-23 15:50:00 150 mm[Hg] [facility] Diastolic blood 2022-06-23 15:50:00 73 mm[Hg] [facility]ive [facility] Heart rate 2022-06-23 15:50:00 51 /min [facility] Respiratory rate 2022-06-23 15:50:00 19 /min [facility] Oxygen saturation in 2022-06-23 15:50:00 97 /min [facility]terial blood by [place] [facility] [facility] Pulse oximetry Branch Body temperature 2022-06-23 15:38:00 36.67 June [facility] Body height 2022-06-23 14:33:00 185.4 cm [facility] Body weight 2022-06-23 14:33:00 83.9 kg [facility] BMI 2022-06-23 14:33:00 24.40 kg/m2 [facility] Systolic blood 2021-12-16 13:55:00 164 mm[Hg] [facility] Diastolic blood 2021-12-16 13:55:00 90 mm[Hg] [facility]ive [facility] Heart rate 2021-12-16 13:50:00 58 /min [facility] Respiratory rate 2021-12-16 13:50:00 28 /min [facility] Oxygen saturation in 2021-12-16 13:50:00 98 /min [facility] Arterial blood by [place] [employer] [facility] Pulse oximetry Branch Body temperature 2021-12-16 13:31:00 36.39 June [facility] Body height 2021-12-13 12:24:00 185.4 cm [facility] Body weight 2021-12-13 12:24:00 83.9 kg [facility] BMI 2021-12-13 12:24:00 24.41 kg/m2 [facility] Systolic blood 2021-12-16 11:48:00 159 mm[Hg] [facility]iver [facility] Diastolic blood 2021-12-16 11:48:00 84 mm[Hg] Unive rsity of pressure [facility] Heart rate 2021-12-16 11:48:00 69 /min Universi [facility] Body temperature 2021-12-16 11:48:00 36.5 June [facility] Respiratory rate 2021-12-16 11:48:00 18 /min [facility] in 2021-12-16 11:48:00 100 /min [facility] Arterial blood by [facility] Pulse oximetry Branch Body height 2021-12-13 12:24:00 185.4 cm [facility] Body weight 2021-12-13 12:24:00 83.9 kg General acute hospital BMI 2021-12-13 12:24:00 24.41 kg/m2 General acute hospital Respitory Rate 2019-05-10 18:00:00 Memori al Maxwell Systolic (mm Hg) 2019-05-10 18:00:00 Jatinder rial Presley Diastolic (mm Hg) 2019-05-10 18:00:00 Mem orial Presley Respitory Rate 2019-05-10 17:00:00 Memori al Presley Systolic (mm Hg) 2019-05-10 17:00:00 Jatinder rial Maxwell Diastolic (mm Hg) 2019-05-10 17:00:00 Mem orial Presley Respitory Rate 2019-05-10 16:00:00 Memori al Presley Systolic (mm Hg) 2019-05-10 16:00:00 Jatinder rial Maxwell Diastolic (mm Hg) 2019-05-10 16:00:00 Mem orial Presley Temperature Oral (F) 2019-05-10 13:00:00 98.3 F [facility] Temperature Oral (F) 2019-05-10 10:23:00 98.6 F [facility] Temperature Oral (F) 2019-05-10 06:57:00 98.1 F [facility] Height 2019-05-07 19:39:00 185.42 cm [facility] Weight 2019-05-07 19:39:00 [facility] BMI Calculated 2019-05-07 19:39:00 Memori al Maxwell Heart Rate 2019-05-07 14:07:00 [facility] Procedures Procedure Date / Time Performing Source Performed Clinician PHACOEMULSIFICATION OF 2022-06-23 [facility] CATARACT WITH INTRAOCULAR 15:08:00 Jesus Hernandescassie Carpenter LENS IMPLANT DAY SURGERY - ADC 2022-06-23 Doctor Unassigned, [facility] 06:01:00 [facility] ASSIGNMENT OF BENEFITS 2022-06-09 Doctor Unassigned, [facility] 17:12:53 [facility] PHACOEMULSIFICATION OF 2021-12-16 [facility] CATARACT WITH INTRAOCULAR 12:53:00 Jesus Ceciliocassie Carpenter LENS IMPLANT CBC WITH DIFF 2021-12-09 [facility] 16:18[facility]00 [facility]ator [facility]06[facility]05 [facility]<sup[facility]</sup> 00:00:00 Laminectomy 1989-06-05 [facility] 00:00:00 Appendectomy 1971-06-05 [facility] 00:00:00 Encounters Start End Encounter Admission Attending Care Care Encounter Source Date/Time Date/Time Type Type Clinicians Facility Department ID 2022-06-14 Outpatient NEMOHARLEYMOISES MONCADA MOLLY ELCAMPO [id number] [place] 10:06:15 [id number] [facility] 2021-12-27 Outpatient MOISES KAPADIA ELCAMPO ELCAMPO [id number] [place] 08:37:56 [id number] [facility] 2021-12-08 Outpatient MOISES KAPADIA YAIMAPO ELCAMPO [id number] [place] 11:31:49 [id number] [facility] 2019-05-07 Inpatient E [facility] [id number] [facility] 10:43:00 2022-06-23 2022-06-23 [facility] [id number] [facility] 07:56:00 10:11:00 Encounter Stephania COOK [id number] [id number] [id number] [facility] 071 Branch 2022-06-23 2022-06-23 [facility] [id number] Univers 07:56:00 10:11:00 STEPHANIA anaya [facility] 2022-06-23 2022-06-23 [facility] [id number] Univers 09:11:00 09:50:00 Stephania COOK [id number] [id number] [id number] [facility] 020 Branch 2022-06-23 2022-06-23 Orders Doctor CLARISSA [id number] Univers 00:00:00 00:00:00 Only UnassignedWESLEY [id number] ity of [place] [facility] [id number] Randell as [id number] [facility] [address] [place] 2022-06-14 2022-06-14 Outpatient N KANG MOISES [facility] CIT Y [id number] [place] 10:06:00 10:07:00 [id number] [facility] 2022-06-09 2022-06-09 [facility] [id number] Univers 10:45:00 10:45:00 STEPHANIA anaya [facility] 2022-06-09 2022-06-09 Orders Doctor ROMO [id number] Univers 00:00:00 00:00:00 Only UnassignedWESLEY [id number] ity of [place] [facility] [id number] Randell as [id number] [address] 2021-12-16 2021-12-16 [facility] [id number] Univers 06:45:00 09:05:00 STEPHANIA anaya [facility] 2021-12-16 2021-12-16 Hospital [facility] [id number] Univers 06:45:00 09:05:00 Encounter Stephania COOK [id number] [id number] [id number] [facility] 071 Branch 2021-12-16 2021-12-16 Surgery Servando, [facility] [id number] Univers 07:25:00 08:00:00 Stephania GOMEZPURA 350.1.13.10 i [id number] [id number] [facility] 020 Branch 2021-12-15 2021-12-15 Laboratory Only, [facility] Test [facility] 1.2.840. [id number] Univers 09:15:00 09:30:00 Only Stephania Al 350.1.1 3.10 ity of [id number] CAMPUS [id number] [facility] 353 Branch 2021-12-15 2021-12-15 [facility] [id number] Univers 09:15:00 09:15:00 STEPHANIA anaya [facility] 2021-12-09 2021-12-09 Radiologic Technologist Mammogram [place], Mike Lab Main [facility] 1.2.8 [id number] Univers 12:30:00 12:45:00 Visit Stephania AlPURA 350.1.1 3.10 [id number] PROF[place] [id number] [place] dical [facility] 353 [facility] 2021-12-09 2021-12-09 Outpatient Azam AL [facility] [id number] Univers 12:30:00 12:30:00 STEPHANIA anaya [facility] 2021-12-08 2021-12-08 Out[facility] Y [id number] [place] 11:32:00 11:32:00 [id number] [facility] 2020-01-08 2020-01-09 Outpt Diag nullFlavo [facility] [id number] Memoria 14:58:00 04:59:00 Services r Outpatient 04 l Imaging [facility] 2020-01-08 2020-01-09 Outpt Diag nullFlavo [facility] [id number] Memoria 14:58:00 04:59:00 Services r Outpatient 04 l Imaging [facility] 2020-01-08 2020-01-08 Outpatient Dannenbaum, MHOIP MHOIP [id number] 09:58:00 23:59:00 Ap Alston 2019-11-01 2019-11-02 Outpt Diag nullFlavo [facility] [id number] Memoria 15:30:00 04:59:00 Services r Outpatient 03 l Imaging [facility] 2019-11-01 2019-11-02 Outpt Diag nullFlavo [facility] [id number] Memoria 15:30:00 04:59:00 Services r Outpatient 03 l [facility] 2019-11-01 2019-11-01 Outpatient Dannenbaum, MHOIP MHOIP [id number] 10:30:00 23:59:00 Ap Alston 2019-08-30 2019-08-31 Outpt Diag nullFlavo [facility] [id number] Memoria 13:34:00 04:59:00 Services r Outpatient 02 l Imaging [facility] 2019-08-30 2019-08-31 Outpt Diag nullFlavo [facility] [id number] Memoria 13:34:00 04:59:00 Services r Outpatient 02 l [facility] 2019-08-30 2019-08-30 Outpatient Dannenbaum, MHOIP MHOIP [id number] 08:34:00 23:59:00 Ap Vega 2019-07-05 2019-07-06 Outpt Diag nullFlavo [facility] [id number] Memoria 15:31:00 05:59:00 Services r Outpatient 01 l [facility] 2019-07-05 2019-07-06 Outpt Diag nullFlavo [facility] [id number] Memoria 15:31:00 05:59:00 Services r Outpatient 01 l [facility] 2019-07-05 2019-07-05 Outpatient Dannenbaum, MHOIP MHOIP [id number] 09:31:00 23:59:00 Ap Alston 2019-06-06 2019-06-07 Outpt Diag nullFlavo [facility] [id number] Memoria 15:17:00 05:59:00 Services r Outpatient 00 l Imaging [facility] 2019-06-06 2019-06-07 Outpt Diag nullFlavo [facility] [id number] Memoria 15:17:00 05:59:00 Services r Outpatient 00 l Imaging [facility] 2019-06-06 2019-06-06 Outpatient [id number] 09:17:00 23:59:00 Ap Suggs 2019-05-07 2019-05-10 Inpatient nullFlavo [facility] [id number] Memoria 14:05:00 20:05:00 r Maxwell 67 [facility] 2019-05-07 2019-05-10 Inpatient nullFlavo [facility] [id number] Memoria 14:05:00 20:05:00 r Maxwell 67 [facility] 2019-05-07 2019-05-10 Outpatient Kraig [facility] [id number] 08:05:00 14:05:00 Goldie Barraza 2019-05-07 2019-05-07 Outpatient [facility] ISABEL [id number] [facility] 08:15:00 08:15:00 2019-04-02 2019-04-02 Emergency E [facility] [id number] [facility] 17:53:00 17:53:00 Results Test Description Test Time Test Comments Results Result Comments Source CHEM PANEL 2019-05-10 10:47:00 Test Item Value Reference Range Interpretation Comme nts Glucose Lvl (test code = Glucose Lvl) 108 70-99 [facility] [id number] 10:47:00 Test Item Value Reference Range Interpretation Comments BUN (test code = BUN) 7 7-22 [facility] [id number] 10:47:00 Test Item Value Reference Range Interpretation Comments Creatinine Lvl (test code = Creatinine 0.71 0.50-1.40 Lvl) [facility] [id number] 10:47:00 Test Item Value Reference Range Interpretation Comments Sodium Lvl (test code = Sodium Lvl) 140 135-145 [facility] [id number] 10:47:00 Test Item Value Reference Range Interpretation Comments Potassium Lvl (test code = Potassium 3.3 3.5-5.1 Lvl) [facility] [id number] 10:47:00 Test Item Value Reference Range Interpretation Comments Chloride Lvl (test code = Chloride Lvl) 109 95-109 [facility] [id number] 10:47:00 Test Item Value Reference Range Interpretation Comments CO2 (test code = CO2) 25 24-32 [facility]2019-12-06 10:47:00 Test Item Value Reference Range Interpretation Comments Calcium Lvl (test code = Calcium Lvl) 9.2 8.5-10.5 [facility]2019-12-06 10:47:00 Test Item Value Reference Range Interpretation Comments eGFR (test code = eGFR) 112 [facility]2019-12-06 10:47:00 Test Item Value Reference Range Interpretation Comments AGAP (test code = AGAP) 9.3 10.0-20.0 [facility]VWHMWYXFZ1079-04-91 10:47:00 Test Item Value Reference Range Interpretation Comments WBC (test code = WBC) 5.0 3.7-10.4 [facility] Ho[id number] 10:47:00 Test Item Value Reference Range Interpretation Comments RBC (test code = RBC) 3.64 4.70-6.10 [facility] H[id number] 10:47:00 Test Item Value Reference Range Interpretation Comments Hgb (test code = Hgb) 11.6 14.0-18.0 [facility] Hos[id number] 10:47:00 Test Item Value Reference Range Interpretation Comments Hct (test code = Hct) 34.3 42.0-54.0 [facility] H[id number] 10:47:00 Test Item Value Reference Range Interpretation Comments MCV (test code = MCV) 94.3 80.0-94.0 [facility] H[id number] 10:47:00 Test Item Value Reference Range Interpretation Comments MCH (test code = MCH) 32.0 pg 27.0-31.0 [facility] HospitalEniioxhHQGOLIWTIE7501-53-55 10:47:00 Test Item Value Reference Range Interpretation Comments MCHC (test code = MCHC) 33.9 32.0-36.0 [facility] H[id number] 10:47:00 Test Item Value Reference Range Interpretation Comments RDW (test code = RDW) 15.3 11.5-14.5 [facility] [id number] 10:47:00 Test Item Value Reference Range Interpretation Comments Platelet (test code = Platelet) 193 133-450 [facility] Hospit[id number] 10:47:00 Test Item Value Reference Range Interpretation Comments MPV (test code = MPV) 10.0 7.4-10.4 [facility] HospitalRtcvivdBKURDSLZUZ6623-06-01 10:47:00 Test Item Value Reference Range Interpretation Comments Segs (test code = Segs) 54.7 45.0-75.0 [facility] H[id number] 10:47:00 Test Item Value Reference Range Interpretation Comments Lymphocytes (test code = Lymphocytes) 32.3 20.0-40.0 [facility] HospitalX[id number] 10:47:00 Test Item Value Reference Range Interpretation Comments Monocytes (test code = Monocytes) 10.9 2.0-12.0 [facility] H[id number] 10:47:00 Test Item Value Reference Range Interpretation Comments Eosinophils (test code = 1.2 See_Comment [A utomated message] The Eosinophils) system which ge nerated this result tra nsmitted reference range : <=4.0. The reference r scott was not used to int erpret this result as normal/abnormal . [facility] [id number] 10:47:00 Test Item Value Reference Range Interpretation Comments Basophils (test code = 0.9 See_Comment [Aut omated message] The Basophils) system which ge nerated this result tra nsmitted reference range : <=1.0. The reference r scott was not used to int erpret this result as normal/abnormal . [facility] H[id number] 10:47:00 Test Item Value Reference Range Interpretation Comments Neutrophils # (test code = Neutrophils 2.7 1.5-8.1 #) [facility] H[id number] 10:47:00 Test Item Value Reference Range Interpretation Comments Lymphocytes # (test code = Lymphocytes 1.6 1.0-5.5 #) [facility] H[id number] 10:47:00 Test Item Value Reference Range Interpretation Comments Monocytes # (test code 0.5 See_Comment [Aut omated message] The = Monocytes #) system which generated this result tra nsmitted reference range : <=0.8. The reference r scott was not used to int erpret this result as normal/abnormal . [facility]PfcjnspCBZDPVBBEE9940-55-[facility] 10:47:00 Test Item Value Reference Range Interpretation Comments Eosinophils # (test code 0.1 See_Comment [A utomated message] The = Eosinophils #) system whic h generated this result tra nsmitted reference range : <=0.5. The reference r scott was not used to int erpret this result as normal/abnormal . [facility]2019-12-06 10:47:00 Test Item Value Reference Range Interpretation Comments Glucose Lvl (test code = Glucose Lvl) 108 70-99 [facility]2019-12-06 10:47:00 Test Item Value Reference Range Interpretation Comments BUN (test code = BUN) 7 7-22 [facility]2019-12-06 10:47:00 Test Item Value Reference Range Interpretation Comments Creatinine Lvl (test code = Creatinine 0.71 0.50-1.40 Lvl) [facility]2019-12-06 10:47:00 Test Item Value Reference Range Interpretation Comments Sodium Lvl (test code = Sodium Lvl) 140 135-145 [facility]2019-12-06 10:47:00 Test Item Value Reference Range Interpretation Comments Potassium Lvl (test code = Potassium 3.3 3.5-5.1 Lvl) [facility]2019-12-06 10:47:00 Test Item Value Reference Range Interpretation Comments Chloride Lvl (test code = Chloride Lvl) 109 95-109 [facility]2019-12-06 10:47:00 Test Item Value Reference Range Interpretation Comments CO2 (test code = CO2) 25 24-32 [facility]2019-12-06 10:47:00 Test Item Value Reference Range Interpretation Comments Calcium Lvl (test code = Calcium Lvl) 9.2 8.5-10.5 [facility]2019-12-06 10:47:00 Test Item Value Reference Range Interpretation Comments eGFR (test code = eGFR) 112 [facility]2019-12-06 10:47:00 Test Item Value Reference Range Interpretation Comments AGAP (test code = AGAP) 9.3 10.0-20.0 [facility]HdmkfvoLNKQXREAIM4766-17-52 10:47:00 Test Item Value Reference Range Interpretation Comments WBC (test code = WBC) 5.0 3.7-10.4 [place] 252829-12-06 10:47:00 Test Item Value Reference Range Interpretation Comments RBC (test code = RBC) 3.64 4.70-6.10 [facility] HospitalCiabmjxQLLLGAARFU7193-15-95 10:47:00 Test Item Value Reference Range Interpretation Comments Hgb (test code = Hgb) 11.6 14.0-18.0 [facility] HospitalZzpoqhtXUOPIMXWRH3894-47-54 10:47:00 Test Item Value Reference Range Interpretation Comments Hct (test code = Hct) 34.3 42.0-54.0 [facility] HospitalGxnipsuCNXXWAPICT6289-27-53 10:47:00 Test Item Value Reference Range Interpretation Comments MCV (test code = MCV) 94.3 80.0-94.0 [facility] HospitalMdkaoopTKQGYXWIFA6513-05-92 10:47:00 Test Item Value Reference Range Interpretation Comments MCH (test code = MCH) 32.0 pg 27.0-31.0 [facility] HospitalYhugjsiNADFGSCQHK2197-55-06 10:47:00 Test Item Value Reference Range Interpretation Comments MCHC (test code = MCHC) 33.9 32.0-36.0 [facility] HospitalSppmdxjVBYUMQCSMJ4420-74-99 10:47:00 Test Item Value Reference Range Interpretation Comments RDW (test code = RDW) 15.3 11.5-14.5 [facility] HospitalZtrpzhbVUHLTYGMDI5324-17-22 10:47:00 Test Item Value Reference Range Interpretation Comments Platelet (test code = Platelet) 193 133-450 [facility] HospitalKyxghvqDLASTJZJOR0889-55-95 10:47:00 Test Item Value Reference Range Interpretation Comments MPV (test code = MPV) 10.0 7.4-10.4 [facility] HospitalPrvteryFPLHASRDSP3164-66-78 10:47:00 Test Item Value Reference Range Interpretation Comments Segs (test code = Segs) 54.7 45.0-75.0 [facility] HospitalAtllpxhSIPFQQTCRP9323-45-90 10:47:00 Test Item Value Reference Range Interpretation Comments Lymphocytes (test code = Lymphocytes) 32.3 20.0-40.0 [facility] HospitalDkwnyvwQHTNDPNQLJ7908-56-38 10:47:00 Test Item Value Reference Range Interpretation Comments Monocytes (test code = Monocytes) 10.9 2.0-12.0 [facility] HospitalPwerksdVWSZLZBUJI4063-33-45 10:47:00 Test Item Value Reference Range Interpretation Comments Eosinophils (test code = 1.2 See_Comment [A utomated message] The Eosinophils) system which ge nerated this result tra nsmitted reference range : <=4.0. The reference r scott was not used to int erpret this result as normal/abnormal . [facility] HospitalOhyapjoEJXXMLEWUJ8898-12-66 10:47:00 Test Item Value Reference Range Interpretation Comments Basophils (test code = 0.9 See_Comment [Aut omated message] The Basophils) system which ge nerated this result tra nsmitted reference range : <=1.0. The reference r scott was not used to int erpret this result as normal/abnormal . [facility] HospitalQksglfvRSHWAOFXXH4605-93-64 10:47:00 Test Item Value Reference Range Interpretation Comments Neutrophils # (test code = Neutrophils 2.7 1.5-8.1 #) [facility] HospitalCfiqtfnRZCQAQNBBP0433-69-34 10:47:00 Test Item Value Reference Range Interpretation Comments Lymphocytes # (test code = Lymphocytes 1.6 1.0-5.5 #) [facility] HospitalZhhvlzkJBBMRPWQYD5726-50-37 10:47:00 Test Item Value Reference Range Interpretation Comments Monocytes # (test code 0.5 See_Comment [Aut omated message] The = Monocytes #) system which generated this result tra nsmitted reference range : <=0.8. The reference r scott was not used to int erpret this result as normal/abnormal . [facility] HospitalTlalqxiCKAJQJQTSQ9480-11-22 10:47:00 Test Item Value Reference Range Interpretation Comments Eosinophils # (test code 0.1 See_Comment [A utomated message] The = Eosinophils #) system whic h generated this result tra nsmitted reference range : <=0.5. The reference r scott was not used to int erpret this result as normal/abnormal . [facility]2019-12-06 10:47:00 Test Item Value Reference Range Interpretation Comments Glucose Lvl (test code = Glucose Lvl) 108 70-99 [facility]2019-12-06 10:47:00 Test Item Value Reference Range Interpretation Comments BUN (test code = BUN) 7 7-22 [facility]2019-12-06 10:47:00 Test Item Value Reference Range Interpretation Comments Creatinine Lvl (test code = Creatinine 0.71 0.50-1.40 Lvl) [facility]2019-12-06 10:47:00 Test Item Value Reference Range Interpretation Comments Sodium Lvl (test code = Sodium Lvl) 140 135-145 [facility]2019-12-06 10:47:00 Test Item Value Reference Range Interpretation Comments Potassium Lvl (test code = Potassium 3.3 3.5-5.1 Lvl) [facility]2019-12-06 10:47:00 Test Item Value Reference Range Interpretation Comments Chloride Lvl (test code = Chloride Lvl) 109 95-109 [facility]2019-12-06 10:47:00 Test Item Value Reference Range Interpretation Comments CO2 (test code = CO2) 25 24-32 [facility]2019-12-06 10:47:00 Test Item Value Reference Range Interpretation Comments Calcium Lvl (test code = Calcium Lvl) 9.2 8.5-10.5 [facility]2019-12-06 10:47:00 Test Item Value Reference Range Interpretation Comments eGFR (test code = eGFR) 112 [facility]2019-12-06 10:47:00 Test Item Value Reference Range Interpretation Comments AGAP (test code = AGAP) 9.3 10.0-20.0 [facility] HospitalNfdezflJEKLFXFPDM5052-41-73 10:47:00 Test Item Value Reference Range Interpretation Comments WBC (test code = WBC) 5.0 3.7-10.4 [facility] HospitalCobknozEHQLWWYDTF9329-44-29 10:47:00 Test Item Value Reference Range Interpretation Comments RBC (test code = RBC) 3.64 4.70-6.10 [facility] HospitalPfvypwwIRDOJPASPQ2984-81-27 10:47:00 Test Item Value Reference Range Interpretation Comments Hgb (test code = Hgb) 11.6 14.0-18.0 [facility] HospitalFnwxbabCPMPZAQYXK9522-22-56 10:47:00 Test Item Value Reference Range Interpretation Comments Hct (test code = Hct) 34.3 42.0-54.0 [place] 252829-12-06 10:47:00 Test Item Value Reference Range Interpretation Comments MCV (test code = MCV) 94.3 80.0-94.0 [facility] HospitalVkngkxzMMZOKAGSJZ8373-99-61 10:47:00 Test Item Value Reference Range Interpretation Comments MCH (test code = MCH) 32.0 pg 27.0-31.0 [facility] HospitalKizsazuZGJGTWGAWS3797-44-05 10:47:00 Test Item Value Reference Range Interpretation Comments MCHC (test code = MCHC) 33.9 32.0-36.0 [facility] HospitalSzngyprZCCLUSZWIO9727-44-69 10:47:00 Test Item Value Reference Range Interpretation Comments RDW (test code = RDW) 15.3 11.5-14.5 [facility] HospitalUvnzwbtAIUCIHKMPK9051-04-10 10:47:00 Test Item Value Reference Range Interpretation Comments Platelet (test code = Platelet) 193 133-450 [facility] HospitalFdjbqngDKGBABNJTI3018-73-17 10:47:00 Test Item Value Reference Range Interpretation Comments MPV (test code = MPV) 10.0 7.4-10.4 [facility] HospitalTxghqbxUNKZPAMTHJ5930-83-62 10:47:00 Test Item Value Reference Range Interpretation Comments Segs (test code = Segs) 54.7 45.0-75.0 [facility] HospitalHwjynyeSWOPGSQETX4291-30-82 10:47:00 Test Item Value Reference Range Interpretation Comments Lymphocytes (test code = Lymphocytes) 32.3 20.0-40.0 [facility] HospitalJcnvylqWIHHXWJHTI0451-18-71 10:47:00 Test Item Value Reference Range Interpretation Comments Monocytes (test code = Monocytes) 10.9 2.0-12.0 [facility] HospitalBzfelboAYUJPGUPJM1590-25-59 10:47:00 Test Item Value Reference Range Interpretation Comments Eosinophils (test code = 1.2 See_Comment [A utomated message] The Eosinophils) system which ge nerated this result tra nsmitted reference range : <=4.0. The reference r scott was not used to int erpret this result as normal/abnormal . [facility] HospitalLtbuspnJNKASFMBYX7544-93-29 10:47:00 Test Item Value Reference Range Interpretation Comments Basophils (test code = 0.9 See_Comment [Aut omated message] The Basophils) system which ge nerated this result tra nsmitted reference range : <=1.0. The reference r scott was not used to int erpret this result as normal/abnormal . [facility] HospitalDdssvysTMCGNCCQHX7875-51-11 10:47:00 Test Item Value Reference Range Interpretation Comments Neutrophils # (test code = Neutrophils 2.7 1.5-8.1 #) [facility] HospitalHjkmtboJBNWEZGTSZ2372-24-04 10:47:00 Test Item Value Reference Range Interpretation Comments Lymphocytes # (test code = Lymphocytes 1.6 1.0-5.5 #) [facility] HospitalNfqqbwmELAEVFFSCJ3518-45-21 10:47:00 Test Item Value Reference Range Interpretation Comments Monocytes # (test code 0.5 See_Comment [Aut omated message] The = Monocytes #) system which generated this result tra nsmitted reference range : <=0.8. The reference r scott was not used to int erpret this result as normal/abnormal . [facility] HospitalTvcyadiJOBFVFDATQ0358-38-10 10:47:00 Test Item Value Reference Range Interpretation Comments Eosinophils # (test code 0.1 See_Comment [A utomated message] The = Eosinophils #) system whic h generated this result tra nsmitted reference range : <=0.5. The reference r scott was not used to int erpret this result as normal/abnormal . [facility]2019-12-06 10:47:00 Test Item Value Reference Range Interpretation Comments Glucose Lvl (test code = Glucose Lvl) 108 70-99 [facility]2019-12-06 10:47:00 Test Item Value Reference Range Interpretation Comments BUN (test code = BUN) 7 7-22 [facility]2019-12-06 10:47:00 Test Item Value Reference Range Interpretation Comments Creatinine Lvl (test code = Creatinine 0.71 0.50-1.40 Lvl) [facility]2019-12-06 10:47:00 Test Item Value Reference Range Interpretation Comments Sodium Lvl (test code = Sodium Lvl) 140 135-145 [facility]2019-12-06 10:47:00 Test Item Value Reference Range Interpretation Comments Potassium Lvl (test code = Potassium 3.3 3.5-5.1 Lvl) [facility]2019-12-06 10:47:00 Test Item Value Reference Range Interpretation Comments Chloride Lvl (test code = Chloride Lvl) 109 95-109 [facility]2019-12-06 10:47:00 Test Item Value Reference Range Interpretation Comments CO2 (test code = CO2) 25 24-32 [facility]2019-12-06 10:47:00 Test Item Value Reference Range Interpretation Comments Calcium Lvl (test code = Calcium Lvl) 9.2 8.5-10.5 [facility]2019-12-06 10:47:00 Test Item Value Reference Range Interpretation Comments eGFR (test code = eGFR) 112 [facility]2019-12-06 10:47:00 Test Item Value Reference Range Interpretation Comments AGAP (test code = AGAP) 9.3 10.0-20.0 [facility] HospitalRhtcfdkRSILZYROTQ2211-01-89 10:47:00 Test Item Value Reference Range Interpretation Comments WBC (test code = WBC) 5.0 3.7-10.4 [facility] HospitalVlbhkkbYXJOHWWZSL7945-67-53 10:47:00 Test Item Value Reference Range Interpretation Comments RBC (test code = RBC) 3.64 4.70-6.10 [facility] HospitalWknctckDZXOXNTDYB8948-17-50 10:47:00 Test Item Value Reference Range Interpretation Comments Hgb (test code = Hgb) 11.6 14.0-18.0 [facility] HospitalRjrjkrvAOLWCRAAAF8409-20-71 10:47:00 Test Item Value Reference Range Interpretation Comments Hct (test code = Hct) 34.3 42.0-54.0 [facility] HospitalSfuiaxdXITTCOCHWP9845-59-32 10:47:00 Test Item Value Reference Range Interpretation Comments MCV (test code = MCV) 94.3 80.0-94.0 [facility] HospitalQjggaidTSLJOYQEWT1981-08-39 10:47:00 Test Item Value Reference Range Interpretation Comments MCH (test code = MCH) 32.0 pg 27.0-31.0 [facility] HospitalDfxjpaoEUMZHDVOTC5814-45-12 10:47:00 Test Item Value Reference Range Interpretation Comments MCHC (test code = MCHC) 33.9 32.0-36.0 [facility] HospitalOfcqiidRCEHIZJUVP6766-61-51 10:47:00 Test Item Value Reference Range Interpretation Comments RDW (test code = RDW) 15.3 11.5-14.5 [facility] HospitalNqwfqwmPWDFKDTRXD5812-93-81 10:47:00 Test Item Value Reference Range Interpretation Comments Platelet (test code = Platelet) 193 133-450 [facility] HospitalGpivyoaDGWMJYHZTV6577-70-16 10:47:00 Test Item Value Reference Range Interpretation Comments MPV (test code = MPV) 10.0 7.4-10.4 [facility] HospitalVvhvybhEGIKCNEMJI9303-74-68 10:47:00 Test Item Value Reference Range Interpretation Comments Segs (test code = Segs) 54.7 45.0-75.0 [facility] HospitalQlwsrsvBBLPJJDVAT2996-96-33 10:47:00 Test Item Value Reference Range Interpretation Comments Lymphocytes (test code = Lymphocytes) 32.3 20.0-40.0 [facility] HospitalEiazfxrEXBHRJXTJJ1733-72-36 10:47:00 Test Item Value Reference Range Interpretation Comments Monocytes (test code = Monocytes) 10.9 2.0-12.0 [facility] HospitalByfcxkhFRFJBUEQTW7514-93-15 10:47:00 Test Item Value Reference Range Interpretation Comments Eosinophils (test code = 1.2 See_Comment [A utomated message] The Eosinophils) system which ge nerated this result tra nsmitted reference range : <=4.0. The reference r scott was not used to int erpret this result as normal/abnormal . [facility] HospitalXeieaejJDMLYJOULY9714-39-65 10:47:00 Test Item Value Reference Range Interpretation Comments Basophils (test code = 0.9 See_Comment [Aut omated message] The Basophils) system which ge nerated this result tra nsmitted reference range : <=1.0. The reference r scott was not used to int erpret this result as normal/abnormal . [facility] HospitalKuhoqamYJYPMPEXCQ6381-45-18 10:47:00 Test Item Value Reference Range Interpretation Comments Neutrophils # (test code = Neutrophils 2.7 1.5-8.1 #) [facility] HospitalNgqwxbnPZCIGZBZRE6023-51-64 10:47:00 Test Item Value Reference Range Interpretation Comments Lymphocytes # (test code = Lymphocytes 1.6 1.0-5.5 #) [facility] HospitalMovdwhpYXBVWVVQTL0295-75-82 10:47:00 Test Item Value Reference Range Interpretation Comments Monocytes # (test code 0.5 See_Comment [Aut omated message] The = Monocytes #) system which generated this result tra nsmitted reference range : <=0.8. The reference r scott was not used to int erpret this result as normal/abnormal . [facility] HospitalLlydibqSOKASDVLRD8994-88-21 10:47:00 Test Item Value Reference Range Interpretation Comments Eosinophils # (test code 0.1 See_Comment [A utomated message] The = Eosinophils #) system whic h generated this result tra nsmitted reference range : <=0.5. The reference r scott was not used to int erpret this result as normal/abnormal . [facility] HospitalZixfjnnGRLTHHKZNI6303-30-88 07:20:00 Test Item Value Reference Range Interpretation Comments Platelet (test code = Platelet) 169 133-450 [facility] HospitalRlxdynxUEVTHXKTUG8919-72-83 07:20:00 Test Item Value Reference Range Interpretation Comments MPV (test code = MPV) 9.7 7.4-10.4 [facility]2019-12-05 07:20:00 Test Item Value Reference Range Interpretation Comments Glucose Lvl (test code = Glucose Lvl) 108 70-99 [facility]2019-12-05 07:20:00 Test Item Value Reference Range Interpretation Comments BUN (test code = BUN) 11 7-22 [facility]2019-12-05 07:20:00 Test Item Value Reference Range Interpretation Comments Creatinine Lvl (test code = Creatinine 0.74 0.50-1.40 Lvl) [facility]2019-12-05 07:20:00 Test Item Value Reference Range Interpretation Comments Sodium Lvl (test code = Sodium Lvl) 141 135-145 [facility]2019-12-05 07:20:00 Test Item Value Reference Range Interpretation Comments Potassium Lvl (test code = Potassium 3.3 3.5-5.1 Lvl) [facility]2019-12-05 07:20:00 Test Item Value Reference Range Interpretation Comments Chloride Lvl (test code = Chloride Lvl) 110 95-109 [facility]2019-12-05 07:20:00 Test Item Value Reference Range Interpretation Comments CO2 (test code = CO2) 27 24-32 [facility]2019-12-05 07:20:00 Test Item Value Reference Range Interpretation Comments Calcium Lvl (test code = Calcium Lvl) 8.6 8.5-10.5 [facility]2019-12-05 07:20:00 Test Item Value Reference Range Interpretation Comments eGFR (test code = eGFR) 110 [facility]2019-12-05 07:20:00 Test Item Value Reference Range Interpretation Comments AGAP (test code = AGAP) 7.3 10.0-20.0 [facility] HospitalYovntxiUZPQCNECOQ1009-32-57 07:20:00 Test Item Value Reference Range Interpretation Comments Segs (test code = Segs) 50.3 45.0-75.0 [facility] HospitalYtgmvdkOOTUTOPIAY2575-40-05 07:20:00 Test Item Value Reference Range Interpretation Comments Lymphocytes (test code = Lymphocytes) 35.9 20.0-40.0 [facility] HospitalQzgcaltXMVHJZAEJS3221-17-50 07:20:00 Test Item Value Reference Range Interpretation Comments Monocytes (test code = Monocytes) 12.4 2.0-12.0 [facility] HospitalVnsldqmGILGQTURPL9438-91-27 07:20:00 Test Item Value Reference Range Interpretation Comments Eosinophils (test code = 0.9 See_Comment [A utomated message] The Eosinophils) system which ge nerated this result tra nsmitted reference range : <=4.0. The reference r scott was not used to int erpret this result as normal/abnormal . [facility] HospitalYwwtxqiTWHFOVRCBA7738-22-35 07:20:00 Test Item Value Reference Range Interpretation Comments Basophils (test code = 0.5 See_Comment [Aut omated message] The Basophils) system which ge nerated this result tra nsmitted reference range : <=1.0. The reference r scott was not used to int erpret this result as normal/abnormal . [facility] HospitalFyaxdamIKHVMHDRDF3616-27-08 07:20:00 Test Item Value Reference Range Interpretation Comments Neutrophils # (test code = Neutrophils 3.0 1.5-8.1 #) [facility] HospitalTzajdkzOOAZQLENOY3765-69-18 07:20:00 Test Item Value Reference Range Interpretation Comments Lymphocytes # (test code = Lymphocytes 2.1 1.0-5.5 #) [facility] HospitalMpysihzYBLDJYAQRD3671-13-95 07:20:00 Test Item Value Reference Range Interpretation Comments Monocytes # (test code 0.7 See_Comment [Aut omated message] The = Monocytes #) system which generated this result tra nsmitted reference range : <=0.8. The reference r scott was not used to int erpret this result as normal/abnormal . [facility] HospitalJmvepzsBJSESBRSYM9894-19-49 07:20:00 Test Item Value Reference Range Interpretation Comments Eosinophils # (test code 0.1 See_Comment [A utomated message] The = Eosinophils #) system whic h generated this result tra nsmitted reference range : <=0.5. The reference r scott was not used to int erpret this result as normal/abnormal . [facility] HospitalYqbsxjwTEOYPUILKZ0080-93-64 07:20:00 Test Item Value Reference Range Interpretation Comments WBC (test code = WBC) 5.9 3.7-10.4 [facility] HospitalGbkjacrQMJLOUGDAF3085-77-16 07:20:00 Test Item Value Reference Range Interpretation Comments RBC (test code = RBC) 3.27 4.70-6.10 [facility] HospitalSevljkuGWEMYCHBPL1900-64-72 07:20:00 Test Item Value Reference Range Interpretation Comments Hgb (test code = Hgb) 10.5 14.0-18.0 [facility] HospitalEzpoasaALFTTNNYVS1973-83-17 07:20:00 Test Item Value Reference Range Interpretation Comments Hct (test code = Hct) 31.0 42.0-54.0 [facility] HospitalHpfxvveWIQYJFMJYQ8864-00-07 07:20:00 Test Item Value Reference Range Interpretation Comments MCV (test code = MCV) 94.7 80.0-94.0 [facility] HospitalNsvnlnfTSHWDUBNTN6586-82-27 07:20:00 Test Item Value Reference Range Interpretation Comments MCH (test code = MCH) 32.2 pg 27.0-31.0 [facility] HospitalYujxdmnQHYXVUCKHL4917-76-99 07:20:00 Test Item Value Reference Range Interpretation Comments MCHC (test code = MCHC) 34.0 32.0-36.0 [facility] HospitalBygmeicVVAIDPFUGQ1883-15-29 07:20:00 Test Item Value Reference Range Interpretation Comments RDW (test code = RDW) 15.0 11.5-14.5 [facility] HospitalAijcyucBESXDFRECG6381-17-31 07:20:00 Test Item Value Reference Range Interpretation Comments Platelet (test code = Platelet) 169 133-450 [facility] HospitalUxdoeydCURCGWJHUA2531-34-63 07:20:00 Test Item Value Reference Range Interpretation Comments MPV (test code = MPV) 9.7 7.4-10.4 [facility]2019-12-05 07:20:00 Test Item Value Reference Range Interpretation Comments Glucose Lvl (test code = Glucose Lvl) 108 70-99 [facility]2019-12-05 07:20:00 Test Item Value Reference Range Interpretation Comments BUN (test code = BUN) 11 7-22 [facility]2019-12-05 07:20:00 Test Item Value Reference Range Interpretation Comments Creatinine Lvl (test code = Creatinine 0.74 0.50-1.40 Lvl) [facility]2019-12-05 07:20:00 Test Item Value Reference Range Interpretation Comments Sodium Lvl (test code = Sodium Lvl) 141 135-145 [facility]2019-12-05 07:20:00 Test Item Value Reference Range Interpretation Comments Potassium Lvl (test code = Potassium 3.3 3.5-5.1 Lvl) [facility]2019-12-05 07:20:00 Test Item Value Reference Range Interpretation Comments Chloride Lvl (test code = Chloride Lvl) 110 95-109 [facility]2019-12-05 07:20:00 Test Item Value Reference Range Interpretation Comments CO2 (test code = CO2) 27 24-32 [facility]2019-12-05 07:20:00 Test Item Value Reference Range Interpretation Comments Calcium Lvl (test code = Calcium Lvl) 8.6 8.5-10.5 [facility]2019-12-05 07:20:00 Test Item Value Reference Range Interpretation Comments eGFR (test code = eGFR) 110 [facility]2019-12-05 07:20:00 Test Item Value Reference Range Interpretation Comments AGAP (test code = AGAP) 7.3 10.0-20.0 [facility] HospitalIypcpidXBOFCVLYHY2185-31-37 07:20:00 Test Item Value Reference Range Interpretation Comments Segs (test code = Segs) 50.3 45.0-75.0 [facility] HospitalMbnoijzWPXRIQAECX5032-53-73 07:20:00 Test Item Value Reference Range Interpretation Comments Lymphocytes (test code = Lymphocytes) 35.9 20.0-40.0 [facility]AblbwbyCBEFJBBUYM6842-49-22 07:20:00 Test Item Value Reference Range Interpretation Comments Monocytes (test code = Monocytes) 12.4 2.0-12.0 [facility] HospitalHchsdqcDXLUINGODH8734-72-70 07:20:00 Test Item Value Reference Range Interpretation Comments Eosinophils (test code = 0.9 See_Comment [A utomated message] The Eosinophils) system which ge nerated this result tra nsmitted reference range : <=4.0. The reference r scott was not used to int erpret this result as normal/abnormal . [facility] HospitalTdoayndCSDBMVKQAX1872-84-74 07:20:00 Test Item Value Reference Range Interpretation Comments Basophils (test code = 0.5 See_Comment [Aut omated message] The Basophils) system which ge nerated this result tra nsmitted reference range : <=1.0. The reference r scott was not used to int erpret this result as normal/abnormal . [facility] HospitalFwzvsosSUZKTTGURY5848-47-37 07:20:00 Test Item Value Reference Range Interpretation Comments Neutrophils # (test code = Neutrophils 3.0 1.5-8.1 #) [facility] HospitalEpxsonvYBABOCNNMV4966-23-60 07:20:00 Test Item Value Reference Range Interpretation Comments Lymphocytes # (test code = Lymphocytes 2.1 1.0-5.5 #) [facility] HospitalSjhrserSOODYFRQXV1322-57-75 07:20:00 Test Item Value Reference Range Interpretation Comments Monocytes # (test code 0.7 See_Comment [Aut omated message] The = Monocytes #) system which generated this result tra nsmitted reference range : <=0.8. The reference r scott was not used to int erpret this result as normal/abnormal . [facility] HospitalCyzzypwALACKEQIEW9525-82-82 07:20:00 Test Item Value Reference Range Interpretation Comments Eosinophils # (test code 0.1 See_Comment [A utomated message] The = Eosinophils #) system whic h generated this result tra nsmitted reference range : <=0.5. The reference r scott was not used to int erpret this result as normal/abnormal . [facility] HospitalScxnzlkUXMRWLFIHI8988-68-53 07:20:00 Test Item Value Reference Range Interpretation Comments WBC (test code = WBC) 5.9 3.7-10.4 [facility] HospitalAxnsgadDYNYGQKIAG9611-35-09 07:20:00 Test Item Value Reference Range Interpretation Comments RBC (test code = RBC) 3.27 4.70-6.10 [facility] HospitalTlrnpfkSOWTRFPRMQ6371-36-91 07:20:00 Test Item Value Reference Range Interpretation Comments Hgb (test code = Hgb) 10.5 14.0-18.0 [facility] HospitalMlrbiehXXBIVHWSAH6108-13-35 07:20:00 Test Item Value Reference Range Interpretation Comments Hct (test code = Hct) 31.0 42.0-54.0 [facility] HospitalJcwwscoCLAOLWUNLR8507-99-85 07:20:00 Test Item Value Reference Range Interpretation Comments MCV (test code = MCV) 94.7 80.0-94.0 [facility] HospitalJvoxpguHPDZOTAJLK8660-00-49 07:20:00 Test Item Value Reference Range Interpretation Comments MCH (test code = MCH) 32.2 pg 27.0-31.0 [facility] HospitalOgmqjuhYQFSPQNKIL9654-17-01 07:20:00 Test Item Value Reference Range Interpretation Comments MCHC (test code = MCHC) 34.0 32.0-36.0 [facility] HospitalDurymjqOBGXDTHINP2238-15-40 07:20:00 Test Item Value Reference Range Interpretation Comments RDW (test code = RDW) 15.0 11.5-14.5 [facility] HospitalNztxrosEYBPYRFCUH2036-42-03 07:20:00 Test Item Value Reference Range Interpretation Comments Platelet (test code = Platelet) 169 133-450 [facility] HospitalNetddsdOIOKJQGPDW1034-30-35 07:20:00 Test Item Value Reference Range Interpretation Comments MPV (test code = MPV) 9.7 7.4-10.4 [facility]2019-12-05 07:20:00 Test Item Value Reference Range Interpretation Comments Glucose Lvl (test code = Glucose Lvl) 108 70-99 [facility]2019-12-05 07:20:00 Test Item Value Reference Range Interpretation Comments BUN (test code = BUN) 11 7-22 [facility]2019-12-05 07:20:00 Test Item Value Reference Range Interpretation Comments Creatinine Lvl (test code = Creatinine 0.74 0.50-1.40 Lvl) [facility]2019-12-05 07:20:00 Test Item Value Reference Range Interpretation Comments Sodium Lvl (test code = Sodium Lvl) 141 135-145 [facility]2019-12-05 07:20:00 Test Item Value Reference Range Interpretation Comments Potassium Lvl (test code = Potassium 3.3 3.5-5.1 Lvl) [facility]2019-12-05 07:20:00 Test Item Value Reference Range Interpretation Comments Chloride Lvl (test code = Chloride Lvl) 110 95-109 [facility]2019-12-05 07:20:00 Test Item Value Reference Range Interpretation Comments CO2 (test code = CO2) 27 24-32 [facility]2019-12-05 07:20:00 Test Item Value Reference Range Interpretation Comments Calcium Lvl (test code = Calcium Lvl) 8.6 8.5-10.5 [facility]2019-12-05 07:20:00 Test Item Value Reference Range Interpretation Comments eGFR (test code = eGFR) 110 [facility]2019-12-05 07:20:00 Test Item Value Reference Range Interpretation Comments AGAP (test code = AGAP) 7.3 10.0-20.0 [facility] HospitalCrpjluyDIWZGSXFOB3039-09-28 07:20:00 Test Item Value Reference Range Interpretation Comments Segs (test code = Segs) 50.3 45.0-75.0 [facility] HospitalDvlsqjtKDLVOJLOIY8367-04-85 07:20:00 Test Item Value Reference Range Interpretation Comments Lymphocytes (test code = Lymphocytes) 35.9 20.0-40.0 [facility] HospitalJovqedcXRZFUWCLSW1998-50-52 07:20:00 Test Item Value Reference Range Interpretation Comments Monocytes (test code = Monocytes) 12.4 2.0-12.0 [facility] HospitalOruyraxDEGWMADPDM0468-35-74 07:20:00 Test Item Value Reference Range Interpretation Comments Eosinophils (test code = 0.9 See_Comment [A utomated message] The Eosinophils) system which ge nerated this result tra nsmitted reference range : <=4.0. The reference r scott was not used to int erpret this result as normal/abnormal . [facility] HospitalLphaopuVCRABFGTTZ0767-66-96 07:20:00 Test Item Value Reference Range Interpretation Comments Basophils (test code = 0.5 See_Comment [Aut omated message] The Basophils) system which ge nerated this result tra nsmitted reference range : <=1.0. The reference r scott was not used to int erpret this result as normal/abnormal . [facility] HospitalYmrscmrZFRVLPZAQV1524-56-89 07:20:00 Test Item Value Reference Range Interpretation Comments Neutrophils # (test code = Neutrophils 3.0 1.5-8.1 #) [facility] HospitalDwxmeqdDUINOCSYTA3550-69-74 07:20:00 Test Item Value Reference Range Interpretation Comments Lymphocytes # (test code = Lymphocytes 2.1 1.0-5.5 #) [facility] HospitalUwplfojWYHUSLWKDM4328-09-76 07:20:00 Test Item Value Reference Range Interpretation Comments Monocytes # (test code 0.7 See_Comment [Aut omated message] The = Monocytes #) system which generated this result tra nsmitted reference range : <=0.8. The reference r scott was not used to int erpret this result as normal/abnormal . [facility] HospitalZmremkeEUWADQVZUB5194-79-39 07:20:00 Test Item Value Reference Range Interpretation Comments Eosinophils # (test code 0.1 See_Comment [A utomated message] The = Eosinophils #) system whic h generated this result tra nsmitted reference range : <=0.5. The reference r scott was not used to int erpret this result as normal/abnormal . [facility] HospitalUwzsluoSRGUWZAVIL4218-40-85 07:20:00 Test Item Value Reference Range Interpretation Comments WBC (test code = WBC) 5.9 3.7-10.4 [facility] HospitalDszedpzPUJQCESQNT7128-21-93 07:20:00 Test Item Value Reference Range Interpretation Comments RBC (test code = RBC) 3.27 4.70-6.10 [facility] HospitalHcmrwcvBMNQAAKMTI9112-17-00 07:20:00 Test Item Value Reference Range Interpretation Comments Hgb (test code = Hgb) 10.5 14.0-18.0 [facility] HospitalWucsftnSGRJUHMFUM5026-42-37 07:20:00 Test Item Value Reference Range Interpretation Comments Hct (test code = Hct) 31.0 42.0-54.0 [facility] HospitalLlolycfMFRAFZPJMI3436-31-20 07:20:00 Test Item Value Reference Range Interpretation Comments MCV (test code = MCV) 94.7 80.0-94.0 [facility] HospitalWpwjkaeQHXYVTWIYK3376-62-83 07:20:00 Test Item Value Reference Range Interpretation Comments MCH (test code = MCH) 32.2 pg 27.0-31.0 [facility] HospitalPirhtdcSUIOKSULNM9164-46-85 07:20:00 Test Item Value Reference Range Interpretation Comments MCHC (test code = MCHC) 34.0 32.0-36.0 [facility] HospitalXjnzpomXUJALJLKAK1286-29-91 07:20:00 Test Item Value Reference Range Interpretation Comments RDW (test code = RDW) 15.0 11.5-14.5 [facility] HospitalEjublxoXHVHPKIHBU8698-21-69 07:20:00 Test Item Value Reference Range Interpretation Comments MCH (test code = MCH) 32.2 pg 27.0-31.0 [facility] HospitalRdftvjqYLCVTJVQCV0921-64-51 07:20:00 Test Item Value Reference Range Interpretation Comments MCHC (test code = MCHC) 34.0 32.0-36.0 [facility] HospitalTrnhmygIKQPZQFMJN8522-37-33 07:20:00 Test Item Value Reference Range Interpretation Comments RDW (test code = RDW) 15.0 11.5-14.5 [facility] HospitalKpdjqulIAWUMJJCAD0406-46-91 07:20:00 Test Item Value Reference Range Interpretation Comments Platelet (test code = Platelet) 169 133-450 [facility] HospitalBfmsftxDJFEWIUVTV7877-07-79 07:20:00 Test Item Value Reference Range Interpretation Comments MPV (test code = MPV) 9.7 7.4-10.4 [facility]2019-12-05 07:20:00 Test Item Value Reference Range Interpretation Comments Glucose Lvl (test code = Glucose Lvl) 108 70-99 [facility]2019-12-05 07:20:00 Test Item Value Reference Range Interpretation Comments BUN (test code = BUN) 11 7-22 [facility]2019-12-05 07:20:00 Test Item Value Reference Range Interpretation Comments Creatinine Lvl (test code = Creatinine 0.74 0.50-1.40 Lvl) [facility]2019-12-05 07:20:00 Test Item Value Reference Range Interpretation Comments Sodium Lvl (test code = Sodium Lvl) 141 135-145 [facility]2019-12-05 07:20:00 Test Item Value Reference Range Interpretation Comments Potassium Lvl (test code = Potassium 3.3 3.5-5.1 Lvl) [facility]2019-12-05 07:20:00 Test Item Value Reference Range Interpretation Comments Chloride Lvl (test code = Chloride Lvl) 110 95-109 [facility]2019-12-05 07:20:00 Test Item Value Reference Range Interpretation Comments CO2 (test code = CO2) 27 24-32 [facility]2019-12-05 07:20:00 Test Item Value Reference Range Interpretation Comments Calcium Lvl (test code = Calcium Lvl) 8.6 8.5-10.5 [facility]2019-12-05 07:20:00 Test Item Value Reference Range Interpretation Comments eGFR (test code = eGFR) 110 [facility]2019-12-05 07:20:00 Test Item Value Reference Range Interpretation Comments AGAP (test code = AGAP) 7.3 10.0-20.0 [facility] HospitalVicrtnrTVHFVCYGOD4377-84-97 07:20:00 Test Item Value Reference Range Interpretation Comments Segs (test code = Segs) 50.3 45.0-75.0 [facility] HospitalYpanezyTWRWOLAVIH5120-61-87 07:20:00 Test Item Value Reference Range Interpretation Comments Lymphocytes (test code = Lymphocytes) 35.9 20.0-40.0 [facility] HospitalKmnyxjlEEULEIBACF7494-79-10 07:20:00 Test Item Value Reference Range Interpretation Comments Monocytes (test code = Monocytes) 12.4 2.0-12.0 [facility] HospitalCxjsagqDKOEIMKMKX2022-36-68 07:20:00 Test Item Value Reference Range Interpretation Comments Eosinophils (test code = 0.9 See_Comment [A utomated message] The Eosinophils) system which ge nerated this result tra nsmitted reference range : <=4.0. The reference r scott was not used to int erpret this result as normal/abnormal . [facility] HospitalDcidzgnAMKRAKKXSJ9587-65-24 07:20:00 Test Item Value Reference Range Interpretation Comments Basophils (test code = 0.5 See_Comment [Aut omated message] The Basophils) system which ge nerated this result tra nsmitted reference range : <=1.0. The reference r scott was not used to int erpret this result as normal/abnormal . [facility] HospitalTeeirnuUFRWCBSZRM2034-57-25 07:20:00 Test Item Value Reference Range Interpretation Comments Neutrophils # (test code = Neutrophils 3.0 1.5-8.1 #) [facility] HospitalJdzhytnOQXGNGIEGW6997-66-63 07:20:00 Test Item Value Reference Range Interpretation Comments Lymphocytes # (test code = Lymphocytes 2.1 1.0-5.5 #) [facility] HospitalHupawljMADHPKIGHD6858-68-09 07:20:00 Test Item Value Reference Range Interpretation Comments Monocytes # (test code 0.7 See_Comment [Aut omated message] The = Monocytes #) system which generated this result tra nsmitted reference range : <=0.8. The reference r scott was not used to int erpret this result as normal/abnormal . [facility] HospitalWoubaenLVNIPAJPMC3033-91-98 07:20:00 Test Item Value Reference Range Interpretation Comments Eosinophils # (test code 0.1 See_Comment [A utomated message] The = Eosinophils #) system whic h generated this result tra nsmitted reference range : <=0.5. The reference r scott was not used to int erpret this result as normal/abnormal . [facility] HospitalZtihxkmDYAXSJGSGT8109-57-84 07:20:00 Test Item Value Reference Range Interpretation Comments WBC (test code = WBC) 5.9 3.7-10.4 [facility] HospitalCrxmgckKMROAKXYWO5496-75-24 07:20:00 Test Item Value Reference Range Interpretation Comments RBC (test code = RBC) 3.27 4.70-6.10 [facility] HospitalEzzniwwLZYCHSWSUF8860-85-75 07:20:00 Test Item Value Reference Range Interpretation Comments Hgb (test code = Hgb) 10.5 14.0-18.0 [facility] HospitalZhkdokoBXIKZFWYSB4036-87-39 07:20:00 Test Item Value Reference Range Interpretation Comments Hct (test code = Hct) 31.0 42.0-54.0 [facility] HospitalScjeviePIYVLISHZF5151-33-50 07:20:00 Test Item Value Reference Range Interpretation Comments MCV (test code = MCV) 94.7 80.0-94.0 [facility]2019-12-04 08:35:00 Test Item Value Reference Range Interpretation Comments Glucose Lvl (test code = Glucose Lvl) 116 70-99 [facility]2019-12-04 08:35:00 Test Item Value Reference Range Interpretation Comments BUN (test code = BUN) 9 7-22 [facility]2019-12-04 08:35:00 Test Item Value Reference Range Interpretation Comments Creatinine Lvl (test code = Creatinine 0.91 0.50-1.40 Lvl) [facility]2019-12-04 08:35:00 Test Item Value Reference Range Interpretation Comments Sodium Lvl (test code = Sodium Lvl) 141 135-145 [facility]2019-12-04 08:35:00 Test Item Value Reference Range Interpretation Comments Potassium Lvl (test code = Potassium 3.5 3.5-5.1 Lvl) [facility]2019-12-04 08:35:00 Test Item Value Reference Range Interpretation Comments Chloride Lvl (test code = Chloride Lvl) 111 95-109 [facility]2019-12-04 08:35:00 Test Item Value Reference Range Interpretation Comments CO2 (test code = CO2) 26 24-32 [place] 490029-12-04 08:35:00 Test Item Value Reference Range Interpretation Comments AGAP (test code = AGAP) 7.5 10.0-20.0 [facility]2019-12-04 08:35:00 Test Item Value Reference Range Interpretation Comments Calcium Lvl (test code = Calcium Lvl) 8.9 8.5-10.5 [facility]2019-12-04 08:35:00 Test Item Value Reference Range Interpretation Comments eGFR (test code = eGFR) 101 [facility]2019-12-04 08:35:00 Test Item Value Reference Range Interpretation Comments Magnesium Lvl (test code = Magnesium 2.3 1.8-2.4 Lvl) [facility]2019-12-04 08:35:00 Test Item Value Reference Range Interpretation Comments Phosphorus (test code = Phosphorus) 3.6 2.5-4.5 [facility] HospitalSxqrbqxQQXSCQNMDF0003-81-78 08:35:00 Test Item Value Reference Range Interpretation Comments WBC (test code = WBC) 6.8 3.7-10.4 [facility] HospitalZogqepsQVFMFAAFBN5960-62-82 08:35:00 Test Item Value Reference Range Interpretation Comments RBC (test code = RBC) 3.64 4.70-6.10 [place] 252829-12-04 08:35:00 Test Item Value Reference Range Interpretation Comments Hgb (test code = Hgb) 11.6 14.0-18.0 [facility] HospitalDimnpjmRWGOPIMOBC8917-63-58 08:35:00 Test Item Value Reference Range Interpretation Comments Hct (test code = Hct) 34.8 42.0-54.0 [place] 252829-12-04 08:35:00 Test Item Value Reference Range Interpretation Comments MCV (test code = MCV) 95.6 80.0-94.0 [facility] HospitalAfyvgzgFBSAHZSBSC5527-60-62 08:35:00 Test Item Value Reference Range Interpretation Comments MCH (test code = MCH) 31.9 pg 27.0-31.0 [facility] HospitalCtxgzvuFEGLGSKKHD3804-27-54 08:35:00 Test Item Value Reference Range Interpretation Comments MCHC (test code = MCHC) 33.4 32.0-36.0 [facility] HospitalNoylcgaZMIHXBIWSI7003-53-64 08:35:00 Test Item Value Reference Range Interpretation Comments RDW (test code = RDW) 15.1 11.5-14.5 [facility] HospitalYdvwubcRBUVYEKNCF6855-45-91 08:35:00 Test Item Value Reference Range Interpretation Comments Platelet (test code = Platelet) 196 133-450 [facility] HospitalWcvvjgwZBVVNEGCEX8520-85-83 08:35:00 Test Item Value Reference Range Interpretation Comments MPV (test code = MPV) 9.6 7.4-10.4 [facility] HospitalLoxeflnRBNUJJFVCB1372-03-71 08:35:00 Test Item Value Reference Range Interpretation Comments Segs (test code = Segs) 63.7 45.0-75.0 [facility] HospitalJhpmpzbQHJQFAODRG5718-03-02 08:35:00 Test Item Value Reference Range Interpretation Comments Lymphocytes (test code = Lymphocytes) 24.4 20.0-40.0 [facility] HospitalCnotmmwAWZSVGIFTT8819-89-05 08:35:00 Test Item Value Reference Range Interpretation Comments Monocytes (test code = Monocytes) 10.8 2.0-12.0 [facility] HospitalJaywxqyQDXJCNXFLA4943-25-45 08:35:00 Test Item Value Reference Range Interpretation Comments Eosinophils (test code = 0.5 See_Comment [A utomated message] The Eosinophils) system which ge nerated this result tra nsmitted reference range : <=4.0. The reference r scott was not used to int erpret this result as normal/abnormal . [facility] HospitalXkpvidqHANGTJFOKJ4330-06-71 08:35:00 Test Item Value Reference Range Interpretation Comments Basophils (test code = 0.6 See_Comment [Aut omated message] The Basophils) system which ge nerated this result tra nsmitted reference range : <=1.0. The reference r scott was not used to int erpret this result as normal/abnormal . [place] [address]-12-04 08:35:00 Test Item Value Reference Range Interpretation Comments Neutrophils # (test code = Neutrophils 4.3 1.5-8.1 #) [facility] HospitalZzkzdmaFBXSBKJBSJ3339-70-57 08:35:00 Test Item Value Reference Range Interpretation Comments Lymphocytes # (test code = Lymphocytes 1.7 1.0-5.5 #) [facility] HospitalCuwgvdjRAMGWVCFOH8561-80-12 08:35:00 Test Item Value Reference Range Interpretation Comments Monocytes # (test code 0.7 See_Comment [Aut omated message] The = Monocytes #) system which generated this result tra nsmitted reference range : <=0.8. The reference r scott was not used to int erpret this result as normal/abnormal . [facility]2019-12-04 08:35:00 Test Item Value Reference Range Interpretation Comments Ca Ion WB (test code = Ca Ion WB) 1.14 1.05-1.25 [facility]2019-12-04 08:35:00 Test Item Value Reference Range Interpretation Comments Ca Norm WB (test code = Ca Norm WB) 1.15 1.05-1.25 [facility]2019-12-04 08:35:00 Test Item Value Reference Range Interpretation Comments Glucose Lvl (test code = Glucose Lvl) 116 70-99 [facility]2019-12-04 08:35:00 Test Item Value Reference Range Interpretation Comments BUN (test code = BUN) 9 7-22 [facility]2019-12-04 08:35:00 Test Item Value Reference Range Interpretation Comments Creatinine Lvl (test code = Creatinine 0.91 0.50-1.40 Lvl) [facility]2019-12-04 08:35:00 Test Item Value Reference Range Interpretation Comments Sodium Lvl (test code = Sodium Lvl) 141 135-145 [facility]2019-12-04 08:35:00 Test Item Value Reference Range Interpretation Comments Potassium Lvl (test code = Potassium 3.5 3.5-5.1 Lvl) [facility]2019-12-04 08:35:00 Test Item Value Reference Range Interpretation Comments Chloride Lvl (test code = Chloride Lvl) 111 95-109 [facility]2019-12-04 08:35:00 Test Item Value Reference Range Interpretation Comments CO2 (test code = CO2) 26 24-32 [facility]2019-12-04 08:35:00 Test Item Value Reference Range Interpretation Comments AGAP (test code = AGAP) 7.5 10.0-20.0 [facility]2019-12-04 08:35:00 Test Item Value Reference Range Interpretation Comments Calcium Lvl (test code = Calcium Lvl) 8.9 8.5-10.5 [facility]2019-12-04 08:35:00 Test Item Value Reference Range Interpretation Comments eGFR (test code = eGFR) 101 [facility]2019-12-04 08:35:00 Test Item Value Reference Range Interpretation Comments Magnesium Lvl (test code = Magnesium 2.3 1.8-2.4 Lvl) [facility]2019-12-04 08:35:00 Test Item Value Reference Range Interpretation Comments Phosphorus (test code = Phosphorus) 3.6 2.5-4.5 [facility] HospitalRmtdpwoXTKONUYJEC8631-00-67 08:35:00 Test Item Value Reference Range Interpretation Comments WBC (test code = WBC) 6.8 3.7-10.4 [facility] HospitalXxuecnbYUOQBIAPQC7953-47-69 08:35:00 Test Item Value Reference Range Interpretation Comments RBC (test code = RBC) 3.64 4.70-6.10 [facility] HospitalOamwylrWSTSPSNIDD0347-31-74 08:35:00 Test Item Value Reference Range Interpretation Comments Hgb (test code = Hgb) 11.6 14.0-18.0 [place] 252829-12-04 08:35:00 Test Item Value Reference Range Interpretation Comments Hct (test code = Hct) 34.8 42.0-54.0 [facility] HospitalUounantCNKAMJSDDS6808-63-74 08:35:00 Test Item Value Reference Range Interpretation Comments MCV (test code = MCV) 95.6 80.0-94.0 [facility] HospitalXmbxvmbJUPMQSATJP0962-55-31 08:35:00 Test Item Value Reference Range Interpretation Comments MCH (test code = MCH) 31.9 pg 27.0-31.0 [place] 252829-12-04 08:35:00 Test Item Value Reference Range Interpretation Comments MCHC (test code = MCHC) 33.4 32.0-36.0 [facility] HospitalCwgahruTNJMOOXUCI9752-08-48 08:35:00 Test Item Value Reference Range Interpretation Comments RDW (test code = RDW) 15.1 11.5-14.5 [facility] HospitalBhzsajdADQQFNATGL8832-23-11 08:35:00 Test Item Value Reference Range Interpretation Comments Platelet (test code = Platelet) 196 133-450 [facility] HospitalWixuplqJUVSQDLQGN8642-76-72 08:35:00 Test Item Value Reference Range Interpretation Comments MPV (test code = MPV) 9.6 7.4-10.4 [facility] HospitalMnubdtzMZDMCOMVQJ0361-94-00 08:35:00 Test Item Value Reference Range Interpretation Comments Segs (test code = Segs) 63.7 45.0-75.0 [facility] HospitalOmaookbUULNUXBGJT4208-06-44 08:35:00 Test Item Value Reference Range Interpretation Comments Lymphocytes (test code = Lymphocytes) 24.4 20.0-40.0 [facility] HospitalFjtcxgfDSLQHDHWJO6745-09-29 08:35:00 Test Item Value Reference Range Interpretation Comments Monocytes (test code = Monocytes) 10.8 2.0-12.0 [facility] HospitalTgbplulLLRUXVACZJ8389-06-23 08:35:00 Test Item Value Reference Range Interpretation Comments Eosinophils (test code = 0.5 See_Comment [A utomated message] The Eosinophils) system which ge nerated this result tra nsmitted reference range : <=4.0. The reference r scott was not used to int erpret this result as normal/abnormal . [facility] HospitalAbgapvgDBGDTAQLCI5243-26-90 08:35:00 Test Item Value Reference Range Interpretation Comments Basophils (test code = 0.6 See_Comment [Aut omated message] The Basophils) system which ge nerated this result tra nsmitted reference range : <=1.0. The reference r scott was not used to int erpret this result as normal/abnormal . [id number] 08:35:00 Test Item Value Reference Range Interpretation Comments Neutrophils # (test code = Neutrophils 4.3 1.5-8.1 #) [id number] 08:35:00 Test Item Value Reference Range Interpretation Comments Lymphocytes # (test code = Lymphocytes 1.7 1.0-5.5 #) [facility] HospitalDfytpqsDDATDJDLEO4840-30-49 08:35:00 Test Item Value Reference Range Interpretation Comments Monocytes # (test code 0.7 See_Comment [Aut omated message] The = Monocytes #) system which generated this result tra nsmitted reference range : <=0.8. The reference r scott was not used to int erpret this result as normal/abnormal . [facility]2019-12-04 08:35:00 Test Item Value Reference Range Interpretation Comments Ca Ion WB (test code = Ca Ion WB) 1.14 1.05-1.25 [facility]2019-12-04 08:35:00 Test Item Value Reference Range Interpretation Comments Ca Norm WB (test code = Ca Norm WB) 1.15 1.05-1.25 [facility]2019-12-04 08:35:00 Test Item Value Reference Range Interpretation Comments Glucose Lvl (test code = Glucose Lvl) 116 70-99 [facility]2019-12-04 08:35:00 Test Item Value Reference Range Interpretation Comments BUN (test code = BUN) 9 7-22 [facility]2019-12-04 08:35:00 Test Item Value Reference Range Interpretation Comments Creatinine Lvl (test code = Creatinine 0.91 0.50-1.40 Lvl) [facility]2019-12-04 08:35:00 Test Item Value Reference Range Interpretation Comments Sodium Lvl (test code = Sodium Lvl) 141 135-145 [facility]2019-12-04 08:35:00 Test Item Value Reference Range Interpretation Comments Potassium Lvl (test code = Potassium 3.5 3.5-5.1 Lvl) [facility]2019-12-04 08:35:00 Test Item Value Reference Range Interpretation Comments Chloride Lvl (test code = Chloride Lvl) 111 95-109 [facility]2019-12-04 08:35:00 Test Item Value Reference Range Interpretation Comments CO2 (test code = CO2) 26 24-32 [facility]2019-12-04 08:35:00 Test Item Value Reference Range Interpretation Comments AGAP (test code = AGAP) 7.5 10.0-20.0 [facility]2019-12-04 08:35:00 Test Item Value Reference Range Interpretation Comments Calcium Lvl (test code = Calcium Lvl) 8.9 8.5-10.5 [facility]2019-12-04 08:35:00 Test Item Value Reference Range Interpretation Comments eGFR (test code = eGFR) 101 [facility]2019-12-04 08:35:00 Test Item Value Reference Range Interpretation Comments Magnesium Lvl (test code = Magnesium 2.3 1.8-2.4 Lvl) [facility]2019-12-04 08:35:00 Test Item Value Reference Range Interpretation Comments Phosphorus (test code = Phosphorus) 3.6 2.5-4.5 [facility] Hos[id number] 08:35:00 Test Item Value Reference Range Interpretation Comments WBC (test code = WBC) 6.8 3.7-10.4 [facility] HospitalPtutxwoHPXDFLGQYJ8464-61-48 08:35:00 Test Item Value Reference Range Interpretation Comments RBC (test code = RBC) 3.64 4.70-6.10 [place] 252829-12-04 08:35:00 Test Item Value Reference Range Interpretation Comments Hgb (test code = Hgb) 11.6 14.0-18.0 [place] 252829-12-04 08:35:00 Test Item Value Reference Range Interpretation Comments Hct (test code = Hct) 34.8 42.0-54.0 [place] 252829-12-04 08:35:00 Test Item Value Reference Range Interpretation Comments MCV (test code = MCV) 95.6 80.0-94.0 [place] 252829-12-04 08:35:00 Test Item Value Reference Range Interpretation Comments MCH (test code = MCH) 31.9 pg 27.0-31.0 [place] 252829-12-04 08:35:00 Test Item Value Reference Range Interpretation Comments MCHC (test code = MCHC) 33.4 32.0-36.0 [place] 252829-12-04 08:35:00 Test Item Value Reference Range Interpretation Comments RDW (test code = RDW) 15.1 11.5-14.5 [place] 252829-12-04 08:35:00 Test Item Value Reference Range Interpretation Comments Platelet (test code = Platelet) 196 133-450 [facility] HospitalY[id number] 08:35:00 Test Item Value Reference Range Interpretation Comments MPV (test code = MPV) 9.6 7.4-10.4 [facility] HospitalJczcklyINFASVHVZN7327-49-15 08:35:00 Test Item Value Reference Range Interpretation Comments Segs (test code = Segs) 63.7 45.0-75.0 [facility] HospitalMnttkbiETKUSESXBY3398-76-45 08:35:00 Test Item Value Reference Range Interpretation Comments Lymphocytes (test code = Lymphocytes) 24.4 20.0-40.0 [facility] HospitalAifyrbyQCTQVSVARB6417-77-24 08:35:00 Test Item Value Reference Range Interpretation Comments Monocytes (test code = Monocytes) 10.8 2.0-12.0 [facility] HospitalBjvucgfWLHDWWUQNB2394-27-08 08:35:00 Test Item Value Reference Range Interpretation Comments Eosinophils (test code = 0.5 See_Comment [A utomated message] The Eosinophils) system which ge nerated this result tra nsmitted reference range : <=4.0. The reference r scott was not used to int erpret this result as normal/abnormal . [facility] HospitalKysdvpgSXEJHBGVJP1878-51-88 08:35:00 Test Item Value Reference Range Interpretation Comments Basophils (test code = 0.6 See_Comment [Aut omated message] The Basophils) system which ge nerated this result tra nsmitted reference range : <=1.0. The reference r scott was not used to int erpret this result as normal/abnormal . [facility] HospitalNtfnlbtEHEKLHSKEH6397-04-69 08:35:00 Test Item Value Reference Range Interpretation Comments Neutrophils # (test code = Neutrophils 4.3 1.5-8.1 #) [facility] HospitalYxemrtiISLUDPNVMT3238-17-99 08:35:00 Test Item Value Reference Range Interpretation Comments Lymphocytes # (test code = Lymphocytes 1.7 1.0-5.5 #) [facility] HospitalLzgtoiyETORSRURZT8646-88-63 08:35:00 Test Item Value Reference Range Interpretation Comments Monocytes # (test code 0.7 See_Comment [Aut omated message] The = Monocytes #) system which generated this result tra nsmitted reference range : <=0.8. The reference r scott was not used to int erpret this result as normal/abnormal . [facility]2019-12-04 08:35:00 Test Item Value Reference Range Interpretation Comments Ca Ion WB (test code = Ca Ion WB) 1.14 1.05-1.25 [facility]2019-12-04 08:35:00 Test Item Value Reference Range Interpretation Comments Ca Norm WB (test code = Ca Norm WB) 1.15 1.05-1.25 [facility]2019-12-04 08:35:00 Test Item Value Reference Range Interpretation Comments Glucose Lvl (test code = Glucose Lvl) 116 70-99 [facility]2019-12-04 08:35:00 Test Item Value Reference Range Interpretation Comments BUN (test code = BUN) 9 7-22 [facility]2019-12-04 08:35:00 Test Item Value Reference Range Interpretation Comments Creatinine Lvl (test code = Creatinine 0.91 0.50-1.40 Lvl) [facility]2019-12-04 08:35:00 Test Item Value Reference Range Interpretation Comments Sodium Lvl (test code = Sodium Lvl) 141 135-145 [facility]2019-12-04 08:35:00 Test Item Value Reference Range Interpretation Comments Potassium Lvl (test code = Potassium 3.5 3.5-5.1 Lvl) [facility]2019-12-04 08:35:00 Test Item Value Reference Range Interpretation Comments Chloride Lvl (test code = Chloride Lvl) 111 95-109 [facility]2019-12-04 08:35:00 Test Item Value Reference Range Interpretation Comments CO2 (test code = CO2) 26 24-32 [facility]2019-12-04 08:35:00 Test Item Value Reference Range Interpretation Comments AGAP (test code = AGAP) 7.5 10.0-20.0 [facility]2019-12-04 08:35:00 Test Item Value Reference Range Interpretation Comments Calcium Lvl (test code = Calcium Lvl) 8.9 8.5-10.5 [place] 490029-12-04 08:35:00 Test Item Value Reference Range Interpretation Comments eGFR (test code = eGFR) 101 [facility]2019-12-04 08:35:00 Test Item Value Reference Range Interpretation Comments Magnesium Lvl (test code = Magnesium 2.3 1.8-2.4 Lvl) [facility]2019-12-04 08:35:00 Test Item Value Reference Range Interpretation Comments Phosphorus (test code = Phosphorus) 3.6 2.5-4.5 [facility] HospitalUnkqabaIQCPWOMARP4724-94-40 08:35:00 Test Item Value Reference Range Interpretation Comments WBC (test code = WBC) 6.8 3.7-10.4 [facility] HospitalLybjagaKGLLOVGZPA8456-41-89 08:35:00 Test Item Value Reference Range Interpretation Comments RBC (test code = RBC) 3.64 4.70-6.10 [facility] HospitalKinfltvDOWDSJBMJA4717-15-65 08:35:00 Test Item Value Reference Range Interpretation Comments Hgb (test code = Hgb) 11.6 14.0-18.0 [facility] HospitalRhcxslwZKKXJKPGUO2879-75-42 08:35:00 Test Item Value Reference Range Interpretation Comments Hct (test code = Hct) 34.8 42.0-54.0 [facility] HospitalKdirjvvGGMHQFMNUK7035-80-77 08:35:00 Test Item Value Reference Range Interpretation Comments MCV (test code = MCV) 95.6 80.0-94.0 [facility] HospitalMvykvzgGOSDFCBIVA9522-51-03 08:35:00 Test Item Value Reference Range Interpretation Comments MCH (test code = MCH) 31.9 pg 27.0-31.0 [facility] HospitalUthfukhZPKJKCHNMK0289-68-80 08:35:00 Test Item Value Reference Range Interpretation Comments MCHC (test code = MCHC) 33.4 32.0-36.0 [facility] HospitalLfyvzxuIVBPIUPPHG0308-04-12 08:35:00 Test Item Value Reference Range Interpretation Comments RDW (test code = RDW) 15.1 11.5-14.5 [facility] HospitalLatykdtMFFMTODLKV9500-29-93 08:35:00 Test Item Value Reference Range Interpretation Comments Platelet (test code = Platelet) 196 133-450 [facility] HospitalVqacjqhOOOKCYJVTA6274-55-81 08:35:00 Test Item Value Reference Range Interpretation Comments MPV (test code = MPV) 9.6 7.4-10.4 [facility] HospitalWrtvehtGFBEAPPVMH5642-72-02 08:35:00 Test Item Value Reference Range Interpretation Comments Segs (test code = Segs) 63.7 45.0-75.0 [facility] HospitalWzsozhaGQBOGLFJWE2319-84-59 08:35:00 Test Item Value Reference Range Interpretation Comments Lymphocytes (test code = Lymphocytes) 24.4 20.0-40.0 [facility] HospitalEedhgwvNIUXFESOAA6856-10-82 08:35:00 Test Item Value Reference Range Interpretation Comments Monocytes (test code = Monocytes) 10.8 2.0-12.0 [facility] HospitalFomzkdcYFDJHZJZAJ5399-00-67 08:35:00 Test Item Value Reference Range Interpretation Comments Eosinophils (test code = 0.5 See_Comment [A utomated message] The Eosinophils) system which ge nerated this result tra nsmitted reference range : <=4.0. The reference r scott was not used to int erpret this result as normal/abnormal . [facility] HospitalEuhgwffMLFKEPBAGU5512-68-14 08:35:00 Test Item Value Reference Range Interpretation Comments Basophils (test code = 0.6 See_Comment [Aut omated message] The Basophils) system which ge nerated this result tra nsmitted reference range : <=1.0. The reference r scott was not used to int erpret this result as normal/abnormal . [facility] HospitalItlhdxvVVNLSWVSJG1056-28-48 08:35:00 Test Item Value Reference Range Interpretation Comments Neutrophils # (test code = Neutrophils 4.3 1.5-8.1 #) [facility] Hospit[id number] 08:35:00 Test Item Value Reference Range Interpretation Comments Lymphocytes # (test code = Lymphocytes 1.7 1.0-5.5 #) [facility] HospitalXtaapxzUEAEGTFIKF9042-39-18 08:35:00 Test Item Value Reference Range Interpretation Comments Monocytes # (test code 0.7 See_Comment [Aut omated message] The = Monocytes #) system which generated this result tra nsmitted reference range : <=0.8. The reference r scott was not used to int erpret this result as normal/abnormal . [facility]2019-12-04 08:35:00 Test Item Value Reference Range Interpretation Comments Ca Ion WB (test code = Ca Ion WB) 1.14 1.05-1.25 [facility]2019-12-04 08:35:00 Test Item Value Reference Range Interpretation Comments Ca Norm WB (test code = Ca Norm WB) 1.15 1.05-1.25 [facility] [id number] 19:09:00 Test Item Value Reference Range Interpretation Comments MRSA by PCR (test Negative (05/07/19 1:09 code = MRSA by PCR) PM) [facility] [id number] 19:09:00 Test Item Value Reference Range Interpretation Comments MRSA by PCR (test Negative (05/07/19 1:09 code = MRSA by PCR) PM) [facility] [id number] 19:09:00 Test Item Value Reference Range Interpretation Comments MRSA by PCR (test Negative (05/07/19 1:09 code = MRSA by PCR) PM) [facility] [id number] 19:09:00 Test Item Value Reference Range Interpretation Comments MRSA by PCR (test Negative (05/07/19 1:09 code = MRSA by PCR) PM) [facility] AND [id number] 17:32:00 Test Item Value Reference Range Interpretation Comments UA Color (test code = Light Yellow UA Color) *NA*(05/07/19 11:32 AM) [facility] AND [id number] 17:32:00 Test Item Value Reference Range Interpretation Comments UA Turbidity (test code Slight *ABN*(05/07/19 = UA Turbidity) 11:32 AM) [facility] AND [id number] 17:32:00 Test Item Value Reference Range Interpretation Comments UA Spec Grav (test code = UA Spec 1.011 1 Grav) [facility] AND [id number] 17:32:00 Test Item Value Reference Range Interpretation Comments UA pH (test code = UA pH) 8.0 1 5.0-8.0 [facility] AND [id number] 17:32:00 Test Item Value Reference Range Interpretation Comments UA Protein (test code Negative (05/07/19 11:32 = UA Protein) AM) [facility] AND [id number] 17:32:00 Test Item Value Reference Range Interpretation Comments UA Glucose (test code Negative *NA*(05/07/19 = UA Glucose) 11:32 AM) [facility] AND [id number] 17:32:00 Test Item Value Reference Range Interpretation Comments UA Ketones (test code Negative *NA*(05/07/19 = UA Ketones) 11:32 AM) [facility] AND [id number] 17:32:00 Test Item Value Reference Range Interpretation Comments UA Bili (test code = Negative *NA*(05/07/19 UA Bili) 11:32 AM) [facility] AND [id number] 17:32:00 Test Item Value Reference Range Interpretation Comments UA Blood (test code = Negative (05/07/19 11:32 UA Blood) AM) [facility] AND [id number] 17:32:00 Test Item Value Reference Range Interpretation Comments UA Urobilinogen (test code = UA 2.0 0.1-1.0 Urobilinogen) [facility] AND [id number] 17:32:00 Test Item Value Reference Range Interpretation Comments UA Nitrite (test code Negative (05/07/19 11:32 = UA Nitrite) AM) [facility] AND [id number] 17:32:00 Test Item Value Reference Range Interpretation Comments UA Leuk Est (test Negative (05/07/19 11:32 code = UA Leuk Est) AM) [facility] AND [id number] 17:32:00 Test Item Value Reference Range Interpretation Comments UA Sq Epi (test code = UA Sq Occasional /LPF Epi) [facility] AND [id number] 17:32:00 Test Item Value Reference Range Interpretation Comments UA WBC (test None Seen See_Comment [Automated mes gianni] code = UA WBC) (05/07/19 11:32 The system which AM) generated this result transmitted ref erence range: <=5. The reference range was not used to int erpret this result as normal/abnormal . [facility] AND [id number] 17:32:00 Test Item Value Reference Range Interpretation Comments UA RBC (test None Seen See_Comment [Automated mes gianni] code = UA RBC) (05/07/19 11:32 The system which AM) generated this result transmitted ref erence range: <=2. The reference range was not used to int erpret this result as normal/abnormal . [facility] AND [id number] 17:32:00 Test Item Value Reference Range Interpretation Comments UA Bacteria (test code = None Seen (05/07/19 UA Bacteria) 11:32 AM) [facility] AND [id number] 17:32:00 Test Item Value Reference Range Interpretation Comments UA Mucus (test code = UA Mucus) Few /LPF [facility] AND [id number] 17:32:00 Test Item Value Reference Range Interpretation Comments UA Color (test code = Light Yellow UA Color) *NA*(05/07/19 11:32 AM) [facility] AND [id number] 17:32:00 Test Item Value Reference Range Interpretation Comments UA Turbidity (test code Slight *ABN*(05/07/19 = UA Turbidity) 11:32 AM) [facility] AND [id number] 17:32:00 Test Item Value Reference Range Interpretation Comments UA Spec Grav (test code = UA Spec 1.011 1 Grav) [facility] AND [id number] 17:32:00 Test Item Value Reference Range Interpretation Comments UA pH (test code = UA pH) 8.0 1 5.0-8.0 [facility] AND [id number] 17:32:00 Test Item Value Reference Range Interpretation Comments UA Protein (test code Negative (05/07/19 11:32 = UA Protein) AM) [facility] AND [id number] 17:32:00 Test Item Value Reference Range Interpretation Comments UA Glucose (test code Negative *NA*(05/07/19 = UA Glucose) 11:32 AM) [facility] AND [id number] 17:32:00 Test Item Value Reference Range Interpretation Comments UA Ketones (test code Negative *NA*(05/07/19 = UA Ketones) 11:32 AM) [facility] AND [id number] 17:32:00 Test Item Value Reference Range Interpretation Comments UA Bili (test code = Negative *NA*(05/07/19 UA Bili) 11:32 AM) [facility] AND [id number] 17:32:00 Test Item Value Reference Range Interpretation Comments UA Blood (test code = Negative (05/07/19 11:32 UA Blood) AM) [facility] AND [id number] 17:32:00 Test Item Value Reference Range Interpretation Comments UA Urobilinogen (test code = UA 2.0 0.1-1.0 Urobilinogen) [facility] [id number] 17:32:00 Test Item Value Reference Range Interpretation Comments UA Nitrite (test code Negative (05/07/19 11:32 = UA Nitrite) AM) [facility] [id number] 17:32:00 Test Item Value Reference Range Interpretation Comments UA Leuk Est (test Negative (05/07/19 11:32 code = UA Leuk Est) AM) [facility] AND [id number] 17:32:00 Test Item Value Reference Range Interpretation Comments UA Sq Epi (test code = UA Sq Occasional /LPF Epi) [facility] AND [id number] 17:32:00 Test Item Value Reference Range Interpretation Comments UA WBC (test None Seen See_Comment [Automated mes gianni] code = UA WBC) (05/07/19 11:32 The system which AM) generated this result transmitted ref erence range: <=5. The reference range was not used to int erpret this result as normal/abnormal . [facility] [id number] 17:32:00 Test Item Value Reference Range Interpretation Comments UA RBC (test None Seen See_Comment [Automated mes gianni] code = UA RBC) (05/07/19 11:32 The system which AM) generated this result transmitted ref erence range: <=2. The reference range was not used to int erpret this result as normal/abnormal . [facility] [id number] 17:32:00 Test Item Value Reference Range Interpretation Comments UA Bacteria (test code = None Seen (05/07/19 UA Bacteria) 11:32 AM) [facility] AND [id number] 17:32:00 Test Item Value Reference Range Interpretation Comments UA Mucus (test code = UA Mucus) Few /LPF [facility] AND [id number] 17:32:00 Test Item Value Reference Range Interpretation Comments UA Color (test code = Light Yellow UA Color) *NA*(05/07/19 11:32 AM) [facility] AND [id number] 17:32:00 Test Item Value Reference Range Interpretation Comments UA Turbidity (test code Slight *ABN*(05/07/19 = UA Turbidity) 11:32 AM) [facility] AND [id number] 17:32:00 Test Item Value Reference Range Interpretation Comments UA Spec Grav (test code = UA Spec 1.011 1 Grav) [facility] AND [id number] 17:32:00 Test Item Value Reference Range Interpretation Comments UA pH (test code = UA pH) 8.0 1 5.0-8.0 [facility] AND [id number] 17:32:00 Test Item Value Reference Range Interpretation Comments UA Protein (test code Negative (05/07/19 11:32 = UA Protein) AM) [facility] AND [id number] 17:32:00 Test Item Value Reference Range Interpretation Comments UA Glucose (test code Negative *NA*(05/07/19 = UA Glucose) 11:32 AM) [facility] AND [id number] 17:32:00 Test Item Value Reference Range Interpretation Comments UA Ketones (test code Negative *NA*(05/07/19 = UA Ketones) 11:32 AM) [facility] AND [id number] 17:32:00 Test Item Value Reference Range Interpretation Comments UA Bili (test code = Negative *NA*(05/07/19 UA Bili) 11:32 AM) [facility] AND [id number] 17:32:00 Test Item Value Reference Range Interpretation Comments UA Blood (test code = Negative (05/07/19 11:32 UA Blood) AM) [facility] AND [id number] 17:32:00 Test Item Value Reference Range Interpretation Comments UA Urobilinogen (test code = UA 2.0 0.1-1.0 Urobilinogen) [facility] AND [id number] 17:32:00 Test Item Value Reference Range Interpretation Comments UA Nitrite (test code Negative (05/07/19 11:32 = UA Nitrite) AM) [facility] AND [id number] 17:32:00 Test Item Value Reference Range Interpretation Comments UA Leuk Est (test Negative (05/07/19 11:32 code = UA Leuk Est) AM) [facility] AND [id number] 17:32:00 Test Item Value Reference Range Interpretation Comments UA Sq Epi (test code = UA Sq Occasional /LPF Epi) [facility] [id number] 17:32:00 Test Item Value Reference Range Interpretation Comments UA WBC (test None Seen See_Comment [Automated mes gianni] code = UA WBC) (05/07/19 11:32 The system which AM) generated this result transmitted ref erence range: <=5. The reference range was not used to int erpret this result as normal/abnormal . [facility] AND [id number] 17:32:00 Test Item Value Reference Range Interpretation Comments UA RBC (test None Seen See_Comment [Automated mes gianni] code = UA RBC) (05/07/19 11:32 The system which AM) generated this result transmitted ref erence range: <=2. The reference range was not used to int erpret this result as normal/abnormal . [facility] AND [id number] 17:32:00 Test Item Value Reference Range Interpretation Comments UA Bacteria (test code = None Seen (05/07/19 UA Bacteria) 11:32 AM) [facility] [id number] 17:32:00 Test Item Value Reference Range Interpretation Comments UA Mucus (test code = UA Mucus) Few /LPF [facility] [id number] 17:32:00 Test Item Value Reference Range Interpretation Comments UA Color (test code = Light Yellow UA Color) *NA*(05/07/19 11:32 AM) [facility] [id number] 17:32:00 Test Item Value Reference Range Interpretation Comments UA Turbidity (test code Slight *ABN*(05/07/19 = UA Turbidity) 11:32 AM) [facility] [facility] AND [id number] 17:32:00 Test Item Value Reference Range Interpretation Comments UA Spec Grav (test code = UA Spec 1.011 1 Grav) [facility] [id number] 17:32:00 Test Item Value Reference Range Interpretation Comments UA pH (test code = UA pH) 8.0 1 5.0-8.0 [facility] [id number] 17:32:00 Test Item Value Reference Range Interpretation Comments UA Protein (test code Negative (05/07/19 11:32 = UA Protein) AM) [facility] AND [id number] 17:32:00 Test Item Value Reference Range Interpretation Comments UA Glucose (test code Negative *NA*(05/07/19 = UA Glucose) 11:32 AM) [facility] AND [id number] 17:32:00 Test Item Value Reference Range Interpretation Comments UA Ketones (test code Negative *NA*(05/07/19 = UA Ketones) 11:32 AM) [facility] AND [id number] 17:32:00 Test Item Value Reference Range Interpretation Comments UA Bili (test code = Negative *NA*(05/07/19 UA Bili) 11:32 AM) [facility] AND [id number] 17:32:00 Test Item Value Reference Range Interpretation Comments UA Blood (test code = Negative (05/07/19 11:32 UA Blood) AM) [facility] AND [id number] 17:32:00 Test Item Value Reference Range Interpretation Comments UA Urobilinogen (test code = UA 2.0 0.1-1.0 Urobilinogen) [facility] AND [id number] 17:32:00 Test Item Value Reference Range Interpretation Comments UA Nitrite (test code Negative (05/07/19 11:32 = UA Nitrite) AM) [facility] AND [id number] 17:32:00 Test Item Value Reference Range Interpretation Comments UA Leuk Est (test Negative (05/07/19 11:32 code = UA Leuk Est) AM) [facility] AND [id number] 17:32:00 Test Item Value Reference Range Interpretation Comments UA Sq Epi (test code = UA Sq Occasional /LPF Epi) [facility] AND [id number] 17:32:00 Test Item Value Reference Range Interpretation Comments UA WBC (test None Seen See_Comment [Automated mes gianni] code = UA WBC) (05/07/19 11:32 The system which AM) generated this result transmitted ref erence range: <=5. The reference range was not used to int erpret this result as normal/abnormal . [facility] AND [id number] 17:32:00 Test Item Value Reference Range Interpretation Comments UA RBC (test None Seen See_Comment [Automated mes gianni] code = UA RBC) (05/07/19 11:32 The system which AM) generated this result transmitted ref erence range: <=2. The reference range was not used to int erpret this result as normal/abnormal . [facility] [id number] 17:32:00 Test Item Value Reference Range Interpretation Comments UA Bacteria (test code = None Seen (05/07/19 UA Bacteria) 11:32 AM) [facility] [id number] 17:32:00 Test Item Value Reference Range Interpretation Comments UA Mucus (test code = UA Mucus) Few /LPF [facility] [employer] [id number] 15:06:00 Test Item Value Reference Range Interpretation Comments ABO/Rh (test code = ABO/Rh) B POS [facility] [id number] 15:06:00 Test Item Value Reference Range Interpretation Comments Antibody Scrn (test Negative (05/07/19 9:06 code = Antibody Scrn) AM) [facility] [id number] 15:06:00 Test Item Value Reference Range Interpretation Comments ABO/Rh (test code = ABO/Rh) B POS [facility] [id number] 15:06:00 Test Item Value Reference Range Interpretation Comments Antibody Scrn (test Negative (05/07/19 9:06 code = Antibody Scrn) AM) [facility] [id number] 15:06:00 Test Item Value Reference Range Interpretation Comments ABO/Rh (test code = ABO/Rh) B POS [facility] [id number] 15:06:00 Test Item Value Reference Range Interpretation Comments Antibody Scrn (test Negative (05/07/19 9:06 code = Antibody Scrn) AM) [facility] [employer] [id number] 15:06:00 Test Item Value Reference Range Interpretation Comments ABO/Rh (test code = ABO/Rh) B POS [facility] [employer] [id number] 15:06:00 Test Item Value Reference Range Interpretation Comments Antibody Scrn (test Negative (05/07/19 9:06 code = Antibody Scrn) AM) [facility] [employer] [id number] 14:53:00 Test Item Value Reference Range Interpretation Comments Troponin-I (test code no gt See_Comment [Auto mated message] The = Troponin-I) system which g enerated this result transmit mallika reference range : <=0.40. The reference r scott was not used to interpr et this result as yazan l/abnormal. [id number] 14:53:00 Test Item Value Reference Range Interpretation Comments INR (test code = INR) 0.99 1 0.85-1.17 [facility] H[id number] 14:53:00 Test Item Value Reference Range Interpretation Comments PT (test code = PT) 12.9 s 12.0-14.7 [facility] [id number] 14:53:00 Test Item Value Reference Range Interpretation Comments PTT (test code = PTT) 32.2 s 22.9-35.8 [facility] H[id number] 14:53:00 Test Item Value Reference Range Interpretation Comments ACT (TEG) Rapid (test code = ACT (TEG) 113 s 86-118 Rapid) [facility] H[id number] 14:53:00 Test Item Value Reference Range Interpretation Comments Split Point Rapid (test code = Split 0.6 min Point Rapid) [facility] H[id number] 14:53:00 Test Item Value Reference Range Interpretation Comments R-time Rapid (test code = R-time 0.7 min 0.4-0.7 Rapid) [facility] H[id number] 14:53:00 Test Item Value Reference Range Interpretation Comments K-time Rapid (test code = K-time 0.8 min 0.6-2.3 Rapid) [facility] Hospit[id number] 14:53:00 Test Item Value Reference Range Interpretation Comments Angle Rapid (test code = Angle 80 degrees 64-80 Rapid) [facility] H[id number] 14:53:00 Test Item Value Reference Range Interpretation Comments Max Amplitude Rapid (test code = Max 71 mm 52-71 Amplitude Rapid) [facility] Hos[id number] 14:53:00 Test Item Value Reference Range Interpretation Comments G-value Rapid (test code = G-value 11.9 5.0-11.6 Rapid) [facility] HospitalGohcnkeVRLXHOAJFG3811-63-00 14:53:00 Test Item Value Reference Range Interpretation Comments Estimated % Lysis Rapid 1.1 See_Comment [Au tomated message] The (test code = Estimated syste m which generated % Lysis Rapid) this result t ransmitted reference range : <=7.5. The reference r scott was not used to int erpret this result as normal/abnormal . [facility]2019-12-03 14:53:00 Test Item Value Reference Range Interpretation Comments Troponin-I (test code no gt See_Comment [Auto mated message] The = Troponin-I) system which g enerated this result transmit mallika reference range : <=0.40. The reference r scott was not used to interpr et this result as yazan l/abnormal. [facility] H[id number] 14:53:00 Test Item Value Reference Range Interpretation Comments INR (test code = INR) 0.99 1 0.85-1.17 [facility] H[id number] 14:53:00 Test Item Value Reference Range Interpretation Comments PT (test code = PT) 12.9 s 12.0-14.7 [facility] H[id number] 14:53:00 Test Item Value Reference Range Interpretation Comments PTT (test code = PTT) 32.2 s 22.9-35.8 [facility] Hos[id number] 14:53:00 Test Item Value Reference Range Interpretation Comments ACT (TEG) Rapid (test code = ACT (TEG) 113 s 86-118 Rapid) [facility] Hos[id number] 14:53:00 Test Item Value Reference Range Interpretation Comments Split Point Rapid (test code = Split 0.6 min Point Rapid) [facility] HospitalHcupydlFADSQJCVPE6957-72-30 14:53:00 Test Item Value Reference Range Interpretation Comments R-time Rapid (test code = R-time 0.7 min 0.4-0.7 Rapid) [facility] H[id number] 14:53:00 Test Item Value Reference Range Interpretation Comments K-time Rapid (test code = K-time 0.8 min 0.6-2.3 Rapid) [facility] HospitalFttbsnuSMDWTWLQRI6574-17-04 14:53:00 Test Item Value Reference Range Interpretation Comments Angle Rapid (test code = Angle 80 degrees 64-80 Rapid) [facility] HospitalTechnjoKWEZTIIEVU8053-07-13 14:53:00 Test Item Value Reference Range Interpretation Comments Max Amplitude Rapid (test code = Max 71 mm 52-71 Amplitude Rapid) [facility] H[id number] 14:53:00 Test Item Value Reference Range Interpretation Comments G-value Rapid (test code = G-value 11.9 5.0-11.6 Rapid) [facility] HospitalNepnkeaBGWYRVJRAY0872-58-72 14:53:00 Test Item Value Reference Range Interpretation Comments Estimated % Lysis Rapid 1.1 See_Comment [Au tomated message] The (test code = Estimated syste m which generated % Lysis Rapid) this result t ransmitted reference range : <=7.5. The reference r scott was not used to int erpret this result as normal/abnormal . [facility] [id number] 14:53:00 Test Item Value Reference Range Interpretation Comments Troponin-I (test code no gt See_Comment [Auto mated message] The = Troponin-I) system which g enerated this result transmit mallika reference range : <=0.40. The reference r scott was not used to interpr et this result as yazan l/abnormal. [facility] H[id number] 14:53:00 Test Item Value Reference Range Interpretation Comments INR (test code = INR) 0.99 1 0.85-1.17 [facility] HospitalCsfxqowQMETBFQRRI5897-41-81 14:53:00 Test Item Value Reference Range Interpretation Comments PT (test code = PT) 12.9 s 12.0-14.7 [facility] Hos[id number] 14:53:00 Test Item Value Reference Range Interpretation Comments PTT (test code = PTT) 32.2 s 22.9-35.8 [facility] Hospit[id number] 14:53:00 Test Item Value Reference Range Interpretation Comments ACT (TEG) Rapid (test code = ACT (TEG) 113 s 86-118 Rapid) [facility] HospitalOeyvwwmQFERBIEUTL7162-81-01 14:53:00 Test Item Value Reference Range Interpretation Comments Split Point Rapid (test code = Split 0.6 min Point Rapid) [facility] HospitalHktvkzlYAQYEJFOEQ2265-94-88 14:53:00 Test Item Value Reference Range Interpretation Comments R-time Rapid (test code = R-time 0.7 min 0.4-0.7 Rapid) [facility] HospitalIdkdpwiIKVQTHWJGA5904-12-13 14:53:00 Test Item Value Reference Range Interpretation Comments K-time Rapid (test code = K-time 0.8 min 0.6-2.3 Rapid) [facility] HospitalUaolwkvTCLLVTEJYM2961-79-01 14:53:00 Test Item Value Reference Range Interpretation Comments Angle Rapid (test code = Angle 80 degrees 64-80 Rapid) [facility] HospitalEysxcbqLASJZHPHPU7019-60-15 14:53:00 Test Item Value Reference Range Interpretation Comments Max Amplitude Rapid (test code = Max 71 mm 52-71 Amplitude Rapid) [facility] HospitalWsyawttHQQHGKWQJQ0803-69-24 14:53:00 Test Item Value Reference Range Interpretation Comments G-value Rapid (test code = G-value 11.9 5.0-11.6 Rapid) [facility] HospitalSimutbmYEIATVGGGI2433-69-20 14:53:00 Test Item Value Reference Range Interpretation Comments Estimated % Lysis Rapid 1.1 See_Comment [Au tomated message] The (test code = Estimated syste m which generated % Lysis Rapid) this result t ransmitted reference range : <=7.5. The reference r scott was not used to int erpret this result as normal/abnormal . [facility] [id number] 14:53:00 Test Item Value Reference Range Interpretation Comments Troponin-I (test code no gt See_Comment [Auto mated message] The = Troponin-I) system which g enerated this result transmit mallika reference range : <=0.40. The reference r scott was not used to interpr et this result as yazan l/abnormal. [facility] HospitalUtjmgrkOUZVRAWKRS2899-76-24 14:53:00 Test Item Value Reference Range Interpretation Comments INR (test code = INR) 0.99 1 0.85-1.17 [facility] HospitalJvwaipeDPTQYTPJHA0636-87-21 14:53:00 Test Item Value Reference Range Interpretation Comments PT (test code = PT) 12.9 s 12.0-14.7 [facility] HospitalGrjvkcfNTQNMNUISO8584-31-70 14:53:00 Test Item Value Reference Range Interpretation Comments PTT (test code = PTT) 32.2 s 22.9-35.8 [facility] HospitalEqgcxyiURXRDMJQUC6766-42-84 14:53:00 Test Item Value Reference Range Interpretation Comments ACT (TEG) Rapid (test code = ACT (TEG) 113 s 86-118 Rapid) [facility] HospitalVefayseDUVEHDDENR3088-62-05 14:53:00 Test Item Value Reference Range Interpretation Comments Split Point Rapid (test code = Split 0.6 min Point Rapid) [facility] HospitalLtwklchMPACFCSQGN4585-02-17 14:53:00 Test Item Value Reference Range Interpretation Comments R-time Rapid (test code = R-time 0.7 min 0.4-0.7 Rapid) [facility] HospitalCkmudssYVYNZYAYYY6261-88-05 14:53:00 Test Item Value Reference Range Interpretation Comments K-time Rapid (test code = K-time 0.8 min 0.6-2.3 Rapid) [facility] HospitalLzmvqvbGDHWKDRLWN0312-06-27 14:53:00 Test Item Value Reference Range Interpretation Comments Angle Rapid (test code = Angle 80 degrees 64-80 Rapid) [facility] HospitalRvdlxwdHBKXJLVRFS1692-96-64 14:53:00 Test Item Value Reference Range Interpretation Comments Max Amplitude Rapid (test code = Max 71 mm 52-71 Amplitude Rapid) [facility] HospitalHzfxltfHVWEXRDLBD3964-37-24 14:53:00 Test Item Value Reference Range Interpretation Comments G-value Rapid (test code = G-value 11.9 5.0-11.6 Rapid) [facility] HospitalYduprskKIGVSWHTBA1554-76-83 14:53:00 Test Item Value Reference Range Interpretation Comments Estimated % Lysis Rapid 1.1 See_Comment [Au tomated message] The (test code = Estimated syste m which generated % Lysis Rapid) this result t ransmitted reference range : <=7.5. The reference r scott was not used to int erpret this result as normal/abnormal . [facility]
--- NOTE | 2022-06-28 22:35 | RAD REPORT ---
EXAM DESCRIPTION: CT - Ct Stroke Brain Wo Cont - 06/28/2022 10:21 pm CLINICAL HISTORY: Slurred speech COMPARISON: 2019 TECHNIQUE: Computed axial tomography of the head was obtained. All CT scans are performed using dose optimization technique as appropriate and may include automated exposure control or mA/KV adjustment according to patient size. FINDINGS Right ventriculostomy tube enters the right lateral ventricle. The ventricles are small. 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 The right subdural effusion has resolved. Fluid within the sinuses/ mastoids is not seen. IMPRESSION: No acute intracranial abnormality is seen. If patient's symptoms persist MRI of the bra in would be recommended. Dr Jimenez of the emergency room was notified at 10:26 p.m. June 28, 2022
--- NOTE | 2022-06-28 22:36 | RAD REPORT ---
EXAM DESCRIPTION: Marcel Single View06/28/2022 10:30 pm CLINICAL HISTORY: Slurred speech COMPARISON: 2018 FINDINGS: The lungs appear clear of acute infiltrate. The heart is normal size. 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
[2022-06-28 23:07] LABS: Hematocrit 39.2 % (39.6-49.0); MCV 93.9 fL (80-100); MPV 9.2 fL (7.6-11.3); RBC Red Blood Cell Count 4.18 M/uL (4.33-5.43)
[2022-06-28 23:10] LABS: Protime INR 1.04
[2022-06-28 23:19] LABS: SARS-CoV-2 Antigen Rapid Res Negative (Negative)
[2022-06-28 23:22] LABS: Potassium 3.7 mmol/L (3.5-5.1)
--- NOTE | 2022-06-28 23:31 | ER ---
[facility] Name: Patti Verdugo Age: 72 yrs Sex: Male : 1950 Arrival Date: 06/28/2022 Time: 22:01 Bed 5 Private MD: Diagnosis: Cerebral infarction, unspecified;Facial weakness;Slurred speech Presentation: 06/28 22:00 Chief complaint: Spouse and/or significant other states: Around 9am I noticed that his jb4 smile seemed crooked and his speech seemed slurred. 22:00 Coronavirus screen: At this time, the client does not indicate any symptoms associated jb4 with coronavirus-19. Ebola Screen: No symptoms or risks identified at this time. No acute neurological deficit is noted. Pre-hospital glucose is not applicable to this patient. Initial Sepsis Screen: Does the patient meet any 2 criteria? No. Patient's initial sepsis screen is negative. Does the patient have a suspected source of infection? No. Patient's initial sepsis screen is negative. Risk Assessment: Do you want to hurt yourself or someone else? Patient reports no desire to harm self or others. Onset of symptoms was June 28, 2022 at 09:00. Transition of care: patient was not received from another setting of care. 22:00 Method Of Arrival: Wheelchair jb4 22:00 Acuity: JOSE 3 jb4 Triage Assessment: 22:00 The onset of the patients symptoms was June 28, 2022 at 09:00. General: Appears in jb4 no apparent distress. comfortable, Behavior is calm, cooperative, appropriate for age. Pain: Denies pain. Neuro: Level of Consciousness is awake, alert, obeys commands, Oriented to person, place, time, situation, Moves all extremities. Full function Gait is steady, Speech is slurred, Facial symmetry appears normal. Historical: - Allergies: 22:00 NKDA; jb4 - PMHx: 22:00 Arthritis; CVA; Hypertension; jb4 - Immunization history:: Adult Immunizations unknown. - Social history:: Smoking status: Patient denies any tobacco usage or history of. - Family history:: not pertinent. - Hospitalizations: : No recent hospitalization is reported. Screenin:00 [facility] ED Fall Risk Assessment (Adult) History of falling in the last 3 months, jb4 including since admission No falls in past 3 months (0 pts) Confusion or Disorientation No (0 pts). Abuse screen: Denies threats or abuse. Nutritional screening: No deficits noted. Tuberculosis screening: No symptoms or risk factors identified. Assessment: 22:00 VAN Scoring: Arm Drift: Patients demonstrates NO arm weakness. Patient is VAN Negative. jb4 TNKase (Tenecteplase) Screening: Contraindications: Patient reports onset of signs and symptoms of stroke greater than 6 hours ago: Yes. General: Appears in no apparent distress. comfortable, Behavior is calm, cooperative, appropriate for age. Pain: Denies pain. Neuro: Level of Consciousness is awake, alert, obeys commands, Oriented to person, place, time, situation, Moves all extremities. Full function Gait is steady, Speech is slurred, Facial symmetry appears normal, Pupils are PERRLA. Cardiovascular: Patient's skin is warm and dry. Respiratory: Airway is patent Respiratory effort is even, unlabored, Respiratory pattern is regular, symmetrical. GI: No signs and/or symptoms were reported involving the gastrointestinal system. : No signs and/or symptoms were reported regarding the genitourinary system. EENT: No signs and/or symptoms were reported regarding the EENT system. Derm: Skin is intact, Skin is pink, warm \T\ dry. Musculoskeletal: Circulation, motion, and sensation intact. Range of motion: intact in all extremities. 22:00 The patient has not been NPO before screening. The patient is alert, and able to follow jb4 commands. The patient exhibits slurred or garbled speech. Provider notified of the indication for Speech Therapy consult. The patient is not exhibiting difficulty speaking. The patient does not exhibit difficulty understanding words. The patient is able to swallow own secretions with no drooling or need for suction. The patient failed the bedside swallow screening. The patient will be kept NPO until cleared by Speech Therapy or Physician. Provider notified of bedside swallow screening results: Willie Jimenez MD. 23:42 Patient tolerated one teaspoon of water. No drooling, immediate coughing, gurgling, or jb4 clearing of the throat was noted. The patient tolerated 90mL of water. No drooling, immediate coughing, gurgling, or clearing of the throat was noted. The patient passed the bedside swallow screening. Oral medications may be given as ordered. Contact Physician for further diet orders. Provider notified of bedside swallow screening results: Willie Jimenez MD. Reassessment: Instructed to do PO challenge, provider notified of results. 06/29 01:00 Reassessment: Patient appears in no apparent distress at this time. Patient and/or jb4 family updated on plan of care and expected duration. Pain level reassessed. Patient is alert, oriented x 3, equal unlabored respirations, skin warm/dry/pink. Vital Signs: 06/28 22:00 BP 158 / 86; Pulse 68; Resp 16; Temp 98.5; Pulse Ox 100% on R/A; Weight 88.45 kg (R); jb4 Height 6 ft. 1 in. (185.42 cm); Pain 0/10; 23:30 BP 145 / 83; Pulse 64; Resp 19; Pulse Ox 100% on R/A; kd3 06/29 01:00 BP 147 / 85; Pulse 66; Resp 16; Pulse Ox 100% on R/A; jb4 06/28 22:00 Body Mass Index 25.73 (88.45 kg, 185.42 cm) jb4 NIH Stroke Scale Scores: 06/28 22:00 NIHSS Score: 1 [facility] ED Course: 22:00 Arm band placed on right wrist. jb4 22:00 Patient has correct armband on for positive identification. Placed in gown. Bed in low jb4 position. Call light in reach. Side rails up X 1. Client placed on continuous cardiac and pulse oximetry monitoring. NIBP monitoring applied. quality assurance monitor final on. 22:01 Patient arrived in ED. ja2 22:03 Willie Jimenez MD is Attending Physician. rn 22:23 CT Stroke Brain w/o Contrast In Process Unspecified. EDMS 22:23 Grace Dawn, RN is Primary Nurse. kd3 22:32 Stroke CXR 1 View In Process Unspecified. EDMS 22:40 Initial lab(s) drawn, by me, sent to lab. Inserted saline lock: 18 gauge in right jb4 forearm, using aseptic technique. Blood collected. 23:04 Triage completed. jb4 23:06 Ptt, Activated Sent. jb4 23:06 Protime (+inr) Sent. jb4 23:06 High Sensitivity Troponin Sent. jb4 23:06 CBC with Diff Sent. jb4 23:06 Basic Metabolic Panel Sent. jb4 23:06 Urine Microscopic Only Sent. jb4 23:06 SARS RAPID Sent. jb4 23:06 Blood Culture Adult (2) Sent. jb4 23:06 Lactate w/ 2H reflex if indic. Sent. jb4 23:30 Lainey Eubanks MD is Hospitalizing Provider. rn 23:47 Urine Culture Sent. kd3 06/29 00:[address] In Process Unspecified. EDMS 00:[address] In Process Unspecified. EDMS 01:27 No provider procedures requiring assistance completed. Patient admitted, IV remains in jb4 place. Administered Medications: 06/28 23:46 Drug: NS 0.9% 500 ml Route: IV; Rate: bolus; Site: right forearm; kd3 23:46 Drug: foLIC Acid 1 mg Route: IVPB; Site: right forearm; kd3 23:46 Follow up: IV Status: Completed infusion kd3 23:46 Not Given (Other Intervention Used): Aspirin 325 mg PO once jb4 23:46 Drug: Aspirin Chewable Tablet 324 mg Route: PO; jb4 Point of Care Testing: Blood Glucose: 22:00 Blood Glucose: 135 mg/dL; jb4 Ranges: Outcome: 23:31 Decision to Hospitalize by Provider. rn 06/29 01:27 Admitted to Med/surg accompanied by tech, via wheelchair, room 216, with chart, Report jb4 called to [facility] Condition: stable Discharge instructions given to patient, Instructed on the need for admit, Demonstrated understanding of instructions. 01:27 Patient left the ED. jb4 NIH Stroke Scale - NIH Stroke Score Date: 06/28/2022 Time: 22:00 Total Score = 1 1a. Level of Consciousness (LOC) - 0(Alert) 1b. Level of Consciousness (LOC) (Month \T\ Age) - 0(Both) 1c. LOC Commands (Open \T\ Closes Eyes/Mannequin Molder) - 0(Both) 2. Best Gaze (Lateral Gaze Paresis) - 0(Normal) 3. Visual Field Loss - 0(No visual loss) 4. Facial Palsy - 0(Normal) 5a. Left Arm: Motor (10-second hold) - 0(No drift) 5b. Right Arm: Motor (10-second hold) - 0(No drift) 6a. Left Leg: Motor (5-second hold - always test supine) - 0(No drift) 6b. Right Leg: Motor (5-second hold - always test supine) - 0(No drift) 7. Limb Ataxia (finger/nose \T\ heel/buitrago - test with eyes open) - 0(Absent) 8. Sensory Loss (pinprick arms/legs/face) - 0(Normal) 9. Best Language: Aphasia (description/naming/reading) - 0(No aphasia) 10. Dysarthria (speech clarity - read or repeat words) - 1(Mild to Moderate) 11. Extinction and Inattention (visual/tactile/auditory/spatial/personal) - 0(No abnormality) Initials: jb4 Signatures: Dispatcher [employer] EDMS Willie Jimenez MD MD rn Bryson, James RN RN jb4 Kendra Ross Kyli RN RN kd3 Corrections: (The following items were deleted from the chart) 06/28 23:46 23:42 Aspirin 325 mg PO jb4 jb4
--- NOTE | 2022-06-28 23:31 | EDPHYS ---
Physician Documentation [facility] Name: Patti Verdugo Age: 72 yrs Sex: Male : 1950 Arrival Date: 06/28/2022 Time: 22:01 Bed 5 Private MD: ED Physician Willie Jimenez HPI: 06/28 22:17 This 72 yrs old Black Male presents to ER via Unassigned with complaints of S/S of rn Possible Stroke. 22:17 The patient's problem is reported as altered mental status, a facial droop, slurred rn speech. Onset: The symptoms/episode began/occurred this morning. Duration: The episodes are intermittent. The symptoms are alleviated by nothing. The symptoms are aggravated by nothing. Associated signs and symptoms: Pertinent negatives: abdominal pain, chest pain, headache, seizure, shortness of breath. Severity of symptoms: At their worst the symptoms were mild in the emergency department the symptoms are unchanged. The patient has experienced similar episodes in the past. The patient has not recently seen a physician. Family brought patient for AMS and noticed right facial droop and slurred speech, noticed this morning, seems to get a little better throughout the day, but has not resolved. 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 No head injury. No chest pain/abd pain/vomiting/illness/cough. . 22:17 Family member also noticed "blood pressure lower than normal today". . rn Historical: - Allergies: 22:00 NKDA; jb4 - PMHx: 22:00 Arthritis; CVA; Hypertension; jb4 - Immunization history:: Adult Immunizations unknown. - Social history:: Smoking status: Patient denies any tobacco usage or history of. - Family history:: not pertinent. - Hospitalizations: : No recent hospitalization is reported. ROS: 22:17 Constitutional: Negative for fever, chills, and weight loss, Eyes: Negative for injury, rn pain, redness, and discharge, Neck: Negative for injury, pain, and swelling, Cardiovascular: Negative for chest pain, palpitations, and edema, Respiratory: Negative for shortness of breath, cough, wheezing, and pleuritic chest pain, Abdomen/GI: Negative for abdominal pain, nausea, vomiting, diarrhea, and constipation, Back: Negative for injury and pain, MS/Extremity: Negative for injury and deformity, Skin: Negative for injury, rash, and discoloration, Neuro: Negative for headache, numbness, tingling, and seizure. Exam: 22:17 Constitutional: This is a well developed, well nourished patient who is awake, alert, rn and in no acute distress. Head/Face: Normocephalic, atraumatic. Eyes: Periorbital areas with no swelling, redness, or edema. Cardiovascular: Regular rate and rhythm. No pulse deficits. Respiratory: No increased work of breathing, no retractions or nasal flaring. Abdomen/GI: Soft, non-tender Skin: Warm, dry MS/ Extremity: Pulses equal, no cyanosis. Neurovascular intact. Full, normal range of motion. Equal circumference. Neuro: Awake and alert, GCS 15, oriented to person, place, time, and situation. Slight right lower facial droop. + slurred speech. Motor strength 4/5 in all extremities without drift. Sensory grossly intact. 23:27 ECG was reviewed by the Attending Physician. rn Vital Signs: 22:00 BP 158 / 86; Pulse 68; Resp 16; Temp 98.5; Pulse Ox 100% on R/A; Weight 88.45 kg (R); jb4 Height 6 ft. 1 in. (185.42 cm); Pain 0/10; 23:30 BP 145 / 83; Pulse 64; Resp 19; Pulse Ox 100% on R/A; kd3 06/29 01:00 BP 147 / 85; Pulse 66; Resp 16; Pulse Ox 100% on R/A; jb4 06/28 22:00 Body Mass Index 25.73 (88.45 kg, 185.42 cm) jb4 NIH Stroke Scale Scores: 06/28 22:00 NIHSS Score: 1 jb4 MDM: 22:03 Patient medically screened. rn 22:26 Discussion of test interpretation with radiology: I had a discussion with telemetry rn regarding a test interpretation. Discussed CT head results with Dr. Mckenzie, neg for acute abnormality. . ED course: Pt with onset of AMS/facial weakness/slurred speech this AM, no acute findings on CT head, will get CTA, but patient outside of TNKase window per onset. . 23:29 Differential diagnosis: CVA, TIA, metabolic disorder. Data reviewed: vital signs, rn nurses notes, lab test result(s), radiologic studies, CT scan, plain films, and as a result, I will admit patient. Counseling: I had a detailed discussion with the patient and/or guardian regarding: the historical points, exam findings, and any diagnostic results supporting the discharge/admit diagnosis, lab results, radiology results, the need for further work-up and treatment in the hospital. Response to treatment: the patient's symptoms have mildly improved after treatment, and as a result, I will admit patient. 06/28 22:14 Order name: Basic Metabolic Panel; Complete Time: : rn 06/28 22:14 Order name: CBC with Diff; Complete Time: rn 06/28 22:14 Order name: High Sensitivity Troponin; Complete Time: rn 06/28 22:14 Order name: Protime (+inr); Complete Time: : rn 06/28 22:14 Order name: Ptt, Activated; Complete Time: rn 06/28 22:14 Order name: SARS RAPID; Complete Time: : rn 06/28 22:14 Order name: CT Stroke Brain w/o Contrast; Complete Time: : rn 06/28 22:14 Order name: Stroke CXR 1 View; Complete Time: 23: rn 06/28 22:14 Order name: Urine Culture rn 06/28 22:14 Order name: Urine Microscopic Only; Complete Time: 00: rn 06/28 22:14 Order name: Blood Culture Adult (2) rn 06/28 22:14 Order name: Lactate w/ 2H reflex if indic.; Complete Time: : rn 06/28 22:45 Order name: Glucose, Ancillary Testing; Complete Time: 23: EDTX 06/28 23:47 Order name: Urine Dipstick-Ancillary; Complete Time: 00: EDTX 06/28 22:14 Order name: EKG; Complete Time: 22:15 rn 06/28 22:14 Order name: Accucheck; Complete Time: : rn 06/28 22:14 Order name: Cardiac monitoring; Complete Time: : rn 06/28 22:14 Order name: EKG - Nurse/Tech; Complete Time: 23: rn 06/28 22:14 Order name: IV Saline Lock; Complete Time: : rn 06/28 22:14 Order name: Labs collected and sent; Complete Time: :06/28 22:14 Order name: NPO; Complete Time: 23: rn 06/28 22:14 Order name: O2 Per Protocol; Complete Time: 23:32 rn 06/28 22:14 Order name: O2 Sat Monitoring; Complete Time: 23:32 rn 06/28 22:14 Order name: Stroke Swallow Screen; Complete Time: 23:32 rn 06/28 22:28 Order name: Head Angio CT rn 06/28 22:29 Order name: Neck Angio CT rn 06/28 22:14 Order name: Urine Dipstick-Ancillary (obtain specimen); Complete Time: 23:47 rn EC: Rate is 66 beats/min. Rhythm is regular. QRS [place] is Normal. TN interval is normal. QRS rn interval is normal. QT interval is normal. No Q waves. T waves are Normal. No ST changes noted. Clinical impression: NSR w/ Non-specific ST/T Changes. Interpreted by me. Reviewed by me. Administered Medications: 23:46 Drug: NS 0.9% 500 ml Route: IV; Rate: bolus; Site: right forearm; kd3 23:46 Drug: foLIC Acid 1 mg Route: IVPB; Site: right forearm; kd3 23:46 Follow up: IV Status: Completed infusion kd3 23:46 Not Given (Other Intervention Used): Aspirin 325 mg PO once jb4 23:46 Drug: Aspirin Chewable Tablet 324 mg Route: PO; jb4 Point of Care Testing: Blood Glucose: 22:00 Blood Glucose: 135 mg/dL; jb4 Ranges: Critical Glucose Levels:Adult <50 mg/dl or >400 mg/dl <40 mg/dl or >180 mg/dl Disposition Summary: 06/28/22 23:31 Hospitalization Ordered Hospitalization Status: Observation rn Provider: Lainey Eubanks [facility] Condition: Stable rn Problem: new rn Symptoms: are unchanged rn Bed/Room Type: Standard rn Room Assignment: 216(06/29/22 00:54) cg Diagnosis - Cerebral infarction, unspecified rn - Facial weakness rn - Slurred speech rn Forms: - Medication Reconciliation Form rn - SBAR form rn NIH Stroke Scale - NIH Stroke Score Date: 06/28/2022 Time: 22:00 Total Score = 1 1a. Level of Consciousness (LOC) - 0(Alert) 1b. Level of Consciousness (LOC) (Month \\T\\ Age) - 0(Both) 1c. LOC Commands (Open \\T\\ Closes Eyes/Pr Internship) - 0(Both) 2. Best Gaze (Lateral Gaze Paresis) - 0(Normal) 3. Visual Field Loss - 0(No visual loss) 4. Facial Palsy - 0(Normal) 5a. Left Arm: Motor (10-second hold) - 0(No drift) 5b. Right Arm: Motor (10-second hold) - 0(No drift) 6a. Left Leg: Motor (5-second hold - always test supine) - 0(No drift) 6b. Right Leg: Motor (5-second hold - always test supine) - 0(No drift) 7. Limb Ataxia (finger/nose \\T\\ heel/buitrago - test with eyes open) - 0(Absent) 8. Sensory Loss (pinprick arms/legs/face) - 0(Normal) 9. Best Language: Aphasia (description/naming/reading) - 0(No aphasia) 10. Dysarthria (speech clarity - read or repeat words) - 1(Mild to Moderate) 11. Extinction and Inattention (visual/tactile/auditory/spatial/personal) - 0(No abnormality) Initials: jb4 Signatures: Dispatcher [employer] EDMS Willie Jimenez MD MD rn Garcia, Cindy RN Rodrigo Briseno RN RN jbGrace Winslow RN RN kd3 Magda Zacarias, PARyanne PARyanne sb4 Corrections: (The following items were deleted from the chart) 06/29 00:54 06/28 23:31 farrah holland
[2022-06-28] MEDS ORDERED: ASPIRIN 81 MG CHEWABLE TABLET ONE (23:36)
[2022-06-28] MEDS ORDERED: NA CHLORIDE 0.9% 500 ML ONE (23:36)
[2022-06-28] MEDS ORDERED: FOLIC ACID 5 MG/ML VIAL ONE (23:37)
[2022-06-28 23:47] LABS: Urine Blood Negative (Negative); Urine Glucose Negative (Negative); Urine Protein Negative (Negative)
[2022-06-29 00:02] LABS: Urine Bacteria None Seen /HPF (<20); Urine Mucus Slight /HPF (None Seen); Urine RBC None Seen /HPF (None Seen)
--- NOTE | 2022-06-29 00:46 | P.HP ---
Certification for Inpatient Patient admitted to: Inpatient With expected LOS: >2 Midnights Patient will require the following post-hospital care: None Practitioner: I am a practitioner with admitting privileges, knowledge of patient current condition, hospital course, and medical plan of care. Services: Services provided to patient in accordance with Admission requirements found in Title 42 Section 412.3 of the Code of Federal Regulations Patient History Date of Service: 06/29/22 Reason for admission: CVA R/O History of Present Illness: Patient is a 72 year old male with past medical history of hypertension, cerebral AV malformation, hemorrhagic CVA, and MANAGER REGISTRATION shunt who presented to the emergency department with slurred speech and facial droop. Patient's states she noticed the symptoms this morning and decided to bring him in for evaluation when they did not improve. She also reports that his blood pressure has been lower than usual. NIHSS 1. Brain CT and head/neck CTA are negative for acute findings. He received aspirin and folic acid. He is out of the window for TNK. Patient's states the symptoms have improved. Patient is still experiencing some slurred speech but he can appropriately swallow. states that his only residual deficit from previous CVA is ataxia, so he ambulates with a cane. His labs are unremarkable. Vital signs have been stable. Patient is admitted for further management. Allergies No Known Drug Allergies Allergy (Verified 04/21/19 14:10) Unknown Home medications list reviewed: Yes Home Medications: Acetaminophen 650 mg PO Q6HP PRN 04/13/19 Amlodipine [Norvasc*] 10 mg PO DAILY 04/13/19 Hydralazine [Apresoline*] 25 mg PO Q8H 04/13/19 Sennosides/Docusate Sodium [Senna Plus 8.6-50 mg Tablet] 1 tab PO Q12H 04/13/19 carvediloL [Coreg*] 6.25 mg PO Q12H 04/13/19 Aspirin [Aspirin EC 81 MG] 81 mg PO DAILY #30 tablet. 05/01/19 - Past Medical/Surgical History Diabetic: No -: Hypertension -: Arthritis -: Arteriovenous malformation of cerebral vessels -: Asthma -: Diplopia -: Dysphagia -: CVAs -: Subdural Hemorrhage -: back surgery -: bilateral totator cuff surgery -: appendectomy -: MANAGER REGISTRATION shunt Psychosocial/ Personal History: Patient is . - Family History Mother -: Heart disease, Hypertension - Social History Smoking Status: Never smoker Alcohol use: No CD- Drugs: No Caffeine use: Yes Place of Residence: Home Review of Systems 10-point ROS is otherwise unremarkable Neurological: Change in Speech Physical Examination - Vital Signs Temperature: 98.5 F Blood Pressure: 145/83 Pulse: 64 Respirations: 19 Pulse Ox (%): 100 - Physical Exam General: Alert, In no apparent distress HEENT: Atraumatic, PERRLA, EOMI, Sclerae nonicteric Neck: Supple, 2+ carotid pulse no bruit, No LAD, Without JVD or thyroid abnormality Respiratory: Clear to auscultation bilaterally, Normal air movement Cardiovascular: Regular rate/rhythm, Normal S1 S2 Gastrointestinal: Normal bowel sounds, No tenderness Musculoskeletal: No tenderness Integumentary: No rashes Neurological: Normal strength at 5/5 x4 extr, Sensation intact, Normal affect, Abnormal speech - Studies Laboratory Data (last 24 hrs) 06/28/22 22:40: PT 11.4, INR 1.04, APTT 32.5 06/28/22 22:40: WBC 6.90, Hgb 13.2 L, Hct 39.2 L, Plt Count 211 06/28/22 22:40: Sodium 141, Potassium 3.7, BUN 22 H, Creatinine 1.03, Glucose 133 H Assessment and Plan - Problems (Diagnosis) (1) Acute CVA (cerebrovascular accident) Current Visit: Yes Status: Acute (2) Hypertension Current Visit: Yes Status: Chronic Qualifiers: Hypertension type: primary hypertension Qualified Code(s): I10 - Essential (primary) hypertension (3) Cerebral AV malformation Current Visit: Yes Status: Chronic - Plan Patient is admitted for management of CVA rule out. MRI stroke protocol and echo ordered for the morning. Physical therapy and speech therapy consult. Patient still experiencing slurred speech but swallowing appropriately. Frequent NIHSS and neurologic checks. Neurology consult. Aspirin, atorvastatin, and folic acid daily. Check lipid and thyroid panel. Monitor and replete electrolytes per protocol. Reconcile and continue home medications. Lovenox for VTE prophylaxis. Full code. Discharge Plan: Home Plan to discharge in: Greater than 2 days - Advance Directives Does patient have a Living Will: No Does patient have a Durable POA for Healthcare: No - Code Status/Comfort Care Code Status Assessed: Yes Code Status: Full Code Physician Review: Patient Assessed, Agree with Above Assessment and Plan Critical Care: No Time Spent Managing Pts Care (In Minutes): 50
[2022-06-29] MEDS ORDERED: ONDANSETRON 4 MG/2 ML VIAL IV PRN (01:33)
[2022-06-29] MEDS ORDERED: NA CHLORIDE 0.9% 1,000 ML IV SCH (01:33)
[2022-06-29 02:12] VITALS: O2SAT 98
[2022-06-29 02:24] VITALS: BMI 25.0
[2022-06-29] MEDS ORDERED: POTASSIUM 25 MEQ EFFERV TAB PO ONE (06:12)
[2022-06-29] MEDS ORDERED: FOLIC ACID 1 MG TABLET PO SCH (09:00)
[2022-06-29] MEDS ORDERED: ENOXAPARIN 40 MG/0.4 ML SQ SCH (09:00)
[2022-06-29] MEDS ORDERED: ASPIRIN EC 81 MG TAB PO SCH (09:00)
--- NOTE | 2022-06-29 13:01 | RAD REPORT ---
EXAM DESCRIPTION: MRI - Brain W/Wo Cont - 06/29/2022 12:52 pm CLINICAL HISTORY: facial droop, wknss Headache, drowsiness, CVA symptomology COMPARISON: MRA Head Wo Cont dated 06/29/2022; Brain Wo Cont dated 01/18/2018; Ct Stroke Brain Wo Cont dated 06/28/2022 TECHNIQUE: Multi-sequence, multiplanar MR imaging of the brain was performed with contrast. FINDINGS: There is significant blooming artifact right frontal region which prevents assessment in t his region.This may be related to the ventriculostomy tube. Elsewhere there is mild chronic microvasc ular ischemic changes seen in the periventricular and deep white matter.. Large cavernoma again noted in the [place], stable. The visualized portions of the brain bladder adequately evaluated on DWI show n o acute CVA finding.. Mastoid air cells and paranasal sinuses are clear. Post-contrast images show no abnormal enhancement to suggest additional tumor or infection. Again rig ht frontal region not well visualized. IMPRESSION: The examination is limited by significant blooming artifact right frontal lobe region. W ithin this limitation, no acute CVA is evident. Large pontine cavernoma again noted, unchanged
--- NOTE | 2022-06-29 13:04 | RAD REPORT ---
EXAM DESCRIPTION: MRI - MRA Head Wo Cont - 06/29/2022 12:34 pm CLINICAL HISTORY: facial droop, wknss CVA COMPARISON: Head angio dated 06/28/2022; Neck Angio dated 06/28/2022 FINDINGS: 3D noncontrast [id number] MR angiography of the [place] was performed. No aneurysm, flow-limiting stenosis or vascular malformation is seen. Forward flow seen in codominant vertebral arteries. The visualized dural venous sinuses appear patent. IMPRESSION: No significant flow abnormality of the [place] is identified.
--- NOTE | 2022-06-29 13:05 | RAD REPORT ---
EXAM DESCRIPTION: MRI - MRA Neck W/Wo Cont - 06/29/2022 12:53 pm CLINICAL HISTORY: facial droop, wknss Headache, neck pain, drowsiness COMPARISON: No comparisons FINDINGS: Contrast enhance 2D [id number] MR angiography of the neck vessels was performed. A left aortic arch is noted. No significant stenosis seen in either subclavian artery or common carot id artery. No significant stenosis seen either internal carotid artery. Antegrade flow seen in both vertebral arteries. IMPRESSION: No significant carotid stenosis identified.
--- NOTE | 2022-06-29 14:04 | RAD REPORT ---
EXAM DESCRIPTION: CT - Head angio - 06/29/2022 6:37 am ADDENDUM #1 ADDENDUM: THIS REPORT CONTAINS FINDINGS THAT MAY BE CRITICAL TO PATIENT'S CARE: The findings were verbally discussed via telephone conference with Willie Jimenez by Dr. Hannah on 06/06 12:37 AM WHITE WASHER PILER. The results were acknowledged and understood. Electronically signed by: Marcos Hannah DO 06/29/2022 12:37 AM WHITE WASHER PILER End of Addendum EXAM DESCRIPTION: CT Angiography Head and Neck With Intravenous Contrast CLINICAL HISTORY: The patient is 72 years old and is Male; slurred speech/facial droop TECHNIQUE: [place]/head and neck CT angiography protocol performed with intravenous contras t. This CT exam was performed using one or more of the following dose reduction techniques: autom ated exposure control, adjustment of the mA and/or kV according to patient size, and/or use of iterat kostas reconstruction technique. MIP reconstructed images were created and reviewed. DLP: 422 mGy*cm COMPARISON: CT head without contrast of the same day. FINDINGS: HEAD: RIGHT ANTERIOR CEREBRAL ARTERY: Unremarkable. No significant stenosis at the visualized segments . Anterior communicating artery is present. No aneurysm. RIGHT MIDDLE CEREBRAL ARTERY: Unremarkable. No significant stenosis at the visualized segments. No aneurysm. RIGHT POSTERIOR CEREBRAL ARTERY: Unremarkable. No occlusion or significant stenosis. No aneury sm. RIGHT INTRACRANIAL INTERNAL CAROTID ARTERY: Unremarkable. No significant stenosis. No dissecti on or occlusion. RIGHT INTRACRANIAL VERTEBRAL ARTERY: Unremarkable. No significant stenosis. No dissection or o cclusion. LEFT ANTERIOR CEREBRAL ARTERY: Unremarkable. No significant stenosis at the visualized segments. No aneurysm. LEFT MIDDLE CEREBRAL ARTERY: Unremarkable. No significant stenosis at the visualized segments. No aneurysm. LEFT POSTERIOR CEREBRAL ARTERY: Unremarkable. No occlusion or significant stenosis. No aneurys m. LEFT INTRACRANIAL INTERNAL CAROTID ARTERY: Unremarkable. No significant stenosis. No dissectio n or occlusion. LEFT INTRACRANIAL VERTEBRAL ARTERY: Unremarkable. No significant stenosis. No dissection or oc clusion. BASILAR ARTERY: Unremarkable. No significant stenosis. No aneurysm. OTHER VASCULATURE: No vascular malformation. BRAIN AND EXTRA-AXIAL SPACES: Cerebral volume loss and chronic small vessel ischemic changes. NECK: RIGHT COMMON CAROTID ARTERY: Unremarkable. No significant stenosis. No dissection or occlusion . RIGHT EXTRACRANIAL INTERNAL CAROTID ARTERY: Unremarkable. No significant stenosis. No dissecti on or occlusion. RIGHT EXTERNAL CAROTID ARTERY: Unremarkable. No occlusion. RIGHT EXTRACRANIAL VERTEBRAL ARTERY: Unremarkable. No significant stenosis. No dissection or o cclusion. LEFT COMMON CAROTID ARTERY: Unremarkable. No significant stenosis. No dissection or occlusion. LEFT EXTRACRANIAL INTERNAL CAROTID ARTERY: Unremarkable. No significant stenosis. No dissectio n or occlusion. LEFT EXTERNAL CAROTID ARTERY: Unremarkable. No occlusion. LEFT EXTRACRANIAL VERTEBRAL ARTERY: Unremarkable. No significant stenosis. No dissection or oc clusion. LUNG APICES: Visualized lung zones are clear. HEAD and NECK: BONES/JOINTS: Multilevel degenerative changes of the cervical spine. Nondominant right vertebral body. No discrete lytic or blastic abnormalities. SOFT TISSUES: Unremarkable. TUBES, LINES AND DEVICES: COOL ROOFING INSTALLER shunt with right frontal approach. No hydrocephalus. CAROTID STENOSIS REFERENCE USING NASCET CRITERIA: % ICA stenosis = (1 - narrowest ICA diameter/diameter of distal cervical ICA) x 100. Mild - <50% stenosis. Moderate - 50-69% stenosis. Severe - 70-94% stenosis. Near occlusion - 95-99% stenosis. Occluded - 100% stenosis. IMPRESSION: 1. No intracranial large vessel occlusion. No cervical flow-limiting stenosis. 2. Cerebral volume loss and chronic small vessel ischemic changes. Consider MRI brain for further evaluation. 3. COOL ROOFING INSTALLER shunt with right frontal approach. No hydrocephalus. Electronically signed by: Marcos Hannah DO 06/29/2022 12:32 AM WHITE WASHER PILER Due to temporary technical issues with the PACS/Fluency reporting system, reports are being signed by the in house radiologists without review as a courtesy to insure prompt reporting. The interpreting radiologist is fully responsible for the content of the report.
--- NOTE | 2022-06-29 14:08 | RAD REPORT ---
EXAM DESCRIPTION: CT - Neck Angio - 06/29/2022 6:39 am ADDENDUM #1 ADDENDUM: THIS REPORT CONTAINS FINDINGS THAT MAY BE CRITICAL TO PATIENT'S CARE: The findings were verbally discussed via telephone conference with Willei Jimenez by Dr. Hannah on 06/06 12:37 AM PATIENT ASSISTANT. The results were acknowledged and understood. Electronically signed by: Marcos Hannah DO 06/29/2022 12:37 AM PATIENT ASSISTANT End of Addendum EXAM DESCRIPTION: CT Angiography Head and Neck With Intravenous Contrast CLINICAL HISTORY: The patient is 72 years old and is Male; slurred speech/facial droop TECHNIQUE: [place]/head and neck CT angiography protocol performed with intravenous contras t. This CT exam was performed using one or more of the following dose reduction techniques: autom ated exposure control, adjustment of the mA and/or kV according to patient size, and/or use of iterat kostas reconstruction technique. MIP reconstructed images were created and reviewed. DLP: 422 mGy*cm COMPARISON: CT head without contrast of the same day. FINDINGS: HEAD: RIGHT ANTERIOR CEREBRAL ARTERY: Unremarkable. No significant stenosis at the visualized segments . Anterior communicating artery is present. No aneurysm. RIGHT MIDDLE CEREBRAL ARTERY: Unremarkable. No significant stenosis at the visualized segments. No aneurysm. RIGHT POSTERIOR CEREBRAL ARTERY: Unremarkable. No occlusion or significant stenosis. No aneury sm. RIGHT INTRACRANIAL INTERNAL CAROTID ARTERY: Unremarkable. No significant stenosis. No dissecti on or occlusion. RIGHT INTRACRANIAL VERTEBRAL ARTERY: Unremarkable. No significant stenosis. No dissection or o cclusion. LEFT ANTERIOR CEREBRAL ARTERY: Unremarkable. No significant stenosis at the visualized segments. No aneurysm. LEFT MIDDLE CEREBRAL ARTERY: Unremarkable. No significant stenosis at the visualized segments. No aneurysm. LEFT POSTERIOR CEREBRAL ARTERY: Unremarkable. No occlusion or significant stenosis. No aneurys m. LEFT INTRACRANIAL INTERNAL CAROTID ARTERY: Unremarkable. No significant stenosis. No dissectio n or occlusion. LEFT INTRACRANIAL VERTEBRAL ARTERY: Unremarkable. No significant stenosis. No dissection or oc clusion. BASILAR ARTERY: Unremarkable. No significant stenosis. No aneurysm. OTHER VASCULATURE: No vascular malformation. BRAIN AND EXTRA-AXIAL SPACES: Cerebral volume loss and chronic small vessel ischemic changes. NECK: RIGHT COMMON CAROTID ARTERY: Unremarkable. No significant stenosis. No dissection or occlusion . RIGHT EXTRACRANIAL INTERNAL CAROTID ARTERY: Unremarkable. No significant stenosis. No dissecti on or occlusion. RIGHT EXTERNAL CAROTID ARTERY: Unremarkable. No occlusion. RIGHT EXTRACRANIAL VERTEBRAL ARTERY: Unremarkable. No significant stenosis. No dissection or o cclusion. LEFT COMMON CAROTID ARTERY: Unremarkable. No significant stenosis. No dissection or occlusion. LEFT EXTRACRANIAL INTERNAL CAROTID ARTERY: Unremarkable. No significant stenosis. No dissectio n or occlusion. LEFT EXTERNAL CAROTID ARTERY: Unremarkable. No occlusion. LEFT EXTRACRANIAL VERTEBRAL ARTERY: Unremarkable. No significant stenosis. No dissection or oc clusion. LUNG APICES: Visualized lung zones are clear. HEAD and NECK: BONES/JOINTS: Multilevel degenerative changes of the cervical spine. Nondominant right vertebral body. No discrete lytic or blastic abnormalities. SOFT TISSUES: Unremarkable. TUBES, LINES AND DEVICES: PORCELAIN ENAMELING SUPERVISOR shunt with right frontal approach. No hydrocephalus. CAROTID STENOSIS REFERENCE USING NASCET CRITERIA: % ICA stenosis = (1 - narrowest ICA diameter/diameter of distal cervical ICA) x 100. Mild - <50% stenosis. Moderate - 50-69% stenosis. Severe - 70-94% stenosis. Near occlusion - 95-99% stenosis. Occluded - 100% stenosis. IMPRESSION: 1. No intracranial large vessel occlusion. No cervical flow-limiting stenosis. 2. Cerebral volume loss and chronic small vessel ischemic changes. Consider MRI brain for further evaluation. 3. PORCELAIN ENAMELING SUPERVISOR shunt with right frontal approach. No hydrocephalus. Electronically signed by: Marcos Hannah DO 06/29/2022 12:32 AM PATIENT ASSISTANT Due to temporary technical issues with the PACS/Fluency reporting system, reports are being signed by the in house radiologists without review as a courtesy to insure prompt reporting. The interpreting radiologist is fully responsible for the content of the report.
[2022-06-29 17:13] VITALS: BP 134/82; TEMP 98.2
[2022-06-29] MEDS ORDERED: ATORVASTATIN 20 MG TAB PO SCH (21:00)
--- NOTE | 2022-06-30 14:39 | ECHO ---
HEIGHT: 6 ft 1 in WEIGHT: 190 lb 0 oz DATE OF STUDY: 06/29/[address]: Magda Zacarias 2-DIMENSIONAL: YES M.MODE: YES DOPPLER: YES COLOR FLOW: YES TDS: NO PORTABLE: YES DEFINITY: NO BUBBLE STUDY: NO DIAGNOSIS: STROKE CARDIAC HISTORY: CATHERIZATION: NO SURGERY: NO PROSTHETIC VALVE: NO PACEMAKER: NO MEASUREMENTS (cm) DIASTOLIC (NORMALS) SYSTOLIC (NORMALS) IVSd 1.3 (0.6-1.2) LA Diam 2.6 (1.9-4.0) LVEF 63% LVIDd 3.3 (3.5-5.7) LVIDs 2.2 (2.0-3.5) %FS 33% LVPWd 1.3 (0.6-1.2) Ao Diam 2.9 (2.0-3.7) 2 DIMENSIONAL ASSESSMENT: RIGHT ATRIUM: NORMAL LEFT ATRIUM: NORMAL RIGHT VENTRICLE: NORMAL LEFT VENTRICLE: NORMAL TRICUSPID VALVE: MILD TR MITRAL VALVE: MILD MR PULMONIC VALVE: NORMAL AORTIC VALVE: NORMAL PERICARDIAL EFFUSION: NONE AORTIC ROOT: NORMAL LEFT VENTRICULAR WALL MOTION: NORMAL DOPPLER/COLOR FLOW: SEE BELOW. COMMENTS: 1. NORMAL LEFT VENTRICULAR EJECTION FRACTION 60-65%. 2. NORMAL WALL MOTION. 3. MILD TRICUSPID REGURGITATION. 4. MILD MITRAL REGURGITATION. TECHNOLOGIST: Abel CARLSON
--- NOTE | 2022-07-01 13:24 | EKG ---
Test Date: 2022-06-28 Test Time: 22:56:41 Shed Boss: BRIAN MEASUREMENT RESULTS: Intervals: Rate: 66 OR: 156 QRSD: 74 QT: 382 QTc: 400 [place]: P: 52 OR: 156 QRS: -9 T: -5 INTERPRETIVE STATEMENTS: Normal sinus rhythm Minimal voltage criteria for LVH, may be normal variant Borderline ECG Compared to ECG 01/18/2018 12:49:42 Left ventricular hypertrophy now present Sinus bradycardia no longer present T-wave abnormality no longer present Electronically Signed On 07-01-22 13:18:38 LOAN BROKER by Félix Alaniz
== END 2022-06-29 17:30 | disposition home or self-care (01) | DRG 64 ==
LOC: ER 21:59 → ERHOLD 06-29 00:38 → 2ND 06-29 01:19
PROVIDERS: ADMIT Hospitalist; ATTEND Hospitalist
DX: I63.9 Cerebral infarction, unspecified (principal); Q28.2 Arteriovenous malformation of cerebral vessels; I10 Essential (primary) hypertension; I69.393 Ataxia following cerebral infarction; R47.81 Slurred speech; R41.82 Altered mental status, unspecified; R29.810 Facial weakness; R29.701 NIHSS score 1; Z79.82 Long term (current) use of aspirin; Z90.49 Acquired absence of other specified parts of digestive tract; Z79.899 Other long term (current) drug therapy; Z20.822 Contact with and (suspected) exposure to COVID-19
CPT/HCPCS: 36415; 70450; 70496; 70498; 70544; 70549; 70553; 71045; 80048; 81003; 81015; 82947; 83605; 84484; 85025; 85610; 85730; 87040; 87086; 87088; 87811; 92523; 93005; 93306; 94760; 96374; 97116; 97161; 97165; 99285; A9577; J1650; J7030; J7040; Q9967